=== PATIENT | female | born 1940 | race Caucasian/White ===

== ENCOUNTER 2018-05-18 17:32 | Emergency (ER) | payer MEDICARE, SELFPAY ==
[2018-05-18 17:34] VITALS: BP 192/85; PULSE 88; RESP 18; TEMP 36.4; O2SAT 98; BMI 24.5
[2018-05-18 18:17] LABS: Bacteria 0 SEEN /hpf (None Seen); Mucous, Urine 0 SEEN /hpf (<or=2+); Red Blood Cells-Urine 0 SEEN /hpf (0-5); Squamous Epithelial Cells - UA 0 SEEN /hpf (5-10); White Blood Cells 0 SEEN /hpf (0-5)
[2018-05-18 18:20] LABS: Color, Urine Yellow (Yellow); Glucose, Dipstick Normal (Normal); Ketone-Dipstick Negative (Negative); Leukocyte Esterase-Dipstick Negative /ul (Negative); Nitrite-Dipstick Negative (Negative); Occult Blood-Urine 25 /ul (Negative); Protein-Dipstick Negative (Negative); Urine Bilirubin Dipstick Negative (Negative); Urine Clarity Clear (Clear); Urine Urobilinogen Normal (Normal)
--- NOTE | 2018-05-18 19:03 | ED.VISSUMM ---
- ER Visit Summary Date of Service: 05/18/18 Chief Complaint: Prolapsed bladder, frequency History of Present Illness: The patient is a 78 F who states she has had problems with urinary retention for the past several months. She states if she waits it out she usually be able to go and empty her bladder, but today she has not been able to do so. She is having increasing lower abdominal pain. Patient states she does not see a urologist. Physical Examination: Blood pressure on arrival is 192/85, other vitals normal. Head neck examination unremarkable. Heart is regular rate and rhythm. Lung sounds are clear. Abdomen is soft with suprapubic tenderness and a palpable distended bladder. Test Results: Urinalysis is unremarkable. Emergency Department Course and Treatment: I assisted with reduction of the mild bladder prolapse. Berger catheter was then able to be placed by nursing staff without difficulty. 800 cc of light yellow urine is immediately returned. Test results are discussed with patient and family. Berger catheter will be left in place with a leg bag. She is referred to Dr. Steel for follow-up. Blood pressure at discharge is 153/63. Treatment Plan: [] Disposition: Discharge Impression: Urinary retention secondary to bladder prolapse This note was generated with [employer] dictation software. It may contain incorrect words, spelling, and punctuation that were not noted in review of the chart prior to signing ED Disposition - Plan for ED Patient: Disposition: Home or Assisted Living Chief Complaint: Complaint Instructions: Cystocele (Prolapsed Bladder), ED Retention Urinary Female Referrals: Maddison Steel MD [STAFF PHYSICIAN] - As soon as possible Ronald Leach MD [Primary Care Provider] -
--- NOTE | 2018-05-18 19:04 | ED.DEP ---
ED Disposition - Plan for ED Patient: Disposition: Home or Assisted Living Chief Complaint: Complaint Instructions: ED Retention Urinary Female, Cystocele (Prolapsed Bladder) Referrals: Ronald Leach MD [Primary Care Provider] - Maddison Steel MD [STAFF PHYSICIAN] - As soon as possible
[2018-05-18 19:42] VITALS: BP 153/63; PULSE 60; RESP 18; O2SAT 96
--- NOTE | 2018-05-18 19:43 | ED.RN ---
PT AND PT FAMILY GIVEN WRITTEN AND VERBAL INSTRUCTIONS REGUARDING HOME CARE OF CHEEMA AND USE OF LEG BAG. PT AND FAMILY VERBALIZE UNDERSTANDING AND DENY ANY FURTHER QUESTIONS. PT DRESSES SELF AND AMBULATES OUT OF DEPT WITH FAMILY.
== END 2018-05-18 19:45 | disposition home or self-care (01) ==
LOC: ED 19:17
PROVIDERS: Emergency Provider Emergency Medicine; Family Provider Family Medicine; PCP Family Medicine
DX: N81.10 Cystocele, unspecified (principal); R33.9 Retention of urine, unspecified; I10 Essential (primary) hypertension; Z79.82 Long term (current) use of aspirin; Z79.899 Other long term (current) drug therapy
CPT/HCPCS: 51702; 81001; 99283

== ENCOUNTER 2018-05-26 10:16 | Emergency (ER) | payer MEDICARE, SELFPAY ==
[2018-05-26 10:17] VITALS: BP 144/67; PULSE 76; RESP 17; TEMP 36.9; O2SAT 98; BMI 23.3
--- NOTE | 2018-05-26 11:15 | ED.VISSUMM ---
- ER Visit Summary Date of Service: 05/26/18 Chief Complaint: Bloody urine History of Present Illness: 78-year-old female history of hypertension and prolapsed bladder. Presented to the ER within the last week for urinary retention secondary to prolapsed bladder. Berger catheter placed. At that time workup was negative. Now she is having some blood from her urine. Denies fever or other complaints. Physical Examination: Well-appearing older female. No acute distress. Vital signs are stable afebrile. H EENT exam unremarkable. Neck nontender. Lungs clear to auscultation bilaterally. Heart regular rate and rhythm no murmur. Abdomen is soft and nontender. Normal bowel sounds. Nondistended. No peritoneal signs. She is moving all 4 extremities. Calves nontender without edema or cords. Neurologically awake and alert with no focal motor deficits. Patient does have a Berger catheter in. In the leg bag there is some blood. No clots. Test Results: Urinalysis shows urinary tract infection with 50-100 cells, 25-50 red cells and 2+ bacteria and nitrates. A urine culture was sent. Emergency Department Course and Treatment: I went over the test results with the patient and her friend. She will be started on Keflex in the emergency department. A urine culture will be sent. On repeat exam she was doing well at 1225 and will be discharged. Treatment Plan: Keflex 1 pill 4 times a day for 10 days. Urine culture sent and will return in 2 days. Disposition: Discharge Impression: Acute gross hematuria secondary to Berger catheter and acute UTI This note was generated with [employer] dictation software. It may contain incorrect words, spelling, and punctuation that were not noted in review of the chart prior to signing ED Disposition - Plan for ED Patient: Chief Complaint: Complaint Referrals: Ronald Leach MD [Primary Care Provider] -
[2018-05-26 11:47] LABS: Color, Urine Yellow (Yellow); Glucose, Dipstick Normal (Normal); Ketone-Dipstick Negative (Negative); Leukocyte Esterase-Dipstick 500 /ul (Negative); Nitrite-Dipstick Positive (Negative); Occult Blood-Urine 250 /ul (Negative); Protein-Dipstick 100 mg/dl (Negative); Urine Bilirubin Dipstick Negative (Negative); Urine Clarity Cloudy (Clear); Urine Urobilinogen Normal (Normal)
[2018-05-26 12:06] LABS: Bacteria 2+ /hpf (None Seen); Red Blood Cells-Urine 25-50 SEEN /hpf (0-5); Squamous Epithelial Cells - UA 0-5 SEEN /hpf (5-10); White Blood Cells 50-100 SEEN /hpf (0-5)
[2018-05-26 12:07] LABS: Mucous, Urine 2+ /hpf (<or=2+)
[2018-05-26 12:16] VITALS: BP 125/60; PULSE 66; RESP 14; O2SAT 98
--- NOTE | 2018-05-26 12:29 | ED.DEP ---
ED Disposition - Plan for ED Patient: Disposition: Home or Assisted Living Chief Complaint: Complaint Instructions: ED UTI Cystitis Female Prescriptions: Cephalexin [Keflex] 500 mg PO Q6 #40 cap Referrals: Ronald Leach MD [Primary Care Provider] - 3-5 Days if not improving Additional Instructions: Plenty of fluids and rest. Keflex 1 pill 4 times a day for 10 days should take care of any urinary tract infection. A urine culture was sent and we will match up what the infection is with the antibiotic that we started you on.
[2018-05-26 12:35] VITALS: BP 131/58; PULSE 65; RESP 14; O2SAT 99
[2018-05-26] MEDS: Cephalexin 250 MG Capsule 500 MG PO (12:35)
== END 2018-05-26 12:38 | disposition home or self-care (01) ==
PROVIDERS: Emergency Provider Emergency Medicine; Family Provider Family Medicine; PCP Family Medicine
DX: N39.0 Urinary tract infection, site not specified (principal); R31.0 Gross hematuria; Z96.0 Presence of urogenital implants; I10 Essential (primary) hypertension; N81.10 Cystocele, unspecified; Z79.82 Long term (current) use of aspirin; Z79.899 Other long term (current) drug therapy
CPT/HCPCS: 81001; 87086; 87088; 99284

== ENCOUNTER → 2018-06-14 07:32 | Outpatient (CLI) | payer MEDICARE, SELFPAY ==
[2018-06-14 10:31] LABS: Absolute Lymphocyte Count 1.86 X10^3/ul (0.83-4.51); Absolute Neutrophil Count 5.1 X10^3/uL (2.0-7.7); Basophil# 0.05 X10^3/uL; Basophil% 0.6 % (0-1); Eosinophil# 0.31 X10^3/uL; Eosinophils% 3.7 % (0-5); Hematocrit 35.9 % (37-47); Hemoglobin 11.8 g/dl (12.0-15.0); Lymphocyte # 1.86 X10^3/ul (4.0); Lymphocyte % 22.5 % (19-41); Mean Corp Hgb Conc 32.9 g/gl (32-36); Mean Corpuscular Hgb 29.7 pg (27.0-32.0); Mean Corpuscular Volume 90.4 fL (81-99); Mean Platelet Vol. 10.4 fl (6.2-12.0); Monocyte# 0.98 X10^3/uL; Monocyte% 11.9 % (0-10); Neutrophil # 5.06 X10^3/uL (2.7-7.7); Neutrophil % 61.2 % (47-70); Platelet Count 445 K/mm3 (150-450); RBC Distribution Width CV 14.9 % (11.6-14.6); RBC Distribution Width SD 48.7 fl (35.1-43.9); Red Blood Count 3.97 M/mm3 (4.2-5.4); White Blood Count 8.3 K/mm3 (4.4-11.0)
[2018-06-14 10:35] LABS: POSITIVE COUNT NO; POSITIVE DIFFERENTIAL NO; POSITIVE MORPHOLOGY NO
[2018-06-14 10:40] LABS: Anion Gap 7 (5-15); BUN 11 mg/dL (7-18); BUN/Creat Ratio 12.8 RATIO (10-20); Chloride 107 mmol/L (98-107); Creatinine, Serum 0.86 mg/dL (0.55-1.02); EST Glomerular Filtration Rate 68 mL/min (>60); Est Glom Filt Rate - Afr Amer 82 mL/min (>60); Glucose 94 mg/dL (74-106); Potassium 3.8 mmol/L (3.5-5.1); Sodium Level 142 mmol/L (136-145)
== END ==
PROVIDERS: Family Provider Family Medicine; PCP Family Medicine; Referring Provider Family Medicine; Visit Provider Family Medicine
DX: I10 Essential (primary) hypertension (principal)
CPT/HCPCS: 36415; 80048; 85025

== ENCOUNTER → 2019-01-15 | Outpatient (CLI) | payer MEDICARE, SELFPAY ==
[2019-01-15 10:14] LABS: Absolute Lymphocyte Count 1.61 X10^3/ul (0.83-4.51); Absolute Neutrophil Count 4.7 X10^3/uL (2.0-7.7); Basophil# 0.04 X10^3/uL; Basophil% 0.5 % (0-1); Eosinophil# 0.13 X10^3/uL; Eosinophils% 1.8 % (0-5); Hematocrit 37.3 % (37-47); Hemoglobin 12.4 g/dl (12.0-15.0); Lymphocyte # 1.61 X10^3/ul (4.0); Lymphocyte % 21.8 % (19-41); Mean Corp Hgb Conc 33.2 g/gl (32-36); Mean Corpuscular Volume 87.4 fL (81-99); Mean Platelet Vol. 10.1 fl (6.2-12.0); Monocyte# 0.92 X10^3/uL; Monocyte% 12.4 % (0-10); Neutrophil # 4.68 X10^3/uL (2.7-7.7); Neutrophil % 63.2 % (47-70); Platelet Count 422 K/mm3 (150-450); RBC Distribution Width SD 47.7 fl (35.1-43.9); Red Blood Count 4.27 M/mm3 (4.2-5.4); White Blood Count 7.4 K/mm3 (4.4-11.0)
[2019-01-15 10:15] LABS: POSITIVE COUNT NO; POSITIVE DIFFERENTIAL NO; POSITIVE MORPHOLOGY NO
[2019-01-15 10:23] LABS: Anion Gap 5 (5-15); BUN 14 mg/dL (7-18); BUN/Creat Ratio 16.6 RATIO (10-20); Calcium,Total 8.8 mg/dL (8.5-10.1); Chloride 108 mmol/L (98-107); Creatinine, Serum 0.84 mg/dL (0.55-1.02); EST Glomerular Filtration Rate 69 mL/min (>60); Est Glom Filt Rate - Afr Amer 83 mL/min (>60); Glucose 97 mg/dL (74-106); Potassium 3.9 mmol/L (3.5-5.1); Sodium Level 140 mmol/L (136-145)
== END | disposition home or self-care (01) ==
PROVIDERS: Family Provider Family Medicine; PCP Family Medicine; Referring Provider Family Medicine; Visit Provider Family Medicine
DX: I10 Essential (primary) hypertension (principal)
CPT/HCPCS: 36415; 80048; 85025

== ENCOUNTER → 2020-01-14 08:16 | Outpatient (CLI) | payer MEDICARE, SELFPAY ==
[2020-01-14 10:20] LABS: Anion Gap 5 (5-15); BUN 19 mg/dL (7-18); BUN/Creat Ratio 20.6 RATIO (10-20); Calcium,Total 9.4 mg/dL (8.5-10.1); Chloride 111 mmol/L (98-107); Cholesterol 183 mg/dL (200); Creatinine, Serum 0.92 mg/dL (0.55-1.02); EST Glomerular Filtration Rate 62 mL/min (>60); Est Glom Filt Rate - Afr Amer 75 mL/min (>60); Glucose 101 mg/dL (74-106); High Density Lipoprotein 78 mg/dL; Potassium 3.8 mmol/L (3.5-5.1); Sodium Level 142 mmol/L (136-145); Triglycerides 100 mg/dL; Very Low Density Lipoprotein 20 mg/dL (5-40)
== END ==
PROVIDERS: PCP Family Medicine; Referring Provider Family Medicine; Visit Provider Family Medicine
DX: I10 Essential (primary) hypertension (principal)
CPT/HCPCS: 36415; 80048; 80061

== ENCOUNTER → 2020-11-01 08:11 | Outpatient (CLI) | payer MEDICARE, SELFPAY ==
[2020-11-01 10:21] LABS: AST(SGOT) 21 U/L (15-37); Alanine Aminotransfer ALT/SGPT 18 U/L (13-56); Albumin, Serum 3.8 g/dL (3.2-5.0); Alkaline Phosphatase 76 U/L (45-117); Anion Gap 6 (5-15); BUN 19 mg/dL (7-18); BUN/Creat Ratio 19.5 RATIO (10-20); Calcium,Total 9.1 mg/dL (8.5-10.1); Chloride 107 mmol/L (98-107); Cholesterol 204 mg/dL (200); Creatinine, Serum 0.97 mg/dL (0.55-1.02); EST Glomerular Filtration Rate 58 mL/min (>60); Est Glom Filt Rate - Afr Amer 71 mL/min (>60); Globulin 3.7 g/dL (2.2-4.2); Glucose 102 mg/dL (74-106); High Density Lipoprotein 78 mg/dL; Potassium 3.8 mmol/L (3.5-5.1); Protein, Total 7.5 g/dL (6.4-8.2); Sodium Level 140 mmol/L (136-145); Triglycerides 73 mg/dL; Very Low Density Lipoprotein 15 mg/dL (5-40)
== END ==
PROVIDERS: PCP Family Medicine; Referring Provider Family Medicine; Visit Provider Family Medicine
DX: I10 Essential (primary) hypertension (principal)
CPT/HCPCS: 36415; 80053; 80061

== ENCOUNTER → 2021-06-21 09:55 | Outpatient (CLI) | payer MEDICARE, SELFPAY ==
[2021-06-21 12:45] LABS: ALB/GLOB Ratio 0.9 RATIO (0.9-2.4); AST(SGOT) 20 U/L (15-37); Alanine Aminotransfer ALT/SGPT 17 U/L (13-56); Albumin, Serum 3.5 g/dL (3.2-5.0); Alkaline Phosphatase 68 U/L (45-117); BUN 20 mg/dL (7-18); BUN/Creat Ratio 20.9 RATIO (10-20); Calcium,Total 9.4 mg/dL (8.5-10.1); Creatinine, Serum 0.96 mg/dL (0.55-1.02); EST Glomerular Filtration Rate 59 mL/min (>60); Est Glom Filt Rate - Afr Amer 72 mL/min (>60); Glucose 92 mg/dL (74-106); Protein, Total 7.5 g/dL (6.4-8.2); Sodium Level 139 mmol/L (136-145)
[2021-06-21 12:46] LABS: Anion Gap 6 (5-15); Chloride 105 mmol/L (98-107); Potassium 3.8 mmol/L (3.5-5.1)
== END ==
PROVIDERS: PCP Family Medicine; Referring Provider Registered Nurse; Visit Provider Registered Nurse
DX: Z00.00 Encounter for general adult medical examination without abnormal findings (principal)
CPT/HCPCS: 36415; 80053

== ENCOUNTER → 2022-06-07 | Outpatient (CLI) | payer MEDICARE, SELFPAY ==
[2022-06-07 15:04] LABS: Mucous, Urine 0 SEEN /hpf (<or=2+)
[2022-06-07 17:34] LABS: Color, Urine Straw (Yellow); Glucose, Dipstick Normal (Normal); Ketone-Dipstick Negative (Negative); Leukocyte Esterase-Dipstick 25 /ul (Negative); Nitrite-Dipstick Negative (Negative); Occult Blood-Urine 10 /ul (Negative); Protein-Dipstick Negative (Negative); Urine Bilirubin Dipstick Negative (Negative); Urine Clarity Clear (Clear); Urine Urobilinogen Normal (Normal); Urine pH 6.5 (5.0 - 8.0)
[2022-06-07 17:44] LABS: Absolute Lymphocyte Count 1.52 X10^3/uL (0.83-4.51); Absolute Neutrophil Count 5.9 X10^3/uL (2.0-7.7); Basophil# 0.08 X10^3/uL; Basophil% 0.9 % (0-1); Eosinophil# 0.14 X10^3/uL; Eosinophils% 1.6 % (0-5); Hematocrit 34.9 % (37-47); Hemoglobin 11.1 g/dL (12.0-15.0); Lymphocyte # 1.52 X10^3/ul (0.83-4.51); Lymphocyte % 17.6 % (19-41); Mean Corp Hgb Conc 31.8 g/dL (32-36); Mean Corpuscular Hgb 29.1 pg (27.0-32.0); Mean Corpuscular Volume 91.6 fL (81-99); Mean Platelet Vol. 9.9 fl (6.2-12.0); Monocyte# 1.02 X10^3/uL; Monocyte% 11.8 % (0-10); NRBC Flagged by Analyzer 0 % (0-5); Neutrophil # 5.87 X10^3/uL (2.7-7.7); Neutrophil % 67.8 % (47-70); Platelet Count 429 K/mm3 (150-450); RBC Distribution Width CV 14.7 % (11.6-14.6); RBC Distribution Width SD 49.6 fl (35.1-43.9); Red Blood Count 3.81 M/mm3 (4.2-5.4); White Blood Count 8.7 K/mm3 (4.4-11.0)
[2022-06-07 17:45] LABS: Protein, Urine (Random) < 6.0 mg/dL (<11.9); Protein:Creat Ratio 283 mg/g CRE (0-200)
[2022-06-07 17:46] LABS: Bacteria 2+ /hpf (None Seen); Red Blood Cells-Urine 0-5 SEEN /hpf (0-5); Squamous Epithelial Cells - UA 0-5 SEEN /hpf (5-10); White Blood Cells 0-5 SEEN /hpf (0-5)
[2022-06-07 18:13] LABS: Vitamin D,25 Hydroxy 27.7 ng/mL
[2022-06-07 18:22] LABS: PTHIN 85.8 pg/mL (18.4-80.1)
[2022-06-07 18:39] LABS: AST(SGOT) 22 U/L (15-37); Alanine Aminotransfer ALT/SGPT 22 U/L (13-56); Albumin, Serum 3.9 g/dL (3.2-5.0); Alkaline Phosphatase 74 U/L (45-117); Anion Gap 8 (5-15); BUN 19 mg/dL (7-18); BUN/Creat Ratio 19.3 RATIO (10-20); Calcium,Total 9.6 mg/dL (8.5-10.1); Chloride 107 mmol/L (98-107); Creatinine, Serum 0.99 mg/dL (0.55-1.02); EST Glomerular Filtration Rate 57 mL/min (>60); Est Glom Filt Rate - Afr Amer 69 mL/min (>60); Globulin 3.9 g/dL (2.2-4.2); Glucose 96 mg/dL (74-106); Phosphorus 3.4 mg/dL (2.5-4.9); Potassium 3.7 mmol/L (3.5-5.1); Protein, Total 7.8 g/dL (6.4-8.2); Sodium Level 139 mmol/L (136-145); Thyroid Stim Hormone (TSH) 3.25 uIU/mL (0.358-3.74)
[2022-06-08 14:04] LABS: Vitamin B12 416 pg/mL (211-911)
[2022-06-08 14:11] LABS: Ferritin 188 ng/mL (8-252); Iron 51 ug/dL (50-170); Iron Binding Capacity,Total 245 ug/dL (250-450); PERCENT IRON SATURATION 20.8 % (15.0-55.0)
== END | disposition home or self-care (01) ==
LOC: MFPLAB 15:02
PROVIDERS: PCP Family Medicine; Referring Provider Family Medicine; Visit Provider Family Medicine
DX: I12.9 Hypertensive chronic kidney disease with stage 1 through stage 4 chronic kidney disease, or unspecified chronic kidney disease (principal); N18.30 Chronic kidney disease, stage 3 unspecified; D64.9 Anemia, unspecified
CPT/HCPCS: 36415; 80053; 81001; 82306; 82570; 82607; 82728; 83540; 83550; 83970; 84100; 84156; 84443; 85025

== ENCOUNTER → 2023-05-28 | Outpatient (CLI) | payer MEDICARE, SELFPAY ==
[2023-05-28 10:14] LABS: Absolute Neutrophil Count 5.4 X10^3/uL (2.0-7.7); Basophil# 0.09 X10^3/uL; Basophil% 1.1 % (0-1); Eosinophil# 0.23 X10^3/uL; Eosinophils% 2.8 % (0-5); Hematocrit 34.1 % (37-47); Hemoglobin 10.9 g/dL (12.0-15.0); Lymphocyte % 19.3 % (19-41); Mean Corpuscular Hgb 29.1 pg (27.0-32.0); Mean Corpuscular Volume 90.9 fL (81-99); Mean Platelet Vol. 9.8 fl (6.2-12.0); Monocyte# 0.98 X10^3/uL; Monocyte% 11.8 % (0-10); NRBC Flagged by Analyzer 0 % (0-5); Neutrophil # 5.35 X10^3/uL (2.7-7.7); Neutrophil % 64.6 % (47-70); Platelet Count 428 K/mm3 (150-450); RBC Distribution Width CV 14.9 % (11.6-14.6); RBC Distribution Width SD 49.7 fl (35.1-43.9); Red Blood Count 3.75 M/mm3 (4.2-5.4); White Blood Count 8.3 K/mm3 (4.4-11.0)
[2023-05-28 11:25] LABS: AST(SGOT) 23 U/L (15-37); Alanine Aminotransfer ALT/SGPT 18 U/L (13-56); Albumin, Serum 3.9 g/dL (3.2-5.0); Alkaline Phosphatase 73 U/L (45-117); Anion Gap 8 (5-15); BUN 21 mg/dL (7-18); BUN/Creat Ratio 17.5 RATIO (10-20); Calcium,Total 9.6 mg/dL (8.5-10.1); Chloride 106 mmol/L (98-107); EST Glomerular Filtration Rate 46 mL/min (>60); Est Glom Filt Rate - Afr Amer 55 mL/min (>60); Globulin 3.8 g/dL (2.2-4.2); Glucose 97 mg/dL (74-106); Phosphorus 3.3 mg/dL (2.5-4.9); Potassium 3.7 mmol/L (3.5-5.1); Protein, Total 7.7 g/dL (6.4-8.2); Sodium Level 139 mmol/L (136-145)
[2023-05-28 12:02] LABS: Color, Urine Yellow (Yellow); Glucose, Dipstick Normal (Normal); Ketone-Dipstick Negative (Negative); Leukocyte Esterase-Dipstick 500 /ul (Negative); Nitrite-Dipstick Negative (Negative); Occult Blood-Urine 25 /ul (Negative); Protein-Dipstick Negative (Negative); Specific Gravity, Urine 1.015 (1.002-1.030); Urine Bilirubin Dipstick Negative (Negative); Urine Clarity Sl. Cloudy (Clear); Urine Urobilinogen Normal (Normal)
[2023-05-28 12:33] LABS: Protein, Urine (Random) 17.1 mg/dL (<11.9); Protein:Creat Ratio 166 mg/g CRE (0-200)
[2023-05-28 12:39] LABS: Red Blood Cells-Urine 0-5 SEEN /hpf (0-5); Squamous Epithelial Cells - UA 0-5 SEEN /hpf (5-10); White Blood Cells 25-50 SEEN /hpf (0-5)
[2023-05-28 12:40] LABS: Bacteria 1+ /hpf (None Seen)
== END | disposition home or self-care (01) ==
PROVIDERS: PCP Family Medicine; Referring Provider Family Medicine; Visit Provider Family Medicine
DX: R82.81 Pyuria (principal)
CPT/HCPCS: 36415; 80053; 81001; 82570; 83970; 84100; 84156; 85025

== ENCOUNTER → 2023-05-30 | Outpatient (CLI) | payer MEDICARE, SELFPAY | END | disposition home or self-care (01) | PROVIDERS: PCP Family Medicine; Referring Provider Family Medicine; Visit Provider Family Medicine | DX: R82.81 Pyuria (principal) | CPT/HCPCS: 87086; 87088 ==

== ENCOUNTER → 2023-11-12 | Outpatient (CLI) | payer MEDICARE, SELFPAY ==
[2023-11-12 09:24] LABS: Bacteria 0 SEEN /hpf (None Seen); Mucous, Urine 0 SEEN /hpf (<or=2+); Red Blood Cells-Urine 0 SEEN /hpf (0-5)
[2023-11-12 10:38] LABS: Absolute Lymphocyte Count 1.11 X10^3/uL (0.83-4.51); Absolute Neutrophil Count 7.9 X10^3/uL (2.0-7.7); Basophil# 0.12 X10^3/uL; Basophil% 1.2 % (0-1); Eosinophil# 0.22 X10^3/uL; Eosinophils% 2.1 % (0-5); Hemoglobin 10.8 g/dL (12.0-15.0); Lymphocyte # 1.11 X10^3/ul (0.83-4.51); Lymphocyte % 10.7 % (19-41); Mean Corp Hgb Conc 31.8 g/dL (32-36); Mean Corpuscular Hgb 28.6 pg (27.0-32.0); Mean Corpuscular Volume 90.2 fL (81-99); Mean Platelet Vol. 9.8 fl (6.2-12.0); Monocyte% 9.6 % (0-10); NRBC Flagged by Analyzer 0 % (0-5); Neutrophil # 7.89 X10^3/uL (2.7-7.7); Platelet Count 434 K/mm3 (150-450); RBC Distribution Width CV 14.8 % (11.6-14.6); RBC Distribution Width SD 48.9 fl (35.1-43.9); Red Blood Count 3.77 M/mm3 (4.2-5.4); White Blood Count 10.4 K/mm3 (4.4-11.0)
[2023-11-12 10:39] LABS: Color, Urine Yellow (Yellow); Glucose, Dipstick Normal (Normal); Ketone-Dipstick 5 mg/dl (Negative); Leukocyte Esterase-Dipstick 500 /ul (Negative); Nitrite-Dipstick Negative (Negative); Occult Blood-Urine 25 /ul (Negative); Protein-Dipstick 30 mg/dl (Negative); Urine Bilirubin Dipstick Negative (Negative); Urine Clarity Clear (Clear); Urine Urobilinogen Normal (Normal)
[2023-11-12 10:54] LABS: Squamous Epithelial Cells - UA 0-5 SEEN /hpf (5-10); White Blood Cells 5-10 SEEN /hpf (0-5)
[2023-11-12 11:10] LABS: Vitamin B12 560 pg/mL (211-911)
[2023-11-12 11:55] LABS: ALB/GLOB Ratio 1.1 RATIO (0.9-2.4); AST(SGOT) 24 U/L (15-37); Alanine Aminotransfer ALT/SGPT 16 U/L (13-56); Albumin, Serum 3.8 g/dL (3.2-5.0); Alkaline Phosphatase 65 U/L (45-117); Anion Gap 5 (5-15); BUN 24 mg/dL (7-18); Calcium,Total 9.4 mg/dL (8.5-10.1); Chloride 110 mmol/L (98-107); Creatinine, Serum 1.41 mg/dL (0.55-1.02); EST Glomerular Filtration Rate 38 mL/min (>60); Est Glom Filt Rate - Afr Amer 46 mL/min (>60); Ferritin 194 ng/mL (8-252); Globulin 3.6 g/dL (2.2-4.2); Glucose 98 mg/dL (74-106); Iron 75 ug/dL (50-170); Iron Binding Capacity,Total 237 ug/dL (250-450); Protein, Total 7.4 g/dL (6.4-8.2); Sodium Level 140 mmol/L (136-145)
== END | disposition home or self-care (01) ==
PROVIDERS: PCP Family Medicine; Referring Provider Family Medicine; Visit Provider Family Medicine
DX: N18.30 Chronic kidney disease, stage 3 unspecified (principal); D64.9 Anemia, unspecified
CPT/HCPCS: 36415; 80053; 81001; 82607; 82728; 82746; 83540; 83550; 85025

== ENCOUNTER → 2024-04-25 | Outpatient (CLI) | payer MEDICARE, SELFPAY ==
[2024-04-25 12:29] LABS: Mucous, Urine 0 SEEN /hpf (<or=2+)
[2024-04-25 15:19] LABS: Absolute Neutrophil Count 7.8 X10^3/uL (2.0-7.7); Basophil% 0.9 % (0-1); Eosinophil# 0.44 X10^3/uL; Hematocrit 31.2 % (37-47); Hemoglobin 9.7 g/dL (12.0-15.0); Lymphocyte % 13.7 % (19-41); Mean Corp Hgb Conc 31.1 g/dL (32-36); Mean Corpuscular Hgb 28.4 pg (27.0-32.0); Mean Corpuscular Volume 91.2 fL (81-99); Mean Platelet Vol. 10.4 fl (6.2-12.0); Monocyte# 1.05 X10^3/uL; Monocyte% 9.6 % (0-10); NRBC Flagged by Analyzer 0 % (0-5); Neutrophil # 7.84 X10^3/uL (2.7-7.7); Neutrophil % 71.4 % (47-70); Platelet Count 470 K/mm3 (150-450); RBC Distribution Width SD 49.7 fl (35.1-43.9); Red Blood Count 3.42 M/mm3 (4.2-5.4)
[2024-04-25 15:28] LABS: Color, Urine Yellow (Yellow); Glucose, Dipstick Normal (Normal); Ketone-Dipstick Negative (Negative); Leukocyte Esterase-Dipstick 100 /ul (Negative); Nitrite-Dipstick Negative (Negative); Occult Blood-Urine 10 /ul (Negative); Protein-Dipstick 15 mg/dl (Negative); Specific Gravity, Urine 1.015 (1.002-1.030); Urine Bilirubin Dipstick Negative (Negative); Urine Clarity Clear (Clear); Urine Urobilinogen Normal (Normal); Urine pH 6.5 (5.0 - 8.0)
[2024-04-25 15:37] LABS: Bacteria 1+ /hpf (None Seen); Red Blood Cells-Urine 0-5 SEEN /hpf (0-5); Squamous Epithelial Cells - UA 0-5 SEEN /hpf (5-10); White Blood Cells 0-5 SEEN /hpf (0-5)
[2024-04-25 15:55] LABS: Protein:Creat Ratio 289 mg/g CRE (0-200)
[2024-04-25 16:04] LABS: Vitamin D,25 Hydroxy 29.5 ng/mL
[2024-04-25 16:05] LABS: PTHIN 91.4 pg/mL (18.4-80.1)
[2024-04-25 16:48] LABS: ALB/GLOB Ratio 0.8 RATIO (0.9-2.4); AST(SGOT) 22 U/L (15-37); Alanine Aminotransfer ALT/SGPT 18 U/L (13-56); Albumin, Serum 3.6 g/dL (3.2-5.0); Alkaline Phosphatase 76 U/L (45-117); Anion Gap 8 (5-15); BUN 25 mg/dL (7-18); BUN/Creat Ratio 20.5 RATIO (10-20); Calcium,Total 9.9 mg/dL (8.5-10.1); Chloride 107 mmol/L (98-107); Cholesterol 166 mg/dL (200); Creatinine, Serum 1.22 mg/dL (0.55-1.02); EST Glomerular Filtration Rate 45 mL/min (>60); Est Glom Filt Rate - Afr Amer 54 mL/min (>60); Ferritin 157 ng/mL (8-252); Globulin 4.7 g/dL (2.2-4.2); Glucose 104 mg/dL (74-106); High Density Lipoprotein 81 mg/dL; Iron 55 ug/dL (50-170); Iron Binding Capacity,Total 229 ug/dL (250-450); Magnesium 2.1 mg/dL (1.6-2.6); Potassium 3.9 mmol/L (3.5-5.1); Protein, Total 8.3 g/dL (6.4-8.2); Sodium Level 139 mmol/L (136-145); Triglycerides 77 mg/dL; Very Low Density Lipoprotein 15 mg/dL (5-40)
== END | disposition home or self-care (01) ==
LOC: MFPLAB 12:25
PROVIDERS: PCP Family Medicine; Visit Provider Family Medicine
DX: D64.9 Anemia, unspecified (principal); N18.30 Chronic kidney disease, stage 3 unspecified; I12.9 Hypertensive chronic kidney disease with stage 1 through stage 4 chronic kidney disease, or unspecified chronic kidney disease
CPT/HCPCS: 36415; 80053; 80061; 81001; 82306; 82570; 82728; 83540; 83550; 83735; 83970; 84156; 84443; 85025

== ENCOUNTER → 2024-12-09 | Outpatient (CLI) | payer MEDICARE, SELFPAY ==
[2024-12-09 15:57] LABS: Absolute Lymphocyte Count 0.97 X10^3/uL (0.83-4.51); Absolute Neutrophil Count 5.5 X10^3/uL (2.0-7.7); Basophil# 0.09 X10^3/uL; Basophil% 1.2 % (0-1); Eosinophil# 0.12 X10^3/uL; Eosinophils% 1.6 % (0-5); Hematocrit 31.9 % (37-47); Hemoglobin 10.3 g/dL (12.0-15.0); Lymphocyte # 0.97 X10^3/ul (0.83-4.51); Mean Corp Hgb Conc 32.3 g/dL (32-36); Mean Corpuscular Hgb 28.9 pg (27.0-32.0); Mean Corpuscular Volume 89.4 fL (81-99); Mean Platelet Vol. 10.2 fl (6.2-12.0); Monocyte% 10.7 % (0-10); NRBC Flagged by Analyzer 0 % (0-5); Neutrophil # 5.49 X10^3/uL (2.7-7.7); Neutrophil % 73.2 % (47-70); Platelet Count 442 K/mm3 (150-450); RBC Distribution Width CV 15.4 % (11.6-14.6); RBC Distribution Width SD 50.5 fl (35.1-43.9); Red Blood Count 3.57 M/mm3 (4.2-5.4); White Blood Count 7.5 K/mm3 (4.4-11.0)
[2024-12-09 16:34] LABS: PTHIN 76 pg/mL (11-61)
[2024-12-09 16:52] LABS: ALB/GLOB Ratio 1.2 RATIO (0.9-2.4); AST(SGOT) 25 U/L (<=31); Alanine Aminotransfer ALT/SGPT 12 U/L (<=34); Albumin, Serum 4.3 g/dL (3.4-4.8); Alkaline Phosphatase 76 U/L (35-104); Anion Gap 13 (5-15); BUN 26 mg/dL (4-19); BUN/Creat Ratio 20.8 RATIO (10-20); Carbon Dioxide 22.3 mmol/L (21.0-32.0); Chloride 102 mmol/L (98-108); Creatinine, Serum 1.27 mg/dL (0.70-1.20); EST Glomerular Filtration Rate 41 (>60); Globulin 3.6 g/dL (2.2-4.2); Glucose 105 mg/dL (70-99); Phosphorus 3.4 mg/dL (2.7-4.5); Potassium 3.9 mmol/L (3.3-5.1); Protein, Total 7.9 g/dL (5.9-8.4); Sodium Level 137 mmol/L (133-145); Total Bilirubin 0.36 mg/dL (0.00-1.30); Vitamin D,25 Hydroxy 23.6 ng/mL (30-100)
[2024-12-11 12:06] LABS: Ferritin 278 ng/mL (22-378); Iron 72 ug/dL (50-170); Iron Binding Capacity,Unsat 161 ug/dL (228-428); Vitamin B12 608 pg/mL (180-914)
[2024-12-11 13:05] LABS: Iron Binding Capacity,Total 233 ug/dL (250-450); PERCENT IRON SATURATION 30.9 % (13-59)
== END | disposition home or self-care (01) ==
LOC: MFPLAB 11:38
PROVIDERS: PCP Family Medicine; Referring Provider Family Medicine; Visit Provider Family Medicine
DX: D64.9 Anemia, unspecified (principal); N18.30 Chronic kidney disease, stage 3 unspecified
CPT/HCPCS: 36415; 80053; 81001; 82043; 82306; 82570; 82607; 82728; 83540; 83550; 83970; 84100; 85025

== ENCOUNTER → 2024-12-22 | Outpatient (CLI) | payer MEDICARE, SELFPAY ==
[2024-12-22 09:20] LABS: Bacteria 0 SEEN /hpf (None Seen); Mucous, Urine 0 SEEN /hpf (<or=2+); Red Blood Cells-Urine 0 SEEN /hpf (0-5)
[2024-12-22 10:33] LABS: Color, Urine Yellow (Yellow); Glucose, Dipstick Normal (Normal); Ketone-Dipstick Negative (Negative); Leukocyte Esterase-Dipstick 500 /ul (Negative); Nitrite-Dipstick Negative (Negative); Occult Blood-Urine 10 /ul (Negative); Protein-Dipstick 15 mg/dl (Negative); Specific Gravity, Urine 1.015 (1.002-1.030); Urine Bilirubin Dipstick Negative (Negative); Urine Clarity Clear (Clear); Urine Urobilinogen Normal (Normal)
[2024-12-22 11:15] LABS: Anion Gap 12 (5-15); BUN 36 mg/dL (4-19); BUN/Creat Ratio 22.8 RATIO (10-20); Calcium,Total 9.7 mg/dL (7.6-11.0); Chloride 102 mmol/L (98-108); Creatinine, Serum 1.59 mg/dL (0.70-1.20); EST Glomerular Filtration Rate 32 (>60); Glucose 114 mg/dL (70-99); Sodium Level 136 mmol/L (133-145)
[2024-12-22 11:33] LABS: White Blood Cells 5-10 SEEN /hpf (0-5)
[2024-12-22 11:35] LABS: Squamous Epithelial Cells - UA 0-5 SEEN /hpf (5-10)
[2024-12-22 11:58] LABS: Protein, Urine (Random) 12.5 mg/dL (0.0-12.0); Protein:Creat Ratio 160 mg/g CRE (0-200)
== END | disposition home or self-care (01) ==
LOC: MFPLAB 09:13
PROVIDERS: PCP Family Medicine; Referring Provider Family Medicine; Visit Provider Family Medicine
DX: N18.30 Chronic kidney disease, stage 3 unspecified (principal)
CPT/HCPCS: 36415; 80048; 81001; 82570; 84156

== ENCOUNTER → 2024-12-23 | Outpatient (CLI) | payer MEDICARE, SELFPAY | END | disposition home or self-care (01) | LOC: LABSPEC 14:05 | PROVIDERS: PCP Family Medicine; Referring Provider Family Medicine; Visit Provider Family Medicine | DX: R82.81 Pyuria (principal) | CPT/HCPCS: 87086; 87088 ==

== ENCOUNTER 2025-04-15 14:30 | Outpatient (RCR) | payer MEDICARE, SELFPAY ==
[2025-04-08 14:16] VITALS: BP 99/58; PULSE 70; RESP 18; TEMP 36.4
--- NOTE | 2025-04-09 08:33 | WC ---
PHOTO-RIGHT LATERAL 04/08/25
--- NOTE | 2025-04-09 08:36 | WC ---
PHOTO-RIGHT MED 04/08/25
--- NOTE | 2025-04-09 08:38 | WC ---
PHOTO-LEFT MED CLUSTER 04/08/25
--- NOTE | 2025-04-09 08:38 | WC ---
PHOTO-L 04/08/25
--- NOTE | 2025-04-09 10:01 | PCM.WC.HP ---
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 Progress of Wound: Patient is a 85-year-old female presenting to the wound care center today for evaluation of full-thickness wounds to the bilateral lower extremity secondary to fleabites. Patient unfortunately had a cat with multiple fleas and dealt with an infestation in her house that has ultimately been treated. Since then the patient has had multiple excoriations as well as full-thickness wounds with eschar to the bilateral lower extremity. Treatment has been with topical triple ointment antibiotic that has been provided by her daughter. Patient was referred to the wound care center for expert evaluation with podiatry from her primary doctor. Overall the patient states things have gotten a little worse and she notices more swelling to the bilateral extremity with pain with long periods of standing. She denies trauma. Denies constitutional symptoms. No other pedal complaints at this time. [facility] Home Medications Medication Instructions Recorded Last Taken Type lisinopril 10 10 - 12.5 mg PO DAILY 03/19/15 Unknown History mg-hydrochlorothiazide 12.5 mg tablet multivitamin with folic acid 400 1 tab PO DAILY 03/19/15 Unknown History mcg tablet (Thera) aspirin 81 mg tablet,delayed 81 mg PO DAILY@0800 05/24/15 05/23/15 08:00 History release cephalexin 500 mg capsule 500 mg PO Q6 #40 caps 05/26/18 Unknown Rx doxycycline hyclate 100 mg tablet 100 mg PO BID 04/08/25 Unknown History furosemide 40 mg tablet 40 mg PO 04/08/25 Unknown History Allergy/AdvReac Type Severity Reaction Status Date / Time No Known Allergies Allergy Verified 05/26/18 10:17 Social History Smoking Status: Never smoker Vital Signs Vital Signs Vital Signs: 04/08/25 14:16 Temperature 97.6 F L Temperature Source Temporal Pulse Rate 70 Respiratory Rate 18 Blood Pressure 99/58 L Blood Pressure Mean 71 Blood Pressure Source Monitor Physical Exam Narrative Vascular: DP and PT pulses palpable. CFT brisk. No erythema or proximal streaking. Skin temperature is warm to warm with no focal increase. Nonpitting edema appreciated to bilateral lower extremity. Neurologic: Light touch and epicritic sensations intact. Protective sensation intact to 10/10 sites with 5.07 Maynard-Gigi monofilament. Dermatologic: Full-thickness wound to the right second digit measuring 1.5 x 1.0 x 0.1 cm. Wound base is granular with no sign of infection. Full-thickness wound to the right leg measuring 9.6 x 5.9 x 0.1 cm. Wound base is fibrogranular in nature with eschar island. Full-thickness wound appreciated to the left leg measuring 7.5 x 10.0 x 0.2 cm. Wound base is fibrogranular nature with island eschar. Multiple excoriations appreciated to bilateral lower extremity. Stable cannot rule out infection at this time. Excisional debridement down to and including subcutaneous tissue to the right lower extremity full-thickness wound with a number 5 mm dermal curette and without incident. Predebridement measurement with eschar. Postdebridement measurement is 9.6 x 5.9 x 0.1 cm. Excisional debridement down to including subcutaneous tissue of the left lower extremity full-thickness wound with a number 5 mm dermal curette done without incident. Predebridement measurement was eschar. Postdebridement measurement is 7.5 x 10.0 x 0.2 cm. Excisional debridement down to including subcutaneous tissue of the right second digit full-thickness wound done with a 5 mm dermal curette without incident. Predebridement measurement was sanguinous crust. Postdebridement measurement is 1.5 x 1.0 x 0.1 cm. Musculoskeletal: Mild palpatory tenderness appreciated the bilateral lower extremity. No pain with calf compression bilateral. Debridement Note Debridement Note Debridement Free Text: Excisional debridement down to and including subcutaneous tissue to the right lower extremity full-thickness wound with a number 5 mm dermal curette and without incident. Predebridement measurement with eschar. Postdebridement measurement is 9.6 x 5.9 x 0.1 cm. Excisional debridement down to including subcutaneous tissue of the left lower extremity full-thickness wound with a number 5 mm dermal curette done without incident. Predebridement measurement was eschar. Postdebridement measurement is 7.5 x 10.0 x 0.2 cm. Excisional debridement down to including subcutaneous tissue of the right second digit full-thickness wound done with a 5 mm dermal curette without incident. Predebridement measurement was sanguinous crust. Postdebridement measurement is 1.5 x 1.0 x 0.1 cm. Post-Debridement Measurements and Additional Note: Post-Debridement Measurements/Treatment - Nurse 1 - General Ulcer Assessment Start: 04/08/25 14:12 Freq: Status: Active Protocol: MADYSON Activity Type Activity Date Activity User E-sign Co-sign Detail Recorded Client Recorded Date Recorded By Document 04/08/25 14:16 DL [id number] 04/08/25 14:44 DL 04/08/25 14:16 - Today's Visit Information Type of service Initial Visit Arrival Mode Ambulatory, Walker Transfer Assistance Manual Transfer Assist (Other) x1 Patient Identification Verified (Name & Yes ) Patient Requires Transmission-Based No Precautions Vital Signs Temperature (97.8 F-99.1 F) 97.6 F L Temperature Source Temporal Pulse Rate (60-100) 70 Pulse Location Monitor Respiratory Rate (12-18) 18 Respiratory rate source Observation Blood Pressure (90/60-120/80) 99/58 L Blood Pressure Mean 71 Source Monitor Pain Scale: 0-10 Numeric Is Patient Pain Free? Yes Lower Extremity Assessment/ Foot Assessment/ Toe Nail Assessment Left -Posterior Tibial Palpable Yes -Posterior Tibial Doppler Monophasic -Dorsalis Pedis Palpable Yes -Dorsalis Pedis Doppler Monophasic -Extremity Color Hemosiderin -Hair Growth on Legs No -Hair Growth on Toes No -Temperature of Extremity Warm -Capillary Refill Greater than 3 Seconds -Dependent Rubor No -Blanched when Elevated No -Lipodermatosclerosis No -Other Deformity No -Prior Foot Ulcer No -Charcot Joint No -Prior Amputation No -Thick Yes -Discolored Yes -Deformed Yes -Improper Length & Hygeine Yes Right -Posterior Tibial Palpable Yes -Posterior Tibial Doppler Monophasic -Dorsalis Pedis Palpable Yes -Dorsalis Pedis Doppler Monophasic -Extremity Color Hemosiderin -Hair Growth on Legs No -Hair Growth on Toes No -Temperature of Extremity Warm -Capillary Refill Greater than 3 Seconds -Dependent Rubor No -Blanched when Elevated No -Lipodermatosclerosis No -Other Deformity No -Prior Foot Ulcer No -Charcot Joint No -Prior Amputation No -Thick Yes -Discolored Yes -Deformed Yes -Improper Length & Hygeine Yes Neuropathy Assessment Feet - Top Side and Bottom <Entered> (a) Communication Assessment Preferred language [place] Able to Read Yes Able to Write Yes Communication Tools None Right Hearing Abillity Normal Left Hearing Abillity Normal Visual Assistive Devices Glasses Teaching Assessment Preferences Verbal,Written Barriers to Learning None Readiness To Learn Fair Willingness to Engage in Self Management Med Activies Readiness to Engage in Self Management Med Activities Anxiety Level Calm Cooperation Cooperative Perception Coherent Interest in Health Problem Asks Questions Education Importance Acknowledges Need Does Patient Smoke tobacco or other No substances Smoking Status Never smoker Is Patient Diabetic No Functional Assessment Recent Decline in Ability to Perform Denies Any Declines Teaching: Wound Center *Welcome to the Wound Center -Person Taught Patient,Family (a) 1 - + WC - Nurse 1 - General Ulcer Measurement Start: 04/08/25 14:12 Freq: Status: Active Protocol: Activity Type Activity Date Activity User E-sign Co-sign Detail Recorded Client Recorded Date Recorded By Document 04/08/25 14:16 DL [id number] 04/08/25 14:44 DL 04/08/25 14:16 Wound Center Nurse 1 #4 L Lat -Current Size (cm) - Length 1.3 -Current Size (cm) - Width 1.3 -Current Size (cm) - Depth 0.1 -Total Square Cm 1.69 -Photo Taken Yes -Exudate Amt Medium -Exudate Type Serosanguineous -Wound Margin Distinct, Outline Attached -Granulation Amt None Present (0 %) -Necrosis Amt Large (67-100%) -Necrotic Tissue Type Eschar -Structure Exposed N/A -Texture (Regina-wound Skin Appearance) Localized Edema ,Scarring -Moisture (Regina-wound Skin Appearance) No Abnormality -Color (Regina-wound Skin Appearance) Hemosiderin Staining -Temperature (Regina-wound Skin No Abnormality Appearance) (Pt Warm) -Tenderness on Palpation (Regina-wound No Skin Appearance) -Ulcer Cleansing Soap and Water -Foul Odor after Cleansing No -Anesthetic Used 4% Lidocaine Solution #1 R Lat -Current Size (cm) - Length 2.7 -Current Size (cm) - Width 1.6 -Current Size (cm) - Depth 0.1 -Total Square Cm 4.32 -Photo Taken Yes -Exudate Amt Medium -Exudate Type Serosanguineous -Wound Margin Distinct, Outline Attached -Granulation Amt None Present (0 %) -Necrosis Amt Large (67-100%) -Necrotic Tissue Type Eschar -Structure Exposed N/A -Texture (Regina-wound Skin Appearance) Localized Edema ,Scarring -Moisture (Regina-wound Skin Appearance) Weeping -Color (Regina-wound Skin Appearance) Erythema, Hemosiderin Staining -Temperature (Regina-wound Skin No Abnormality Appearance) (Pt Warm) -Ulcer Cleansing Soap and Water -Foul Odor after Cleansing No -Anesthetic Used 4% Lidocaine Solution #3 L. Med cluster -Current Size (cm) - Length 5.8 -Current Size (cm) - Width 11.7 -Current Size (cm) - Depth 0.1 -Total Square Cm 67.86 -Photo Taken Yes -Exudate Amt Medium -Exudate Type Serosanguineous -Wound Margin Distinct, Outline Attached -Granulation Amt None Present (0 %) -Necrosis Amt Large (67-100%) -Necrotic Tissue Type Eschar -Structure Exposed N/A -Texture (Regina-wound Skin Appearance) Localized Edema ,Scarring -Moisture (Regina-wound Skin Appearance) No Abnormality -Color (Regina-wound Skin Appearance) Hemosiderin Staining -Temperature (Regina-wound Skin No Abnormality Appearance) (Pt Warm) -Ulcer Cleansing Soap and Water -Foul Odor after Cleansing No -Anesthetic Used 4% Lidocaine Solution #2 R Med Cluster -Current Size (cm) - Length 9.8 -Current Size (cm) - Width 2.7 -Current Size (cm) - Depth 0.1 -Total Square Cm 26.46 -Photo Taken Yes -Exudate Amt Medium -Exudate Type Serosanguineous -Wound Margin Distinct, Outline Attached -Granulation Amt None Present (0 %) -Necrosis Amt Large (67-100%) -Necrotic Tissue Type Eschar -Structure Exposed N/A -Texture (Regina-wound Skin Appearance) Localized Edema ,Scarring -Moisture (Regina-wound Skin Appearance) Weeping -Color (Regina-wound Skin Appearance) Hemosiderin Staining -Temperature (Regina-wound Skin No Abnormality Appearance) (Pt Warm) -Tenderness on Palpation (Regina-wound No Skin Appearance) -Ulcer Cleansing Soap and Water -Foul Odor after Cleansing No -Anesthetic Used 4% Lidocaine Solution Right Calf (cm) 34.5 Right Ankle (cm) 26.4 Left Calf (cm) 36.5 Left Ankle (cm) 25.6 WC - Nurse 2 - General Ulcer CM Notes Start: 04/08/25 14:12 Freq: Status: Active Protocol: Activity Type Activity Date Activity User E-sign Co-sign Detail Recorded Client Recorded Date Recorded By Document 04/08/25 15:13 DS [id number] 04/08/25 15:16 DS 04/08/25 15:13 Wound Center Nurse 2 #3 L. Med cluster -Time 15:14 -Correct Patient Yes -Correct Side, Site, Position Yes -Correct Procedure Yes -Procedure Performed Yes -Type of Procedure Debridement -Clinical Debridement Subcutaneous -Tissue Removed Subcutaneous -Post Debridement (cm) - Length 7.5 -Post Debridement (cm) - Width 10.0 -Post Debridement (cm) - Depth 0.2 -Total Square (Post) (cm) 75.00 -Area of Debridement (cm) - Length 7.5 -Area of Debridement (cm) - Width 10.0 -Total Square (Area) (cm) 75.00 -Tunneling No -Undermining/Tunneling No -Circular Undermining No -Wound/Ulcer Outcome Not Healed -Ulcer Cleansing Rinsed/ Irrigated with Saline -Foul Odor after Cleansing No -Bioengineered Tissue No -Bleeding Controlled with Pressure -Treatment Response Procedure Tolerated Well -Debridement - Subq, 1st 20sq cm No #2 R Med Cluster -Time 15:13 -Correct Patient Yes -Correct Side, Site, Position Yes -Correct Procedure Yes -Procedure Performed Yes -Type of Procedure Debridement -Clinical Debridement Subcutaneous -Tissue Removed Subcutaneous -Post Debridement (cm) - Length 9.6 -Post Debridement (cm) - Width 5.9 -Post Debridement (cm) - Depth 0.1 -Total Square (Post) (cm) 56.64 -Area of Debridement (cm) - Length 9.6 -Area of Debridement (cm) - Width 5.9 -Total Square (Area) (cm) 56.64 -Tunneling No -Undermining/Tunneling No -Circular Undermining No -Wound/Ulcer Outcome Not Healed -Ulcer Cleansing Rinsed/ Irrigated with Saline -Foul Odor after Cleansing No -Bioengineered Tissue No -Bleeding Controlled with Pressure -Treatment Response Procedure Tolerated Well -Debridement - Subq, 1st 20sq cm Yes -Debridement, SubQ, ea addt'l 20sq cm 6 or part thereof Pain Scale: 0-10 Numeric Is Patient Pain Free? Yes - Nurse 3 - General Ulcer D/C NN Start: 04/08/25 14:12 Freq: Status: Active Protocol: Activity Type Activity Date Activity User E-sign Co-sign Detail Recorded Client Recorded Date Recorded By Document 04/08/25 15:44 DL [id number] 04/08/25 15:45 DL 04/08/25 15:44 Wound Care Center Nurse 3 #3 L. Med cluster -Ulcer Cleansing Soap and Water -Foul Odor after Cleansing No -Other Dressing betadine gauze -Primary Dressing Covered/Secured with Dry Gauze & Roll Gauze, Secured with Tape #2 R Med Cluster -Ulcer Cleansing Soap and Water -Foul Odor after Cleansing No -Other Dressing Betadine gauze -Primary Dressing Covered/Secured with Dry Gauze & Roll Gauze Treatment Response Procedure Tolerated Well Pain Scale: 0-10 Numeric Is Patient Pain Free? Yes WC - Visit Discharge Discharge Condition Stable Ambulatory Status Ambulatory, Walker Transportation Private Auto Assessment/Plan Assessment/Plan (1) Non-pressure chronic ulcer of other part of right lower leg with fat layer exposed: CODE(S): L97.812 - Non-pressure chronic ulcer of other part of right lower leg with fat layer exposed PLAN: Patient was examined and evaluated. All findings were discussed with the patient. All questions were answered to the patient's satisfaction. Excisional debridement down to and including subcutaneous tissue to the right lower extremity full-thickness wound with a number 5 mm dermal curette and without incident. Predebridement measurement with eschar. Postdebridement measurement is 9.6 x 5.9 x 0.1 cm. Excisional debridement down to including subcutaneous tissue of the left lower extremity full-thickness wound with a number 5 mm dermal curette done without incident. Predebridement measurement was eschar. Postdebridement measurement is 7.5 x 10.0 x 0.2 cm. Excisional debridement down to including subcutaneous tissue of the right second digit full-thickness wound done with a 5 mm dermal curette without incident. Predebridement measurement was sanguinous crust. Postdebridement measurement is 1.5 x 1.0 x 0.1 cm. Culture was taken from the bilateral leg wounds. No antibiotics were prescribed at this time. The bilateral extremities were cleaned and patted dry. Betadine soaked gauze was applied to all wounds covered with dry sterile dressing and single-layer Tubigrip. Order will be given for the patient to get peripheral vascular studies so we can aggressively compress the patient when satisfactory results return. If there unsatisfactory results to patient we sent for vascular for evaluation. Patient will follow-up with Dr. 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
--- NOTE | 2025-04-13 09:27 | ART_ITS ---
Reason For Study Reason For Study: LE Wounds Procedure A bilateral lower extremity continuous wave Doppler with analog waveform analysis,segmental pressures,and ankle brachial indexes without exercise. Left Segmental Pressures Left brachial= 162mmHg. Left posterior tibial artery = 160mmHg. Left dorsalis pedis artery = 127mmHg. Left digit = 82 mmHg. The left posterior tibial artery waveforms are biphasic. The left dorsalis pedis waveforms are biphasic. Right Segmental Pressures Right brachial= 155mmHg. Right posterior tibial artery = 178mmHg. Right dorsalis pedis artery = 175mmHg. Right digit = 138 mmHg. The right posterior tibial artery waveforms are biphasic. The right dorsalis pedis waveforms are biphasic. Indices The right ankle brachial index by the posterior tibial artery is 1.10. The right ankle brachial index by the dorsalis pedis is 1.08. The right digital-brachial index is 0.85. The left ankle brachial index by the posterior tibial artery is 0.99. The left ankle brachial index by the dorsalis pedis is 0.78. The left digital-brachial index is 0.51. VL/Lower Ext Art Exam w/o Exercis Interpretation Summary Biphasic Doppler waveforms are noted at ankle level bilaterally. Pulse-volume r ecordings appear satisfactory at all levels bilaterally. Resting ankle-brachial indices are normal bilaterally. The right digital-brachial index is normal. The left digital-brachial index is mildly diminished. Arterial flow appears normal in the right lower extremity, and at ankle level o n the left. There is evidence of mild arterial occlusive disease at digital level on the left. Ordering Physician: Timothy De Souza Referring Physician: Ronald Montgomery Performed By: Donnie Gandhi RVT
--- NOTE | 2025-04-13 09:27 | VDLE_ITS ---
Reason For Study Reason For Study: BLE Wounds RIGHT LEFT CFV is compressible, spontaneous, phasic, competent CFV is compressible, spontaneous, phasic, competent, and demonstrates normal augmentation. and demonstrates normal augmentation. FV is compressible, spontaneous, phasic, competent FV is compressible, spontaneous, phasic, competent and demonstrates normal augmentation. and demonstrates normal augmentation. POP V is compressible, spontaneous, phasic, competent POP V is compressible, spontaneous, phasic, competent and demonstrates normal augmentation. and demonstrates normal augmentation. T/P Trunk is compressible. T/P Trunk is compressible. PTV is compressible. PTV is compressible. RT PerV is compressible. LT PerV is compressible. SFJ is competent and measures 0.58 cm. SFJ is competent and measures 0.64 cm. GSV proximal thigh measures 0.36 x 0.40 cm. GSV proximal thigh measures 0.51 x 0.43 cm. GSV at knee measures 0.41 x 0.44 cm. GSV INCOMPETENT throughout for greater than 0.5 GSV above knee is competent. seconds. GSV below knee is INCOMPETENT for greater than 0.5 SSV at junction is INCOMPETENT for greater than 0.5 seconds. seconds and measures 0.42 cm. SSV at junction is competent and measures 0.41 cm. Unable to visualize mid calf veins due to bandages SSV mid calf is competent and measures 0.23 x 0.24 and open wound. cm. Procedure This is a venous duplex using B-mode, color flow and spectral Doppler. Exam performed in department. The exam was diagnostic. Limited views were obtained. Patient was scanned in reverse Trendelenburg position during reflux assessment. VL/Venous Duplex US - Jonny Extrem Interpretation Summary Deep veins of the lower extremities are bilaterally patent and compressible seg mentally. There is no evidence of deep vein thrombosis on either side. Valvular competence appears intact within the p roximal deep venous systems bilaterally. The great saphenous veins appear bilaterally patent and compressible segmentall y. Sapheno-femoral junctions are bilaterally competent . The right great saphenous vein appears competent above the knee. The right great saphenous vein appears incompetent below the knee. The left great saphenous vein appears segme ntally incompetent. The right small saphenous vein is patent and competent. The left small saphenous vein is patent and incompetent. Deep veins in the left mid-calf were not visualized due to the presence of a wound and bandages. Ordering Physician: Timothy De Souza Referring Physician: Ronald Montgomery Performed By: Donnie Gandhi RVT
[2025-04-15 14:43] VITALS: BP 157/75; PULSE 72; RESP 16; TEMP 36
--- NOTE | 2025-04-15 15:46 | PN.PCM_ITS ---
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 Progress of Wound: Improved bilateral leg swelling and eschars. Subjective Subjective Patient is a 85-year-old female presenting to clinic today follow-up evaluation of bilateral leg swelling and multiple eschars to the bilateral lower extremity. Patient has been doing dressing changes as discussed during our last visit. She is taking antibiotics as prescribed. She admits great improvement with swelling and pain as well as the wounds to the bilateral legs. She is grateful for her care. She denies trauma. Denies constitutional symptoms. No other pedal complaints at this time. Objective Data Objective Data Vital Signs: Vital Signs Temp Pulse Resp BP O2 Del Method 96.8 F L 72 16 157/75 H Room Air 04/15/25 14:43 04/15/25 14:43 04/15/25 14:43 04/15/25 14:43 04/15/25 14:43 Oxygen Delivery Method Room Air Lab / Micro Data Micro: Microbiology 04/08/25 15:07 Wound - Leg, Left Gram Stain - Final 04/08/25 15:07 Wound - Leg, Left Wound Culture - Final Morganella morganii sp morgani Acinetobacter baumannii Staphylococcus aureus Streptococcus viridans group 04/08/25 15:07 Wound - Leg, Left Anaerobic Culture - Preliminary Bacteroides sp Gram negative eloina Physical Exam Narrative Vascular: DP and PT pulses palpable. CFT brisk. No erythema or proximal streaking. Skin temperature is warm to warm with no focal increase. Nonpitting edema appreciated to bilateral lower extremity, improving. Neurologic: Light touch and epicritic sensations intact. Protective sensation intact to 10/10 sites with 5.07 [place] monofilament. Dermatologic: Full-thickness wound to right medial leg in clusters measuring 6.3 x 4.5 x 0.1 cm. Stable eschar appreciated. Full-thickness wound to the right lateral ankle measuring 0.4 x 0.6 x 0.1 cm. Wound base is granular. Left lower extremity medial cluster full-thickness wounds measuring 5.3 x 9.5 x 0.1 cm. Stable eschar appreciated. Left lateral leg full-thickness ulceration measuring 1.8 x 1.8 x 0.1 cm. Wound base is fibrogranular. Left ankle full-thickness wound measuring 1.0 x 3.3 x 0.1 cm. Excisional debridement down to and including subcutaneous tissue of the right lateral ankle full-thickness wound done with a number 5 mm dermal curette without incident. Predebridement measurement was 0.3 x 0.5 x 0.1 cm. Postdebridement measurement is 0.4 x 0.6 x 0.1 cm. Excision debridement down to and including subcutaneous tissue of the left lateral leg full-thickness wound with a number 5 mm dermal curette down without incident. Predebridement measurement was 1.5 x 1.5 x 0.1 cm. Postdebridement measurement is 1.8 x 1.8 x 0.1 cm. Excisional debridement down to including subcutaneous tissue with a number 5 mm dermal curette at the left ankle full-thickness wound done without incident. Predebridement measurement was 0.8 x 3.0 x 0.1 cm. Postdebridement measurement is 1.0 x 3.3 x 0.1 cm. Musculoskeletal: Mild palpatory tenderness appreciated the bilateral lower extremity. No pain with calf compression bilateral. Debridement Note Debridement Note Debridement Free Text: Excisional debridement down to and including subcutaneous tissue of the right lateral ankle full-thickness wound done with a number 5 mm dermal curette without incident. Predebridement measurement was 0.3 x 0.5 x 0.1 cm. Postdebridement measurement is 0.4 x 0.6 x 0.1 cm. Excision debridement down to and including subcutaneous tissue of the left lateral leg full-thickness wound with a number 5 mm dermal curette down without incident. Predebridement measurement was 1.5 x 1.5 x 0.1 cm. Postdebridement measurement is 1.8 x 1.8 x 0.1 cm. Excisional debridement down to including subcutaneous tissue with a number 5 mm dermal curette at the left ankle full-thickness wound done without incident. Predebridement measurement was 0.8 x 3.0 x 0.1 cm. Postdebridement measurement is 1.0 x 3.3 x 0.1 cm. Post-Debridement Measurements and Additional Note: Post-Debridement Measurements/Treatment WC - Nurse 1 - General Ulcer Assessment Start: 04/08/25 14:12 Freq: Status: Active Protocol: [email or web address].LOWEXT Activity Type Activity Date Activity User E-sign Co-sign Detail Recorded Client Recorded Date Recorded By Document 04/08/25 14:16 DL [id number] 04/08/25 14:44 DL Document 04/15/25 14:43 [id number] 04/15/25 15:03 04/08/25 04/15/25 14:16 14:43 WC - Today's Visit Information Type of service Initial Visit Follow-up Visit (Physician/[employer]ADER ) Arrival Mode Ambulatory, Ambulatory, Walker Walker Transfer Assistance Manual Transfer Assist (Other) x1 Patient Identification Verified (Name & Yes Yes ) Patient Requires Transmission-Based No No Precautions Vital Signs Temperature (97.8 F-99.1 F) 97.6 F L 96.8 F L Temperature Source Temporal Temporal Pulse Rate (60-100) 70 72 Pulse Location Monitor Monitor Respiratory Rate (12-18) 18 16 Respiratory rate source Observation Observation Oxygen Delivery Method Room Air Blood Pressure (90/60-120/80) 99/58 L 157/75 H Blood Pressure Mean (mm Hg) 71 102 Source Monitor Monitor Position Sitting Blood Pressure Location Right Arm History Since Last Visit- (Skip if this is Patient's initial visit) Have you changed medications since your No last visit? Any new allergies or adverse reactions No Had a fall/change in ADL's that may No increase risk of falls Signs or symptoms of abuse and/or No neglect since last visit Have you been in the hospital since your No last visit? Has dressing in place as prescribed Yes Has compression in place as prescribed Yes Has offloadiing in place as prescribed N/A Experienced any changes in pain level or No management Left Footwear Regular Shoe Right Footwear Regular Shoe Pain Scale: 0-10 Numeric Is Patient Pain Free? Yes Yes Lower Extremity Assessment/ Foot Assessment/ Toe Nail Assessment Left -Posterior Tibial Palpable Yes -Posterior Tibial Doppler Monophasic -Dorsalis Pedis Palpable Yes -Dorsalis Pedis Doppler Monophasic -Extremity Color Hemosiderin -Hair Growth on Legs No -Hair Growth on Toes No -Temperature of Extremity Warm -Capillary Refill Greater than 3 Seconds -Dependent Rubor No -Blanched when Elevated No -Lipodermatosclerosis No -Other Deformity No -Prior Foot Ulcer No -Charcot Joint No -Prior Amputation No -Thick Yes -Discolored Yes -Deformed Yes -Improper Length & Hygeine Yes Right -Posterior Tibial Palpable Yes -Posterior Tibial Doppler Monophasic -Dorsalis Pedis Palpable Yes -Dorsalis Pedis Doppler Monophasic -Extremity Color Hemosiderin -Hair Growth on Legs No -Hair Growth on Toes No -Temperature of Extremity Warm -Capillary Refill Greater than 3 Seconds -Dependent Rubor No -Blanched when Elevated No -Lipodermatosclerosis No -Other Deformity No -Prior Foot Ulcer No -Charcot Joint No -Prior Amputation No -Thick Yes -Discolored Yes -Deformed Yes -Improper Length & Hygeine Yes Neuropathy Assessment Feet - Top Side and Bottom <Entered> (a) Communication Assessment Preferred language Tongan Able to Read Yes Able to Write Yes Communication Tools None Right Hearing Abillity Normal Left Hearing Abillity Normal Visual Assistive Devices Glasses Teaching Assessment Preferences Verbal,Written Barriers to Learning None Readiness To Learn Fair Willingness to Engage in Self Management Med Activies Readiness to Engage in Self Management Med Activities Anxiety Level Calm Cooperation Cooperative Perception Coherent Interest in Health Problem Asks Questions Education Importance Acknowledges Need Does Patient Smoke tobacco or other No substances Smoking Status Never smoker Is Patient Diabetic No Functional Assessment Recent Decline in Ability to Perform Denies Any Declines Teaching: Wound Center *Welcome to the Wound Center -Person Taught Patient,Family (a) 1 - + WC - Nurse 1 - General Ulcer Measurement Start: 04/08/25 14:12 Freq: Status: Active Protocol: Activity Type Activity Date Activity User E-sign Co-sign Detail Recorded Client Recorded Date Recorded By Document 04/08/25 14:16 DL [id number] 04/08/25 14:44 DL Document 04/15/25 14:43 [id number] 04/15/25 15:03 04/08/25 04/15/25 14:16 14:43 Wound Center Nurse 1 #4 L Lat -Current Size (cm) - Length 1.3 -Current Size (cm) - Width 1.3 -Current Size (cm) - Depth 0.1 -Total Square Cm 1.69 -Photo Taken Yes -Exudate Amt Medium -Exudate Type Serosanguineous -Wound Margin Distinct, Outline Attached -Granulation Amt None Present (0 %) -Necrosis Amt Large (67-100%) -Necrotic Tissue Type Eschar -Structure Exposed N/A -Texture (Regina-wound Skin Appearance) Localized Edema ,Scarring -Moisture (Regina-wound Skin Appearance) No Abnormality -Color (Regina-wound Skin Appearance) Hemosiderin Staining -Temperature (Regina-wound Skin No Abnormality Appearance) (Pt Warm) -Tenderness on Palpation (Regina-wound No Skin Appearance) -Ulcer Cleansing Soap and Water -Foul Odor after Cleansing No -Anesthetic Used 4% Lidocaine Solution #1 R Lat -Current Size (cm) - Length 2.7 -Current Size (cm) - Width 1.6 -Current Size (cm) - Depth 0.1 -Total Square Cm 4.32 -Photo Taken Yes -Exudate Amt Medium -Exudate Type Serosanguineous -Wound Margin Distinct, Outline Attached -Granulation Amt None Present (0 %) -Necrosis Amt Large (67-100%) -Necrotic Tissue Type Eschar -Structure Exposed N/A -Texture (Regina-wound Skin Appearance) Localized Edema ,Scarring -Moisture (Regina-wound Skin Appearance) Weeping -Color (Regina-wound Skin Appearance) Erythema, Hemosiderin Staining -Temperature (Regina-wound Skin No Abnormality Appearance) (Pt Warm) -Ulcer Cleansing Soap and Water -Foul Odor after Cleansing No -Anesthetic Used 4% Lidocaine Solution #3 L. Med cluster -Current Size (cm) - Length 5.8 0.1 -Current Size (cm) - Width 11.7 0.1 -Current Size (cm) - Depth 0.1 0.1 -Total Square Cm 67.86 0.01 -Photo Taken Yes No -Epithelialization None Present -Tunneling No -Undermining/Tunneling No -Circular Undermining No -Exudate Amt Medium Large -Exudate Type Serosanguineous Yellow/Green -Wound Margin Distinct, Distinct, Outline Outline Attached Attached -Granulation Amt None Present (0 None Present (0 %) %) -Necrosis Amt Large (67-100%) Large (67-100%) -Necrotic Tissue Type Eschar Eschar -Structure Exposed N/A -Texture (Regina-wound Skin Appearance) Localized Edema Assessed ,Scarring -Moisture (Regina-wound Skin Appearance) No Abnormality Assessed -Color (Regina-wound Skin Appearance) Hemosiderin Assessed Staining -Temperature (Regina-wound Skin No Abnormality No Abnormality Appearance) (Pt Warm) (Pt Warm) -Tenderness on Palpation (Regina-wound No Skin Appearance) -Ulcer Cleansing Soap and Water -Foul Odor after Cleansing No -Anesthetic Used 4% Lidocaine 4% Lidocaine Solution Solution #2 R Med Cluster -Current Size (cm) - Length 9.8 0.1 -Current Size (cm) - Width 2.7 0.1 -Current Size (cm) - Depth 0.1 0.1 -Total Square Cm 26.46 0.01 -Photo Taken Yes No -Epithelialization None Present -Tunneling No -Undermining/Tunneling No -Circular Undermining No -Change in Wound Grade/Stage No -Exudate Amt Medium Large -Exudate Type Serosanguineous Yellow/Green -Wound Margin Distinct, Distinct, Outline Outline Attached Attached -Granulation Amt None Present (0 %) -Slough/Fibrin Yes -Necrosis Amt Large (67-100%) Large (67-100%) -Necrotic Tissue Type Eschar Eschar -Structure Exposed N/A -Texture (Regina-wound Skin Appearance) Localized Edema Assessed ,Scarring -Moisture (Regina-wound Skin Appearance) Weeping No Abnormality -Color (Regina-wound Skin Appearance) Hemosiderin Assessed Staining -Temperature (Regina-wound Skin No Abnormality No Abnormality Appearance) (Pt Warm) (Pt Warm) -Tenderness on Palpation (Regina-wound No No Skin Appearance) -Ulcer Cleansing Soap and Water Soap and Water -Foul Odor after Cleansing No No -Anesthetic Used 4% Lidocaine 4% Lidocaine Solution Solution Right Calf (cm) 34.5 Right Ankle (cm) 26.4 Left Calf (cm) 36.5 Left Ankle (cm) 25.6 WC - Nurse 2 - General Ulcer CM Notes Start: 04/08/25 14:12 Freq: Status: Active Protocol: Activity Type Activity Date Activity User E-sign Co-sign Detail Recorded Client Recorded Date Recorded By Document 04/08/25 15:13 DS [id number] 04/08/25 15:16 DS Document 04/15/25 15:13 JF [id number] 04/15/25 15:24 JF 04/08/25 04/15/25 15:13 15:13 Wound Center Nurse 2 5-RIGHT ANKLE LATERAL LEG -Time 15:22 -Correct Patient Yes -Correct Side, Site, Position Yes -Correct Procedure Yes -Procedure Performed Yes -Type of Procedure Debridement -Clinical Debridement Subcutaneous -Tissue Removed Subcutaneous -Post Debridement (cm) - Length 0.4 -Post Debridement (cm) - Width 0.6 -Post Debridement (cm) - Depth 0.1 -Total Square (Post) (cm) 0.24 -Area of Debridement (cm) - Length 0.4 -Area of Debridement (cm) - Width 0.6 -Total Square (Area) (cm) 0.24 -Circular Undermining No -Wound/Ulcer Outcome Not Healed -Ulcer Cleansing Rinsed/ Irrigated with Saline -Foul Odor after Cleansing No -Bioengineered Tissue No -Bleeding Controlled with Pressure -Treatment Response Procedure Tolerated Well -Offloading No -Debridement - Subq, 1st 20sq cm Yes -Debridement, SubQ, ea addt'l 20sq cm 4 or part thereof 4-LEFT ANKLE -Time 15:22 -Correct Patient Yes -Correct Side, Site, Position Yes -Correct Procedure Yes -Procedure Performed Yes -Type of Procedure Debridement -Clinical Debridement Subcutaneous -Tissue Removed Subcutaneous -Post Debridement (cm) - Length 1.0 -Post Debridement (cm) - Width 3.3 -Post Debridement (cm) - Depth 0.1 -Total Square (Post) (cm) 3.30 -Area of Debridement (cm) - Length 1.0 -Area of Debridement (cm) - Width 3.3 -Total Square (Area) (cm) 3.30 -Tunneling No -Undermining/Tunneling No -Circular Undermining No -Wound/Ulcer Outcome Not Healed -Ulcer Cleansing Rinsed/ Irrigated with Saline -Foul Odor after Cleansing No -Bioengineered Tissue No -Bleeding Controlled with Pressure -Treatment Response Procedure Tolerated Well -Offloading No -Debridement - Subq, 1st 20sq cm No 3-LEFT LATERAL LEG -Time 15:21 -Correct Patient Yes -Correct Side, Site, Position Yes -Correct Procedure Yes -Procedure Performed Yes -Type of Procedure Debridement -Clinical Debridement Subcutaneous -Tissue Removed Subcutaneous -Post Debridement (cm) - Length 1.8 -Post Debridement (cm) - Width 1.8 -Post Debridement (cm) - Depth 0.1 -Total Square (Post) (cm) 3.24 -Area of Debridement (cm) - Length 1.8 -Area of Debridement (cm) - Width 1.8 -Total Square (Area) (cm) 3.24 -Tunneling No -Undermining/Tunneling No -Circular Undermining No -Wound/Ulcer Outcome Not Healed -Ulcer Cleansing Rinsed/ Irrigated with Saline -Foul Odor after Cleansing No -Bioengineered Tissue No -Bleeding Controlled with Pressure -Treatment Response Procedure Tolerated Well -Offloading No -Debridement - Subq, 1st 20sq cm No #3 L. Med cluster -Time 15:14 15:19 -Correct Patient Yes Yes -Correct Side, Site, Position Yes Yes -Correct Procedure Yes Yes -Procedure Performed Yes Yes -Type of Procedure Debridement Debridement -Clinical Debridement Subcutaneous Subcutaneous -Tissue Removed Subcutaneous Subcutaneous -Post Debridement (cm) - Length 7.5 5.3 -Post Debridement (cm) - Width 10.0 9.5 -Post Debridement (cm) - Depth 0.2 0.1 -Total Square (Post) (cm) 75.00 50.35 -Area of Debridement (cm) - Length 7.5 5.3 -Area of Debridement (cm) - Width 10.0 9.5 -Total Square (Area) (cm) 75.00 50.35 -Tunneling No No -Undermining/Tunneling No No -Circular Undermining No No -Wound/Ulcer Outcome Not Healed Not Healed -Ulcer Cleansing Rinsed/ Rinsed/ Irrigated with Irrigated with Saline Saline -Foul Odor after Cleansing No No -Bioengineered Tissue No No -Bleeding Controlled with Pressure Pressure -Treatment Response Procedure Procedure Tolerated Well Tolerated Well -Offloading No -Debridement - Subq, 1st 20sq cm No No #2 R Med Cluster -Time 15:13 15:20 -Correct Patient Yes Yes -Correct Side, Site, Position Yes Yes -Correct Procedure Yes Yes -Procedure Performed Yes Yes -Type of Procedure Debridement Debridement -Clinical Debridement Subcutaneous Subcutaneous -Tissue Removed Subcutaneous Subcutaneous -Post Debridement (cm) - Length 9.6 6.3 -Post Debridement (cm) - Width 5.9 4.5 -Post Debridement (cm) - Depth 0.1 0.1 -Total Square (Post) (cm) 56.64 28.35 -Area of Debridement (cm) - Length 9.6 6.3 -Area of Debridement (cm) - Width 5.9 4.5 -Total Square (Area) (cm) 56.64 28.35 -Tunneling No No -Undermining/Tunneling No No -Circular Undermining No No -Wound/Ulcer Outcome Not Healed Not Healed -Ulcer Cleansing Rinsed/ Rinsed/ Irrigated with Irrigated with Saline Saline -Foul Odor after Cleansing No No -Bioengineered Tissue No No -Bleeding Controlled with Pressure Pressure -Treatment Response Procedure Procedure Tolerated Well Tolerated Well -Offloading No -Debridement - Subq, 1st 20sq cm Yes No -Debridement, SubQ, ea addt'l 20sq cm 6 or part thereof Pain Scale: 0-10 Numeric Is Patient Pain Free? Yes Yes WC - Nurse 3 - General Ulcer D/C NN Start: 04/08/25 14:12 Freq: Status: Active Protocol: Activity Type Activity Date Activity User E-sign Co-sign Detail Recorded Client Recorded Date Recorded By Document 04/08/25 15:44 DL [id number] 04/08/25 15:45 DL Document 04/15/25 15:33 BM [id number] 04/15/25 15:35 BMF 04/08/25 04/15/25 15:44 15:33 Wound Care Center Nurse 3 5-RIGHT ANKLE LATERAL LEG -Ulcer Cleansing Rinsed/ Irrigated with Saline -Foul Odor after Cleansing No -Other Dressing BETADINE SOAKED GAUZE -Primary Dressing Covered/Secured with Dry Gauze & Roll Gauze -Other Covering DRSG PER GM RN 4-LEFT ANKLE -Ulcer Cleansing Rinsed/ Irrigated with Saline -Foul Odor after Cleansing No -Other Dressing BETADINE SOAKED GAUZE -Primary Dressing Covered/Secured with Dry Gauze & Roll Gauze, Secured with Tape 3-LEFT LATERAL LEG -Ulcer Cleansing Rinsed/ Irrigated with Saline -Foul Odor after Cleansing No -Other Dressing BETADINE SOAKED GAUZE -Primary Dressing Covered/Secured with Dry Gauze & Roll Gauze, Secured with Tape -Other Covering DRSGS PER GM RN #3 L. Med cluster -Ulcer Cleansing Soap and Water Rinsed/ Irrigated with Saline -Foul Odor after Cleansing No No -Other Dressing betadine gauze BETADINE SOAKED GAUZE; DRSGS PER GM RN -Primary Dressing Covered/Secured with Dry Gauze & Dry Gauze & Roll Gauze, Roll Gauze, Secured with Secured with Tape Tape #2 R Med Cluster -Ulcer Cleansing Soap and Water Rinsed/ Irrigated with Saline -Foul Odor after Cleansing No No -Other Dressing Betadine gauze BETADINE SOAKED GAUZE; DRSGS PER GM RN -Primary Dressing Covered/Secured with Dry Gauze & Dry Gauze & Roll Gauze Roll Gauze, Secured with Tape BLE -Tubular Bandage Single Layer -Size of Tubigrip Used Size E -Size E ($) 2 -Other APPLIED PER GM RN Treatment Response Procedure Procedure Tolerated Well Tolerated Well Pain Scale: 0-10 Numeric Is Patient Pain Free? Yes Yes WC - Visit Discharge Discharge Condition Stable Stable Ambulatory Status Ambulatory, Ambulatory, Walker Walker Transportation Private Auto Private Auto Accompanied by DAUGHTER Assessment/Plan Assessment/Plan (1) Non-pressure chronic ulcer of other part of right lower leg with fat layer exposed: CODE(S): L97.812 - Non-pressure chronic ulcer of other part of right lower leg with fat layer exposed PLAN: Patient was examined and evaluated. All findings were discussed with the patient. All questions were answered to the patient's satisfaction. Excisional debridement down to and including subcutaneous tissue of the right lateral ankle full-thickness wound done with a number 5 mm dermal curette without incident. Predebridement measurement was 0.3 x 0.5 x 0.1 cm. Postdebridement measurement is 0.4 x 0.6 x 0.1 cm. Excision debridement down to and including subcutaneous tissue of the left lateral leg full-thickness wound with a number 5 mm dermal curette down without incident. Predebridement measurement was 1.5 x 1.5 x 0.1 cm. Postdebridement measurement is 1.8 x 1.8 x 0.1 cm. Excisional debridement down to including subcutaneous tissue with a number 5 mm dermal curette at the left ankle full-thickness wound done without incident. Predebridement measurement was 0.8 x 3.0 x 0.1 cm. Postdebridement measurement is 1.0 x 3.3 x 0.1 cm. Review of the patient's microbiology culture sensitivities show polymicrobial growth. Will add on levofloxacin 500 mg daily for the next 2 weeks. The full-thickness wounds and eschars were dressed with Betadine soaked gauze dry sterile dressing and compression wrap to the bilateral lower extremity. Will move forward with authorization Jae through the patient's insurance to be applied nickel thick with moist gauze dry sterile dressing compression wraps to all full-thickness wounds and eschars. Once we have a nice stable base we will move forward with a skin graft substitute. Patient will follow-up with Dr. 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
== END 2025-04-19 23:59 | disposition home or self-care (01) ==
LOC: WC 14:30
PROVIDERS: PCP Family Medicine; Referring Provider Podiatrist Foot & Ankle Surgery; Visit Provider Podiatrist Foot & Ankle Surgery
DX: L97.812 Non-pressure chronic ulcer of other part of right lower leg with fat layer exposed (principal); L97.828 Non-pressure chronic ulcer of other part of left lower leg with other specified severity; M79.89 Other specified soft tissue disorders; M79.604 Pain in right leg; M79.605 Pain in left leg; I73.9 Peripheral vascular disease, unspecified; S80.861D Insect bite (nonvenomous), right lower leg, subsequent encounter; S80.862D Insect bite (nonvenomous), left lower leg, subsequent encounter; W57.XXXD Bitten or stung by nonvenomous insect and other nonvenomous arthropods, subsequent encounter; Z79.2 Long term (current) use of antibiotics; Z79.82 Long term (current) use of aspirin; Z79.899 Other long term (current) drug therapy
CPT/HCPCS: 11042; 11045; 87070; 87075; 87077; 87186; 87205; 93923; 93970; 99213; G0463

== ENCOUNTER 2025-05-09 07:44 | Emergency (ER) | payer MEDICARE, SELFPAY ==
[2025-05-09 07:45] VITALS: BP 145/65; PULSE 85; RESP 14; TEMP 36.8; O2SAT 100
--- NOTE | 2025-05-09 07:57 | CT_ITS ---
PROCEDURE: BRAIN/HEAD WITHOUT CONTRAST 05/09/2025 REASON FOR EXAM: TRAUMA TECHNIQUE: Procedure Code: CTBR Modality: CT Procedure: BRAIN/HEAD WITHOUT CONTRAST Coronal and Sagittal reconstruction series were provided. One or more dose reduction techniques were used (e.g., Automated exposure control, adjustment of the mA and/or kV according to patient size, use of iterative reconstruction technique. RADIATION DOSE SUMMARY: CTDlvol: 44.99 mGy DLP: 745.49 mGycm COMPARISON: None. FINDINGS: BRAIN: No acute intraparenchymal hemorrhage. No mass lesion. No CT evidence for acute territorial infarct. No midline shift or extra-axial collection. Diffuse cerebral volume loss. Patchy periventricular white matter low attenuation, likely microvascular ischemic changes. Physiologic basal ganglia calcifications. VENTRICLES: No hydrocephalus. ORBITS: The orbits are unremarkable. SINUSES AND MASTOIDS: The paranasal sinuses and mastoid air cells are clear. SOFT TISSUES: Mild swelling of the left frontal scalp with soft tissue air. No radiodense foreign body. BONES: The calvarium is intact. No acute osseous abnormality seen. OTHER: Carotid siphon calcification bilaterally. Soft tissue density within the left external auditory canal, likely cerumen. CT/Brain/Head without Contrast IMPRESSION: 1. No acute intracranial abnormality. 2. Left frontal scalp swelling with soft tissue air. Reading Location: [id number]
--- NOTE | 2025-05-09 07:58 | EX.ED.GENINJ ---
HPI History of Present Illness Chief Complaint: Head Injury Narrative Narrative: 85-year-old female past medical history of lymphedema and chronic leg wounds presents with injury to her head that she sustained this morning approximately 2 hours ago. She states that she did not sleep well last night and was at the kitchen table having her morning cup of coffee. She dozed off, and started falling forward. She hit the left side of her scalp on the table. She denies any neck pain or headache but sustained a laceration to her scalp. Her family states that they are unsure of her last Tdap immunization. She denies other injuries, but family was concerned about the laceration on her scalp. While she does not take blood thinners, she does state she takes a daily aspirin/baby aspirin. PFSH PFS Home Medications ?Medication ?Instructions ?Recorded ?Last Taken ?Type lisinopril 10 10 - 12.5 mg PO DAILY 03/19/15 Unknown History mg-hydrochlorothiazide 12.5 mg tablet multivitamin with folic acid 400 1 tab PO DAILY 03/19/15 Unknown History mcg tablet (Thera) aspirin 81 mg tablet,delayed 81 mg PO DAILY@0800 05/24/15 05/23/15 08:00 History release cephalexin 500 mg capsule 500 mg PO Q6 #40 caps 05/26/18 Unknown Rx doxycycline hyclate 100 mg tablet 100 mg PO BID 04/08/25 Unknown History furosemide 40 mg tablet 40 mg PO 04/08/25 Unknown History levofloxacin 500 mg tablet 500 mg PO DAILY 2 weeks #14 tabs 04/15/25 Unknown Rx Allergy/AdvReac Type Severity Reaction Status Date / Time No Known Allergies Allergy Verified 05/26/18 10:17 Social History Smoking Status: Never smoker ROS ROS ED ROS Narrative Review of systems positive for laceration to left parietal scalp. No neck pain. No subsequent loss of consciousness. No nausea or vomiting. Unsure of last tetanus immunization according to family. EXAM Physical Exam Narrative Exam Narrative: GCS 15. ABCs intact. HEENT examination shows a 2 cm scalp laceration on the left parietal area without active bleeding. No apparent galeal involvement. PERRL EOMI. Cardiovascular semination regular rate and rhythm. Lungs clear to auscultation bilaterally. Abdomen soft nontender without guarding or rebound. Awake, alert, oriented, at baseline. Moves all extremities although needs help and transferring from wheelchair to cot. Const Vital Signs: 05/09/25 07:45 05/09/25 08:28 Temperature 98.2 F 97.4 F L Temperature Source Oral Pulse Rate 85 80 Respiratory Rate 14 16 Blood Pressure 145/65 H 139/65 H Blood Pressure Mean 91 89 Pulse Ox 100 97 Oxygen Delivery Method Room Air MDM MDM MDM Narrative Medical decision making narrative: Differential diagnosis includes but not limited to scalp laceration with contusion and closed head injury versus intracranial hemorrhage versus skull fracture. I have lower suspicion for intracranial hemorrhage based on her neurological examination. Her Tdap immunization was updated. Her wound was cleansed. CT of the brain will be obtained to help rule out hemorrhage and skull fracture. I reviewed the radiology report of the CT of the brain and there is no evidence of an acute skull fracture or intracranial hemorrhage. There is left-sided soft tissue swelling with a small amount of air secondary to her scalp laceration. Procedure note: Wound was cleansed. Lidocaine 1% was used as a local anesthetic approximately 6 mL. On inspection of the wound there is no apparent galeal involvement. Additional Shur-Clens and saline was used for cleansing. 3 surgical lindsay used for skin edge approximation. Patient tolerated procedure well. At this point in time, I feel the patient can be discharged to follow-up with her primary care provider for staple removal in 7 to 10 days. Return instructions to the emergency department were reviewed. Cajo-wel-kxoghds analgesics as needed. Disposition is discharged home in stable condition. History & Record Review Discussion w/independent historian: Patient and Family Radiography Diagnostic Testing: Clinical Impression(s) from Imaging Studies Brain CT 05/09/25 07:57 IMPRESSION: 1. No acute intracranial abnormality. 2. Left frontal scalp swelling with soft tissue air. Reading Location: [id number] Discharge Plan Triage Chief Complaint: Head Injury ED Provider: Shorty Wilkinson Dx/Rx/DC Orders Clinical Impression: Scalp laceration, Need for Tdap vaccination, Closed head injury Instructions: ED Head Injury (Adult), ED Laceration Scalp Stitches or [place] Prescriptions: No Action lisinopril-hydrochlorothiazide 1 EACH tablet 10 - 12.5 mg PO DAILY Patient Comments: multivitamin with folic acid [Thera] 1 TABLET tablet 1 tab PO DAILY aspirin 81 MG tablet 81 mg PO DAILY@0800 cephalexin 500 MG capsule 500 mg PO Q6 Qty: 40 0RF furosemide 40 mg tablet 40 mg PO doxycycline hyclate 100 mg tablet 100 mg PO BID levofloxacin 500 mg tablet 500 mg PO DAILY 14 Days Qty: 14 0RF Primary Care Provider: Ronald Montgomery Referrals: Ronald Montgomery MD [Primary Care Provider, Family Practice] - 10 Day for suture removal Activity Restrictions/Additional Instructions: Follow-up with your primary care provider for staple removal in 7 to 10 days. Return to the emergency department with fever, increased redness or drainage of pus from the wound, new or worsening symptoms. Print Language: Kyrgyz Disposition Disposition: Home, Self Care
[2025-05-09 08:16] VITALS: BMI 25.1
[2025-05-09] MEDS: Lidocaine 1% (20 ml mdv) 20 ML Vial INFILT (08:16)
[2025-05-09 08:28] VITALS: BP 139/65; PULSE 80; RESP 16; TEMP 36.3; O2SAT 97
--- OUTSIDE RECORDS SUMMARY | 2025-05-09 08:33 | XMS RPT_ITS | CCD ---
Author Organization [facility]iniSyoh Care Team Providers Care Dermatology Sales Representative Name Role Phone Valentina VALDERRAMA, Dr. Ronald Walsh Primary Care Provider Valentina VALDERRAMA, Dr. Ronald Walsh Attending Provider [phone] Valentina VALDERRAMA, Dr. Ronald Walsh Referring Provider [phone] Valentina VALDERRAMA, Dr. Ronald Walsh Primary Care Provider Valentina VALDERRAMA, Dr. Ronald Walsh Attending Provider Valentina VALDERRAMA, Dr. Ronald Walsh Referring Provider Damián VALDERRAMA, Dr. Washburn Attending Provider [phone] Ap DPM, Dr. Aguirre Attending Provider Ap DPM, Dr. Aguirre Referring Provider Ronald Montgomery Referring Unavailable Ronald Montgomery Primary Care Unavailable Ronald Montgomery Attending Unavailable Ronald Montgomery Primary Care Unavailable Timothy De Souza Attending Unavailable Timothy De Souza Referring Unavailable Ronald Montgomery Primary Care Unavailable Timothy De Souza Attending Unavailable Timothy De Souza Referring Unavailable Ronald Montgomery Referring Unavailable Ronald Montgomery Primary Care Unavailable Ronald Montgomery Attending Unavailable Ronald Montgomery Attending Unavailable Ronald Montgomery Referring Unavailable Ronald Montgomery Primary Care Unavailable Medications Current Medications Medication Drug Class(es) Dates Sig (Normalized) Sig (Original) aspirin 81 mg delayed release oral tablet (14 sources) Platelet Aggregation Inhibitor, Nonsteroidal Anti-inflammatory Drug Start: 05-24-2015 take 1 tablet by mouth once daily Aspirin 81 MG tablet Active 81 mg PO DAILY@0800 May 24, 2015 12:00am Start: 03-19-2015 End: 04-01-2015 take 1 tablet by mouth once daily Aspirin 81 MG Tab.Chew Discontinued 81 mg PO DAILY@0800 March 19, 2015 12:00am April 01, 2015 10:08am cephalexin 500 mg oral capsule (7 sources) Cephalosporin Antibacterial Start: 05-26-2018 take 1 capsule by mouth every six hours Cephalexin 500 MG capsule Active 500 mg PO EVERY 6 HOURS 40 0 May 26, 2018 12:00am doxycycline hyclate 100 mg oral tablet (1 source) Tetracycline-class Drug Start: 04-08-2025 take 1 tablet by mouth twice daily Doxycycline Hyclate 100 mg tablet Active 100 mg PO TWICE A DAY April 08, 2025 12:00am furosemide 40 mg oral tablet (1 source) Loop Diuretic Start: 04-08-2025 Furosemide 40 mg tablet Active 40 mg PO April 08, 2025 12:00am hydroCHLOROthiazide 12.5 mg / lisinopril 10 mg oral tablet (7 sources) Thiazide Diuretic, Angiotensin Converting Enzyme Inhibitor Start: 03-19-2015 take 10-12.5 mg by mouth once daily Lisinopril-Meridian chlorothiazide 1 EACH tablet Active 10 - 12.5 mg PO DAILY March 19, 2015 12:00am Start: 03-19-2015 take 10-12.5 mg by mouth once daily Lisinopril-Hydrochlorothiazide Active 10 - 12.5 MG PO DAILY March 19, 2015 12:00am levoFLOXacin 500 mg oral tablet (1 source) Quinolone Antimicrobial Start: 04-15-2025 take 1 tablet by mouth once daily Levofloxacin 500 mg tablet Active 500 mg PO DAILY 14 14 0 April 15, 2025 12:00am Multivitamin With Folic Acid (Thera) 1 TABLET tablet (7 sources) Start: 03-19-2015 take 1 tablet by mouth once daily Multivitamin With Folic Acid (Thera) 1 TABLET tablet Active 1 {tbl} PO DAILY March 19, 2015 12:00am Start: 03-19-2015 take 1 tablet by garcía th once daily Multivitamin With Folic Acid (Thera) 1 TABLET tablet Active 1 TABLET PO DAILY March 19, 2015 12:00am Completed/Discontinued Medications Medication Drug Class(es) Dates Sig (Normalized) Sig (Original) acetaminophen 325 mg / oxyCODONE hydrochloride 5 mg oral tablet (7 sources) Opioid Agonist Start: 05-24-2015 End: 04-08-2025 Oxycodone-Acetamino phen 1 TABLET tablet Discontinued 1 - 2 {tbl} PO EVERY 6 HOURS NEEDED as needed for Pain May 24, 2015 12:00am April 08, 2025 2:48pm Start: 05-24-2015 take 1 tablet by garcía th every six hours as needed Oxycodone-Acetaminophen Active 1 - 2 TABLET PO EVERY 6 HOURS NEEDED May 24, 2015 12:00am gabapentin 300 mg oral capsule (7 sources) Anti-epileptic Agent Start: 05-24-2015 End: 04-08-2025 take 1 capsule by mouth at bedtime Gabapentin 300 MG capsule Discontinued 300 mg PO AT BEDTIME May 24, 2015 12:00am April 08, 2025 2:48pm Problems Active Problems Problem Classification Problem Date Documented Da te Episodic/Chronic Chronic kidney disease (1 source) Chronic kidney disease; Translations: [Chronic kidney disease, stage 3 unspecified] Onset: 12-25-2024 Chronic ulcer of skin (13 sources) Non-pressure chronic ulcer of other part of left lower leg with fat layer exposed; Translations: [Non-pressure chronic ulcer of other part of left lower leg with fat layer exposed] Onset: 04-20-2025 04-09-2025 Chronic Other circulatory disease (2 sources) Peripheral vascular disease; Translations: [Other specified peripheral vascular diseases] 04-09-2025 Chronic Other circulatory disease (2 sources) Other specified peripheral vascular diseases; Translations: [Other specified peripheral vascular diseases] Onset: 04-20-2025 Chronic Peripheral and visceral atherosclerosis (2 sources) Peripheral vascular disease, unspecified; Translations: [Peripheral vascular disease, unspecified] Onset: 04-20-2025 Chronic Unclassified (1 source) Pyuria; Translations: [Pyuria] Onset: 03-03-2025 Past or Other Problems Problem Classification Problem Date Documented Da te Episodic/Chronic Deficiency and other anemia (1 source) Anemia, unspecified; Translations: [Anemia, unspecified] Onset: 12-15-2024 Episodic Results Test Name Value Interpretation Reference Range Facility Arterial study reportOrdered By: Vinicio Stewart on 04-15-2025 Noninvasive arteriosclerosis study report [facility] [address] [place], [place] [address] [address] Lower Ext Art Exam w/o Exercis 04/13/25 0951 MR#: [id number] Acct: [id number] Name: MONET MARIE Rep #:[id number] : 1940 85 From: Vinicio Stewart MD Attending Dr: Dr. Timothy De Souza DPM Status: REG RCR Ordering Dr: Timothy De Souza DPM Date: 04/13/25 Location: Sex: F C Admitted: Reason For Study Reason For Study: LE Wounds Procedure A bilateral lower extremity continuous wave Doppler with analog waveform analysis,segmental pressures,and ankle brachial indexes without exercise. Left Segmental Pressures Left brachial= 162mmHg. Left posterior tibial artery = 160mmHg. Left dorsalis pedis artery = 127mmHg. Left digit = 82 mmHg. The left posterior tibial artery waveforms are biphasic. The left dorsalispedis waveforms are biphasic. Right Segmental Pressures Right brachial= 155mmHg. Right posterior tibial artery = 178mmHg. Right dorsalispedis artery = 175mmHg. Right digit = 138 mmHg. The right posterior tibial artery waveforms are biphasic. The right dorsalis pedis waveforms are biphasic. Indices The right ankle brachial index by the posterior tibial artery is 1.10. The rightankle brachial index by the dorsalis pedis is 1.08. The right digital-brachial index is 0.85. The left ankle brachialindex by the posterior tibial artery is 0.99. The left ankle brachial index by the dorsalis pedis is 0.78. The left digital-brachial index is 0.51. VL/Lower Ext Art Exam w/o Exercis Interpretation Summary Biphasic Doppler waveforms are noted at ankle level bilaterally. Pulse-volume recordings appear satisfactory at all levels bilaterally. Resting ankle-brachial indices are normal bilaterally. The right digital-brachial index is normal. The left digital-brachial index is mildly diminished. Arterial flow appears normal in the right lower extremity, and at ankle level onthe left. There is evidence of mild arterial occlusive disease at digital level on the left. __ Ordering Physician: Timothy De Souza Referring Physician: Ronald Montgomery Performed By: Donnie Gandhi RVT 04/15/252229 Date _ Vinicio Stewart MD CC: DPM Dr. Timothy De Souza; Dr. Ronald Montgomery MD ~ Date Dictated: 04/13/25950 Date Transcribed: 04/15/252229 Construction Project Coordinator: Signed [facility] Other Culture, Anaerobic Any Sour candace 04-15-2025 CUAN left le Bacteria Spec Anaerobe Cult #1 Studies Have Confirmed That B. Fragilis Group are Routinely Susceptible to: Metronidazole, Piperacillin/Tazoba ctam, Amoxicillin/Clavula gabi acid, and Ertapenem. They are showing an increased RESISTANCE to Penicillin, Clindamycin and Moxifloxacin. Bacteria Spec Anaerobe Cult #2 Studies Have Confirmed That B. Fragilis Group are Routinely Susceptible to: Metronidazole, Piperacillin/Tazoba ctam, Amoxicillin/Clavula gabi acid, and Ertapenem. They are showing an increased RESISTANCE to Penicillin, Clindamycin and Moxifloxacin. Bacteroides species Beta Lactamase-Reportabl e Positive Bacteroides caccae Beta Lactamase-Reportabl e Positive * This is an amended result. * A prior result that was reported as final has been changed. 04/16/25 08 by JUAN Previously reported as: FINAL Normal [facility] Comment on above: Performed By: #### M 100.4001, M100.2000, M100.3000 ####[facility] [id number] [place], [address] Venous duplex ultrasound rep ortOrdered By: Vinicio Stewart on 04-15-2025 US Vein [facility] [address] [place] [address] Venous Duplex US - Jonny Extrem 04/13/25 0958 MR#: [id number] Acct: [id number] Name: MONET MARIE Rep #:[id number] : 1940 85 From: Vinicio Stewart MD Attending Dr: Dr. Timothy De Souza, DPM Status: REG RCR Ordering Dr: Timothy De Souza DPM Date: 04/13/25 Location: WC Sex: F C Admitted: Reason For Study Reason For Study: BLE Wounds RIGHT LEFT CFV is compressible, spontaneous, phasic, competent CFV is compressible, spontaneous, phasic, competent, and demonstrates normal augmentation. and demonstrates normal augmentation. FV is compressible, spontaneous, phasic, competent FV is compressible, spontaneous, phasic, competent and demonstrates normal augmentation. and demonstrates normal augmentation. POP V is compressible, spontaneous, phasic, competent POP V is compressible, spontaneous, phasic, competent and demonstrates normal augmentation. and demonstrates normal augmentation. T/P Trunk is compressible. T/P Trunk is compressible. PTV is compressible. PTV is compressible. RT PerV is compressible. LT PerV is compressible. SFJ is competent and measures 0.58 cm. SFJ is competent and measures 0.64 cm. GSV proximal thigh measures 0.36 x 0.40 cm. GSV proximal thigh measures 0.51 x 0.43 cm. GSV at knee measures 0.41 x 0.44 cm. GSV INCOMPETENT throughout for greater than 0.5 GSV above knee is competent. seconds. GSV below knee is INCOMPETENT for greater than 0.5 SSV at junction is INCOMPETENT for greater than 0.5 seconds. seconds and measures 0.42 cm. SSV at junction is competent and measures 0.41 cm. Unable to visualize mid calf veins due to bandages SSV mid calf is competent and measures 0.23 x 0.24 and open wound. cm. Procedure This is a venous duplex using B-mode, color flow and spectral Doppler. Exam performed in department. The exam was diagnostic. Limited views were obtained. Patient was scanned in reverse Trendelenburg position during reflux assessment. VL/Venous Duplex US - Jonny Extrem Interpretation Summary Deep veins of the lower extremities are bilaterally patent and compressible segmentally. There is no evidence of deep vein thrombosis on either side. Valvular competence appears intact within the proximal deep venous systems bilaterally. The great saphenous veins appear bilaterally patent and compressible segmentally. Sapheno-femoral junctions are bilaterally competent . The right great saphenous vein appears competent above the knee. The right great saphenous vein appears incompetent below the knee. The left great saphenous vein appears segmentally incompetent. The right small saphenous vein is patent and competent. The left small saphenous vein is patent and incompetent. Deep veins in the left mid-calf were not visualized due to the presence of a wound and bandages. __ Ordering Physician: Timothy De Souza Referring Physician: Ronald Montgomery Performed By: Donnie Gandhi RVT 04/15/252237 Date _ Vinicio Stewart MD CC: DPM Dr. Timothy De Souza; Dr. Ronald Montgomery MD ~ Date Dictated: 04/13/25957 Date Transcribed: 04/15/252237 Construction Project Coordinator: Signed [facility] Other Wound Cultureon 04-15-2025 WC left le Wound Culture Wound Culture Wound Culture Morganella morganii sp morgani Amount Growth 3+ Acinetobacter baumannii Acinetobacter baumannii SAUR Amount Growth 2+ Staphylococcus aureus Amount Growth Growth Morganella morganii sp morgani: REACTION Streptococcus viridans group Ampicillin+Sulbac Islt QI 16 Ciprofloxacin Islt QI <=0.06 S Gentamicin Islt QI <=1 levoFLOXacin Islt QI <=0.12 S Meropenem Islt QI 0.5 S Pip+Tazo Islt QI <=4 S TMP SMX Islt QI <=20 S Acinetobacter baumannii: REACTION Ampicillin+Sulbac Islt QI <=2 S levoFLOXacin Islt QI <=0.12 S Meropenem Islt QI <=0.25 S Pip+Tazo Islt QI <=4 TMP SMX Islt QI <=20 S Staphylococcus aureus: REACTION cefOXitin Susc Islt NEG Doxycycline Islt QI <=0.5 S Clindamycin Islt QI 0.25 S Clindamycin.induced Susc Islt Erythromycin Islt QI <=0.25 S Gentamicin Islt QI <=0.5 S Linezolid Islt QI 2 S Moxifloxacin Islt QI <=0.25 S Oxacillin Susc Islt 0.5 S Tetracycline Islt QI <=1 S TMP SMX Islt QI <=10 S Vancomycin Islt QI 1 S Streptococcus viridans group: REACTION Ampicillin Islt QI <=0.25 S Penicillin G Islt QI <=0.06 S Cefotaxime Islt QI 0.25 S cefTRIAXone Islt QI <=0.12 Erythromycin Islt QI <=0.12 S Linezolid Islt QI <=2 S Vancomycin Islt QI 0.25 S Normal [facility] Comment on above: Performed By: #### M 100.4001, M100.2000, M100.3000 ####[facility] [address] [facility] [place], [address] Lower Ext Art Exam w/o Exerc mynor 04-13-2025 Lower Ext Art Exam w/o Exercis [facility] [address] [facility] [address] [facility] [address] [place] [address] Lower Ext Art Exam w/o Exercis 04/13/25 0951 MR#: [id number] Acct: [id number] Name: MONET MARIE Rep #: [id number] : 1940 85 From: Vinicio Stewart MD Attending Dr: Dr. Timothy De Souza DPM Status: RE G RCR Ordering Dr: Timothy De Souza DPM Date: 04/13/25 Location: WC Sex: F C Admitted: Reason For Study Reason For Study: LE Wounds Procedure A bilateral lower extremity continuous wave Doppler with analog waveform analysis,segmental pressures,and ankle brachial indexes without exercise. Left Segmental Pressures Left brachial= 162mmHg. Left posterior tibial artery = 160mmHg. Left dorsalis pedis artery = 127mmHg. Left digit = 82 mmHg. The left posterior tibial artery waveforms are biphasic. The left dorsalis pedis waveforms are biphasic. Right Segmental Pressures Right brachial= 155mmHg. Right posterior tibial artery = 178mmHg. Right dorsalis pedis artery = 175mmHg. Right digit = 138 mmHg. The right posterior tibial artery waveforms are biphasic. The right dorsalis pedis waveforms are biphasic. Indices The right ankle brachial index by the posterior tibial artery is 1.10. The right ankle brachial index by the dorsalis pedis is 1.08. The right digital-brachial index is 0.85. The left ankle brachial index by the posterior tibial artery is 0.99. The left ankle brachial index by the dorsalis pedis is 0.78. The left digital-brachial index is 0.51. VL/Lower Ext Art Exam w/o Exercis Interpretation Summary Biphasic Doppler waveforms are noted at ankle level bilaterally. Pulse-volume recordings appear satisfactory at all levels bilaterally. Resting ankle-brachial indices are normal bilaterally. The right digital- brachial index is normal. The left digital-brachial index is mildly diminished. Arterial flow appears normal in the right lower extremity, and at ankle level on the left. There is evidence of mild arterial occlusive disease at digital level on the left. __ Ordering Physician: Timothy De Souza Referring Physician: Ronald Montgomery Performed By: Donnie Gandhi, TIMAT 04/15/25 423 Date Vinicio Stewart MD CC: DPM Dr. Timothy De Souza; Dr. Ronadl Montgomery MD Date Dictated: 04/13/25950 Date Transcribed: 04/15/252229 Construction Project Coordinator: Signed Normal [facility] Venous Duplex US - Jonny Extre [facility] 04-13-2025 Venous Duplex US - Jonny Extrem [facility] [address] [place] [address] Venous Duplex US - Jonny Extrem 04/13/2558 MR#: [id number] Acct: [id number] Name: MONET MARIE Rep #: [id number] : 1940 85 From: Vinicio Stewart MD Attending Dr: Dr. Timothy De Souza, DPM Status: RE G RCR Ordering Dr: Timothy De Souza DPM Date: 04/13/25 Location: Sex: F C Admitted: Reason For Study Reason For Study: BLE Wounds RIGHT LEFT CFV is compressible, spontaneous, phasic, competent CFV is compressible, spontaneous, phasic, competent, and demonstrates normal augmentation. and demonstrates normal augmentation. FV is compressible, spontaneous, phasic, competent FV is compressible, spontaneous, phasic, competent and demonstrates normal augmentation. and demonstrates normal augmentation. POP V is compressible, spontaneous, phasic, competent POP V is compressible, spontaneous, phasic, competent and demonstrates normal augmentation. and demonstrates normal augmentation. T/P Trunk is compressible. T/P Trunk is compressible. PTV is compressible. PTV is compressible. RT PerV is compressible. LT PerV is compressible. SFJ is competent and measures 0.58 cm. SFJ is competent and measures 0.64 cm. GSV proximal thigh measures 0.36 x 0.40 cm. GSV proximal thigh measures 0.51 x 0.43 cm. GSV at knee measures 0.41 x 0.44 cm. GSV INCOMPETENT throughout for greater than 0.5 GSV above knee is competent. seconds. GSV below knee is INCOMPETENT for greater than 0.5 SSV at junction is INCOMPETENT for greater than 0.5 seconds. seconds and measures 0.42 cm. SSV at junction is competent and measures 0.41 cm. Unable to visualize mid calf veins due to bandages SSV mid calf is competent and measures 0.23 x 0.24 and open wound. cm. Procedure This is a venous duplex using B-mode, color flow and spectral Doppler. Exam performed in department. The exam was diagnostic. Limited views were obtained. Patient was scanned in reverse Trendelenburg position during reflux assessment. VL/Venous Duplex US - Jonny Extrem Interpretation Summary Deep veins of the lower extremities are bilaterally patent and compressible segmentally. There is no evidence of deep vein thrombosis on either side. Valvular competence appears intact within the proximal deep venous systems bilaterally. The great saphenous veins appear bilaterally patent and compressible segmentally. Sapheno-femoral junctions are bilaterally competent . The right great saphenous vein appears competent above the knee. The right great saphenous vein appears incompetent below the knee. The left great saphenous vein appears segmentally incompetent. The right small saphenous vein is patent and competent. The left small saphenous vein is patent and incompetent. Deep veins in the left mid-calf were not visualized due to the presence of a wound and bandages. __ Ordering Physician: Timothy De Souza Referring Physician: Ronald Montgomery Performed By: Donnie Gandhi, Verena 04/15/252237 Date Vinicio Stewart MD CC: DPM Dr. Timothy De Souza; Dr. Ronald Montgomery MD Date Dictated: 04/13/25957 Date Transcribed: 04/15/252237 Construction Project Coordinator: Signed Normal [facility] Gram Stainon 04-09-2025 GS left le Gram Stain 4+ Gram negative rods 1+ Gram positive cocci No Epithelial cells Normal [facility] Comment on above: Performed By: #### M 100.4001, M100.2000, M100.3000 ####[facility] [address] [place], [address] Wound Ctr History AND Physic nick 04-09-2025 Wound Ctr History & Physical [facility] [address] [place] [address] H P Exam - Wound Care 04/09/25 1001 MR#: [id number] Acct: [id number] Name: MONET MARIE Rep #: [id number] : 1940 85 From: Timothy De Souza DPM PCP: Dr. 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 Progress of Wound: Patient is a 85-year-old female presenting to the wound care center today for evaluation of full- thickness wounds to the bilateral lower extremity secondary to fleabites. Patient unfortunately had a cat with multiple fleas and dealt with an infestation in her house that has ultimately been treated. Since then the patient has had multiple excoriations as well as full-thickness wounds with eschar to the bilateral lower extremity. Treatment has been with topical triple ointment antibiotic that has been provided by her daughter. Patient was referred to the wound care center for expert evaluation with podiatry from her primary doctor. Overall the patient states things have gotten a little worse and she notices more swelling to the bilateral extremity with pain with long periods of standing. She denies trauma. Denies constitutional symptoms. No other pedal complaints at this time. PFSH Home Medications ???Medication ???Instructions ???Recorded ???Last Taken ???Type lisinopril 10 10 - 12.5 mg PO DAILY 03/19/15 Unk nown History mg-hydrochlorothiaz helena 12.5 mg tablet multivitamin with folic acid 400 1 tab PO DAILY 03/19/15 Unknown Hi story mcg tablet (Thera) aspirin 81 mg tablet,delayed 81 mg PO DAILY@0800 05/24/1505/23 08:00 History release cephalexin 500 mg capsule 500 mg PO Q6 #40 caps 05/26/18 Unk nown Rx doxycycline hyclate 100 mg tablet 100 mg PO BID 04/08/25 Unknown Hi story furosemide 40 mg tablet 40 mg PO 04/08/25 Unknown History Allergy/AdvReac Type Severity Reaction Status Date / Time No Known Allergies Allergy Verified 05/26/18 10:17 Social History Smoking Status: Never smoker Vital Signs Vital Signs Vital Signs: 04/08/25 14:16 Temperature 97.6 F L Temperature Source Temporal Pulse Rate 70 Respiratory Rate 18 Blood Pressure 99/58 L Blood Pressure Mean 71 Blood Pressure Source Monitor Physical Exam Narrative Vascular: DP and PT pulses palpable. CFT brisk. No erythema or proximal streaking. Skin temperature is warm to warm with no focal increase. Nonpitting edema appreciated to bilateral lower extremity. Neurologic: Light touch and epicritic sensations intact. Protective sensation intact to 10/10 sites with 5.07 Guy-Gigi monofilament. Dermatologic: Full-thickness wound to the right second digit measuring 1.5 x 1.0 x 0.1 cm. Wound base is granular with no sign of infection. Full-thickness wound to the right leg measuring 9.6 x 5.9 x 0.1 cm. Wound base is fibrogranular in nature with eschar island. Full-thickness wound appreciated to the left leg measuring 7.5 x 10.0 x 0.2 cm. Wound base is fibrogranular nature with island eschar. Multiple excoriations appreciated to bilateral lower extremity. Stable cannot rule out infection at this time. Excisional debridement down to and including subcutaneous tissue to the right lower extremity full- thickness wound with a number 5 mm dermal curette and without incident. Predebridement measurement with eschar. Postdebridement measurement is 9.6 x 5.9 x 0.1 cm. Excisional debridement down to including subcutaneous tissue of the left lower extremity full- thickness wound with a number 5 mm dermal curette done without incident. Predebridement measurement was eschar. Postdebridement measurement is 7.5 x 10.0 x 0.2 cm. Excisional debridement down to including subcutaneous tissue of the right second digit full- thickness wound done with a 5 mm dermal curette without incident. Predebridement measurement was sanguinous crust. Postdebridement measurement is 1.5 x 1.0 x 0.1 cm. Musculoskeletal: Mild palpatory tenderness appreciated the bilateral lower extremity. No pain with calf compression bilateral. Debridement Note Debridement Note Debridement Free Text: Excisional debridement down to and including subcutaneous tissue to the right lower extremity full-thickness wound with a number 5 mm dermal curette and without incident. Predebridement measurement with eschar. Postdebridement measurement is 9.6 x 5.9 x 0.1 cm. Excisional debridement down to including subcutaneous tissue of the left lower extremity full- thickness wound with a number 5 mm dermal curette done without inciden (more content not included)... Normal [facility] Anaerobic cultureOrdered By: Timothy De Souza on 04-08-2025 Bacteria identified Anaer cx Nom (Unsp spec) Bacteroides sp Abnormal [facility] Bacteria identified Anaer cx Nom (Unsp spec) Bacteroides caccae Abnormal [facility] Gram stainOrdered By: Gerri De Souza on 04-08-2025 Microscopic observation Gram stain Nom (Unsp spec) [facility] Routine wound cultureOrdered By: Timothy De Souza on 04-08-2025 Microbial culture, routine Morganella morganii sp morgani Abnormal [facility] Microbial culture, routine Streptococcus viridans group Abnormal [facility] Urine Cultureon 12-25-2024 URC Order Date: 12/23/24 Order Info: 630-4 - CUUR #2 Penicillin is the drug of choice for Beta Streptococcal infections. For Penicillin allergic patients, Erythromycin may be used. Mixed Gram Pos Gram Neg Org [place] Count 11,000-25,000 Streptococcus group F Streptococcus group F Normal [facility] Comment on above: Performed By: #### M 100.2190 ####[facility] [address] [place], [address] Urine cultureOrdered By: Zane Montgomery on 12-23-2024 Bacteria identified Cx Nom (U) Mixed Gram Pos & Gram Neg Org Abnormal [facility] Bacteria identified Cx Nom (U) Streptococcus group F Abnormal [facility] Anion gap in Serum or Plasma Ordered By: Ronald Montgomery on 12-22-2024 Anion gap [Moles/Vol] 12 mmol/L 5-15 [place] BUN/creatinine ratioOrdered By: Ronald Montgomery on 12-22-2024 Urea nitrogen/Creatinine [Mass ratio] 22.8 mg/mg High - [facility] Basic Metabolic Profile (BMP )on 12-22-2024 BUN/CRE 22.8 RATIO High - [facility] Comment on above: Performed By: #### L 400.0001, L501.0900, L500.2500 #### [facility] [address] [place], [address] Calcium [Mass/Vol] 9.7 mg/dL Normal 7.6-11.0 [facility] Comment on above: Performed By: #### L 400.0001, L501.0900, L500.2500 #### [facility] [address] [place], [address] Chloride [Moles/Vol] 102 mmol/L Normal 98-108 [facility] Comment on above: Performed By: #### L 400.0001, L501.0900, L500.2500 #### [facility] [address] [place], [address] CO2 [Moles/Vol] 22.0 mmol/L Normal 21.0-32.0 [facility] Comment on above: Performed By: #### L 400.0001, L501.0900, L500.2500 #### [facility] [address] [place], [address] Creatinine [Mass/Vol] 1.59 mg/dL High 0.70-1.20 [place] Comment on above: Performed By: #### L 400.0001, L501.0900, L500.2500 #### [facility] [address] [place], [address] GAP 12 Normal 5-15 [facility] Comment on above: Performed By: #### L 400.0001, L501.0900, L500.2500 #### [facility] [address] [place], [address] GFR/1.73 sq M.predicted among non-blacks MDRD (S/P/Bld) [Vol rate/Area] 32 mL/min/{1.73_m2} Low >60 [facility] Comment on above: Result Comment: mL/m in/1.73m2 CKD-EPI Creatinine Equation (2020) Performed By: #### L 400.0001, L501.0900, L500.2500 #### [facility] [address] [place], [address] Glucose [Mass/Vol] 114 mg/dL High 70-99 [facility] Comment on above: Performed By: #### L 400.0001, L501.0900, L500.2500 #### [facility] [address] [place], [address] Potassium [Moles/Vol] 4.0 mmol/L Normal 3.3-5.1 [place] Comment on above: Performed By: #### L 400.0001, L501.0900, L500.2500 #### [facility] [address] [place], [address] Sodium [Moles/Vol] 136 mmol/L Normal 133-145 [facility] Comment on above: Performed By: #### L 400.0001, L501.0900, L500.2500 #### [facility] [address] [place], [address] Urea nitrogen [Mass/Vol] 36 mg/dL High 4-19 [facility] Comment on above: Performed By: #### L 400.0001, L501.0900, L500.2500 #### [facility] [address] [place], [address] Bilirubin Test strip Ql (U)O rdered By: Ronald Montgomery on 12-22-2024 Bilirubin Ql (U) Negative Negative [facility] Carbon dioxide, total [Moles /volume] in Central venous bloodOrdered By: Ronald Montgomery on 12-22-2024 CO2 [Moles/Vol] 22.0 mmol/L 21.0-32.0 [facility] Chloride assayOrdered By: Madeline Montgomery on 12-22-2024 Chloride [Moles/Vol] 102 mmol/L 98-108 [facility] Glomerular filtration rate ( GFR) estimation/1.73 sq m using serum, plasma, or whole bOrdered By: Ronald Montgomery on 12-22-2024 GFR/1.73 sq M.predicted among non-blacks MDRD (S/P/Bld) [Vol rate/Area] 32 mL/min/{1.73_m2} Low >60 [facility] Comment on above: mL/min/1.73m2 CKD-EP I Creatinine Equation (2020) Ketones Test strip Ql (U)Ord ered By: Ronald Montgomery on 12-22-2024 Ketones Ql (U) Negative Negative [facility] Microscopic analysis of urin e for red blood cells (RBC)Ordered By: Ronald Montgomery on 12-22-2024 Microscopic analysis of urine for red blood cells (RBC) 0 SEEN /hpf 0-5 [facility] Mucus LM Ql (Urine sed)Order ed By: Ronald Montgomery on 12-22-2024 Mucus Ql (Urine sed) 0 SEEN /hpf [place] Nitrite Test strip Ql (U)Ord ered By: Ronald Montgomery on 12-22-2024 Nitrite Ql (U) Negative Negative [facility] Potassium measurement (mass/ volume)Ordered By: Ronald Montgomery on 12-22-2024 Potassium (Unsp spec) [Mass/Vol] 4.0 mmol/L 3.3-5.1 [facility] Protein Test strip Ql (U)Ord ered By: Ronald Montgomery on 12-22-2024 Protein Ql (U) 15 mg/dl High Negative [facility] Protein+Creatinine Ratio,Uri neon 12-22-2024 PROT:CRE RATIO 160 mg/g CRE Normal 0-200 [facility] Comment on above: Performed By: #### L 400.0001, L501.0900, L500.2500 #### [facility] [place], [address] Protein (U) [Mass/Vol] 12.5 mg/dL High 0.0-12.0 [facility] Comment on above: Performed By: #### L 400.0001, L501.0900, L500.2500 #### [facility] [address] [place], [address] UR CREAT 78.30 mg/dL Normal 28.00-217.00 [facility] Comment on above: Performed By: #### L 400.0001, L501.0900, L500.2500 #### [facility] [address], [address] Random urine creatinine henry urement (mass/volume)Ordered By: Ronald Montgomery on 12-22-2024 Creatinine Unsp time (U) [Mass/Vol] 78.30 mg/dL 28.00-217.00 [facility] Serum creatinine measurement (mass/volume)Ordered By: Ronald Montgomery on 12-22-2024 Creatinine [Mass/Vol] 1.59 mg/dL High 0.70-1.20 [place] Serum glucose measurement (m ass/volume)Ordered By: Ronald Montgomery on 12-22-2024 Glucose [Mass/Vol] 114 mg/dL High 70-99 [facility] Serum or plasma calcium henry urement (mass/volume)Ordered By: Ronald Montgomery on 12-22-2024 Calcium [Mass/Vol] 9.7 mg/dL 7.6-11.0 [facility] Serum or plasma urea nitroge n measurement (mass/volume)Ordered By: Ronald Montgomery on 12-22-2024 Urea nitrogen [Mass/Vol] 36 mg/dL High 4-19 [facility] Sodium levelOrdered By: Ronald Montgomery on 12-22-2024 Sodium [Moles/Vol] 136 mmol/L 133-145 [facility] Squamous epithelial cells de tection in urine sediment by light microscopyOrdered By: Ronald Montgomery on 12-22-2024 Epithelial cells.squamous LM Ql (Urine sed) 0-5 SEEN /hpf 5-10 [facility] Urinalysis, Completeon 12-22 EPI,SQUAMOUS 0-5 SEEN Normal 5-10 [facility] Comment on above: Order Comment: CLEAN CATCH Performed By: #### L 400.0001, L501.0900, L500.2500 #### [facility] [address] [place], [address] WBC 5-10 SEEN Normal 0-5 [facility] Comment on above: Order Comment: CLEAN CATCH Performed By: #### L 400.0001, L501.0900, L500.2500 #### [facility] [address] [place], [address] BACTERIA 0 SEEN Normal None Seen [facility] Comment on above: Order Comment: CLEAN CATCH Performed By: #### L 400.0001, L501.0900, L500.2500 #### [facility] [address] [place], [address] Mucus Ql (Urine sed) [address] [facility] Comment on above: Order Comment: CLEAN CATCH Performed By: #### L 400.0001, L501.0900, L500.2500 #### [facility] [address] [place], [address] RBC 0 SEEN Normal 0-5 [facility] Comment on above: Order Comment: CLEAN CATCH Performed By: #### L 400.0001, L501.0900, L500.2500 #### [facility] [address] [place], [address] Urine clarityOrdered By: Zane Montgomery on 12-22-2024 Clarity (U) Clear Clear [facility] Urine color determinationOrd ered By: Ronald Montgomery on 12-22-2024 Color (U) Yellow Yellow [facility] Urine glucose detectionOrder ed By: Ronald Montgomery on 12-22-2024 Glucose Ql (U) Normal mg/dl Normal [facility] Urine leukocyte esterase det ection by dipstickOrdered By: Ronald Montgomery on 12-22-2024 Leukocyte esterase Test strip Ql (U) 500 /ul High Negative [facility] Urine pHOrdered By: Ronald martinez on 12-22-2024 pH (U) 6.0 [pH] 5.0 - 8.0 [facility] Urine protein measurement (m ass/volume)Ordered By: Ronald Montgomery on 12-22-2024 Protein (U) [Mass/Vol] 12.5 mg/dL High 0.0-12.0 [facility] Urine protein/creatinine mas s ratioOrdered By: Ronald Montgomery on 12-22-2024 Protein/Creatinine (U) [Mass ratio] 160 mg/g CRE 0-200 [facility] Urine sediment bacteria coun t by microscopy (number/high power field)Ordered By: Ronald Montgomery on 12-22-2024 Bacteria LM.HPF (Urine sed) [#/Area] 0 /[HPF] None Seen [facility] Urine specific gravity measu rementOrdered By: Ronald Montgomery on 12-22-2024 Specific gravity (U) [Rel density] 1.015 1.002-1.030 [facility] Urine urobilinogen measureme ntOrdered By: Ronald Montgomery on 12-22-2024 Urobilinogen Ql (U) Normal mg/dl Normal [place] White blood cell countOrdere d By: Ronald Montgomery on 12-22-2024 White blood cell count 5-10 SEEN /hpf 0-5 [facility] Ferritinon 12-11-2024 Ferritin [Mass/Vol] 278 ng/mL Normal 22-378 [facility] Comment on above: Order Comment: DANNY Walsh ADD B12 ALLI IBC TO BLOOD DRAWN 12/09/24 AUBREEOrder Date: 12/09/24Order Info: [id number] - CMPOrder Info: [id number] - PHOS Performed By: #### L 503.6550, L503.0106, L502.0250, L506.1001, L503.6030, L400.0001 ####[facility] [address] [place], [address] Iron+Iron Binding Capacityon 12-11-2024 TIBC 233 ug/dL Low 250-450 [facility] Comment on above: Order Comment: DANNY Walsh ADD B12 ALLI IBC TO BLOOD DRAWN 12/09/24 PERDR.SCHINNEROrder Date: 12/09/24Order Info: [id number] - CMPOrder Info: [id number] - PHOS Performed By: #### L 503.6550, L503.0106, L502.0250, L506.1001, L503.6030, L400.0001 ####[facility] [address] [place], [place], [address] Vitamin B12on 12-11-2024 Cobalamin (Vitamin B12) [Mass/Vol] 608 pg/mL Normal 180-914 [facility] Comment on above: Order Comment: SUMANKODY Walsh ADD B12 ALLI IBC TO BLOOD DRAWN 12/09/24 PERDR.[facility] HEALTHINNEROrder Date: 12/09/24Order Info: [id number] - CMPOrder Info: [id number] - PHOS Performed By: #### L 503.6550, L503.0106, L502.0250, L506.1001, L503.6030, L400.0001 ####[facility] [address] [place], [place], [id number] Absolute lymphocyte countOrd ered By: Ronald Montgomery on 12-09-2024 Lymphocytes Auto (Unsp spec) [#/Vol] 0.97 10*3/uL 0.83-4.51 [facility] Absolute neutrophil countOrd ered By: Ronald Montgomery on 12-09-2024 Neutrophils (Bld) [#/Vol] 5.5 10*3/uL 2.0-7.7 [facility] Anion gap in Serum or Plasma Ordered By: Ronald Montgomery on 12-09-2024 Anion gap [Moles/Vol] 13 mmol/L 5-15 [place] Automated lymphocyte count a s percentage of total leukocytesOrdered By: Ronald Montgomery on 12-09-2024 Lymphocytes/100 WBC Auto (Unsp spec) 13.0 % Low 19-41 [facility] BUN/creatinine ratioOrdered By: Ronald Montgomery on 12-09-2024 Urea nitrogen/Creatinine [Mass ratio] 20.8 mg/mg High 10-20 [facility] Basophil percentageOrdered B y: Ronald Montgomery on 12-09-2024 Basophils/100 WBC (Bld) 1.2 % High 0-1 [facility] Bilirubin, totalOrdered By: Ronald Montgomery on 12-09-2024 Bilirubin [Mass/Vol] 0.36 mg/dL 0.00-1.30 [facility] CBC W/Diff, Automatedon 11-19 Absolute Lymph 0.97 X10 3/uL Normal 0.83-4.51 [facility] Comment on above: Order Comment: Order Date: 12/09/24 Order Info: [id number] - CBCD Performed By: #### L 501.2300, L500.4050, L100.0100 #### [facility] [address] [place], [address] Absolute Neut 5.5 X10 3/uL Normal 2.0-7.7 [facility] Comment on above: Order Comment: Order Date: 12/09/24 Order Info: [id number] - CBCD Performed By: #### L 501.2300, L500.4050, L100.0100 #### [facility] [address] [place], [address] Basophils/100 WBC (Bld) 1.2 % High 0-1 [facility] Comment on above: Order Comment: Order Date: 12/09/24 Order Info: [id number] - CBCD Performed By: #### L 501.2300, L500.4050, L100.0100 #### [facility] [address] [place], [address] Eosinophils/100 WBC (Bld) 1.6 % Normal 0-5 [facility] Comment on above: Order Comment: Order Date: 12/09/24 Order Info: 0184-1 - CBCD Performed By: #### L 501.2300, L500.4050, L100.0100 #### [facility] [address] [place], [address] Erythrocyte distribution width (RBC) [Ratio] 15.4 % High 11.6-14.6 [facility] Comment on above: Order Comment: Order Date: 12/09/24 Order Info: 0184-1 - CBCD Performed By: #### L 501.2300, L500.4050, L100.0100 #### [facility] [address] [place], [address] Hematocrit (Bld) [Volume fraction] 31.9 % Low 37-47 [facility] Comment on above: Order Comment: Order Date: 12/09/24 Order Info: 0184-1 - CBCD Performed By: #### L 501.2300, L500.4050, L100.0100 #### [facility] [address] [place], [address] Hemoglobin (Bld) [Mass/Vol] 10.3 g/dL Low 12.0-15.0 [facility] Comment on above: Order Comment: Order Date: 12/09/24 Order Info: 0184-1 - CBCD Performed By: #### L 501.2300, L500.4050, L100.0100 #### [facility] [address] [place], [address] IG% 0.300 Normal 0.0-0.9 [facility] Comment on above: Order Comment: Order Date: 12/09/24 Order Info: [id number] - CBCD Result Comment: IG% - Immature Granulocytes (promyelocytes, myelocytes and metamyelocytes) > 1% indicates that a LEFT SHIFT is Present. Performed By: #### L 501.2300, L500.4050, L100.0100 #### [facility] [address] [place], [address] Lymphocytes/100 WBC (Bld) 13.0 % Low 19-41 [facility] Comment on above: Order Comment: Order Date: 12/09/24 Order Info: 0184-1 - CBCD Performed By: #### L 501.2300, L500.4050, L100.0100 #### [facility] [address] [place], [address] MCH (RBC) [Entitic mass] 28.9 pg Normal 27.0-32.0 [facility] Comment on above: Order Comment: Order Date: 12/09/24 Order Info: 0184-1 - CBCD Performed By: #### L 501.2300, L500.4050, L100.0100 #### [facility] [address] [place], [address] MCHC (RBC) [Mass/Vol] 32.3 g/dL Normal 32-36 [place] Comment on above: Order Comment: Order Date: 12/09/24 Order Info: 0184-1 - CBCD Performed By: #### L 501.2300, L500.4050, L100.0100 #### [facility] [address] [place], [address] MCV (RBC) [Entitic vol] 89.4 fL Normal 81-99 [facility] Comment on above: Order Comment: Order Date: 12/09/24 Order Info: 0184-1 - CBCD Performed By: #### L 501.2300, L500.4050, L100.0100 #### [facility] [address] [place], [address] Monocytes/100 WBC (Bld) 10.7 % High 0-10 [facility] Comment on above: Order Comment: Order Date: 12/09/24 Order Info: 0184-1 - CBCD Performed By: #### L 501.2300, L500.4050, L100.0100 #### [facility] [address] [place], [address] Neutrophils/100 WBC (Bld) 73.2 % High 47-70 [facility] Comment on above: Order Comment: Order Date: 12/09/24 Order Info: 0184-1 - CBCD Performed By: #### L 501.2300, L500.4050, L100.0100 #### [facility] [address] [place], [address] Nucleated RBC (Bld) [#/Vol] 0 10*3/uL Normal 0-5 [facility] Comment on above: Order Comment: Order Date: 12/09/24 Order Info: 0184-1 - CBCD Performed By: #### L 501.2300, L500.4050, L100.0100 #### [facility] [address] [place], [address] Platelet mean volume (Bld) [Entitic vol] 10.2 fL Normal 6.2-12.0 [facility] Comment on above: Order Comment: Order Date: 12/09/24 Order Info: 0184-1 - CBCD Performed By: #### L 501.2300, L500.4050, L100.0100 #### [facility] [address] [place], [address] Platelets (Bld) [#/Vol] 442 10*3/uL Normal 150-450 [facility] Comment on above: Order Comment: Order Date: 12/09/24 Order Info: 0184-1 - CBCD Performed By: #### L 501.2300, L500.4050, L100.0100 #### [facility] [address] [place], [address] RBC (Bld) [#/Vol] 3.57 10*6/uL Low 4.2-5.4 [facility] Comment on above: Order Comment: Order Date: 12/09/24 Order Info: 0184-1 - CBCD Performed By: #### L 501.2300, L500.4050, L100.0100 #### [facility] [address] [place], [address] RDW SD 50.5 fl High 35.1-43.9 [facility] Comment on above: Order Comment: Order Date: 12/09/24 Order Info: 0184-1 - CBCD Performed By: #### L 501.2300, L500.4050, L100.0100 #### [facility] [address] [place], [address] WBC (Bld) [#/Vol] 7.5 10*3/uL Normal 4.4-11.0 [facility] Comment on above: Order Comment: Order Date: 12/09/24 Order Info: 0184-1 - CBCD Performed By: #### L 501.2300, L500.4050, L100.0100 #### [facility] [address] [place], [address] Carbon dioxide, total [Moles /volume] in Central venous bloodOrdered By: Ronald Montgomery on 12-09-2024 CO2 [Moles/Vol] 22.3 mmol/L 21.0-32.0 [facility] Chloride assayOrdered By: Madeline Montgomery on 12-09-2024 Chloride [Moles/Vol] 102 mmol/L 98-108 [facility] Comprehensive Metabolic Prof ilon 12-09-2024 Albumin [Mass/Vol] 4.3 g/dL Normal 3.4-4.8 [facility] Comment on above: Order Comment: Order Date: 12/09/24 Order Info: [id number] - CMP Order Info: [id number] - PHOS Performed By: #### L 501.2300, L500.4050, L100.0100 #### [facility] [address] [place], [address] Albumin/Globulin [Mass ratio] 1.2 {ratio} Normal 0.9-2.4 [facility] Comment on above: Order Comment: Order Date: 12/09/24 Order Info: [id number] - CMP Order Info: [id number] - PHOS Performed By: #### L 501.2300, L500.4050, L100.0100 #### [facility] [address] [place], [address] ALK PHOS 76 U/L Normal 35-104 [facility] Comment on above: Order Comment: Order Date: 12/09/24 Order Info: [id number] - CMP Order Info: [id number] - PHOS Performed By: #### L 501.2300, L500.4050, L100.0100 #### [facility] [address] [place], [address] ALT [Catalytic activity/Vol] 12 U/L Normal <=34 [facility] Comment on above: Order Comment: Order Date: 12/09/24 Order Info: [id number] - CMP Order Info: [id number] - PHOS Performed By: #### L 501.2300, L500.4050, L100.0100 #### [facility] [address] [place], [address] AST [Catalytic activity/Vol] 25 U/L Normal <=31 [facility] Comment on above: Order Comment: Order Date: 12/09/24 Order Info: [id number] - CMP Order Info: [id number] - PHOS Performed By: #### L 501.2300, L500.4050, L100.0100 #### [facility] [address] [place], [address] Bilirubin [Mass/Vol] 0.36 mg/dL Normal 0.00-1.30 [facility] Comment on above: Order Comment: Order Date: 12/09/24 Order Info: [id number] - CMP Order Info: [id number] - PHOS Performed By: #### L 501.2300, L500.4050, L100.0100 #### [facility] [address] [place], [address] BUN/CRE 20.8 RATIO High 10-20 [facility] Comment on above: Order Comment: Order Date: 12/09/24 Order Info: [id number] - CMP Order Info: [id number] - PHOS Performed By: #### L 501.2300, L500.4050, L100.0100 #### [facility] [address] [place], [address] Calcium [Mass/Vol] 10.0 mg/dL Normal 7.6-11.0 [facility] Comment on above: Order Comment: Order Date: 12/09/24 Order Info: [id number] - CMP Order Info: [id number] - PHOS Performed By: #### L 501.2300, L500.4050, L100.0100 #### [facility] [facility] [address] [place], [address] Chloride [Moles/Vol] 102 mmol/L Normal 98-108 [facility] Comment on above: Order Comment: Order Date: 12/09/24 Order Info: [id number] - CMP Order Info: [id number] - PHOS Performed By: #### L 501.2300, L500.4050, L100.0100 #### [facility] [address] [place], [address] CO2 [Moles/Vol] 22.3 mmol/L Normal 21.0-32.0 [facility] Comment on above: Order Comment: Order Date: 12/09/24 Order Info: [id number] - CMP Order Info: [id number] - PHOS Performed By: #### L 501.2300, L500.4050, L100.0100 #### [facility] [address] [place], [address] Creatinine [Mass/Vol] 1.27 mg/dL High 0.70-1.20 [place] Comment on above: Order Comment: Order Date: 12/09/24 Order Info: [id number] - CMP Order Info: [id number] - PHOS Performed By: #### L 501.2300, L500.4050, L100.0100 #### [facility] [address] [place], [address] GAP 13 Normal 5-15 [facility] Comment on above: Order Comment: Order Date: 12/09/24 Order Info: [id number] - CMP Order Info: [id number] - PHOS Performed By: #### L 501.2300, L500.4050, L100.0100 #### [facility] [address] [place], [address] GFR/1.73 sq M.predicted among non-blacks MDRD (S/P/Bld) [Vol rate/Area] 41 mL/min/{1.73_m2} Low >60 [facility] Comment on above: Order Comment: Order Date: 12/09/24 Order Info: [id number] - CMP Order Info: [id number]- - PHOS Result Comment: mL/m in/1.73m2 CKD-EPI Creatinine Equation (2020) Performed By: #### L 501.2300, L500.4050, L100.0100 #### [facility] [address] [place], [address] Globulin (S) [Mass/Vol] 3.6 g/dL Normal 2.2-4.2 [facility] Comment on above: Order Comment: Order Date: 12/09/24 Order Info: [id number] - CMP Order Info: 277- - PHOS Performed By: #### L 501.2300, L500.4050, L100.0100 #### [facility] [address] [place], [address] Glucose [Mass/Vol] 105 mg/dL High 70-99 [facility] Comment on above: Order Comment: Order Date: 12/09/24 Order Info: [id number] - CMP Order Info: [id number] - PHOS Performed By: #### L 501.2300, L500.4050, L100.0100 #### [facility] [address] [place], [address] Potassium [Moles/Vol] 3.9 mmol/L Normal 3.3-5.1 [place] Comment on above: Order Comment: Order Date: 12/09/24 Order Info: [id number] - CMP Order Info: [id number] - PHOS Performed By: #### L 501.2300, L500.4050, L100.0100 #### [facility] [address] [place], [address] Sodium [Moles/Vol] 137 mmol/L Normal 133-145 [facility] Comment on above: Order Comment: Order Date: 12/09/24 Order Info: [id number] - CMP Order Info: 277- - PHOS Performed By: #### L 501.2300, L500.4050, L100.0100 #### [facility] [address] [place], [address] T PROT 7.9 g/dL Normal 5.9-8.4 [facility] Comment on above: Order Comment: Order Date: 12/09/24 Order Info: [id number] - CMP Order Info: 277- - PHOS Performed By: #### L 501.2300, L500.4050, L100.0100 #### [facility] [address] [place], [address] Urea nitrogen [Mass/Vol] 26 mg/dL High 4-19 [facility] Comment on above: Order Comment: Order Date: 12/09/24 Order Info: [id number] - CMP Order Info: [id number] - PHOS Performed By: #### L 501.2300, L500.4050, L100.0100 #### [facility] [address] [place], [address] Eosinophil percentageOrdered By: Ronald Montgomery on 12-09-2024 Eosinophils/100 WBC (Bld) 1.6 % 0-5 [facility] Erythrocyte distribution wid th ratioOrdered By: Ronald Montgomery on 12-09-2024 Erythrocyte distribution width (RBC) [Ratio] 15.4 % High 11.6-14.6 [facility] Erythrocyte distribution wid th standard deviationOrdered By: Ronald Montgomery on 12-09-2024 Erythrocyte distribution width (RBC) [Ratio] 50.5 fl High 35.1-43.9 [facility] Glomerular filtration rate ( GFR) estimation/1.73 sq m using serum, plasma, or whole bOrdered By: Ronald Montgomery on 12-09-2024 GFR/1.73 sq M.predicted among non-blacks MDRD (S/P/Bld) [Vol rate/Area] 41 mL/min/{1.73_m2} Low >60 [facility] Comment on above: mL/min/1.73m2 CKD-EP I Creatinine Equation (2020) Hematocrit Auto (Bld) [Volum e fraction]Ordered By: Ronald Montgomery on 12-09-2024 Hematocrit (Bld) [Volume fraction] 31.9 % Low 37-47 [facility] Hemoglobin measurementOrdere d By: Ronald Montgomery on 12-09-2024 Hemoglobin (Bld) [Mass/Vol] 10.3 g/dL Low 12.0-15.0 [facility] Immature granulocytes/100 WB C Auto (Bld)Ordered By: Ronald Montgomery on 12-09-2024 Immature granulocytes/100 WBC (Bld) 0.300 % 0.0-0.9 [facility] Comment on above: IG% - Immature Granu locytes (promyelocytes, myelocytes and metamyelocytes) > 1% indicates that a LEFT SHIFT is Present. Iron measurement (mass/mass) Ordered By: Ronald Montgomery on 12-09-2024 Iron (Unsp spec) [Mass/Mass] 72 ug/dL 50-170 [facility] - Chemistry and C hemistry - challengeOrdered By: Ronald Montgomery on 12-09-2024 AST [Catalytic activity/Vol] 25 U/L <32 [facility] MCV (mean corpuscular volume ) determinationOrdered By: Ronald Montgomery on 12-09-2024 MCV (RBC) [Entitic vol] 89.4 fL 81-99 [facility] Mean corpuscular hemoglobin (MCH) determinationOrdered By: Ronald Montgomery on 12-09-2024 MCH (RBC) [Entitic mass] 28.9 pg 27.0-32.0 [facility] Mean corpuscular hemoglobin concentration (MCHC) determinationOrdered By: Ronald Montgomery on 12-09-2024 MCHC (RBC) [Mass/Vol] 32.3 g/dL 32-36 [place] Mean platelet volume determi nationOrdered By: Ronald Montgomery on 12-09-2024 Platelet mean volume (Bld) [Entitic vol] 10.2 fL 6.2-12.0 [facility] Microalb:Creat Ratio,Random URon 12-09-2024 MALB:CREAT Normal [facility] Comment on above: Result Comment: JAMISON ENT UTO Performed By: #### L 503.6550, L503.0106, L502.0250, L506.1001, L503.6030, L400.0001 ####[facility] [address] [place], [address] MICROALBUMIN,UR Normal NO RANGE EST. [facility] Comment on above: Result Comment: JAMISON ENT UTO Performed By: #### L 503.6550, L503.0106, L502.0250, L506.1001, L503.6030, L400.0001 ####[facility] [address] [place], [address] UR CREAT Normal 28.00-217.00 [facility] Comment on above: Result Comment: JAMISON ENT UTO Performed By: #### L 503.6550, L503.0106, L502.0250, L506.1001, L503.6030, L400.0001 ####[facility] [address] [place], [address] Monocyte percentageOrdered B y: Ronald Montgomery on 12-09-2024 Monocytes/100 WBC (Bld) 10.7 % High 0-10 [facility] Neutrophil percentageOrdered By: Ronald Montgomery on 12-09-2024 Neutrophils/100 WBC (Bld) 73.2 % High 47-70 [facility] No Panel InformationOrdered By: Ronald Montgomery on 12-09-2024 Unsaturated Iron Binding Capacity 161 ug/dL Low 228-428 [facility] Nucleated red blood cell per centageOrdered By: Ronald Montgomery on 12-09-2024 Nucleated RBC/100 WBC (Bld) [Ratio] 0 % 0-5 [facility] Phosphoruson 12-09-2024 Phosphate [Mass/Vol] 3.4 mg/dL Normal 2.7-4.5 [facility] Comment on above: Order Comment: Order Date: 12/09/24 Order Info: [id number] - CMP Order Info: [id number] - PHOS Performed By: #### L 501.2300, L500.4050, L100.0100 #### [facility] [place], [address] Platelet countOrdered By: Madeline Montgomery on 12-09-2024 Platelets (Bld) [#/Vol] 442 10*3/uL 150-450 [facility] Potassium measurement (mass/ volume)Ordered By: Ronald Montgomery on 12-09-2024 Potassium (Unsp spec) [Mass/Vol] 3.9 mmol/L 3.3-5.1 [facility] RBC Auto (Bld) [#/Vol]Ordere d By: Ronald Montgomery on 12-09-2024 RBC (Bld) [#/Vol] 3.57 10*6/uL Low 4.2-5.4 [facility] Serum creatinine measurement (mass/volume)Ordered By: Ronald Montgomery on 12-09-2024 Creatinine [Mass/Vol] 1.27 mg/dL High 0.70-1.20 [place] Serum globulin measurementOr dered By: Ronald Montgomery on 12-09-2024 Globulin (S) [Mass/Vol] 3.6 g/dL 2.2-4.2 [facility] Serum glucose measurement (m ass/volume)Ordered By: Ronald Montgomery on 12-09-2024 Glucose [Mass/Vol] 105 mg/dL High 70-99 [facility] Serum or plasma alanine krause otransferase (ALT) measurementOrdered By: Ronald Montgomery on 12-09-2024 ALT [Catalytic activity/Vol] 12 U/L <35 [facility] Serum or plasma albumin henry urement (mass/volume)Ordered By: Ronald Montgomery on 12-09-2024 Albumin [Mass/Vol] 4.3 g/dL 3.4-4.8 [facility] Serum or plasma albumin/glob ulin mass ratioOrdered By: Ronald Montgomery on 12-09-2024 Albumin/Globulin [Mass ratio] 1.2 {ratio} 0.9-2.4 [facility] Serum or plasma alkaline rambo sphatase measurementOrdered By: Ronald Montgomery on 12-09-2024 ALP [Catalytic activity/Vol] 76 U/L 35-104 [facility] Serum or plasma calcium henry urement (mass/volume)Ordered By: Ronald Motngomery on 12-09-2024 Calcium [Mass/Vol] 10.0 mg/dL 7.6-11.0 [facility] Serum or plasma ferritin sheree surement (mass/volume)Ordered By: Ronald Montgomery on 12-09-2024 Ferritin [Mass/Vol] 278 ng/mL 22-378 [facility] Serum or plasma iron saturat ion measurement (mass fraction)Ordered By: Ronald Montgomery on 12-09-2024 Iron saturation [Mass fraction] 30.9 % 13-59 [facility] Comment on above: Previous reported re sult: 31.0 %Edited by: ZULEMA on 12/11/24:1305 AMENDED REPORT 12/11/24 1305 IRON SATURATION previously reported as: 31.0 % Serum or plasma urea nitroge n measurement (mass/volume)Ordered By: Ronald Montgomery on 12-09-2024 Urea nitrogen [Mass/Vol] 26 mg/dL High 4-19 [facility] Sodium levelOrdered By: Ronald Montgomery on 12-09-2024 Sodium [Moles/Vol] 137 mmol/L 133-145 [facility] Total proteinOrdered By: Zane Montgomery on 12-09-2024 Protein [Mass/Vol] 7.9 g/dL 5.9-8.4 [facility] Urinalysis, Completeon 12-09 BACTERIA 0 SEEN Normal None Seen [facility] Comment on above: Order Comment: Urine , Random Result Comment: JAMISON ENT UTO Performed By: #### L 503.6550, L503.0106, L502.0250, L506.1001, L503.6030, L400.0001 ####[facility] [address] [place], [address] EPI,SQUAMOUS 0 SEEN Normal 5-10 [facility] Comment on above: Order Comment: Urine , Random Result Comment: JAIMSON ENT UTO Performed By: #### L 503.6550, L503.0106, L502.0250, L506.1001, L503.6030, L400.0001 ####[facility] [address] [place], [address] Mucus Ql (Urine sed) [address] [facility] Comment on above: Order Comment: Urine , Random Result Comment: JAMISON ENT UTO Performed By: #### L 503.6550, L503.0106, L502.0250, L506.1001, L503.6030, L400.0001 ####[facility] [address] [place], [address] RBC 0 SEEN Normal 0-5 [facility] Comment on above: Order Comment: Urine , Random Result Comment: JAMISON ENT UTO Performed By: #### L 503.6550, L503.0106, L502.0250, L506.1001, L503.6030, L400.0001 ####[facility] [address] [place], [address] WBC 0 SEEN Normal 0-5 [facility] Comment on above: Order Comment: Urine , Random Result Comment: JAMISON ENT UTO Performed By: #### L 503.6550, L503.0106, L502.0250, L506.1001, L503.6030, L400.0001 ####[facility] [address] [place], [address] BILIRUBIN URINE Normal Negative [facility] Comment on above: Order Comment: Urine , Random Result Comment: JAMISON ENT UTO Performed By: #### L 503.6550, L503.0106, L502.0250, L506.1001, L503.6030, L400.0001 ####[facility] [address] [place], [address] Clarity (U) Normal Clear [facility] Comment on above: Order Comment: Urine , Random Result Comment: JAMISON ENT UTO Performed By: #### L 503.6550, L503.0106, L502.0250, L506.1001, L503.6030, L400.0001 ####[facility] [address] [place], [address] Color (U) Normal Yellow [facility] Comment on above: Order Comment: Urine , Random Result Comment: JAMISON ENT UTO Performed By: #### L 503.6550, L503.0106, L502.0250, L506.1001, L503.6030, L400.0001 ####[facility] [address] [place], [address] GLUCOSE, UR Normal Normal [facility] Comment on above: Order Comment: Urine , Random Result Comment: JAMISON ENT UTO Performed By: #### L 503.6550, L503.0106, L502.0250, L506.1001, L503.6030, L400.0001 ####[facility] [address] [place], [address] KETONE UR Normal Negative [facility] Comment on above: Order Comment: Urine , Random Result Comment: JAMISON ENT UTO Performed By: #### L 503.6550, L503.0106, L502.0250, L506.1001, L503.6030, L400.0001 ####[facility] [address] [place], [address] LEUK ESTERASE Normal Negative [facility] Comment on above: Order Comment: Urine , Random Result Comment: JAMISON ENT UTO Performed By: #### L 503.6550, L503.0106, L502.0250, L506.1001, L503.6030, L400.0001 ####[facility] [address] [place], [address] Nitrite Ql (U) Normal Negative [facility] Comment on above: Order Comment: Urine , Random Result Comment: JAMISON ENT UTO Performed By: #### L 503.6550, L503.0106, L502.0250, L506.1001, L503.6030, L400.0001 ####[facility] [address] [place], [address] OCCULT BLOOD-UR Normal Negative [facility] Comment on above: Order Comment: Urine , Random Result Comment: JAMISON ENT UTO Performed By: #### L 503.6550, L503.0106, L502.0250, L506.1001, L503.6030, L400.0001 ####[facility] [address] [place], [address] pH UR Normal 5.0 - 8.0 [facility] Comment on above: Order Comment: Urine , Random Result Comment: JAMISON ENT UTO Performed By: #### L 503.6550, L503.0106, L502.0250, L506.1001, L503.6030, L400.0001 ####[facility] [address] [place], [address] PROT DIPSTX Normal Negative [facility] Comment on above: Order Comment: Urine , Random Result Comment: JAMISON ENT UTO Performed By: #### L 503.6550, L503.0106, L502.0250, L506.1001, L503.6030, L400.0001 ####[facility] [address] [place], [address] SP.GR. DIPSTX Normal 1.002-1.030 [facility] Comment on above: Order Comment: Urine , Random Result Comment: JAMISON ENT UTO Performed By: #### L 503.6550, L503.0106, L502.0250, L506.1001, L503.6030, L400.0001 ####[facility] [address] [place], [address] UR Preservative Normal [facility] Comment on above: Order Comment: Urine , Random Result Comment: JAMISON ENT UTO Performed By: #### L 503.6550, L503.0106, L502.0250, L506.1001, L503.6030, L400.0001 ####[facility] [address] [place], [address] UROBILI Normal Normal [facility] Comment on above: Order Comment: Urine , Random Result Comment: JAMISON ENT UTO Performed By: #### L 503.6550, L503.0106, L502.0250, L506.1001, L503.6030, L400.0001 ####[facility] [address] [place], [address] Vitamin B12 ser/plasOrdered By: Ronald Montgomery on 12-09-2024 Cobalamin (Vitamin B12) [Mass/Vol] 608 pg/mL 180-914 [facility] Vitamin D,25 Hydroxyon 12-09 Vitamin D 25-OH 23.6 ng/mL Low 30-100 [facility] Comment on above: Order Comment: Order Date: 12/09/24 Order Info: [id number] - CMP Order Info: [id number] - PHOS Result Comment: Seema min D Status Deficiency: <20 ng/mL (50nmol/L) Insufficiency: 20-30 ng/mL (50-75 nmol/L) Sufficiency: 30-100 ng/mL (75-250 nmol/L) Toxicity: >100 ng/mL (>250 nmol/L) Performed By: #### L 503.6550, L503.0106, L502.0250, L506.1001, L503.6030, L400.0001 #### [facility] [address] [place], [address] White blood cell (WBC) count Ordered By: Ronald Montgomery on 12-09-2024 WBC (Bld) [#/Vol] 7.5 10*3/uL 4.4-11.0 [facility] Absolute lymphocyte countOrd ered By: Ronald Montgomery on 11-12-2023 Lymphocytes Auto (Unsp spec) [#/Vol] 1.11 10*3/uL 0.83-4.51 [facility] Automated lymphocyte count a s percentage of total leukocytesOrdered By: Ronald Montgomery on 11-12-2023 Lymphocytes/100 WBC Auto (Unsp spec) 10.7 % 19-41 [facility] Basophil percentageOrdered B y: Ronald Montgomery on 11-12-2023 Basophil percentage 5-10 SEEN /hpf 0-5 [facility] Basophils/100 WBC (Bld) 1.2 % 0-1 [facility] Bilirubin [Mass/Vol] 0.50 mg/dL 0.20-1.00 [facility] Comment on above: For patients on eltr ombopag therapy, use of Dimension Grady TBIL is not recommended. Chloride [Moles/Vol] 110 mmol/L 98-107 [facility] Eosinophils/100 WBC (Bld) 2.1 % 0-5 [facility] Glucose [Mass/Vol] 98 mg/dL 74-106 [facility] Hemoglobin (Bld) [Mass/Vol] 10.8 g/dL 12.0-15.0 [facility] Monocytes/100 WBC (Bld) 9.6 % 0-10 [facility] Neutrophils (Bld) [#/Vol] 7.9 10*3/uL 2.0-7.7 [facility] Neutrophils/100 WBC (Bld) 76.0 % 47-70 [facility] Potassium [Moles/Vol] 4.0 mmol/L 3.5-5.1 [place] Protein [Mass/Vol] 7.4 g/dL 6.4-8.2 [facility] Sodium [Moles/Vol] 140 mmol/L 136-145 [facility] WBC (Bld) [#/Vol] 10.4 10*3/uL 4.4-11.0 [facility] Bilirubin Test strip Ql (U)O rdered By: Ronald Montgomery on 11-12-2023 Bilirubin Ql (U) Negative Negative [facility] Determination of erythrocyte mean corpuscular volume (MCV)Ordered By: Ronald Montgomery on 11-12-2023 MCV (RBC) [Entitic vol] 90.2 fL 81-99 [facility] Erythrocyte distribution wid th ratioOrdered By: Ronald Montgomery on 11-12-2023 Erythrocyte distribution width (RBC) [Ratio] 14.8 % 11.6-14.6 [facility] Erythrocyte distribution wid th standard deviationOrdered By: Ronald Montgomery on 11-12-2023 Erythrocyte distribution width (RBC) [Entitic vol] 48.9 fL 35.1-43.9 [facility] Hematocrit Auto (Bld) [Volum e fraction]Ordered By: Ronald Montgomery on 11-12-2023 Hematocrit (Bld) [Volume fraction] 34.0 % 37-47 [facility] Immature granulocytes/100 WB C Auto (Bld)Ordered By: Ronald Montgomery on 11-12-2023 Immature granulocytes/100 WBC (Bld) 0.400 % 0.0-0.9 [facility] Comment on above: IG% - Immature Granu locytes (promyelocytes, myelocytes and metamyelocytes) > 1% indicates that a LEFT SHIFT is Present. Iron measurement (mass/mass) Ordered By: Ronald Montgomery on 11-12-2023 Iron (Unsp spec) [Mass/Mass] 75 ug/dL 50-170 [facility] Ketones Test strip Ql (U)Ord ered By: Ronald Montgomery on 11-12-2023 Ketones Ql (U) 5 mg/dl Negative [facility] - Chemistry and C hemistry - challengeOrdered By: Ronald Montgomery on 11-12-2023 Albumin/Globulin [Mass ratio] 1.1 {ratio} 0.9-2.4 [facility] ALP [Catalytic activity/Vol] 65 U/L 45-117 [facility] ALT [Catalytic activity/Vol] 16 U/L 13-56 [facility] CO2 [Moles/Vol] 25.0 mmol/L 21.0-32.0 [facility] Cobalamin (Vitamin B12) [Mass/Vol] 560 pg/mL 211-911 [facility] Ferritin [Mass/Vol] 194 ng/mL 8-252 [facility] Globulin (S) [Mass/Vol] 3.6 g/dL 2.2-4.2 [facility] Urea nitrogen/Creatinine [Mass ratio] 17.0 mg/mg 10-20 [facility] - Hematology and Cell countsOrdered By: Ronald Montgomery on 11-12-2023 MCH (RBC) [Entitic mass] 28.6 pg 27.0-32.0 [facility] MCHC (RBC) [Mass/Vol] 31.8 g/dL 32-36 [place] Nucleated RBC/100 WBC (Bld) [Ratio] 0 % 0-5 [facility] Platelet mean volume (Bld) [Entitic vol] 9.8 fL 6.2-12.0 [facility] Platelets (Bld) [#/Vol] 434 10*3/uL 150-450 [facility] Mucus LM Ql (Urine sed)Order ed By: Ronald Montgomery on 11-12-2023 Mucus Ql (Urine sed) 0 SEEN /hpf [place] Nitrite Test strip Ql (U)Ord ered By: Ronald Montgomery on 11-12-2023 Nitrite Ql (U) Negative Negative [facility] No Panel InformationOrdered By: Ronald Montgomery on 11-12-2023 Estimated GFR (MDRD) Amer 46 mL/min >60 [facility] Comment on above: GFR Calc Estimated GFR (MDRD) Non-Af Amer 38 mL/min >60 [facility] Comment on above: Non- GFR Calc Folate 34.40 ng/mL 3.1-55.4 [facility] Total Iron Binding Capacity 237 ug/dL 250-450 [facility] Urine RBC 0 SEEN /hpf 0-5 [facility] Protein Test strip Ql (U)Ord ered By: Ronald Montgomery on 11-12-2023 Protein Ql (U) 30 mg/dl Negative [facility] RBC Auto (Bld) [#/Vol]Ordere d By: Ronald Montgomery on 11-12-2023 RBC (Bld) [#/Vol] 3.77 10*6/uL 4.2-5.4 [facility] Serum or plasma calcium henry urement (mass/volume)Ordered By: Ronald Montgomery on 11-12-2023 Calcium [Mass/Vol] 9.4 mg/dL 8.5-10.1 [facility] Serum or plasma creatinine m easurement (mass/volume)Ordered By: Ronald Montgomery on 11-12-2023 Creatinine [Mass/Vol] 1.41 mg/dL 0.55-1.02 [place] Comment on above: The validity of the calculated GFR & GFRAA in patients over 70 years has not been determined. Clinical correlation is essential. Serum or plasma urea nitroge n measurement (mass/volume)Ordered By: Ronald Montgomery on 11-12-2023 Urea nitrogen [Mass/Vol] 24 mg/dL 7-18 [facility] Squamous epithelial cells de tection in urine sediment by light microscopyOrdered By: Ronald Montgomery on 11-12-2023 Epithelial cells.squamous LM Ql (Urine sed) 0-5 SEEN /hpf 5-10 [facility] Thin prep Papanicolaou smear with manual screeningOrdered By: Ronald Montgomery on 11-12-2023 Thin prep Papanicolaou smear with manual screening 3.8 g/dL 3.2-5.0 [facility] Thin prep Papanicolaou smear with manual screening 24 U/L 15-37 [facility] Thin prep Papanicolaou smear with manual screening 5 5-15 [facility] Urine blood detectionOrdered By: Ronald Montgomery on 11-12-2023 RBC Ql (U) 25 /ul Negative [facility] Urine clarityOrdered By: Zane Montgomery on 11-12-2023 Clarity (U) Clear Clear [facility] Urine color determinationOrd ered By: Ronald Montgomery on 11-12-2023 Color (U) Yellow Yellow [facility] Urine glucose detectionOrder ed By: Ronald Montgomery on 11-12-2023 Glucose Ql (U) Normal mg/dl Normal [facility] Urine leukocyte esterase det ection by dipstickOrdered By: Ronald Montgomery on 11-12-2023 Leukocyte esterase Test strip Ql (U) 500 /ul Negative [facility] Urine pHOrdered By: Ronald martinez on 11-12-2023 pH (U) 6.0 [pH] 5.0 - 8.0 [facility] Urine sediment bacteria coun t by microscopy (number/high power field)Ordered By: Ronald Montgomery on 11-12-2023 Bacteria LM.HPF (Urine sed) [#/Area] 0 /[HPF] None Seen [facility] Urine specific gravity measu rementOrdered By: Ronald Montgomery on 11-12-2023 Specific gravity (U) [Rel density] 1.020 1.002-1.030 [facility] Urine urobilinogen measureme ntOrdered By: Ronald Montgomery on 11-12-2023 Urobilinogen Ql (U) Normal mg/dl Normal [place] Culture, urineOrdered By: Madeline Montgomery on 05-30-2023 Bacteria identified Cx Nom (U) Positive [facility] Absolute lymphocyte countOrd ered By: Ronald Montgomery on 05-28-2023 Lymphocytes Auto (Unsp spec) [#/Vol] 1.60 10*3/uL 0.83-4.51 [facility] Basophil percentageOrdered B y: Ronald Montgomery on 05-28-2023 Basophil percentage 25-50 SEEN /hpf 0-5 [facility] Basophil percentage 3.3 mg/dL 2.5-4.9 [facility] Basophils/100 WBC (Bld) 1.1 % 0-1 [facility] Bilirubin [Mass/Vol] 0.60 mg/dL 0.20-1.00 [facility] Comment on above: For patients on eltr ombopag therapy, use of Dimension Grady TBIL is not recommended. Chloride [Moles/Vol] 106 mmol/L 98-107 [facility] Eosinophils/100 WBC (Bld) 2.8 % 0-5 [facility] Glucose [Mass/Vol] 97 mg/dL 74-106 [facility] Neutrophils (Bld) [#/Vol] 5.4 10*3/uL 2.0-7.7 [facility] Neutrophils/100 WBC (Bld) 64.6 % 47-70 [facility] Potassium [Moles/Vol] 3.7 mmol/L 3.5-5.1 [place] Protein [Mass/Vol] 7.7 g/dL 6.4-8.2 [facility] Sodium [Moles/Vol] 139 mmol/L 136-145 [facility] WBC (Bld) [#/Vol] 8.3 10*3/uL 4.4-11.0 [facility] Bilirubin Test strip Ql (U)O rdered By: Ronald Montgomery on 05-28-2023 Bilirubin Ql (U) Negative Negative [facility] Blood erythrocytes count (nu mber/volume)Ordered By: Ronald Montgomery on 05-28-2023 RBC (Bld) [#/Vol] 3.75 10*6/uL 4.2-5.4 [facility] Blood hemoglobin measurement (mass/volume)Ordered By: Ronald Montgomery on 05-28-2023 Hemoglobin (Bld) [Mass/Vol] 10.9 g/dL 12.0-15.0 [facility] Blood lymphocytes/100 leukoc ytesOrdered By: Ronald Montgomery on 05-28-2023 Lymphocytes/100 WBC (Bld) 19.3 % 19-41 [facility] Blood monocytes/100 leukocyt esOrdered By: Ronald Montgomery on 05-28-2023 Monocytes/100 WBC (Bld) 11.8 % 0-10 [facility] Blood platelet mean volumeOr dered By: Ronald Montgomery on 05-28-2023 Platelet mean volume (Bld) [Entitic vol] 9.8 fL 6.2-12.0 [facility] Determination of erythrocyte mean corpuscular volume (MCV)Ordered By: Ronald Montgomery on 05-28-2023 MCV (RBC) [Entitic vol] 90.9 fL 81-99 [facility] Hematocrit Auto (Bld) [Volum e fraction]Ordered By: Ronald Montgomery on 05-28-2023 Hematocrit (Bld) [Volume fraction] 34.1 % 37-47 [facility] Ketones Test strip Ql (U)Ord ered By: Ronald Montgomery on 05-28-2023 Ketones Ql (U) Negative Negative [facility] Laboratory - Chemistry and C hemistry - challengeOrdered By: Ronald Montgomery on 05-28-2023 ALP [Catalytic activity/Vol] 73 U/L 45-117 [facility] ALT [Catalytic activity/Vol] 18 U/L 13-56 [facility] CO2 [Moles/Vol] 25.0 mmol/L 21.0-32.0 [facility] Globulin (S) [Mass/Vol] 3.8 g/dL 2.2-4.2 [facility] Urea nitrogen/Creatinine [Mass ratio] 17.5 mg/mg 10-20 [facility] Laboratory - Hematology and Cell countsOrdered By: Ronald Montgomery on 05-28-2023 Erythrocyte distribution width (RBC) [Entitic vol] 49.7 fL 35.1-43.9 [facility] Erythrocyte distribution width (RBC) [Ratio] 14.9 % 11.6-14.6 [facility] Immature granulocytes/100 WBC (Bld) 0.400 % 0.0-0.9 [facility] Comment on above: IG% - Immature Granu locytes (promyelocytes, myelocytes and metamyelocytes) > 1% indicates that a LEFT SHIFT is Present. MCH (RBC) [Entitic mass] 29.1 pg 27.0-32.0 [facility] Nucleated RBC/100 WBC (Bld) [Ratio] 0 % 0-5 [facility] MCHC Auto (RBC) [Mass/Vol]Or dered By: Ronald Montgomery on 05-28-2023 MCHC (RBC) [Mass/Vol] 32.0 g/dL 32-36 [place] Mucus LM Ql (Urine sed)Order ed By: Ronald Montgomery on 05-28-2023 Mucus Ql (Urine sed) Not Reportable [facility] Nitrite Test strip Ql (U)Ord ered By: Ronald Montgomery on 05-28-2023 Nitrite Ql (U) Negative Negative [facility] No Panel InformationOrdered By: Ronald Montgomery on 05-28-2023 Estimated GFR (MDRD) Amer 55 mL/min >60 [facility] Comment on above: GFR Calc Estimated GFR (MDRD) Non-Af Amer 46 mL/min >60 [facility] Comment on above: Non- GFR Calc Parathyroid Hormone (Intact) 76.0 pg/mL 18.4-80.1 [facility] Platelets bldOrdered By: Zane Montgomery on 05-28-2023 Platelets (Bld) [#/Vol] 428 10*3/uL 150-450 [facility] Protein Test strip Ql (U)Ord ered By: Ronald Montgomery on 05-28-2023 Protein Ql (U) Negative Negative [facility] Serum or plasma albumin henry urement (mass/volume)Ordered By: Ronald Montgomery on 05-28-2023 Albumin [Mass/Vol] 3.9 g/dL 3.2-5.0 [facility] Serum or plasma albumin/glob ulin mass ratioOrdered By: Ronald Montgomery on 05-28-2023 Albumin/Globulin [Mass ratio] 1.0 {ratio} 0.9-2.4 [facility] Serum or plasma calcium henry urement (mass/volume)Ordered By: Ronald Montgomery on 05-28-2023 Calcium [Mass/Vol] 9.6 mg/dL 8.5-10.1 [facility] Serum or plasma creatinine m easurement (mass/volume)Ordered By: Ronald Montgomery on 05-28-2023 Creatinine [Mass/Vol] 1.20 mg/dL 0.55-1.02 [place] Comment on above: The validity of the calculated GFR & GFRAA in patients over 70 years has not been determined. Clinical correlation is essential. Serum or plasma urea nitroge n measurement (mass/volume)Ordered By: Ronald Montgomery on 05-28-2023 Urea nitrogen [Mass/Vol] 21 mg/dL 7-18 [facility] Squamous epithelial cells de tection in urine sediment by light microscopyOrdered By: Ronald Montgomery on 05-28-2023 Epithelial cells.squamous LM Ql (Urine sed) 0-5 SEEN /hpf 5-10 [facility] Thin prep Papanicolaou smear with manual screeningOrdered By: Ronald Montgomery on 05-28-2023 Thin prep Papanicolaou smear with manual screening 23 U/L 15-37 [facility] Thin prep Papanicolaou smear with manual screening 8 5-15 [facility] Urine blood detectionOrdered By: Ronald Montgomery on 05-28-2023 RBC Ql (U) 25 /ul Negative [facility] RBC Ql (U) 0-5 SEEN /hpf 0-5 [facility] Urine clarityOrdered By: Zane Montgomery on 05-28-2023 Clarity (U) Sl. Cloudy Clear [facility] Urine color determinationOrd ered By: Ronald Montgomery on 05-28-2023 Color (U) Yellow Yellow [facility] Urine creatinine measurement (mass/volume)Ordered By: Ronald Montgomery on 05-28-2023 Creatinine (U) [Mass/Vol] 103.00 mg/dL NO RANGE EST. [facility] Urine glucose detectionOrder ed By: Ronald Montgomery on 05-28-2023 Glucose Ql (U) Normal mg/dl Normal [facility] Urine leukocyte esterase det ection by dipstickOrdered By: Ronald Montgomery on 05-28-2023 Leukocyte esterase Test strip Ql (U) 500 /ul Negative [facility] Urine pHOrdered By: Ronald martinez on 05-28-2023 pH (U) 6.0 [pH] 5.0 - 8.0 [facility] Urine protein measurement (m ass/volume)Ordered By: Ronald Montgomery on 05-28-2023 Protein (U) [Mass/Vol] 17.1 mg/dL 0.0-11.8 [facility] Urine protein/creatinine mas s ratioOrdered By: Ronald Montgomery on 05-28-2023 Protein/Creatinine (U) [Mass ratio] 166 mg/g CRE 0-200 [facility] Urine sediment bacteria coun t by microscopy (number/high power field)Ordered By: Ronald Montgomery on 05-28-2023 Bacteria LM.HPF (Urine sed) [#/Area] 1 /[HPF] None Seen [facility] Urine specific gravity measu rementOrdered By: Ronald Montgomery on 05-28-2023 Specific gravity (U) [Rel density] 1.015 1.002-1.030 [facility] Urobilinogen Auto test strip Ql (U)Ordered By: Ronald Montgomery on 05-28-2023 Urobilinogen Ql (U) Normal mg/dl Normal [place] Absolute lymphocyte counton 06-07-2022 Lymphocytes Auto (Unsp spec) [#/Vol] 1.52 10*3/uL 0.83-4.51 [facility] Work Phone: Basophil percentageon 2021 Basophil percentage 0-5 SEEN /hpf 0-5 [facility] Work Phone: Basophil percentage 3.4 mg/dL 2.5-4.9 [facility]: Basophils/100 WBC (Bld) 0.9 % 0-1 [facility] Work Phone: Bilirubin [Mass/Vol] 0.40 mg/dL 0.20-1.00 [facility] Work Phone: Comment on above: For patients on eltr ombopag therapy, use of Dimension Grady TBIL is not recommended. Chloride [Moles/Vol] 107 mmol/L 98-107 [facility] Work Phone: Eosinophils/100 WBC (Bld) 1.6 % 0-5 [facility] Work Phone: Glucose [Mass/Vol] 96 mg/dL 74-106 [facility] Work Phone: Neutrophils (Bld) [#/Vol] 5.9 10*3/uL 2.0-7.7 [facility] Work Phone: Neutrophils/100 WBC (Bld) 67.8 % 47-70 [facility] Work Phone: Potassium [Moles/Vol] 3.7 mmol/L 3.5-5.1 [place] Work Phone: Protein [Mass/Vol] 7.8 g/dL 6.4-8.2 [facility] Work Phone: Sodium [Moles/Vol] 139 mmol/L 136-145 [facility] Work Phone: WBC (Bld) [#/Vol] 8.7 10*3/uL 4.4-11.0 [facility] Work Phone: Bilirubin Test strip Ql (U)o n 06-07-2022 Bilirubin Ql (U) Negative Negative [facility] Work Phone: Blood erythrocytes count (nu mber/volume)on 06-07-2022 RBC (Bld) [#/Vol] 3.81 10*6/uL 4.2-5.4 [facility] Work Phone: Blood hemoglobin measurement (mass/volume)on 06-07-2022 Hemoglobin (Bld) [Mass/Vol] 11.1 g/dL 12.0-15.0 [facility] Work Phone: Blood lymphocytes/100 leukoc yteson 06-07-2022 Lymphocytes/100 WBC (Bld) 17.6 % 19-41 [facility] Work Phone: Blood monocytes/100 leukocyt eson 06-07-2022 Monocytes/100 WBC (Bld) 11.8 % 0-10 [facility] Work Phone: Blood platelet mean volumeon 06-07-2022 Platelet mean volume (Bld) [Entitic vol] 9.9 fL 6.2-12.0 [facility] Work Phone: Determination of erythrocyte mean corpuscular volume (MCV)on 06-07-2022 MCV (RBC) [Entitic vol] 91.6 fL 81-99 [facility] Work Phone: Hematocrit Auto (Bld) [Volum e fraction]on 06-07-2022 Hematocrit (Bld) [Volume fraction] 34.9 % 37-47 [facility] Work Phone: Iron measurement (mass/mass) on 06-07-2022 Iron (Unsp spec) [Mass/Mass] 51 ug/dL 50-170 [facility] Work Phone: Ketones Test strip Ql (U)on 10-19-2022 Ketones Ql (U) Negative Negative [facility] Work Phone: Laboratory - Chemistry and C hemistry - challengeon 06-07-2022 ALP [Catalytic activity/Vol] 74 U/L 45-117 [facility] Work Phone: ALT [Catalytic activity/Vol] 22 U/L 13-56 [facility] Work Phone: [phone] CO2 [Moles/Vol] 24.0 mmol/L 21.0-32.0 [facility] Work Phone: [phone] Cobalamin (Vitamin B12) [Mass/Vol] 416 pg/mL 211-911 [facility] Work Phone: Globulin (S) [Mass/Vol] 3.9 g/dL 2.2-4.2 [facility] Work Phone: [phone] Urea nitrogen/Creatinine [Mass ratio] 19.3 mg/mg 10-20 [facility] Work Phone: [phone] Laboratory - Hematology and Cell countson 06-07-2022 Erythrocyte distribution width (RBC) [Entitic vol] 49.6 fL 35.1-43.9 [facility] Work Phone: [phone] Erythrocyte distribution width (RBC) [Ratio] 14.7 % 11.6-14.6 [facility] Work Phone: [phone] Immature granulocytes/100 WBC (Bld) 0.300 % 0.0-0.9 [facility] Work Phone: [phone] Comment on above: IG% - Immature Granu locytes (promyelocytes, myelocytes and metamyelocytes) > 1% indicates that a LEFT SHIFT is Present. MCH (RBC) [Entitic mass] 29.1 pg 27.0-32.0 [facility] Work Phone: [phone] Nucleated RBC/100 WBC (Bld) [Ratio] 0 % 0-5 [facility] Work Phone: [phone] MCHC Auto (RBC) [Mass/Vol]on 06-07-2022 MCHC (RBC) [Mass/Vol] 31.8 g/dL 32-36 [place] Work Phone: Mucus LM Ql (Urine sed)on Mucus Ql (Urine sed) 0 SEEN /hpf [place] Work Phone: Nitrite Test strip Ql (U)on 06-07-2022 Nitrite Ql (U) Negative Negative [facility] Work Phone: No Panel Informationon 06-07 Estimated GFR (MDRD) Amer 69 mL/min >60 [facility] Work Phone: Comment on above: GFR Calc Estimated GFR (MDRD) Non-Af Amer 57 mL/min >60 [facility] Work Phone: Comment on above: Non- GFR Calc Parathyroid Hormone (Intact) 85.8 pg/mL 18.4-80.1 [facility] Work Phone: Thyroid Stimulating Hormone (TSH) 3.25 uIU/mL 0.358-3.74 [facility] Work Phone: Total Iron Binding Capacity 245 ug/dL 250-450 [facility] Work Phone: Vitamin D 25-Hydroxy 27.7 ng/mL [facility] Work Phone: Comment on above: Vitamin D 25(OH) Sta tus Range Deficiency <20 ng/mL (50nmol/L) Insufficiency 20 - 30 ng/mL (50 - 75 nmol/L) Sufficiency 30 - 100 ng/mL (75 - 250 nmol/L) Toxicity >100 ng/mL (>250 nmol/L) Platelets bldon 06-07-2022 Platelets (Bld) [#/Vol] 429 10*3/uL 150-450 [facility] Work Phone: Protein Test strip Ql (U)on 06-07-2022 Protein Ql (U) Negative Negative [facility] Work Phone: Serum or plasma albumin henry urement (mass/volume)on 06-07-2022 Albumin [Mass/Vol] 3.9 g/dL 3.2-5.0 [facility] Work Phone: Serum or plasma albumin/glob ulin mass ratioon 06-07-2022 Albumin/Globulin [Mass ratio] 1.0 {ratio} 0.9-2.4 [facility] Work Phone: Serum or plasma calcium henry urement (mass/volume)on 06-07-2022 Calcium [Mass/Vol] 9.6 mg/dL 8.5-10.1 [facility] Work Phone: Serum or plasma creatinine m easurement (mass/volume)on 06-07-2022 Creatinine [Mass/Vol] 0.99 mg/dL 0.55-1.02 [place] Work Phone: Comment on above: The validity of the calculated GFR & GFRAA in patients over 70 years has not been determined. Clinical correlation is essential. Serum or plasma ferritin sheree surement (mass/volume)on 06-07-2022 Ferritin [Mass/Vol] 188 ng/mL 8 [facility] Work Phone: Serum or plasma iron saturat ion measurement (mass fraction)on 06-07-2022 Iron saturation [Mass fraction] 20.8 % 15.0-55.0 [facility] Work Phone: Serum or plasma urea nitroge n measurement (mass/volume)on 06-07-2022 Urea nitrogen [Mass/Vol] 19 mg/dL 7-18 [facility] Work Phone: Squamous epithelial cells de tection in urine sediment by light microscopyon 06-07-2022 Epithelial cells.squamous LM Ql (Urine sed) 0-5 SEEN /hpf 5-10 [facility] Work Phone: Thin prep Papanicolaou smear with manual screeningon 06-07-2022 Thin prep Papanicolaou smear with manual screening 22 U/L 15-37 [facility] Work Phone: Thin prep Papanicolaou smear with manual screening 8 5-15 [facility] Work Phone: Urine blood detectionon 05-20 RBC Ql (U) 10 /ul Negative [facility] Work Phone: RBC Ql (U) 0-5 SEEN /hpf 0-5 [facility] Work Phone: Urine clarityon 06-07-2022 Clarity (U) Clear Clear [facility] Work Phone: Urine color determinationon 06-07-2022 Color (U) Straw Yellow [facility] Work Phone: Urine creatinine measurement (mass/volume)on 06-07-2022 Creatinine (U) [Mass/Vol] 18.70 mg/dL NO RANGE EST. [facility] Work Phone: Urine glucose detectionon Glucose Ql (U) Normal mg/dl Normal [facility] Work Phone: Urine leukocyte esterase det ection by dipstickon 06-07-2022 Leukocyte esterase Test strip Ql (U) 25 /ul Negative [facility] Work Phone: Urine pHon 06-07-2022 pH (U) 6.5 [pH] 5.0 - 8.0 [facility] Work Phone: Urine protein measurement (m ass/volume)on 06-07-2022 Protein (U) [Mass/Vol] mg/dL 0.0-11.8 [facility] Work Phone: Urine protein/creatinine mas s ratioon 06-07-2022 Protein/Creatinine (U) [Mass ratio] 283 mg/g CRE 0-200 [facility] Work Phone: Urine sediment bacteria coun t by microscopy (number/high power field)on 06-07-2022 Bacteria LM.HPF (Urine sed) [#/Area] 2 /[HPF] None Seen [facility] Work Phone: Urine specific gravity measu rementon 06-07-2022 Specific gravity (U) [Rel density] 1.010 1.002-1.030 [facility] Work Phone: Urobilinogen Auto test strip Ql (U)on 06-07-2022 Urobilinogen Ql (U) Normal mg/dl Normal [place] Work Phone: Vital Signs Date Time Vital Sign Value Performing Clinician Faci lity 04-15-2025 14:43-0400 Body temperature 96.8 [degF] Dr. Ronald Montgomery MD Work Phone: [facility] 04-15-2025 14:43-0400 Diastolic blood pressure 75 mm[Hg] Dr. Ronald Montgomery MD Work Phone: [facility] 04-15-2025 14:43-0400 Heart rate 72 /min Dr. Ronald Montgomery MD Work Phone: [facility] 04-15-2025 14:43-0400 Respiratory rate 16 /min Dr. Ronald Montgomery MD Work Phone: [facility] 04-15-2025 14:43-0400 Systolic blood pressure 157 mm[Hg] Dr. Ronald Montgomery MD Work Phone: [facility] Encounters Encounter Date Encounter Type Care Provider Facility Start: 05-08-2025 ambulatory Ronald Montgomery Facilit y:[facility] Start: 04-15-2025 End: 04-19-[address] Ronald Montgomery MD [facility] Phone[facility] Start: 04-15-2025 End: 04-19-[address] Timothy De Souza DPM [facility] Work Phone: Start: 02-17-2025 Non-patient / Non-visit Dr. Maddison bowman MD -[facility] Work Phone: Start: 12-23-2024 End: 12-23-[address] Ronald Montgomery MD Work Phone: [facility] Work Phone: Start: 12-23-2024 End: 12-23-[address] Ronald Montgomery MD -Laboratory, Specimen Work Phone: Start: 12-22-2024 End: 12-23-[address] Ronald Montgomery MD Work Phone: [facility] Work Phone: Start: 12-22-2024 End: 12-22-[address] [facility] Start: 12-22-2024 End: 12-22-2024 ambulatory Ronald Montgomery Facility:[facility] Start: 12-09-2024 End: 12-09-[address] [facility] Start: 12-09-2024 End: 12-09-2024 ambulatory Ronald Montgomery Facility:[facility] Start: 11-12-2023 End: 11-12-2023 ambulatory [facility] Work Phone: Start: 11-12-2023 End: 11-12-2023 Patient encounter procedure [facility] Work Phone: Start: 05-30-2023 End: 05-30-2023 ambulatory [facility] Work Phone: Start: 05-30-2023 End: 05-30-2023 [facility] Work [facility] Start: 05-28-2023 End: 05-28-2023 ambulatory [facility] Work Phone: Start: 05-28-2023 End: 05-28-2023 Patient encounter procedure [facility] Work Phone: Start: 06-07-2022 End: 06-07-2022 ambulatory [facility] Work Phone: Start: 06-07-2022 End: 06-07-2022 Patient encounter procedure [facility] Procedures Date Procedure Procedure Detail Performing Clinician Start: 04-08-[address] Ronald Montgomery MD Work Phone: Start: 04-08-2025 Gram stain microscopy Elvis Montgomery MD Work Phone: Start: 04-08-2025 End: 04-08-2025 Microbial culture, routine Dr. Ronald mijares MD Work Phone: Start: 12-23-[address] Ronald Montgomery MD Work Phone: Start: 12-22-2024 Urnls dip stick/tabl et reagent auto microscopy Dr. Ronald Montgomery MD Work Phone: Start: 12-09-[address] Ronald Montgomery MD Work Phone: Start: 12-09-2024 Serum inorganic phos phate measurement Dr. Ronald Montgomery MD Work Phone: Start: 12-09-2024 Total iron binding capacity measurement Dr. Ronald Montgomery MD Work Phone: Start: 12-09-2024 Vitamin D, 25-hydrox y measurement Dr. Ronald Montgomery MD Work Phone: Comment on above: Vitamin D StatusDefi ciency: <20 ng/mL (50nmol/L)Insufficiency: 20-30 ng/mL (50-75 nmol/L)Sufficiency: 30-100 ng/mL (75-250 nmol/L)Toxicity: >100 ng/mL (>250 nmol/L) Start: 05-30-2023 Bacteria identified in Urine by Culture Start: 05-30-2023 Urine culture Start: 05-28-2023 Bacteria identified in Urine by Culture Plan of Treatment Date Care Activity Detail Author Start: 12-23-2024 Bacteria identified in Urine by Culture Urine Culture [facility] Start: 05-30-2023 Urine culture Urine Culture [facility] Urine culture [facility] Payers Date Payer Category Payer Self-pay [id number] 2024 Unknown [id number] Unknown [id number] 2.16.8 [id number] Unknown [id number] 2.16.8 [id number] Unknown [id number] 2.16.8 [id number] Unknown [id number] 2.16.8 [id number] Unknown [id number] 2.16.8 [id number] Social History Date Type Detail Facility Start: 05-26-2018 Tobacco smoking stat us [facility] [[email or web address] Unknown if ever smoked [facility] Start: 1940 Sex Assigned At Female W [facility] Start: 05-26-2018 End: 04-08-2025 Tobacco smoking status NHIS Never smoked tobacco (finding) [facility] Evaluation note 04-15-2025 Note Date & Type Note Facility 04-15-2025 Evaluation note Diagnosis Onset Date Resolution Other specified peripheral vascular diseases acute April 15 2:30pm 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 April 15 2:30pm 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 Progress of Wound: Patient is a 85-year-old female presenting to the wound care center today for evaluation of full-thickness wounds to the bilateral lower extremity secondary to fleabites. Patient unfortunately had a cat with multiple fleas and dealt with an infestation in her house that has ultimately been treated. Since then the patient has had multiple excoriations as well as full-thickness wounds with eschar to the bilateral lower extremity. Treatment has been with topical tripleointment antibiotic that has been provided by her daughter. Patient was referred to the wound care center for expert evaluation with podiatry from her primary doctor. Overall the patient states things have gotten a little worse and she notices more swelling to the bilateral extremity with pain with long periods of standing. She denies trauma. Denies constitutional symptoms. No other pedal complaints at this time. PFSH Home Medications ?Medication ?Instructions ?Recorded ?Last Taken ?Type lisinopril 10 10 - 12.5 mg PO DAILY Unknown History mg-hydrochlorothiazide 12.5 mg tablet multivitamin with folic acid 400 1 tab PO DAILY Unknown History mcg tablet (Thera) aspirin 81 mg tablet,delayed 81 mg PO DAILY@0800 05/2405/23/15 08:00 History release cephalexin 500 mg capsule 500 mg PO Q6 #40 caps Unknown Rx doxycycline hyclate 100 mg tablet 100 mg PO BID Unknown History furosemide 40 mg tablet 40 mg PO 04/08/25 Unknown Hi story Allergy/AdvReac Type Severity Reaction Status Date / Time No Known Allergies Allergy Verified 05/26/18 10:17 Social History Smoking Status: Never smoker Vital Signs Vital Signs Vital Signs: 04/08/25 14:16 Temperature 97.6 F L Temperature Source Temporal Pulse Rate 70 Respiratory Rate 18 Blood Pressure 99/58 L Blood Pressure Mean 71 Blood Pressure Source Monitor Physical Exam Narrative Vascular: DP and PT pulses palpable. CFT brisk. No erythema or proximal streaking. Skin temperature is warm to warm with no focal increase. Nonpitting edema appreciated to bilateral lower extremity. Neurologic: Light touch and epicritic sensations intact. Protective sensation intact to 10/10 sites with 5.07 Guy-Gigi monofilament. Dermatologic: Full-thickness wound to the right second digit measuring 1.5 x 1.0x 0.1 cm. Wound base is granular with no sign of infection. Full-thickness wound to the right leg measuring 9.6 x 5.9 x 0.1 cm. Wound base is fibrogranular innature with eschar island. Full-thickness wound appreciated to the left leg measuring 7.5 x 10.0 x 0.2 cm. Wound base is fibrogranular nature with island eschar. Multiple excoriations appreciated to bilateral lower extremity. Stablecannot rule out infection at this time. Excisional debridement down to and including subcutaneous tissue to the right lower extremity full-thickness wound with a number 5 mm dermal curette and without incident. Predebridement measurement with eschar. Postdebridement measurement is 9.6 x 5.9 x 0.1 cm. Excisional debridement down to including subcutaneous tissue of the left lower extremity full-thickness wound with a number 5 mm dermal curette done without incident. Predebridement measurement was eschar. Postdebridement measurement is 7.5 x 10.0 x 0.2 cm. Excisional debridement down to including subcutaneous tissue of the right seconddigit full-thickness wound done with a 5 mm dermal curette without incident. Predebridement measurement was sanguinous crust. Postdebridement measurement is1.5 x 1.0 x 0.1 cm. Musculoskeletal: Mild palpatory tenderness appreciated the bilateral lower extremity. No pain with calf compression bilateral. Debridement Note Debridement Note Debridement Free Text: Excisional debridement down to and including subcutaneoustissue to the right lower extremity full-thickness wound with a number 5 mm dermal curette and without incident. Predebridement measurement with eschar. Postdebridement measurement is 9.6 x 5.9 x 0.1 cm. Excisional debridement down to including subcutaneous tissue of the left lower extremity full-thickness wound with a number 5 mm dermal curette done without incident. Predebridement measurement was eschar. Postdebridement measurement is 7.5 x 10.0 x 0.2 cm. Excisional debridement down to including subcutaneous tissue of the right seconddigit full-thickness wound done with a 5 mm dermal curette without incident. Predebridement measurement was sanguinous crust. Postdebridement measurement is1.5 x 1.0 x 0.1 cm. Post-Debridement Measurements and Additional Note: Post-Debridement Measurements/Treatment BENI - Nurse 1 - General Ulcer Assessment Start: 04/08/25 14:12 Freq: Status: Active Protocol: MADYSON Activity Type Activity Date Activity User E-sign Co-sign Detail Recorded Client Recorded Date Recorded By Document 04/08/25 14:16 DL [id number] 04/08/25 14:44 DL 04/08/25 14:16 WC - Today's Visit Information Type of service Initial Visit Arrival Mode Ambulatory, Walker Transfer Assistance Manual Transfer Assist (Other) x1 Patient Identification Verified (Name & Yes ) Patient Requires Transmission-Based No Precautions Vital Signs Temperature (97.8 F-99.1 F) 97.6 F L Temperature Source Temporal Pulse Rate (60-100) 70 Pulse Location Monitor Respiratory Rate (12-18) 18 Respiratory rate source Observation Blood Pressure (90/60-120/80) 99/58 L Blood Pressure Mean 71 Source Monitor Pain Scale: 0-10 Numeric Is Patient Pain Free? Yes Lower Extremity Assessment/ Foot Assessment/ Toe Nail Assessment Left -Posterior Tibial Palpable Yes -Posterior Tibial Doppler Monophasic -Dorsalis Pedis Palpable Yes -Dorsalis Pedis Doppler Monophasic -Extremity Color Hemosiderin -Hair Growth on Legs No -Hair Growth on Toes No -Temperature of Extremity Warm -Capillary Refill Greater than 3 Seconds -Dependent Rubor No -Blanched when Elevated No -Lipodermatosclerosis No -Other Deformity No -Prior Foot Ulcer No -Charcot Joint No -Prior Amputation No -Thick Yes -Discolored Yes -Deformed Yes -Improper Length & Hygeine Yes Right -Posterior Tibial Palpable Yes -Posterior Tibial Doppler Monophasic -Dorsalis Pedis Palpable Yes -Dorsalis Pedis Doppler Monophasic -Extremity Color Hemosiderin -Hair Growth on Legs No -Hair Growth on Toes No -Temperature of Extremity Warm -Capillary Refill Greater than 3 Seconds -Dependent Rubor No -Blanched when Elevated No -Lipodermatosclerosis No -Other Deformity No -Prior Foot Ulcer No -Charcot Joint No -Prior Amputation No -Thick Yes -Discolored Yes -Deformed Yes -Improper Length & Hygeine Yes Neuropathy Assessment Feet - Top Side and Bottom <Entered> (a) Communication Assessment Preferred language Burkinan Able to Read Yes Able to Write Yes Communication Tools None Right Hearing Abillity Normal Left Hearing Abillity Normal Visual Assistive Devices Glasses Teaching Assessment Preferences Verbal,Written Barriers to Learning None Readiness To Learn Fair Willingness to Engage in Self Management Med Activies Readiness to Engage in Self Management Med Activities Anxiety Level Calm Cooperation Cooperative Perception Coherent Interest in Health Problem Asks Questions Education Importance Acknowledges Need Does Patient Smoke tobacco or other No substances Smoking Status Never smoker Is Patient Diabetic No Functional Assessment Recent Decline in Ability to Perform Denies Any Declines Teaching: Wound Center *Welcome to the Wound Center -Person Taught Patient,Family (a) 1 - + WC - Nurse 1 - General Ulcer Measurement Start: 04/08/25 14:12 Freq: Status: Active Protocol: Activity Type Activity Date Activity User E-sign Co-sign Detail Recorded Client Recorded Date Recorded By Document 04/08/25 14:16 DL [id number] 04/08/25 14:44 DL 04/08/25 14:16 Wound Center Nurse 1 #4 L Lat -Current Size (cm) - Length 1.3 -Current Size (cm) - Width 1.3 -Current Size (cm) - Depth 0.1 -Total Square Cm 1.69 -Photo Taken Yes -Exudate Amt Medium -Exudate Type Serosanguineous -Wound Margin Distinct, Outline Attached -Granulation Amt None Present (0 %) -Necrosis Amt Large (67-100%) -Necrotic Tissue Type Eschar -Structure Exposed N/A -Texture (Regina-wound Skin Appearance) Localized Edema ,Scarring -Moisture (Regina-wound Skin Appearance) No Abnormality -Color (Regina-wound Skin Appearance) Hemosiderin Staining -Temperature (Regina-wound Skin No Abnormality Appearance) (Pt Warm) -Tenderness on Palpation (Regina-wound No Skin Appearance) -Ulcer Cleansing Soap and Water -Foul Odor after Cleansing No -Anesthetic Used 4% Lidocaine Solution #1 R Lat -Current Size (cm) - Length 2.7 -Current Size (cm) - Width 1.6 -Current Size (cm) - Depth 0.1 -Total Square Cm 4.32 -Photo Taken Yes -Exudate Amt Medium -Exudate Type Serosanguineous -Wound Margin Distinct, Outline Attached -Granulation Amt None Present (0 %) -Necrosis Amt Large (67-100%) -Necrotic Tissue Type Eschar -Structure Exposed N/A -Texture (Regina-wound Skin Appearance) Localized Edema ,Scarring -Moisture (Regina-wound Skin Appearance) Weeping -Color (Regina-wound Skin Appearance) Erythema, Hemosiderin Staining -Temperature (Regina-wound Skin No Abnormality Appearance) (Pt Warm) -Ulcer Cleansing Soap and Water -Foul Odor after Cleansing No -Anesthetic Used 4% Lidocaine Solution #3 L. Med cluster -Current Size (cm) - Length 5.8 -Current Size (cm) - Width 11.7 -Current Size (cm) - Depth 0.1 -Total Square Cm 67.86 -Photo Taken Yes -Exudate Amt Medium -Exudate Type Serosanguineous -Wound Margin Distinct, Outline Attached -Granulation Amt None Present (0 %) -Necrosis Amt Large (67-100%) -Necrotic Tissue Type Eschar -Structure Exposed N/A -Texture (Regina-wound Skin Appearance) Localized Edema ,Scarring -Moisture (Regina-wound Skin Appearance) No Abnormality -Color (Regina-wound Skin Appearance) Hemosiderin Staining -Temperature (Regina-wound Skin No Abnormality Appearance) (Pt Warm) -Ulcer Cleansing Soap and Water -Foul Odor after Cleansing No -Anesthetic Used 4% Lidocaine Solution #2 R Med Cluster -Current Size (cm) - Length 9.8 -Current Size (cm) - Width 2.7 -Current Size (cm) - Depth 0.1 -Total Square Cm 26.46 -Photo Taken Yes -Exudate Amt Medium -Exudate Type Serosanguineous -Wound Margin Distinct, Outline Attached -Granulation Amt None Present (0 %) -Necrosis Amt Large (67-100%) -Necrotic Tissue Type Eschar -Structure Exposed N/A -Texture (Regina-wound Skin Appearance) Localized Edema ,Scarring -Moisture (Regina-wound Skin Appearance) Weeping -Color (Regina-wound Skin Appearance) Hemosiderin Staining -Temperature (Regina-wound Skin No Abnormality Appearance) (Pt Warm) -Tenderness on Palpation (Regina-wound No Skin Appearance) -Ulcer Cleansing Soap and Water -Foul Odor after Cleansing No -Anesthetic Used 4% Lidocaine Solution Right Calf (cm) 34.5 Right Ankle (cm) 26.4 Left Calf (cm) 36.5 Left Ankle (cm) 25.6 WC - Nurse 2 - General Ulcer CM Notes Start: 04/08/25 14:12 Freq: Status: Active Protocol: Activity Type Activity Date Activity User E-sign Co-sign Detail Recorded Client Recorded Date Recorded By Document 04/08/25 15:13 DS [id number] 04/08/25 15:16 DS 04/08/25 15:13 Wound Center Nurse 2 #3 L. Med cluster -Time 15:14 -Correct Patient Yes -Correct Side, Site, Position Yes -Correct Procedure Yes -Procedure Performed Yes -Type of Procedure Debridement -Clinical Debridement Subcutaneous -Tissue Removed Subcutaneous -Post Debridement (cm) - Length 7.5 -Post Debridement (cm) - Width 10.0 -Post Debridement (cm) - Depth 0.2 -Total Square (Post) (cm) 75.00 -Area of Debridement (cm) - Length 7.5 -Area of Debridement (cm) - Width 10.0 -Total Square (Area) (cm) 75.00 -Tunneling No -Undermining/Tunneling No -Circular Undermining No -Wound/Ulcer Outcome Not Healed -Ulcer Cleansing Rinsed/ Irrigated with Saline -Foul Odor after Cleansing No -Bioengineered Tissue No -Bleeding Controlled with Pressure -Treatment Response Procedure Tolerated Well -Debridement - Subq, 1st 20sq cm No #2 R Med Cluster -Time 15:13 -Correct Patient Yes -Correct Side, Site, Position Yes -Correct Procedure Yes -Procedure Performed Yes -Type of Procedure Debridement -Clinical Debridement Subcutaneous -Tissue Removed Subcutaneous -Post Debridement (cm) - Length 9.6 -Post Debridement (cm) - Width 5.9 -Post Debridement (cm) - Depth 0.1 -Total Square (Post) (cm) 56.64 -Area of Debridement (cm) - Length 9.6 -Area of Debridement (cm) - Width 5.9 -Total Square (Area) (cm) 56.64 -Tunneling No -Undermining/Tunneling No -Circular Undermining No -Wound/Ulcer Outcome Not Healed -Ulcer Cleansing Rinsed/ Irrigated with Saline -Foul Odor after Cleansing No -Bioengineered Tissue No -Bleeding Controlled with Pressure -Treatment Response Procedure Tolerated Well -Debridement - Subq, 1st 20sq cm Yes -Debridement, SubQ, ea addt'l 20sq cm 6 or part thereof Pain Scale: 0-10 Numeric Is Patient Pain Free? Yes - Nurse 3 - General Ulcer D/C NN Start: 04/08/25 14:12 Freq: Status: Active Protocol: Activity Type Activity Date Activity User E-sign Co-sign Detail Recorded Client Recorded Date Recorded By Document 04/08/25 15:44 DL [id number] 04/08/25 15:45 DL 04/08/25 15:44 Wound Care Center Nurse 3 #3 L. Med cluster -Ulcer Cleansing Soap and Water -Foul Odor after Cleansing No -Other Dressing betadine gauze -Primary Dressing Covered/Secured with Dry Gauze & Roll Gauze, Secured with Tape #2 R Med Cluster -Ulcer Cleansing Soap and Water -Foul Odor after Cleansing No -Other Dressing Betadine gauze -Primary Dressing Covered/Secured with Dry Gauze & Roll Gauze Treatment Response Procedure Tolerated Well Pain Scale: 0-10 Numeric Is Patient Pain Free? Yes - Visit Discharge Discharge Condition Stable Ambulatory Status Ambulatory, Walker Transportation Private Auto Assessment/Plan Assessment/Plan (1) Non-pressure chronic ulcer of other part of right lower leg with fat layer exposed: CODE(S): L97.812 - Non-pressure chronic ulcer of other part of right lowerleg with fat layer exposed PLAN: Patient was examined and evaluated. All findings were discussed with the patient. All questions were answered to the patient's satisfaction. Excisional debridement down to and including subcutaneous tissue to the right lower extremity full-thickness wound with a number 5 mm dermal curette and without incident. Predebridement measurement with eschar. Postdebridement measurement is 9.6 x 5.9 x 0.1 cm. Excisional debridement down to including subcutaneous tissue of the left lower extremity full-thickness wound with a number 5 mm dermal curette done without incident. Predebridement measurement was eschar. Postdebridement measurement is 7.5 x 10.0 x 0.2 cm. Excisional debridement down to including subcutaneous tissue of the right seconddigit full-thickness wound done with a 5 mm dermal curette without incident. Predebridement measurement was sanguinous crust. Postdebridement measurement is1.5 x 1.0 x 0.1 cm. Culture was taken from the bilateral leg wounds. No antibiotics were prescribedat this time. The bilateral extremities were cleaned and patted dry. Betadine soaked gauze was applied to all wounds covered with dry sterile dressing and single-layer Tubigrip. Order will be given for the patient to get peripheral vascular studies so we canaggressively compress the patient when satisfactory results return. If there unsatisfactory results to patient we sent for vascular for evaluation. Patient will follow-up with Dr. De Souza in 1 week (2) Non-pressure chronic ulcer of other part of left lower leg with fat layer exposed: CODE(S): L97.822 - Non-pressure chronic ulcer of other part of left lower leg with fat layer exposed (3) Non-pressure chronic ulcer of other part of right foot with fat layer exposed: CODE(S): L97.512 - Non-pressure chronic ulcer of other part of right foot with fat layer exposed (4) Other specified peripheral vascular diseases: CODE(S): I73.89 - Other specified peripheral vascular diseases 04/09/25 1008 <Electronically signed by Timothy De Souza DPM> Cosigner Signature (if applicable): CC: ~ Signed [facility] Work Phone: History and physical note 04-09-2025 Note Date & Type Note Facility 04-09-2025 History and physi angel luis note [facility] Evaluation note Note Date & Type Note Facility Evaluation note No assessment information availa ble [facility] Work Phone: Reason for referral (narrative) Note Date & Type Note Facility Reason for referral (narrative) No reason for referral information available [facility] Work Phone: Advance Directives No Advanced Directives Records Found Advance Directive Response Recorded Date/ Time Advance Directives Yes May 24, 2015 1:07pm Living Will Yes May 26, 201 8 10:25am Power of 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 Yes May 26, 018 10:25am Advance Directive Response Recorded Date/ Time Advance Directives Yes May 24, 2015 1:07pm Chief Complaint and Reason for Visit Chief Complaint EORDER EORDER Chief Complaint EORDER Chief Complaint Admit Date wound April 15, 2025 2: 30pm Reason for Visit Admit Date Other specified peripheral vascular dise ases April 15, 2025 2:30pm Non-pressure chronic ulcer o f other part of left lower leg with fat layer April 15, 2025 2:30pm Non-pressure chronic ulcer o f other part of right foot with fat layer exposed April 15, 2025 2:30pm Non-pressure chronic ulcer o f other part of right lower leg with fat layer April 15, 2025 2:30pm Summary Purpose Family History No Family History Records Found Additional Source Comments Goals (unrecognized section and content) Goals may be documented in a n alternate sectionGoals may be documented in an alternate sectionGoals may be documented in an alternate sectionGoals may be documented in an alternate sectionGoals may be documented in an alternate sectionGoals may be documented in an alternate sectionGoals may be documented in an alternate section Care Teams (unrecognized sec tion and content) Team Status: Active Member Role Status Dates Dr. Ronald Leach MD Family Provider Active Dr. Ronald Montgomery MD Primary Care Provider Active Team Status: Inactive Member Role Status Dates Dr. Ronald Montgomery MD Primary Care Pr ovider, Attending Provider, Referring Provider Active Team Status: Active Member Role Status Dates Dr. Ronald Montgomery MD Primary Care Pr ovider, Attending Provider, Referring Provider Active Team Status: Active Member Role Status Dates Dr. Ronald Montgomery MD Primary Care Provider Active Team Status: Inactive Member Role Status Dates Dr. Ronald Montgomery MD Primary Care Provider Active Start: December 09, 2024 End: December 09, 2024 Dr. Ronald Montgomery MD Attending Provider Active Start: December 09, 2024 End: December 09, 2024 Dr. Ronald Montgomery MD Referring Provider Active Start: December 09, 2024 End: December 09, 2024 Team Status: Inactive Member Role Status Dates Dr. Ronald Montgomery MD Primary Care Provider Active Start: December 22, 2024 End: December 22, 2024 Dr. Ronald Montgomery MD Attending Provider Active Start: December 22, 2024 End: December 22, 2024 Dr. Ronald Montgomery MD Referring Provider Active Start: December 22, 2024 End: December 22, 2024 Team Status: Active Member Role Status Dates Dr. Ronald Montgomery MD Primary Care Provider Active Start: December 23, 2024 Dr. Ronald Montgomery MD Attending Provider Active Start: December 23, 2024 Dr. Ronald Montgomery MD Referring Provider Active Start: December 23, 2024 Team Status: Inactive Member Role Status Dates Dr. Ronald Montgomery MD Primary Care Provider Active Start: December 23, 2024 End: December 23, 2024 Dr. Ronald Montgomery MD Attending Provider Active Start: December 23, 2024 End: December 23, 2024 Dr. Ronald Montgomery MD Referring Provider Active Start: December 23, 2024 End: December 23, 2024 Team Status: Active Member Role/Relationship Status Dates Dr. Ronald Montgomery MD Primary Care Provider Active Team Status: Inactive Member Role/Relationship Status Dates Dr. Ronald Montgomery MD Primary Care Provider Active Start: December 22, 2024 End: December 22, 2024 Dr. Ronald Montgomery MD Attending Provider Active Start: December 22, 2024 End: December 22, 2024 Dr. Ronald Montgomery MD Referring Provider Active Start: December 22, 2024 End: December 22, 2024 Team Status: Inactive Member Role/Relationship Status Dates Dr. Ronald Montgomery MD Primary Care Provider Active Start: December 23, 2024 End: December 23, 2024 Dr. Ronald Montgomery MD Attending Provider Active Start: December 23, 2024 End: December 23, 2024 Dr. Ronald Montgomery MD Referring Provider Active Start: December 23, 2024 End: December 23, 2024 Team Status: Inactive Member Role/Relationship Status Dates Dr. Ronald Montgomery MD Primary Care Provider Active Start: February 17, 2025 Dr. Maddison Steel MD Attending Provider Active Start: February 17, 2025 Team Status: Inactive Member Role/Relationship Status Dates Dr. Ronald Montgomery MD Primary Care Provider Active Start: April 15, 2025 End: April 19, 2025 Dr. Timothy De Souza DPM Attending Provider Active Start: April 15, 2025 End: April 19, 2025 Dr. Timothy De Souza DPM Referring Provider Active Start: April 15, 2025 End: April 19, 2025 INFORMATION SOURCE (unrecogn ized section and content) DATE CREATED AUTHOR 05/09/2025 [facility] FOR RECORDS PERTAINING TO PATIENTS WHO ARE OR HAVE BEEN ENROLLED IN A CHEMICAL DEPENDENCY/SUBSTANCEABUSE PROGRAM, SOME INFORMATION MAY BE OMITTED. This clinical summary was aggregated from multiple sources. Caution should be exercised in using it in the provision of clinical care. This summary normalizes information from multiple sources, and as a consequence, information in this document may materially change the coding, format and clinical context of patient data. In addition, data may be omitted in some cases. CLINICAL DECISIONS SHOULD BE BASED ON THE PRIMARY CLINICAL RECORDS. [facility] [employer] [facility] provides no warranty or guarantee of the accuracy or completeness of information in this document.
== END 2025-05-09 09:06 | disposition home or self-care (01) ==
PROVIDERS: Emergency Provider Emergency Medicine; PCP Family Medicine; Visit Provider Emergency Medicine
DX: S01.01XA Laceration without foreign body of scalp, initial encounter (principal); Y93.89 Activity, other specified; Z23 Encounter for immunization; W18.39XA Other fall on same level, initial encounter
CPT/HCPCS: 12001; 70450; 90715; 99282

== ENCOUNTER 2025-05-18 09:00 | Outpatient (RCR) | payer MEDICARE, SELFPAY ==
[2025-04-22 09:44] VITALS: BP 143/58; PULSE 82; RESP 16; TEMP 36.6
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
[2025-04-29 09:33] VITALS: BP 155/78; PULSE 77; RESP 18; TEMP 36.4
--- NOTE | 2025-04-29 10:17 | PN.PCM_ITS ---
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 Progress of Wound: Bilateral leg full-thickness wound stable with no infection. Subjective Subjective Patient is 85-year-old female presented to clinic today for evaluation of bilateral leg full-thickness wound. Patient has been compliant with dressing changes as discussed during her previous visit as well as with compression. She mitts improvement to the wounds. She did unfortunately had a flea on her stocking this time but was removed by nursing staff. She denies any trauma or strikethrough. Denies constitutional symptoms. Pain is minimal. No other pedal complaints at this time. Objective Data Objective Data Vital Signs: Vital Signs Temp Pulse Resp BP O2 Del Method 97.5 F L 77 18 155/78 H Room Air 04/29/25 09:33 04/29/25 09:33 04/29/25 09:33 04/29/25 09:33 04/29/25 09:33 Oxygen Delivery Method Room Air Lab / Micro Data Micro: Microbiology 04/08/25 15:07 Wound - Leg, Left Gram Stain - Final 04/08/25 15:07 Wound - Leg, Left Wound Culture - Final Morganella morganii sp morgani Acinetobacter baumannii Staphylococcus aureus Streptococcus viridans group 04/08/25 15:07 Wound - Leg, Left Anaerobic Culture - Preliminary Bacteroides sp Gram negative eloina Physical Exam Narrative Vascular: DP and PT pulses palpable. CFT brisk. No erythema or proximal streaking. Skin temperature is warm to warm with no focal increase. Nonpitting edema appreciated to bilateral lower extremity, improving. Neurologic: Light touch and epicritic sensations intact. Protective sensation intact to 10/10 sites with 5.07 Liberty-Gigi monofilament. Dermatologic: Right lower extremity medial full-thickness wounds measure 6.3 x 5.0 x 0.2 cm. Wound base is granular nature. No sign of infection. Left lower extremity lateral full-thickness wound measuring 2.7 x 2.3 x 0.1 cm. Wound base is granular with no sign of infection. Left lower extremity medial full-thickness wounds measuring 5.5 x 9.5 x 0.2 cm. Wound base is fibrogranular nature with no sign of infection. Left lower extremity lateral full-thickness wound/eschar measuring 2.0 x 1.8 x 0.2 cm. No sign of infection. Excisional debridement down to including subcutaneous tissue of the right lower extremity medial full-thickness wound done with a number 5 mm dermal curette done without incident. Predebridement was 6.0 x 4.8 x 0.1 cm. Postdebridement measurement is 6.3 x 5.0 x 0.2 cm. Excisional debridement down to and including subcutaneous tissue of the right lateral full-thickness wound done with a number 5 mm dermal curette done without incident. Predebridement measurement was 2.5 x 2.0 x 0.1 cm. Postdebridement measurement is 2.7 x 2.3 x 0.1 cm. Excisional debridement down to and including subcutaneous tissue of the left lower extremity medial full-thickness wound done with a number 5 mm dermal curette done without incident. Predebridement measurement was 5.3 x 9.0 x 0.1 cm. Postdebridement measurement is 5.5 x 9.5 x 0.2 cm. Musculoskeletal: Mild palpatory tenderness appreciated the bilateral lower extremity. No pain with calf compression bilateral. Debridement Note Debridement Note Debridement Free Text: Excisional debridement down to including subcutaneous tissue of the right lower extremity medial full-thickness wound done with a number 5 mm dermal curette done without incident. Predebridement was 6.0 x 4.8 x 0.1 cm. Postdebridement measurement is 6.3 x 5.0 x 0.2 cm. Excisional debridement down to and including subcutaneous tissue of the right lateral full-thickness wound done with a number 5 mm dermal curette done without incident. Predebridement measurement was 2.5 x 2.0 x 0.1 cm. Postdebridement measurement is 2.7 x 2.3 x 0.1 cm. Excisional debridement down to and including subcutaneous tissue of the left lower extremity medial full-thickness wound done with a number 5 mm dermal curette done without incident. Predebridement measurement was 5.3 x 9.0 x 0.1 cm. Postdebridement measurement is 5.5 x 9.5 x 0.2 cm. Post-Debridement Measurements and Additional Note: Post-Debridement Measurements/Treatment BENI - Nurse 1 - General Ulcer Assessment Start: 04/22/25 09:44 Freq: Status: Active Protocol: MADYSON Activity Type Activity Date Activity User E-sign Co-sign Detail Recorded Client Recorded Date Recorded By Document 04/22/25 09:44 CP [id number] 04/22/25 09:58 CP Document 04/29/25 09:33 KW [id number] 04/29/25 09:54 KW 04/22/25 04/29/25 09:44 09:33 - Today's Visit Information Type of service Follow-up Visit Follow-up Visit (Physician/SOFTWARE TECHNICAL LEAD (Physician/SOFTWARE TECHNICAL LEAD ) ) Arrival Mode Ambulatory, Ambulatory, Walker Walker Transfer Assistance None Accompanied by daughter Patient Identification Verified (Name & Yes ) Patient Requires Transmission-Based Yes Precautions Safety Precautions NA Vital Signs Temperature (97.8 F-99.1 F) 98 F 97.5 F L Temperature Source Temporal Temporal Pulse Rate (60-100) 82 77 Pulse Location Monitor Monitor Respiratory Rate (12-18) 16 18 Respiratory rate source Observation Observation Oxygen Delivery Method Room Air Blood Pressure (90/60-120/80) 143/58 H 155/78 H Blood Pressure Mean (mm Hg) 86 103 Source Monitor Monitor Position Sitting Semi-Fowlers Blood Pressure Location Right Arm Left Arm History Since Last Visit- (Skip if this is Patient's initial visit) Have you changed medications since your No No last visit? Any new allergies or adverse reactions No No Had a fall/change in ADL's that may No No increase risk of falls Signs or symptoms of abuse and/or No No neglect since last visit Have you been in the hospital since your No No last visit? Has dressing in place as prescribed Yes Yes Has compression in place as prescribed Yes Yes Has offloadiing in place as prescribed N/A Yes Experienced any changes in pain level or No No management Left Footwear Regular Shoe Regular Shoe Right Footwear Regular Shoe Regular Shoe Pain Scale: 0-10 Numeric Is Patient Pain Free? No Yes - Nurse 1 - General Ulcer Measurement Start: 04/22/25 09:44 Freq: Status: Active Protocol: Activity Type Activity Date Activity User E-sign Co-sign Detail Recorded Client Recorded Date Recorded By Document 04/22/25 09:44 CP [id number] 04/22/25 09:58 CP Document 04/29/25 09:33 KW [id number] 04/29/25 09:54 KW 04/22/25 04/29/25 09:44 09:33 Wound Center Nurse 1 5-RIGHT ANKLE LATERAL LEG -Current Size (cm) - Length 0 -Current Size (cm) - Width 0 -Current Size (cm) - Depth 0 -Total Square Cm 0 -Exudate Amt None Present 4-LEFT ANKLE CIRCUMFERENTIAL -Current Size (cm) - Length 6 -Current Size (cm) - Width 10 -Current Size (cm) - Depth 0.2 -Total Square Cm 60 -Epithelialization None Present -Exudate Amt Small -Exudate Type Serous -Wound Margin Flat & Intact -Granulation Amt None Present (0 %) -Slough/Fibrin Yes -Necrosis Amt Large (67-100%) -Necrotic Tissue Type Adherent Slough -Structure Exposed Fat Layer Exposed -Ulcer Cleansing Soap and Water -Anesthetic Used 5% Lidocaine Gel 6.RIGHT LAT KNEE -Current Size (cm) - Length 3.5 0.1 -Current Size (cm) - Width 2 0.1 -Current Size (cm) - Depth 0.1 0 -Total Square Cm 7.0 0.01 -Date of Last Picture (Recall this 04/29/25 field) -Exudate Amt Medium -Exudate Type Serosanguineous -Wound Margin Distinct, Outline Attached -Granulation Amt Small (1-33%) -Granulation Quality Story -Necrosis Amt Large (67-100%) -Necrotic Tissue Type Eschar -Texture (Regina-wound Skin Appearance) Assessed -Moisture (Regina-wound Skin Appearance) Assessed -Color (Regina-wound Skin Appearance) Assessed -Temperature (Regina-wound Skin No Abnormality Appearance) (Pt Warm) -Tenderness on Palpation (Regina-wound No Skin Appearance) -Ulcer Cleansing Soap and Water -Foul Odor after Cleansing No -Anesthetic Used 4% Lidocaine Solution -Wound Comment(s) not measured in nurse 1 3-LEFT LATERAL LEG -Current Size (cm) - Length 2 0.1 -Current Size (cm) - Width 2 0.1 -Current Size (cm) - Depth 0.3 0 -Total Square Cm 4 0.01 -Date of Last Picture (Recall this 04/29/25 field) -Exudate Amt Small Large -Exudate Type Serous Yellow/Green -Wound Margin Flat & Intact Distinct, Outline Attached -Granulation Amt Small (1-33%) -Granulation Quality Story -Slough/Fibrin Yes -Necrosis Amt Large (67-100%) Large (67-100%) -Necrotic Tissue Type Eschar Adherent Slough -Texture (Regina-wound Skin Appearance) Assessed -Moisture (Regina-wound Skin Appearance) Assessed -Color (Regina-wound Skin Appearance) Assessed -Temperature (Regina-wound Skin No Abnormality Appearance) (Pt Warm) -Tenderness on Palpation (Regina-wound Yes No Skin Appearance) -Ulcer Cleansing Soap and Water Soap and Water -Foul Odor after Cleansing No -Anesthetic Used 5% Lidocaine 4% Lidocaine Gel Solution #2 L. Med cluster -Current Size (cm) - Length 23.5 -Current Size (cm) - Width 10 -Current Size (cm) - Depth 0.3 -Total Square Cm 235.0 -Exudate Amt Large -Exudate Type Yellow/Green -Wound Margin Thickened -Granulation Amt Small (1-33%) -Granulation Quality Story -Slough/Fibrin Yes -Necrosis Amt Large (67-100%) Large (67-100%) -Necrotic Tissue Type Eschar Eschar -Texture (Regina-wound Skin Appearance) Assessed, Localized Edema -Moisture (Regina-wound Skin Appearance) Assessed -Color (Regina-wound Skin Appearance) Assessed, Erythema -Temperature (Regina-wound Skin No Abnormality Appearance) (Pt Warm) -Tenderness on Palpation (Regina-wound No Skin Appearance) -Ulcer Cleansing Not Cleansed -Foul Odor after Cleansing No -Anesthetic Used 4% Lidocaine Solution #1 R Med Cluster -Current Size (cm) - Length 10 -Current Size (cm) - Width 2.7 -Current Size (cm) - Depth 0.2 -Total Square Cm 27.0 -Exudate Amt Large -Exudate Type Serosanguineous -Wound Margin Thickened -Granulation Amt Large (67-100%) -Granulation Quality Story -Slough/Fibrin Yes -Necrosis Amt Large (67-100%) -Necrotic Tissue Type Eschar Adherent Slough -Texture (Regina-wound Skin Appearance) Assessed -Moisture (Regina-wound Skin Appearance) Assessed -Color (Regina-wound Skin Appearance) Assessed -Temperature (Regina-wound Skin No Abnormality No Abnormality Appearance) (Pt Warm) (Pt Warm) -Tenderness on Palpation (Regina-wound Yes No Skin Appearance) -Ulcer Cleansing Soap and Water Soap and Water -Foul Odor after Cleansing No -Anesthetic Used 5% Lidocaine 4% Lidocaine Gel Solution Right Calf (cm) 28.5 Right Ankle (cm) 23.5 Left Calf (cm) 37 Left Ankle (cm) 24.5 WC - Nurse 2 - General Ulcer CM Notes Start: 04/22/25 09:44 Freq: Status: Active Protocol: Activity Type Activity Date Activity User E-sign Co-sign Detail Recorded Client Recorded Date Recorded By Document 04/22/25 10:23 MACHELLE [id number] 04/22/25 10:34 Document 04/29/25 10:05 [id number] 04/29/25 10:12 04/22/25 04/29/25 10:23 10:05 Wound Center Nurse 2 5-RIGHT ANKLE LATERAL LEG -Time 10:24 -Correct Patient Yes -Correct Side, Site, Position No -Correct Procedure No -Procedure Performed No -Post Debridement (cm) - Length 0 -Post Debridement (cm) - Width 0 -Post Debridement (cm) - Depth 0 -Total Square (Post) (cm) 0 -Area of Debridement (cm) - Length 0 -Area of Debridement (cm) - Width 0 -Total Square (Area) (cm) 0 -Tunneling No -Undermining/Tunneling No -Circular Undermining No -Wound/Ulcer Outcome Healed- Epithelialized -Ulcer Cleansing Rinsed/ Irrigated with Saline -Foul Odor after Cleansing No -Bioengineered Tissue No -Bleeding Controlled with Pressure -Treatment Response Procedure Tolerated Well -Offloading No -Debridement - Subq, 1st 20sq cm No 4-LEFT ANKLE CIRCUMFERENTIAL -Time 10:24 -Correct Patient Yes -Correct Side, Site, Position No -Correct Procedure Yes -Procedure Performed No -Post Debridement (cm) - Length 0 -Post Debridement (cm) - Width 0 -Post Debridement (cm) - Depth 0 -Total Square (Post) (cm) 0 -Area of Debridement (cm) - Length 0 -Area of Debridement (cm) - Width 0 -Total Square (Area) (cm) 0 -Tunneling No -Undermining/Tunneling No -Circular Undermining No -Wound/Ulcer Outcome Healed- Epithelialized -Ulcer Cleansing Rinsed/ Irrigated with Saline -Foul Odor after Cleansing No -Bioengineered Tissue No -Bleeding Controlled with Pressure -Treatment Response Procedure Tolerated Well -Offloading No -Debridement - Subq, 1st 20sq cm No 6.RIGHT LAT KNEE -Time 10:23 10:06 -Correct Patient Yes Yes -Correct Side, Site, Position Yes Yes -Correct Procedure Yes Yes -Procedure Performed Yes Yes -Type of Procedure Debridement Debridement -Clinical Debridement Subcutaneous Subcutaneous -Tissue Removed Subcutaneous Subcutaneous -Post Debridement (cm) - Length 3 2.7 -Post Debridement (cm) - Width 2 2.3 -Post Debridement (cm) - Depth 0.1 0.1 -Total Square (Post) (cm) 6 6.21 -Area of Debridement (cm) - Length 3 2.7 -Area of Debridement (cm) - Width 2 2.3 -Total Square (Area) (cm) 6 6.21 -Tunneling No No -Undermining/Tunneling No No -Circular Undermining No No -Wound/Ulcer Outcome Not Healed Not Healed -Ulcer Cleansing Rinsed/ Rinsed/ Irrigated with Irrigated with Saline Saline -Foul Odor after Cleansing No No -Bioengineered Tissue No No -Bleeding Controlled with Pressure Pressure -Treatment Response Procedure Procedure Tolerated Well Tolerated Well -Offloading No No -Debridement - Subq, 20sq cm No No 3-LEFT LATERAL LEG -Time 10:24 10:06 -Correct Patient Yes Yes -Correct Side, Site, Position Yes Yes -Correct Procedure Yes Yes -Procedure Performed Yes Yes -Type of Procedure Debridement Debridement -Clinical Debridement Subcutaneous Subcutaneous -Tissue Removed Subcutaneous Subcutaneous -Post Debridement (cm) - Length 2 2.0 -Post Debridement (cm) - Width 1.7 1.8 -Post Debridement (cm) - Depth 0.1 0.2 -Total Square (Post) (cm) 3.4 3.60 -Area of Debridement (cm) - Length 2 2.0 -Area of Debridement (cm) - Width 1.7 1.8 -Total Square (Area) (cm) 3.4 3.60 -Tunneling No No -Undermining/Tunneling No No -Circular Undermining No No -Wound/Ulcer Outcome Not Healed Not Healed -Ulcer Cleansing Rinsed/ Rinsed/ Irrigated with Irrigated with Saline Saline -Foul Odor after Cleansing No No -Bioengineered Tissue No No -Bleeding Controlled with Pressure Pressure -Treatment Response Procedure Procedure Tolerated Well Tolerated Well -Offloading No No -Debridement - Subq, 20sq cm No No #2 L. Med cluster -Time 10:26 10:07 -Correct Patient Yes Yes -Correct Side, Site, Position Yes Yes -Correct Procedure Yes Yes -Procedure Performed Yes Yes -Type of Procedure Debridement Debridement -Clinical Debridement Muscle / Fascia Subcutaneous -Tissue Removed Muscle Subcutaneous -Post Debridement (cm) - Length 9.5 5.5 -Post Debridement (cm) - Width 8.2 9.5 -Post Debridement (cm) - Depth 0.2 0.2 -Total Square (Post) (cm) 77.90 52.25 -Area of Debridement (cm) - Length 9.5 5.5 -Area of Debridement (cm) - Width 8.2 9.5 -Total Square (Area) (cm) 77.90 52.25 -Tunneling No No -Undermining/Tunneling No No -Circular Undermining No No -Wound/Ulcer Outcome Not Healed Not Healed -Ulcer Cleansing Rinsed/ Rinsed/ Irrigated with Irrigated with Saline Saline -Foul Odor after Cleansing No No -Bioengineered Tissue No No -Bleeding Controlled with Pressure Pressure -Treatment Response Procedure Procedure Tolerated Well Tolerated Well -Offloading No No -Debridement - Subq, 1st 20sq cm No -Debridement - Muscle / Fascia, 1st Yes 20sq cm -Debridement, Muscle/Fascia, ea addt'l 3 20sq cm or part thereof #1 R Med Cluster -Time 10:26 10:08 -Correct Patient Yes Yes -Correct Side, Site, Position Yes Yes -Correct Procedure Yes Yes -Procedure Performed Yes Yes -Type of Procedure Debridement Debridement -Clinical Debridement Subcutaneous Subcutaneous -Tissue Removed Subcutaneous Subcutaneous -Post Debridement (cm) - Length 6.8 6.3 -Post Debridement (cm) - Width 4.7 5.0 -Post Debridement (cm) - Depth 0.1 0.2 -Total Square (Post) (cm) 31.96 31.50 -Area of Debridement (cm) - Length 6.8 6.3 -Area of Debridement (cm) - Width 4.7 5.0 -Total Square (Area) (cm) 31.96 31.50 -Tunneling No No -Undermining/Tunneling No No -Circular Undermining No No -Wound/Ulcer Outcome Not Healed Not Healed -Ulcer Cleansing Rinsed/ Rinsed/ Irrigated with Irrigated with Saline Saline -Foul Odor after Cleansing No No -Bioengineered Tissue No No -Bleeding Controlled with Pressure Pressure -Treatment Response Procedure Procedure Tolerated Well Tolerated Well -Offloading No No -Debridement - Subq, 1st 20sq cm Yes Yes -Debridement, SubQ, ea addt'l 20sq cm 2 4 or part thereof Pain Scale: 0-10 Numeric Is Patient Pain Free? Yes Yes - Nurse 3 - General Ulcer D/C NN Start: 04/22/25 09:44 Freq: Status: Active Protocol: Activity Type Activity Date Activity User E-sign Co-sign Detail Recorded Client Recorded Date Recorded By Document 04/22/25 10:39 [id number] 04/22/25 10:41 04/22/25 10:39 Wound Care Center Nurse 3 6.RIGHT LAT KNEE -Other Dressing BETADINE PAINT -Primary Dressing Covered/Secured with Dry Gauze,Dry Gauze & Roll Gauze,Secured with Tape 3-LEFT LATERAL LEG -Other Dressing BETADINE PAINTED -Primary Dressing Covered/Secured with Dry Gauze,Dry Gauze & Roll Gauze,Secured with Tape #2 L. Med cluster -Other Dressing BETADINE PAINT -Primary Dressing Covered/Secured with Dry Gauze #1 R Med Cluster -Other Dressing BETADINE -Primary Dressing Covered/Secured with Dry Gauze BLE -Tubular Bandage Single Layer -Size of Tubigrip Used Size E -Size E ($) 2 Pain Scale: 0-10 Numeric Is Patient Pain Free? Yes - Visit Discharge Discharge Condition Stable Ambulatory Status Ambulatory, Walker Transportation Private Auto Medication Reconcilliation completed & No provided to patient/care provider Clinical Summary of Care Provided Yes Assessment/Plan Assessment/Plan (1) Non-pressure chronic ulcer of other part of right lower leg with fat layer exposed: CODE(S): L97.812 - Non-pressure chronic ulcer of other part of right lower leg with fat layer exposed PLAN: Patient was examined and evaluated. All findings were discussed with the patient. All questions were answered to the patient's satisfaction. Excisional debridement down to including subcutaneous tissue of the right lower extremity medial full-thickness wound done with a number 5 mm dermal curette done without incident. Predebridement was 6.0 x 4.8 x 0.1 cm. Postdebridement measurement is 6.3 x 5.0 x 0.2 cm. Excisional debridement down to and including subcutaneous tissue of the right lateral full-thickness wound done with a number 5 mm dermal curette done without incident. Predebridement measurement was 2.5 x 2.0 x 0.1 cm. Postdebridement measurement is 2.7 x 2.3 x 0.1 cm. Excisional debridement down to and including subcutaneous tissue of the left lower extremity medial full-thickness wound done with a number 5 mm dermal curette done without incident. Predebridement measurement was 5.3 x 9.0 x 0.1 cm. Postdebridement measurement is 5.5 x 9.5 x 0.2 cm. Bilateral lower extremity were cleaned and patted dry. Dakin moist gauze was applied to all large full-thickness wounds. Betadine paint was applied to all dry eschar and moist soft tissue. Everything was dressed with dry sterile dressing and Tubigrip was done to the bilateral lower extremity. Patient is with daughter will perform daily dressing changes. Patient has finished all her antibiotics. Patient will follow-up with Dr. De Souza in 1 week (2) Non-pressure chronic ulcer of other part of left lower leg with fat layer exposed: CODE(S): L97.822 - Non-pressure chronic ulcer of other part of left lower leg with fat layer exposed (3) Other specified peripheral vascular diseases: CODE(S): I73.89 - Other specified peripheral vascular diseases
[2025-05-06 10:26] VITALS: BP 140/52; PULSE 65; RESP 16; TEMP 36.3
--- NOTE | 2025-05-06 12:48 | PN.PCM_ITS ---
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 Progress of Wound: Bilateral leg full-thickness wound stable with no infection. Subjective Subjective Patient is 85-year-old female presenting to wound care center today follow-up evaluation of multiple full-thickness wounds of bilateral lower extremity. Patient has been doing dressing changes as discussed with help of her daughter. She mitts to some swelling to the bilateral lower extremity. She will be following up with primary regarding the leg swelling as discussed. She admits to no pain to the bilateral lower extremity. Denies trauma. Denies constitutional symptoms. No other pedal complaints at this time. Objective Data Objective Data Vital Signs: Vital Signs Temp Pulse Resp BP O2 Del Method 97.3 F L 65 16 140/52 H Room Air 05/06/25 10:26 05/06/25 10:26 05/06/25 10:26 05/06/25 10:26 05/06/25 10:26 Oxygen Delivery Method Room Air Lab / Micro Data Micro: Microbiology 04/08/25 15:07 Wound - Leg, Left Gram Stain - Final 04/08/25 15:07 Wound - Leg, Left Wound Culture - Final Morganella morganii sp morgani Acinetobacter baumannii Staphylococcus aureus Streptococcus viridans group 04/08/25 15:07 Wound - Leg, Left Anaerobic Culture - Preliminary Bacteroides sp Gram negative eloina Physical Exam Narrative Vascular: DP and PT pulses palpable. CFT brisk. No erythema or proximal streaking. Skin temperature is warm to warm with no focal increase. +2 pitting edema appreciated to bilateral lower extremities. Neurologic: Light touch and epicritic sensations intact. Protective sensation intact to 10/10 sites with 5.07 [place]-Gigi monofilament. Dermatologic: Right lower extremity medial full-thickness wounds measure 6.1 x 5.8 x 0.1 cm. Wound base is fibrogranular nature. No sign of infection. Right lower extremity lateral full-thickness wound measuring 2.9 x 2.5 x 0.1 cm. Wound base is fibrogranular in nature. No sign of infection. Left lower extremity medial full-thickness wounds measuring 5.9 x 9.3 x 0.1 cm. Wound base is fibrogranular nature with no sign of infection. Left lower extremity lateral full-thickness wound/eschar measuring 2.1 x 2.1 x 0.2 cm. Wound base is fibrogranular nature with central eschar. No sign of infection. Excisional debridement down to including subcutaneous tissue of the right lower extremity medial full-thickness wound done with a number 5 mm dermal curette done without incident. Predebridement was 5.9 x 5.6 x 0.1 cm. Postdebridement measurement is 6.1 x 5.8 x 0.1 cm. Excisional debridement down to and including subcutaneous tissue of the right lateral full-thickness wound done with a number 5 mm dermal curette done without incident. Predebridement measurement was 2.7 x 2.4 x 0.1 cm. Postdebridement measurement is 2.9 x 2.5 x 0.1 cm. Excisional debridement down to and including subcutaneous tissue of the left lower extremity medial full-thickness wound done with a number 5 mm dermal curette done without incident. Predebridement measurement was 5.7 x 9.1 x 0.1 cm. Postdebridement measurement is 5.9 x 9.3 x 0.1 cm. Musculoskeletal: Mild palpatory tenderness appreciated the bilateral lower extremity. No pain with calf compression bilateral. Debridement Note Debridement Note Debridement Free Text: Excisional debridement down to including subcutaneous tissue of the right lower extremity medial full-thickness wound done with a number 5 mm dermal curette done without incident. Predebridement was 5.9 x 5.6 x 0.1 cm. Postdebridement measurement is 6.1 x 5.8 x 0.1 cm. Excisional debridement down to and including subcutaneous tissue of the right lateral full-thickness wound done with a number 5 mm dermal curette done without incident. Predebridement measurement was 2.7 x 2.4 x 0.1 cm. Postdebridement measurement is 2.9 x 2.5 x 0.1 cm. Excisional debridement down to and including subcutaneous tissue of the left lower extremity medial full-thickness wound done with a number 5 mm dermal curette done without incident. Predebridement measurement was 5.7 x 9.1 x 0.1 cm. Postdebridement measurement is 5.9 x 9.3 x 0.1 cm. Post-Debridement Measurements and Additional Note: Post-Debridement Measurements/Treatment WC - Nurse 1 - General Ulcer Assessment Start: 04/22/25 09:44 Freq: Status: Active Protocol: [email or web address] Activity Type Activity Date Activity User E-sign Co-sign Detail Recorded Client Recorded Date Recorded By Document 04/22/25 09:44 CP [id number] 04/22/25 09:58 CP Document 04/29/25 09:33 KW [id number] 04/29/25 09:54 KW Document 05/06/25 10:26 DS [id number] 05/06/25 10:50 DS 04/22/25 04/29/25 05/06/25 09:44 09:33 10:26 - Today's Visit Information Type of service Follow-up Visit Follow-up Visit Follow-up Visit (Physician/WET PROCESS HEAD MILLER (Physician/WET PROCESS HEAD MILLER (Physician/WET PROCESS HEAD MILLER ) ) ) Arrival Mode Ambulatory, Ambulatory, Ambulatory, Walker Walker Walker Transfer Assistance None Accompanied by daughter daughter Patient Identification Verified (Name & Yes Yes ) Patient Requires Transmission-Based Yes No Precautions Safety Precautions NA Fall Prevention Vital Signs Temperature (97.8 F-99.1 F) 98 F 97.5 F L 97.3 F L Temperature Source Temporal Temporal Temporal Pulse Rate (60-100) 82 77 65 Pulse Location Monitor Monitor Monitor Respiratory Rate (12-18) 16 18 16 Respiratory rate source Observation Observation Observation Oxygen Delivery Method Room Air Room Air Blood Pressure (90/60-120/80) 143/58 H 155/78 H 140/52 H Blood Pressure Mean (mm Hg) 86 103 81 Source Monitor Monitor Monitor Position Sitting Semi-Fowlers Sitting Blood Pressure Location Right Arm Left Arm Left Arm History Since Last Visit- (Skip if this is Patient's initial visit) Have you changed medications since your No No No last visit? Any new allergies or adverse reactions No No No Had a fall/change in ADL's that may No No No increase risk of falls Signs or symptoms of abuse and/or No No No neglect since last visit Have you been in the hospital since your No No No last visit? Has dressing in place as prescribed Yes Yes Yes Has compression in place as prescribed Yes Yes Yes Has offloadiing in place as prescribed N/A Yes N/A Experienced any changes in pain level or No No No management Left Footwear Regular Shoe Regular Shoe Regular Shoe Right Footwear Regular Shoe Regular Shoe Regular Shoe Pain Scale: 0-10 Numeric Is Patient Pain Free? No Yes Yes WC - Nurse 1 - General Ulcer Measurement Start: 04/22/25 09:44 Freq: Status: Active Protocol: Activity Type Activity Date Activity User E-sign Co-sign Detail Recorded Client Recorded Date Recorded By Document 04/22/25 09:44 CP [id number] 04/22/25 09:58 CP Document 04/29/25 09:33 KW [id number] 04/29/25 09:54 KW Document 05/06/25 10:26 DS [id number] 05/06/25 10:50 DS 04/22/25 04/29/25 05/06/25 09:44 09:33 10:26 Wound Center Nurse 1 5-RIGHT ANKLE LATERAL LEG -Current Size (cm) - Length 0 -Current Size (cm) - Width 0 -Current Size (cm) - Depth 0 -Total Square Cm 0 -Exudate Amt None Present 4-LEFT ANKLE CIRCUMFERENTIAL -Current Size (cm) - Length 6 -Current Size (cm) - Width 10 -Current Size (cm) - Depth 0.2 -Total Square Cm 60 -Epithelialization None Present -Exudate Amt Small -Exudate Type Serous -Wound Margin Flat & Intact -Granulation Amt None Present (0 %) -Slough/Fibrin Yes -Necrosis Amt Large (67-100%) -Necrotic Tissue Type Adherent Slough -Structure Exposed Fat Layer Exposed -Ulcer Cleansing Soap and Water -Anesthetic Used 5% Lidocaine Gel 6.RIGHT LAT KNEE -Current Size (cm) - Length 3.5 0.1 3.3 -Current Size (cm) - Width 2 0.1 2.8 -Current Size (cm) - Depth 0.1 0 0.2 -Total Square Cm 7.0 0.01 9.24 -Date of Last Picture (Recall this 04/29/25 05/06/25 field) -Photo Taken Yes -Tunneling No -Undermining/Tunneling No -Circular Undermining No -Exudate Amt Medium Small -Exudate Type Serosanguineous Serosanguineous -Wound Margin Distinct, Distinct, Outline Outline Attached Attached -Granulation Amt Small (1-33%) Small (1-33%) -Granulation Quality [place] -Necrosis Amt Large (67-100%) Large (67-100%) -Necrotic Tissue Type Eschar Adherent Slough -Texture (Regina-wound Skin Appearance) Assessed Assessed -Moisture (Regina-wound Skin Appearance) Assessed Assessed -Color (Regina-wound Skin Appearance) Assessed Assessed -Temperature (Regina-wound Skin No Abnormality No Abnormality Appearance) (Pt Warm) (Pt Warm) -Tenderness on Palpation (Regina-wound No No Skin Appearance) -Ulcer Cleansing Soap and Water Soap and Water -Foul Odor after Cleansing No No -Anesthetic Used 4% Lidocaine 5% Lidocaine Solution Gel -Wound Comment(s) not measured in nurse 1 3-LEFT LATERAL LEG -Current Size (cm) - Length 2 0.1 2.1 -Current Size (cm) - Width 2 0.1 2.2 -Current Size (cm) - Depth 0.3 0 0.2 -Total Square Cm 4 0.01 4.62 -Date of Last Picture (Recall this 04/29/25 05/06/25 field) -Photo Taken Yes -Tunneling No -Undermining/Tunneling No -Circular Undermining No -Exudate Amt Small Large Small -Exudate Type Serous Yellow/Green Serosanguineous -Wound Margin Flat & Intact Distinct, Distinct, Outline Outline Attached Attached -Granulation Amt Small (1-33%) Small (1-33%) -Granulation Quality [place] [address] -Slough/Fibrin Yes -Necrosis Amt Large (67-100%) Large (67-100%) Large (67-100%) -Necrotic Tissue Type Eschar Adherent Slough Adherent Slough -Texture (Regina-wound Skin Appearance) Assessed Assessed -Moisture (Regina-wound Skin Appearance) Assessed Assessed -Color (Regina-wound Skin Appearance) Assessed Assessed -Temperature (Regina-wound Skin No Abnormality No Abnormality Appearance) (Pt Warm) (Pt Warm) -Tenderness on Palpation (Regina-wound Yes No No Skin Appearance) -Ulcer Cleansing Soap and Water Soap and Water Soap and Water -Foul Odor after Cleansing No No -Anesthetic Used 5% Lidocaine 4% Lidocaine 5% Lidocaine Gel Solution Gel #2 L. Med cluster -Current Size (cm) - Length 23.5 7.0 -Current Size (cm) - Width 10 10.5 -Current Size (cm) - Depth 0.3 0.3 -Total Square Cm 235.0 73.50 -Date of Last Picture (Recall this 05/06/25 field) -Photo Taken Yes -Tunneling No -Undermining/Tunneling No -Circular Undermining No -Exudate Amt Large Small -Exudate Type Yellow/Green Serosanguineous -Wound Margin Thickened Distinct, Outline Attached -Granulation Amt Small (1-33%) Small (1-33%) -Granulation Quality [place] [address] -Slough/Fibrin Yes -Necrosis Amt Large (67-100%) Large (67-100%) Large (67-100%) -Necrotic Tissue Type Eschar Eschar Adherent Slough -Texture (Regina-wound Skin Appearance) Assessed, Assessed Localized Edema -Moisture (Regina-wound Skin Appearance) Assessed Assessed -Color (Regina-wound Skin Appearance) Assessed, Assessed Erythema -Temperature (Regina-wound Skin No Abnormality No Abnormality Appearance) (Pt Warm) (Pt Warm) -Tenderness on Palpation (Regina-wound No No Skin Appearance) -Ulcer Cleansing Not Cleansed Soap and Water -Foul Odor after Cleansing No No -Anesthetic Used 4% Lidocaine 5% Lidocaine Solution Gel #1 R Med Cluster -Current Size (cm) - Length 10 9.5 -Current Size (cm) - Width 2.7 6.0 -Current Size (cm) - Depth 0.2 0.2 -Total Square Cm 27.0 57.00 -Date of Last Picture (Recall this 05/06/25 field) -Photo Taken Yes -Tunneling No -Undermining/Tunneling No -Circular Undermining No -Exudate Amt Large Small -Exudate Type Serosanguineous Serosanguineous -Wound Margin Thickened Distinct, Outline Attached -Granulation Amt Large (67-100%) Small (1-33%) -Granulation Quality [place] [address] -Slough/Fibrin Yes -Necrosis Amt Large (67-100%) Large (67-100%) -Necrotic Tissue Type Eschar Adherent Slough Adherent Slough -Texture (Regina-wound Skin Appearance) Assessed Assessed -Moisture (Regina-wound Skin Appearance) Assessed Assessed -Color (Regina-wound Skin Appearance) Assessed Assessed -Temperature (Regina-wound Skin No Abnormality No Abnormality No Abnormality Appearance) (Pt Warm) (Pt Warm) (Pt Warm) -Tenderness on Palpation (Regina-wound Yes No No Skin Appearance) -Ulcer Cleansing Soap and Water Soap and Water Soap and Water -Foul Odor after Cleansing No No -Anesthetic Used 5% Lidocaine 4% Lidocaine 5% Lidocaine Gel Solution Gel Right Calf (cm) 28.5 35.2 Right Ankle (cm) 23.5 28.0 Left Calf (cm) 37 35.8 Left Ankle (cm) 24.5 27.0 WC - Nurse 2 - General Ulcer CM Notes Start: 04/22/25 09:44 Freq: Status: Active Protocol: Activity Type Activity Date Activity User E-sign Co-sign Detail Recorded Client Recorded Date Recorded By Document 04/22/25 10:23 [id number] 04/22/25 10:34 Document 04/29/25 10:05 [id number] 04/29/25 10:12 Document 05/06/25 11:02 [id number] 05/06/25 11:06 04/22/25 04/29/25 05/06/25 10:23 10:05 11:02 Wound Center Nurse 2 5-RIGHT ANKLE LATERAL LEG -Time 10:24 -Correct Patient Yes -Correct Side, Site, Position No -Correct Procedure No -Procedure Performed No -Post Debridement (cm) - Length 0 -Post Debridement (cm) - Width 0 -Post Debridement (cm) - Depth 0 -Total Square (Post) (cm) 0 -Area of Debridement (cm) - Length 0 -Area of Debridement (cm) - Width 0 -Total Square (Area) (cm) 0 -Tunneling No -Undermining/Tunneling No -Circular Undermining No -Wound/Ulcer Outcome Healed- Epithelialized -Ulcer Cleansing Rinsed/ Irrigated with Saline -Foul Odor after Cleansing No -Bioengineered Tissue No -Bleeding Controlled with Pressure -Treatment Response Procedure Tolerated Well -Offloading No -Debridement - Subq, 1st 20sq cm No 4-LEFT ANKLE CIRCUMFERENTIAL -Time 10:24 -Correct Patient Yes -Correct Side, Site, Position No -Correct Procedure Yes -Procedure Performed No -Post Debridement (cm) - Length 0 -Post Debridement (cm) - Width 0 -Post Debridement (cm) - Depth 0 -Total Square (Post) (cm) 0 -Area of Debridement (cm) - Length 0 -Area of Debridement (cm) - Width 0 -Total Square (Area) (cm) 0 -Tunneling No -Undermining/Tunneling No -Circular Undermining No -Wound/Ulcer Outcome Healed- Epithelialized -Ulcer Cleansing Rinsed/ Irrigated with Saline -Foul Odor after Cleansing No -Bioengineered Tissue No -Bleeding Controlled with Pressure -Treatment Response Procedure Tolerated Well -Offloading No -Debridement - Subq, 1st 20sq cm No 6.RIGHT LAT KNEE -Time 10:23 10:06 11:04 -Correct Patient Yes Yes Yes -Correct Side, Site, Position Yes Yes Yes -Correct Procedure Yes Yes Yes -Procedure Performed Yes Yes Yes -Type of Procedure Debridement Debridement Debridement -Clinical Debridement Subcutaneous Subcutaneous Subcutaneous -Tissue Removed Subcutaneous Subcutaneous Subcutaneous -Post Debridement (cm) - Length 3 2.7 2.9 -Post Debridement (cm) - Width 2 2.3 2.5 -Post Debridement (cm) - Depth 0.1 0.1 0.1 -Total Square (Post) (cm) 6 6.21 7.25 -Area of Debridement (cm) - Length 3 2.7 2.9 -Area of Debridement (cm) - Width 2 2.3 2.5 -Total Square (Area) (cm) 6 6.21 7.25 -Tunneling No No No -Undermining/Tunneling No No No -Circular Undermining No No No -Wound/Ulcer Outcome Not Healed Not Healed Not Healed -Ulcer Cleansing Rinsed/ Rinsed/ Rinsed/ Irrigated with Irrigated with Irrigated with Saline Saline Saline -Foul Odor after Cleansing No No No -Bioengineered Tissue No No No -Bleeding Controlled with Pressure Pressure Pressure -Treatment Response Procedure Procedure Procedure Tolerated Well Tolerated Well Tolerated Well -Offloading No No No -Debridement - Subq, 1st 20sq cm No No No 3-LEFT LATERAL LEG -Time 10:24 10:06 11:03 -Correct Patient Yes Yes Yes -Correct Side, Site, Position Yes Yes Yes -Correct Procedure Yes Yes Yes -Procedure Performed Yes Yes Yes -Type of Procedure Debridement Debridement Debridement -Clinical Debridement Subcutaneous Subcutaneous Subcutaneous -Tissue Removed Subcutaneous Subcutaneous Subcutaneous -Post Debridement (cm) - Length 2 2.0 2.1 -Post Debridement (cm) - Width 1.7 1.8 2.1 -Post Debridement (cm) - Depth 0.1 0.2 0.2 -Total Square (Post) (cm) 3.4 3.60 4.41 -Area of Debridement (cm) - Length 2 2.0 2.1 -Area of Debridement (cm) - Width 1.7 1.8 2.1 -Total Square (Area) (cm) 3.4 3.60 4.41 -Tunneling No No No -Undermining/Tunneling No No No -Circular Undermining No No No -Wound/Ulcer Outcome Not Healed Not Healed Not Healed -Ulcer Cleansing Rinsed/ Rinsed/ Rinsed/ Irrigated with Irrigated with Irrigated with Saline Saline Saline -Foul Odor after Cleansing No No No -Bioengineered Tissue No No No -Bleeding Controlled with Pressure Pressure Pressure -Treatment Response Procedure Procedure Procedure Tolerated Well Tolerated Well Tolerated Well -Offloading No No No -Debridement - Subq, 1st 20sq cm No No No #2 L. Med cluster -Time 10: 10:07 11:03 -Correct Patient Yes Yes Yes -Correct Side, Site, Position Yes Yes Yes -Correct Procedure Yes Yes Yes -Procedure Performed Yes Yes Yes -Type of Procedure Debridement Debridement Debridement -Clinical Debridement Muscle / Fascia Subcutaneous Subcutaneous -Tissue Removed Muscle Subcutaneous Subcutaneous -Post Debridement (cm) - Length 9.5 5.5 5.9 -Post Debridement (cm) - Width 8.2 9.5 9.3 -Post Debridement (cm) - Depth 0.2 0.2 0.1 -Total Square (Post) (cm) 77.90 52.25 54.87 -Area of Debridement (cm) - Length 9.5 5.5 5.9 -Area of Debridement (cm) - Width 8.2 9.5 9.3 -Total Square (Area) (cm) 77.90 52.25 54.87 -Tunneling No No No -Undermining/Tunneling No No No -Circular Undermining No No No -Wound/Ulcer Outcome Not Healed Not Healed Not Healed -Ulcer Cleansing Rinsed/ Rinsed/ Rinsed/ Irrigated with Irrigated with Irrigated with Saline Saline Saline -Foul Odor after Cleansing No No No -Bioengineered Tissue No No No -Bleeding Controlled with Pressure Pressure Pressure -Treatment Response Procedure Procedure Procedure Tolerated Well Tolerated Well Tolerated Well -Offloading No No No -Debridement - Subq, 1st 20sq cm No No -Debridement - Muscle / Fascia, 1st Yes 20sq cm -Debridement, Muscle/Fascia, ea addt'l 3 20sq cm or part thereof #1 R Med Cluster -Time 10: 10:08 11:04 -Correct Patient Yes Yes Yes -Correct Side, Site, Position Yes Yes Yes -Correct Procedure Yes Yes Yes -Procedure Performed Yes Yes Yes -Type of Procedure Debridement Debridement Debridement -Clinical Debridement Subcutaneous Subcutaneous Subcutaneous -Tissue Removed Subcutaneous Subcutaneous Subcutaneous -Post Debridement (cm) - Length 6.8 6.3 6.1 -Post Debridement (cm) - Width 4.7 5.0 5.8 -Post Debridement (cm) - Depth 0.1 0.2 0.1 -Total Square (Post) (cm) 31.96 31.50 35.38 -Area of Debridement (cm) - Length 6.8 6.3 6.1 -Area of Debridement (cm) - Width 4.7 5.0 5.8 -Total Square (Area) (cm) 31.96 31.50 35.38 -Tunneling No No No -Undermining/Tunneling No No No -Circular Undermining No No No -Wound/Ulcer Outcome Not Healed Not Healed Not Healed -Ulcer Cleansing Rinsed/ Rinsed/ Rinsed/ Irrigated with Irrigated with Irrigated with Saline Saline Saline -Foul Odor after Cleansing No No No -Bioengineered Tissue No No No -Bleeding Controlled with Pressure Pressure Pressure -Treatment Response Procedure Procedure Procedure Tolerated Well Tolerated Well Tolerated Well -Offloading No No No -Debridement - Subq, 1st 20sq cm Yes Yes Yes -Debridement, SubQ, ea addt'l 20sq cm 2 4 5 or part thereof Pain Scale: 0-10 Numeric Is Patient Pain Free? Yes Yes Yes - Nurse 3 - General Ulcer D/C NN Start: 04/22/25 09:44 Freq: Status: Active Protocol: Activity Type Activity Date Activity User E-sign Co-sign Detail Recorded Client Recorded Date Recorded By Document 04/22/25 10:39 [id number] 04/22/25 10:41 Document 04/29/25 10:34 [id number] 04/29/25 10:36 Document 05/06/25 11:13 [id number] 05/06/25 11:20 04/22/25 04/29/25 05/06/25 10:39 10:34 11:13 Wound Care Center Nurse 3 6.RIGHT LAT KNEE -Ulcer Cleansing Not Cleansed Rinsed/ Irrigated with Saline -Foul Odor after Cleansing No No -Primary Dressing Applied Hysept Aquacel AG 4x4, Optilok 5x5 1/2 -Other Dressing BETADINE PAINT -Primary Dressing Covered/Secured with Dry Gauze,Dry Dry Gauze,Dry Dry Gauze & Gauze & Roll Gauze & Roll Roll Gauze Gauze,Secured Gauze,Secured with Tape with Tape -Aquacel AG 4x4 1 -Hysept 1 -Optilok 5x5 1/2 1 3-LEFT LATERAL LEG -Ulcer Cleansing Not Cleansed Rinsed/ Irrigated with Saline -Foul Odor after Cleansing No -Negative Pressure Wound Therapy N/A -Primary Dressing Applied Aquacel AG 4x4, Optilok 5x5 1/2 -Other Dressing BETADINE PAINTED -Primary Dressing Covered/Secured with Dry Gauze,Dry Dry Gauze Dry Gauze & Gauze & Roll Roll Gauze Gauze,Secured with Tape -Other Covering betadine -Aquacel AG 4x4 1 -Optilok 5x5 1/2 1 #2 L. Med cluster -Ulcer Cleansing Not Cleansed Rinsed/ Irrigated with Saline -Foul Odor after Cleansing No -Primary Dressing Applied Optilok 6.5x10 -Other Dressing BETADINE PAINT -Primary Dressing Covered/Secured with Dry Gauze Dry Gauze & Dry Gauze & Roll Gauze, Roll Gauze Secured with Tape -Other Covering dakins -Optilok 6.5x10 1 #1 R Med Cluster -Ulcer Cleansing Not Cleansed Rinsed/ Irrigated with Saline -Foul Odor after Cleansing No -Primary Dressing Applied Optilok 6.5x10 -Other Dressing BETADINE -Primary Dressing Covered/Secured with Dry Gauze Dry Gauze Dry Gauze & Roll Gauze -Other Covering dakins -Optilok 6.5x10 1 BLE -Lotion applied to leg before No compression wrap -Multi-Layered Wrap Application Multi-Layer Comp - Bilat ($ ) -Tubular Bandage Single Layer Single Layer -Size of Tubigrip Used Size E Size E -Size E ($) 2 2 -Multi-Layer Compression Bilat (Qty 1 applied) Pain Scale: 0-10 Numeric Is Patient Pain Free? Yes Yes Yes WC - Visit Discharge Discharge Condition Stable Stable Stable Ambulatory Status Ambulatory, Ambulatory, Ambulatory Walker Walker Transportation Private Auto Private Auto Private Auto Medication Reconcilliation completed & No provided to patient/care provider Clinical Summary of Care Provided Yes Yes Assessment/Plan Assessment/Plan (1) Non-pressure chronic ulcer of other part of right lower leg with fat layer exposed: CODE(S): L97.812 - Non-pressure chronic ulcer of other part of right lower leg with fat layer exposed PLAN: Patient was examined and evaluated. All findings were discussed with the patient. All questions were answered to the patient's satisfaction. Excisional debridement down to including subcutaneous tissue of the right lower extremity medial full-thickness wound done with a number 5 mm dermal curette done without incident. Predebridement was 5.9 x 5.6 x 0.1 cm. Postdebridement measurement is 6.1 x 5.8 x 0.1 cm. Excisional debridement down to and including subcutaneous tissue of the right lateral full-thickness wound done with a number 5 mm dermal curette done without incident. Predebridement measurement was 2.7 x 2.4 x 0.1 cm. Postdebridement measurement is 2.9 x 2.5 x 0.1 cm. Excisional debridement down to and including subcutaneous tissue of the left lower extremity medial full-thickness wound done with a number 5 mm dermal curette done without incident. Predebridement measurement was 5.7 x 9.1 x 0.1 cm. Postdebridement measurement is 5.9 x 9.3 x 0.1 cm. The bilateral lower extremities were cleaned and patted dry. Dakin's moist gauze was applied to all full-thickness wounds covered with dry sterile dressing and 3M multilayer compression bandage bilateral. Educated patient follow-up primary regarding a water pill or a blood pressure medication to help reduce her bilateral leg swelling. Will begin authorization through the patient's insurance for left lower extremity medial full-thickness wound for amniotic skin graft substitute applications. ICD-10 code L97.822 Patient will follow-up with Dr. De Souza in 1 week (2) Non-pressure chronic ulcer of other part of left lower leg with fat layer exposed: CODE(S): L97.822 - Non-pressure chronic ulcer of other part of left lower leg with fat layer exposed (3) Other specified peripheral vascular diseases: CODE(S): I73.89 - Other specified peripheral vascular diseases
--- NOTE | 2025-05-07 08:12 | WC ---
PHOTO - RIGHT LAT LEG/KNEE 05/06/25
--- NOTE | 2025-05-07 08:12 | WC ---
PHOTO - RIGHT [facility] 05/06/25
--- NOTE | 2025-05-07 08:13 | WC ---
PHOTO- LEFT [facility] CLUSTER 05/06/25
--- NOTE | 2025-05-07 08:14 | WC ---
PHOTO - LEFT LAT LEG 05/06/25
[2025-05-08 09:00] VITALS: BP 123/64; RESP 18; TEMP 36.6
[2025-05-13 09:22] VITALS: BP 133/54; PULSE 78; RESP 14; TEMP 36.4
--- NOTE | 2025-05-13 11:44 | PN.PCM_ITS ---
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 Progress of Wound: Bilateral leg full-thickness wound stable with no infection. Subjective Subjective Patient is a 85-year-old female presenting to clinic today follow-up evaluation of bilateral full-thickness wounds secondary to fleabites. Patient has left the multilayer compression bandage clean dry and intact. She may scream premature swelling. She has no pain to the by the lower extremity. She denies trauma. Denies constitutional symptoms. No other pedal complaints at this time. Objective Data Objective Data Vital Signs: Vital Signs Temp Pulse Resp BP O2 Del Method 97.6 F L 78 14 133/54 H Room Air 05/13/25 09:22 05/13/25 09:22 05/13/25 09:22 05/13/25 09:22 05/08/25 09:00 Oxygen Delivery Method Room Air Lab / Micro Data Micro: Microbiology 04/08/25 15:07 Wound - Leg, Left Gram Stain - Final 04/08/25 15:07 Wound - Leg, Left Wound Culture - Final Morganella morganii sp morgani Acinetobacter baumannii Staphylococcus aureus Streptococcus viridans group 04/08/25 15:07 Wound - Leg, Left Anaerobic Culture - Preliminary Bacteroides sp Gram negative eloina Physical Exam Narrative Vascular: DP and PT pulses palpable. CFT brisk. No erythema or proximal streaking. Skin temperature is warm to warm with no focal increase. +2 pitting edema appreciated to bilateral lower extremities. Neurologic: Light touch and epicritic sensations intact. Protective sensation intact to 10/10 sites with 5.07 [place] monofilament. Dermatologic: Right lower extremity medial full-thickness wounds measure 5.5 x 4.5 x 0.1 cm. Wound base is fibrogranular nature. No sign of infection. Right lower extremity lateral full-thickness wound measuring 3.5 x 1.8 x 0.1 cm. Wound base is fibrogranular in nature. No sign of infection. Left lower extremity medial full-thickness wounds measuring 8.4 x 8.5 x 0.2 cm. Wound base is fibrogranular nature with no sign of infection. Left lower extremity lateral full-thickness wound/eschar measuring 2.0 x 1.6 x 0.2 cm. Wound base is fibrogranular nature with central eschar. No sign of infection. Excisional debridement down to including subcutaneous tissue of the right lower extremity medial full-thickness wound done with a number 5 mm dermal curette done without incident. Predebridement was 5.3 x 4.2 x 0.1 cm. Postdebridement measurement is 5.5 x 4.5 x 0.1 cm. Excisional debridement down to and including subcutaneous tissue of the right lateral full-thickness wound done with a number 5 mm dermal curette done without incident. Predebridement measurement was 3.3 x 1.7 x 0.1 cm. Postdebridement measurement is 3.5 x 1.8 x 0.1 cm. Excisional debridement down to and including subcutaneous tissue of the left lower extremity medial full-thickness wound done with a number 5 mm dermal curette done without incident. Predebridement measurement was 8.0 x 8.2 x 0.1 cm. Postdebridement measurement is 8.4 x 8.5 x 0.2 cm. Musculoskeletal: Mild palpatory tenderness appreciated the bilateral lower extremity. No pain with calf compression bilateral. Debridement Note Debridement Note Debridement Free Text: Excisional debridement down to including subcutaneous tissue of the right lower extremity medial full-thickness wound done with a number 5 mm dermal curette done without incident. Predebridement was 5.3 x 4.2 x 0.1 cm. Postdebridement measurement is 5.5 x 4.5 x 0.1 cm. Excisional debridement down to and including subcutaneous tissue of the right lateral full-thickness wound done with a number 5 mm dermal curette done without incident. Predebridement measurement was 3.3 x 1.7 x 0.1 cm. Postdebridement measurement is 3.5 x 1.8 x 0.1 cm. Excisional debridement down to and including subcutaneous tissue of the left lower extremity medial full-thickness wound done with a number 5 mm dermal curette done without incident. Predebridement measurement was 8.0 x 8.2 x 0.1 cm. Postdebridement measurement is 8.4 x 8.5 x 0.2 cm. Post-Debridement Measurements and Additional Note: Post-Debridement Measurements/Treatment BENI - Nurse 1 - General Ulcer Assessment Start: 04/22/25 09:44 Freq: Status: Active Protocol: LOWEXT Activity Type Activity Date Activity User E-sign Co-sign Detail Recorded Client Recorded Date Recorded By Document 04/22/25 09:44 CP [id number] 04/22/25 09:58 CP Document 04/29/25 09:33 KW [id number] 04/29/25 09:54 KW Document 05/06/25 10:26 DS [id number] 05/06/25 10:50 DS Document 05/08/25 09:00 DS [id number] 05/08/25 09:02 DS Document 05/13/25 09:22 ML [id number] 05/13/25 09:27 ML 04/22/25 04/29/25 05/06/25 09:44 09:33 10:26 WC - Today's Visit Information Type of service Follow-up Visit Follow-up Visit Follow-up Visit (Physician/THERMOMETER MAKER (Physician/THERMOMETER MAKER (Physician/THERMOMETER MAKER ) ) ) Arrival Mode Ambulatory, Ambulatory, Ambulatory, Walker Walker Walker Transfer Assistance None Accompanied by daughter daughter Patient Identification Verified (Name & Yes Yes ) Patient Requires Transmission-Based Yes No Precautions Safety Precautions NA Fall Prevention Vital Signs Temperature (97.8 F-99.1 F) 98 F 97.5 F L 97.3 F L Temperature Source Temporal Temporal Temporal Pulse Rate (60-100) 82 77 65 Pulse Location Monitor Monitor Monitor Respiratory Rate (12-18) 16 18 16 Respiratory rate source Observation Observation Observation Oxygen Delivery Method Room Air Room Air Blood Pressure (90/60-120/80) 143/58 H 155/78 H 140/52 H Blood Pressure Mean (mm Hg) 86 103 81 Source Monitor Monitor Monitor Position Sitting Semi-Fowlers Sitting Blood Pressure Location Right Arm Left Arm Left Arm History Since Last Visit- (Skip if this is Patient's initial visit) Have you changed medications since your No No No last visit? Any new allergies or adverse reactions No No No Had a fall/change in ADL's that may No No No increase risk of falls Signs or symptoms of abuse and/or No No No neglect since last visit Have you been in the hospital since your No No No last visit? Has dressing in place as prescribed Yes Yes Yes Has compression in place as prescribed Yes Yes Yes Has offloadiing in place as prescribed N/A Yes N/A Experienced any changes in pain level or No No No management Left Footwear Regular Shoe Regular Shoe Regular Shoe Right Footwear Regular Shoe Regular Shoe Regular Shoe Pain Scale: 0-10 Numeric Is Patient Pain Free? No Yes Yes 05/08/25 05/13/25 09:00 09:22 - Today's Visit Information Type of service Nurse-only Follow-up Visit Visit (Physician/THERMOMETER MAKER ) Arrival Mode Ambulatory, Ambulatory, Walker Walker Transfer Assistance None Accompanied by Patient Identification Verified (Name & Yes Yes ) Patient Requires Transmission-Based No Precautions Safety Precautions NA,Fall Prevention Vital Signs Temperature (97.8 F-99.1 F) 97.8 F 97.6 F L Temperature Source Temporal Temporal Pulse Rate (60-100) 78 Pulse Location Monitor Monitor Respiratory Rate (12-18) 18 14 Respiratory rate source Observation Observation Oxygen Delivery Method Room Air Blood Pressure (90/60-120/80) 123/64 H 133/54 H Blood Pressure Mean (mm Hg) 83 80 Source Monitor Monitor Position Semi-Fowlers Sitting Blood Pressure Location Right Arm Left Arm History Since Last Visit- (Skip if this is Patient's initial visit) Have you changed medications since your No last visit? Any new allergies or adverse reactions No Had a fall/change in ADL's that may No increase risk of falls Signs or symptoms of abuse and/or No neglect since last visit Have you been in the hospital since your No last visit? Has dressing in place as prescribed Yes Has compression in place as prescribed Yes Has offloadiing in place as prescribed Yes Experienced any changes in pain level or No management Left Footwear Right Footwear Pain Scale: 0-10 Numeric Is Patient Pain Free? Yes Yes - Nurse 1 - General Ulcer Measurement Start: 04/22/25 09:44 Freq: Status: Active Protocol: Activity Type Activity Date Activity User E-sign Co-sign Detail Recorded Client Recorded Date Recorded By Document 04/22/25 09:44 CP [id number] 04/22/25 09:58 CP Document 04/29/25 09:33 KW [id number] 04/29/25 09:54 KW Document 05/06/25 10:26 DS [id number] 05/06/25 10:50 DS Document 05/13/25 09:22 ML [id number] 05/13/25 09:27 ML 04/22/25 04/29/25 05/06/25 09:44 09:33 10:26 Wound Center Nurse 1 5-RIGHT ANKLE LATERAL LEG -Current Size (cm) - Length 0 -Current Size (cm) - Width 0 -Current Size (cm) - Depth 0 -Total Square Cm 0 -Exudate Amt None Present 4-LEFT ANKLE CIRCUMFERENTIAL -Current Size (cm) - Length 6 -Current Size (cm) - Width 10 -Current Size (cm) - Depth 0.2 -Total Square Cm 60 -Epithelialization None Present -Exudate Amt Small -Exudate Type Serous -Wound Margin Flat & Intact -Granulation Amt None Present (0 %) -Slough/Fibrin Yes -Necrosis Amt Large (67-100%) -Necrotic Tissue Type Adherent Slough -Structure Exposed Fat Layer Exposed -Ulcer Cleansing Soap and Water -Anesthetic Used 5% Lidocaine Gel 6.RIGHT LATeral leg cluster -Current Size (cm) - Length 3.5 0.1 3.3 -Current Size (cm) - Width 2 0.1 2.8 -Current Size (cm) - Depth 0.1 0 0.2 -Total Square Cm 7.0 0.01 9.24 -Date of Last Picture (Recall this 04/29/25 05/06/25 field) -Photo Taken Yes -Tunneling No -Undermining/Tunneling No -Circular Undermining No -Exudate Amt Medium Small -Exudate Type Serosanguineous Serosanguineous -Wound Margin Distinct, Distinct, Outline Outline Attached Attached -Granulation Amt Small (1-33%) Small (1-33%) -Granulation Quality [employer] -Slough/Fibrin -Necrosis Amt Large (67-100%) Large (67-100%) -Necrotic Tissue Type Eschar Adherent Slough -Texture (Regina-wound Skin Appearance) Assessed Assessed -Moisture (Regina-wound Skin Appearance) Assessed Assessed -Color (Regina-wound Skin Appearance) Assessed Assessed -Temperature (Regina-wound Skin No Abnormality No Abnormality Appearance) (Pt Warm) (Pt Warm) -Tenderness on Palpation (Regina-wound No No Skin Appearance) -Ulcer Cleansing Soap and Water Soap and Water -Foul Odor after Cleansing No No -Anesthetic Used 4% Lidocaine 5% Lidocaine Solution Gel -Wound Comment(s) not measured in nurse 1 3-LEFT LATERAL LEG -Current Size (cm) - Length 2 0.1 2.1 -Current Size (cm) - Width 2 0.1 2.2 -Current Size (cm) - Depth 0.3 0 0.2 -Total Square Cm 4 0.01 4.62 -Date of Last Picture (Recall this 04/29/25 05/06/25 field) -Photo Taken Yes -Tunneling No -Undermining/Tunneling No -Circular Undermining No -Exudate Amt Small Large Small -Exudate Type Serous Yellow/Green Serosanguineous -Wound Margin Flat & Intact Distinct, Distinct, Outline Outline Attached Attached -Granulation Amt Small (1-33%) Small (1-33%) -Granulation Quality [employer] -Slough/Fibrin Yes -Necrosis Amt Large (67-100%) Large (67-100%) Large (67-100%) -Necrotic Tissue Type Eschar Adherent Slough Adherent Slough -Texture (Regina-wound Skin Appearance) Assessed Assessed -Moisture (Regina-wound Skin Appearance) Assessed Assessed -Color (Regina-wound Skin Appearance) Assessed Assessed -Temperature (Regina-wound Skin No Abnormality No Abnormality Appearance) (Pt Warm) (Pt Warm) -Tenderness on Palpation (Regina-wound Yes No No Skin Appearance) -Ulcer Cleansing Soap and Water Soap and Water Soap and Water -Foul Odor after Cleansing No No -Anesthetic Used 5% Lidocaine 4% Lidocaine 5% Lidocaine Gel Solution Gel #2 L. Med cluster -Current Size (cm) - Length 23.5 7.0 -Current Size (cm) - Width 10 10.5 -Current Size (cm) - Depth 0.3 0.3 -Total Square Cm 235.0 73.50 -Date of Last Picture (Recall this 05/06/25 field) -Photo Taken Yes -Tunneling No -Undermining/Tunneling No -Circular Undermining No -Exudate Amt Large Small -Exudate Type Yellow/Green Serosanguineous -Wound Margin Thickened Distinct, Outline Attached -Granulation Amt Small (1-33%) Small (1-33%) -Granulation Quality [employer] -Slough/Fibrin Yes -Necrosis Amt Large (67-100%) Large (67-100%) Large (67-100%) -Necrotic Tissue Type Eschar Eschar Adherent Slough -Texture (Regina-wound Skin Appearance) Assessed, Assessed Localized Edema -Moisture (Regina-wound Skin Appearance) Assessed Assessed -Color (Regina-wound Skin Appearance) Assessed, Assessed Erythema -Temperature (Regina-wound Skin No Abnormality No Abnormality Appearance) (Pt Warm) (Pt Warm) -Tenderness on Palpation (Regina-wound No No Skin Appearance) -Ulcer Cleansing Not Cleansed Soap and Water -Foul Odor after Cleansing No No -Anesthetic Used 4% Lidocaine 5% Lidocaine Solution Gel #1 R Med Cluster -Current Size (cm) - Length 10 9.5 -Current Size (cm) - Width 2.7 6.0 -Current Size (cm) - Depth 0.2 0.2 -Total Square Cm 27.0 57.00 -Date of Last Picture (Recall this 05/06/25 field) -Photo Taken Yes -Tunneling No -Undermining/Tunneling No -Circular Undermining No -Exudate Amt Large Small -Exudate Type Serosanguineous Serosanguineous -Wound Margin Thickened Distinct, Outline Attached -Granulation Amt Large (67-100%) Small (1-33%) -Granulation Quality [employer] -Slough/Fibrin Yes -Necrosis Amt Large (67-100%) Large (67-100%) -Necrotic Tissue Type Eschar Adherent Slough Adherent Slough -Texture (Regina-wound Skin Appearance) Assessed Assessed -Moisture (Regina-wound Skin Appearance) Assessed Assessed -Color (Regina-wound Skin Appearance) Assessed Assessed -Temperature (Regina-wound Skin No Abnormality No Abnormality No Abnormality Appearance) (Pt Warm) (Pt Warm) (Pt Warm) -Tenderness on Palpation (Regina-wound Yes No No Skin Appearance) -Ulcer Cleansing Soap and Water Soap and Water Soap and Water -Foul Odor after Cleansing No No -Anesthetic Used 5% Lidocaine 4% Lidocaine 5% Lidocaine Gel Solution Gel Right Calf (cm) 28.5 35.2 Right Ankle (cm) 23.5 28.0 Left Calf (cm) 37 35.8 Left Ankle (cm) 24.5 27.0 05/13/25 09:22 Wound Center Nurse 1 5-RIGHT ANKLE LATERAL LEG -Current Size (cm) - Length -Current Size (cm) - Width -Current Size (cm) - Depth -Total Square Cm -Exudate Amt 4-LEFT ANKLE CIRCUMFERENTIAL -Current Size (cm) - Length -Current Size (cm) - Width -Current Size (cm) - Depth -Total Square Cm -Epithelialization -Exudate Amt -Exudate Type -Wound Margin -Granulation Amt -Slough/Fibrin -Necrosis Amt -Necrotic Tissue Type -Structure Exposed -Ulcer Cleansing -Anesthetic Used 6.RIGHT LATeral leg cluster -Current Size (cm) - Length 3 -Current Size (cm) - Width 2 -Current Size (cm) - Depth 0.1 -Total Square Cm 6 -Date of Last Picture (Recall this field) -Photo Taken -Tunneling -Undermining/Tunneling -Circular Undermining -Exudate Amt Large -Exudate Type Yellow/Green -Wound Margin -Granulation Amt Large (67-100%) -Granulation Quality -Slough/Fibrin Yes -Necrosis Amt Large (67-100%) -Necrotic Tissue Type Adherent Slough -Texture (Regina-wound Skin Appearance) Assessed -Moisture (Regina-wound Skin Appearance) Assessed -Color (Regina-wound Skin Appearance) Assessed -Temperature (Regina-wound Skin No Abnormality Appearance) (Pt Warm) -Tenderness on Palpation (Regina-wound Yes Skin Appearance) -Ulcer Cleansing Soap and Water -Foul Odor after Cleansing No -Anesthetic Used 4% Lidocaine Solution -Wound Comment(s) 3-LEFT LATERAL LEG -Current Size (cm) - Length 2 -Current Size (cm) - Width 2 -Current Size (cm) - Depth 0.1 -Total Square Cm 4 -Date of Last Picture (Recall this field) -Photo Taken -Tunneling -Undermining/Tunneling -Circular Undermining -Exudate Amt Large -Exudate Type Yellow/Green -Wound Margin -Granulation Amt Large (67-100%) -Granulation Quality -Slough/Fibrin Yes -Necrosis Amt Large (67-100%) -Necrotic Tissue Type Adherent Slough -Texture (Regina-wound Skin Appearance) Assessed -Moisture (Regina-wound Skin Appearance) Assessed -Color (Regina-wound Skin Appearance) Assessed -Temperature (Regina-wound Skin No Abnormality Appearance) (Pt Warm) -Tenderness on Palpation (Regina-wound Yes Skin Appearance) -Ulcer Cleansing Soap and Water -Foul Odor after Cleansing No -Anesthetic Used 4% Lidocaine Solution #2 L. Med cluster -Current Size (cm) - Length 6 -Current Size (cm) - Width 5.5 -Current Size (cm) - Depth 0.1 -Total Square Cm 33.0 -Date of Last Picture (Recall this field) -Photo Taken -Tunneling -Undermining/Tunneling -Circular Undermining -Exudate Amt Large -Exudate Type Yellow/Green -Wound Margin -Granulation Amt Large (67-100%) -Granulation Quality -Slough/Fibrin Yes -Necrosis Amt Large (67-100%) -Necrotic Tissue Type Adherent Slough -Texture (Regina-wound Skin Appearance) No Abnormality -Moisture (Regina-wound Skin Appearance) Assessed -Color (Regina-wound Skin Appearance) Assessed -Temperature (Regina-wound Skin No Abnormality Appearance) (Pt Warm) -Tenderness on Palpation (Regina-wound Yes Skin Appearance) -Ulcer Cleansing Soap and Water -Foul Odor after Cleansing No -Anesthetic Used 4% Lidocaine Solution #1 R Med Cluster -Current Size (cm) - Length 4 -Current Size (cm) - Width 3 -Current Size (cm) - Depth 0.1 -Total Square Cm 12 -Date of Last Picture (Recall this field) -Photo Taken -Tunneling -Undermining/Tunneling -Circular Undermining -Exudate Amt Large -Exudate Type Yellow/Green -Wound Margin -Granulation Amt Large (67-100%) -Granulation Quality -Slough/Fibrin Yes -Necrosis Amt Large (67-100%) -Necrotic Tissue Type Adherent Slough -Texture (Regina-wound Skin Appearance) No Abnormality -Moisture (Regina-wound Skin Appearance) Assessed -Color (Regina-wound Skin Appearance) Assessed -Temperature (Regina-wound Skin No Abnormality Appearance) (Pt Warm) -Tenderness on Palpation (Regina-wound Yes Skin Appearance) -Ulcer Cleansing Soap and Water -Foul Odor after Cleansing No -Anesthetic Used 4% Lidocaine Solution Right Calf (cm) 33 Right Ankle (cm) 23 Left Calf (cm) 34 Left Ankle (cm) 24 WC - Nurse 2 - General Ulcer CM Notes Start: 04/22/25 09:44 Freq: Status: Active Protocol: Activity Type Activity Date Activity User E-sign Co-sign Detail Recorded Client Recorded Date Recorded By Document 04/22/25 10:23 MACHELLE [id number] 04/22/25 10:34 MACHELLE Document 04/29/25 10:05 MACHELLE [id number] 04/29/25 10:12 MACHELLE Document 05/06/25 11:02 MACHELLE [id number] 05/06/25 11:06 MACHELLE Document 05/13/25 09:31 [id number] 05/13/25 09:40 04/22/25 04/29/25 05/06/25 10:23 10:05 11:02 Wound Center Nurse 2 5-RIGHT ANKLE LATERAL LEG -Time 10:24 -Correct Patient Yes -Correct Side, Site, Position No -Correct Procedure No -Procedure Performed No -Post Debridement (cm) - Length 0 -Post Debridement (cm) - Width 0 -Post Debridement (cm) - Depth 0 -Total Square (Post) (cm) 0 -Area of Debridement (cm) - Length 0 -Area of Debridement (cm) - Width 0 -Total Square (Area) (cm) 0 -Tunneling No -Undermining/Tunneling No -Circular Undermining No -Wound/Ulcer Outcome Healed- Epithelialized -Ulcer Cleansing Rinsed/ Irrigated with Saline -Foul Odor after Cleansing No -Bioengineered Tissue No -Bleeding Controlled with Pressure -Treatment Response Procedure Tolerated Well -Offloading No -Debridement - Subq, 1st 20sq cm No 4-LEFT ANKLE CIRCUMFERENTIAL -Time 10:24 -Correct Patient Yes -Correct Side, Site, Position No -Correct Procedure Yes -Procedure Performed No -Post Debridement (cm) - Length 0 -Post Debridement (cm) - Width 0 -Post Debridement (cm) - Depth 0 -Total Square (Post) (cm) 0 -Area of Debridement (cm) - Length 0 -Area of Debridement (cm) - Width 0 -Total Square (Area) (cm) 0 -Tunneling No -Undermining/Tunneling No -Circular Undermining No -Wound/Ulcer Outcome Healed- Epithelialized -Ulcer Cleansing Rinsed/ Irrigated with Saline -Foul Odor after Cleansing No -Bioengineered Tissue No -Bleeding Controlled with Pressure -Treatment Response Procedure Tolerated Well -Offloading No -Debridement - Subq, 1st 20sq cm No 6.RIGHT LATeral leg cluster -Time 10:23 10:06 11:04 -Correct Patient Yes Yes Yes -Correct Side, Site, Position Yes Yes Yes -Correct Procedure Yes Yes Yes -Procedure Performed Yes Yes Yes -Type of Procedure Debridement Debridement Debridement -Clinical Debridement Subcutaneous Subcutaneous Subcutaneous -Tissue Removed Subcutaneous Subcutaneous Subcutaneous -Post Debridement (cm) - Length 3 2.7 2.9 -Post Debridement (cm) - Width 2 2.3 2.5 -Post Debridement (cm) - Depth 0.1 0.1 0.1 -Total Square (Post) (cm) 6 6.21 7.25 -Area of Debridement (cm) - Length 3 2.7 2.9 -Area of Debridement (cm) - Width 2 2.3 2.5 -Total Square (Area) (cm) 6 6.21 7.25 -Tunneling No No No -Undermining/Tunneling No No No -Circular Undermining No No No -Wound/Ulcer Outcome Not Healed Not Healed Not Healed -Ulcer Cleansing Rinsed/ Rinsed/ Rinsed/ Irrigated with Irrigated with Irrigated with Saline Saline Saline -Foul Odor after Cleansing No No No -Bioengineered Tissue No No No -Bleeding Controlled with Pressure Pressure Pressure -Treatment Response Procedure Procedure Procedure Tolerated Well Tolerated Well Tolerated Well -Offloading No No No -Debridement - Subq, 1st 20sq cm No No No -Debridement, SubQ, ea addt'l 20sq cm or part thereof 3-LEFT LATERAL LEG -Time 10:24 10:06 11:03 -Correct Patient Yes Yes Yes -Correct Side, Site, Position Yes Yes Yes -Correct Procedure Yes Yes Yes -Procedure Performed Yes Yes Yes -Type of Procedure Debridement Debridement Debridement -Clinical Debridement Subcutaneous Subcutaneous Subcutaneous -Tissue Removed Subcutaneous Subcutaneous Subcutaneous -Post Debridement (cm) - Length 2 2.0 2.1 -Post Debridement (cm) - Width 1.7 1.8 2.1 -Post Debridement (cm) - Depth 0.1 0.2 0.2 -Total Square (Post) (cm) 3.4 3.60 4.41 -Area of Debridement (cm) - Length 2 2.0 2.1 -Area of Debridement (cm) - Width 1.7 1.8 2.1 -Total Square (Area) (cm) 3.4 3.60 4.41 -Tunneling No No No -Undermining/Tunneling No No No -Circular Undermining No No No -Wound/Ulcer Outcome Not Healed Not Healed Not Healed -Ulcer Cleansing Rinsed/ Rinsed/ Rinsed/ Irrigated with Irrigated with Irrigated with Saline Saline Saline -Foul Odor after Cleansing No No No -Bioengineered Tissue No No No -Bleeding Controlled with Pressure Pressure Pressure -Treatment Response Procedure Procedure Procedure Tolerated Well Tolerated Well Tolerated Well -Offloading No No No -Debridement - Subq, 1st 20sq cm No No No #2 L. Med cluster -Time 10: 10:07 11:03 -Correct Patient Yes Yes Yes -Correct Side, Site, Position Yes Yes Yes -Correct Procedure Yes Yes Yes -Procedure Performed Yes Yes Yes -Type of Procedure Debridement Debridement Debridement -Clinical Debridement Muscle / Fascia Subcutaneous Subcutaneous -Tissue Removed Muscle Subcutaneous Subcutaneous -Post Debridement (cm) - Length 9.5 5.5 5.9 -Post Debridement (cm) - Width 8.2 9.5 9.3 -Post Debridement (cm) - Depth 0.2 0.2 0.1 -Total Square (Post) (cm) 77.90 52.25 54.87 -Area of Debridement (cm) - Length 9.5 5.5 5.9 -Area of Debridement (cm) - Width 8.2 9.5 9.3 -Total Square (Area) (cm) 77.90 52.25 54.87 -Tunneling No No No -Undermining/Tunneling No No No -Circular Undermining No No No -Wound/Ulcer Outcome Not Healed Not Healed Not Healed -Ulcer Cleansing Rinsed/ Rinsed/ Rinsed/ Irrigated with Irrigated with Irrigated with Saline Saline Saline -Foul Odor after Cleansing No No No -Bioengineered Tissue No No No -Bleeding Controlled with Pressure Pressure Pressure -Treatment Response Procedure Procedure Procedure Tolerated Well Tolerated Well Tolerated Well -Offloading No No No -Debridement - Subq, 1st 20sq cm No No -Debridement - Muscle / Fascia, 1st Yes 20sq cm -Debridement, Muscle/Fascia, ea addt'l 3 20sq cm or part thereof #1 R Med Cluster -Time 10: 10:08 11:04 -Correct Patient Yes Yes Yes -Correct Side, Site, Position Yes Yes Yes -Correct Procedure Yes Yes Yes -Procedure Performed Yes Yes Yes -Type of Procedure Debridement Debridement Debridement -Clinical Debridement Subcutaneous Subcutaneous Subcutaneous -Tissue Removed Subcutaneous Subcutaneous Subcutaneous -Post Debridement (cm) - Length 6.8 6.3 6.1 -Post Debridement (cm) - Width 4.7 5.0 5.8 -Post Debridement (cm) - Depth 0.1 0.2 0.1 -Total Square (Post) (cm) 31.96 31.50 35.38 -Area of Debridement (cm) - Length 6.8 6.3 6.1 -Area of Debridement (cm) - Width 4.7 5.0 5.8 -Total Square (Area) (cm) 31.96 31.50 35.38 -Tunneling No No No -Undermining/Tunneling No No No -Circular Undermining No No No -Wound/Ulcer Outcome Not Healed Not Healed Not Healed -Ulcer Cleansing Rinsed/ Rinsed/ Rinsed/ Irrigated with Irrigated with Irrigated with Saline Saline Saline -Foul Odor after Cleansing No No No -Bioengineered Tissue No No No -Bleeding Controlled with Pressure Pressure Pressure -Treatment Response Procedure Procedure Procedure Tolerated Well Tolerated Well Tolerated Well -Offloading No No No -Debridement - Subq, 1st 20sq cm Yes Yes Yes -Debridement, SubQ, ea addt'l 20sq cm 2 4 5 or part thereof Pain Scale: 0-10 Numeric Is Patient Pain Free? Yes Yes Yes 05/13/25 09:31 Wound Center Nurse 2 5-RIGHT ANKLE LATERAL LEG -Time -Correct Patient -Correct Side, Site, Position -Correct Procedure -Procedure Performed -Post Debridement (cm) - Length -Post Debridement (cm) - Width -Post Debridement (cm) - Depth -Total Square (Post) (cm) -Area of Debridement (cm) - Length -Area of Debridement (cm) - Width -Total Square (Area) (cm) -Tunneling -Undermining/Tunneling -Circular Undermining -Wound/Ulcer Outcome -Ulcer Cleansing -Foul Odor after Cleansing -Bioengineered Tissue -Bleeding Controlled with -Treatment Response -Offloading -Debridement - Subq, 1st 20sq cm 4-LEFT ANKLE CIRCUMFERENTIAL -Time -Correct Patient -Correct Side, Site, Position -Correct Procedure -Procedure Performed -Post Debridement (cm) - Length -Post Debridement (cm) - Width -Post Debridement (cm) - Depth -Total Square (Post) (cm) -Area of Debridement (cm) - Length -Area of Debridement (cm) - Width -Total Square (Area) (cm) -Tunneling -Undermining/Tunneling -Circular Undermining -Wound/Ulcer Outcome -Ulcer Cleansing -Foul Odor after Cleansing -Bioengineered Tissue -Bleeding Controlled with -Treatment Response -Offloading -Debridement - Subq, 1st 20sq cm 6.RIGHT LATeral leg cluster -Time 09:33 -Correct Patient Yes -Correct Side, Site, Position Yes -Correct Procedure Yes -Procedure Performed Yes -Type of Procedure Debridement -Clinical Debridement Subcutaneous -Tissue Removed Subcutaneous -Post Debridement (cm) - Length 3.5 -Post Debridement (cm) - Width 1.8 -Post Debridement (cm) - Depth 0.1 -Total Square (Post) (cm) 6.30 -Area of Debridement (cm) - Length 3.5 -Area of Debridement (cm) - Width 1.8 -Total Square (Area) (cm) 6.30 -Tunneling No -Undermining/Tunneling No -Circular Undermining No -Wound/Ulcer Outcome Not Healed -Ulcer Cleansing Rinsed/ Irrigated with Saline -Foul Odor after Cleansing No -Bioengineered Tissue No -Bleeding Controlled with Pressure -Treatment Response Procedure Tolerated Well -Offloading No -Debridement - Subq, 1st 20sq cm Yes -Debridement, SubQ, ea addt'l 20sq cm 5 or part thereof 3-LEFT LATERAL LEG -Time 09:37 -Correct Patient Yes -Correct Side, Site, Position Yes -Correct Procedure Yes -Procedure Performed Yes -Type of Procedure Debridement -Clinical Debridement Subcutaneous -Tissue Removed Subcutaneous -Post Debridement (cm) - Length 2.0 -Post Debridement (cm) - Width 1.6 -Post Debridement (cm) - Depth 0.2 -Total Square (Post) (cm) 3.20 -Area of Debridement (cm) - Length 2.0 -Area of Debridement (cm) - Width 1.6 -Total Square (Area) (cm) 3.20 -Tunneling No -Undermining/Tunneling No -Circular Undermining No -Wound/Ulcer Outcome Not Healed -Ulcer Cleansing Rinsed/ Irrigated with Saline -Foul Odor after Cleansing No -Bioengineered Tissue No -Bleeding Controlled with Pressure -Treatment Response Procedure Tolerated Well -Offloading No -Debridement - Subq, 1st 20sq cm No #2 L. Med cluster -Time 09:37 -Correct Patient Yes -Correct Side, Site, Position Yes -Correct Procedure Yes -Procedure Performed Yes -Type of Procedure Debridement -Clinical Debridement Subcutaneous -Tissue Removed Subcutaneous -Post Debridement (cm) - Length 8.4 -Post Debridement (cm) - Width 8.5 -Post Debridement (cm) - Depth 0.2 -Total Square (Post) (cm) 71.40 -Area of Debridement (cm) - Length 8.4 -Area of Debridement (cm) - Width 8.5 -Total Square (Area) (cm) 71.40 -Tunneling No -Undermining/Tunneling No -Circular Undermining No -Wound/Ulcer Outcome Not Healed -Ulcer Cleansing Rinsed/ Irrigated with Saline -Foul Odor after Cleansing No -Bioengineered Tissue No -Bleeding Controlled with Pressure -Treatment Response Procedure Tolerated Well -Offloading No -Debridement - Subq, 1st 20sq cm No -Debridement - Muscle / Fascia, 1st 20sq cm -Debridement, Muscle/Fascia, ea addt'l 20sq cm or part thereof #1 R Med Cluster -Time 09:38 -Correct Patient Yes -Correct Side, Site, Position Yes -Correct Procedure Yes -Procedure Performed Yes -Type of Procedure Debridement -Clinical Debridement Subcutaneous -Tissue Removed Subcutaneous -Post Debridement (cm) - Length 5.5 -Post Debridement (cm) - Width 4.5 -Post Debridement (cm) - Depth 0.1 -Total Square (Post) (cm) 24.75 -Area of Debridement (cm) - Length 5.5 -Area of Debridement (cm) - Width 4.5 -Total Square (Area) (cm) 24.75 -Tunneling No -Undermining/Tunneling No -Circular Undermining No -Wound/Ulcer Outcome Not Healed -Ulcer Cleansing Rinsed/ Irrigated with Saline -Foul Odor after Cleansing No -Bioengineered Tissue No -Bleeding Controlled with Pressure -Treatment Response Procedure Tolerated Well -Offloading No -Debridement - Subq, 1st 20sq cm No -Debridement, SubQ, ea addt'l 20sq cm or part thereof Pain Scale: 0-10 Numeric Is Patient Pain Free? Yes WC - Nurse 3 - General Ulcer D/C NN Start: 04/22/25 09:44 Freq: Status: Active Protocol: Activity Type Activity Date Activity User E-sign Co-sign Detail Recorded Client Recorded Date Recorded By Document 04/22/25 10:39 KW [id number] 04/22/25 10:41 KW Document 04/29/25 10:34 GM [id number] 04/29/25 10:36 GM Document 05/06/25 11:13 KW [id number] 05/06/25 11:20 KW Document 05/08/25 09:02 DS [id number] 05/08/25 09:34 DS Document 05/13/25 09:49 GM [id number] 05/13/25 09:51 04/22/25 04/29/25 05/06/25 10:39 10:34 11:13 Wound Care Center Nurse 3 6.RIGHT LATeral leg cluster -Ulcer Cleansing Not Cleansed Rinsed/ Irrigated with Saline -Foul Odor after Cleansing No No -Primary Dressing Applied Hysept Aquacel AG 4x4, Optilok 5x5 1/2 -Other Dressing BETADINE PAINT -Primary Dressing Covered/Secured with Dry Gauze,Dry Dry Gauze,Dry Dry Gauze & Gauze & Roll Gauze & Roll Roll Gauze Gauze,Secured Gauze,Secured with Tape with Tape -Aquacel AG 4x4 1 -Hysept 1 -Optilok 5x5 1/2 1 -Wound Comment(s) 3-LEFT LATERAL LEG -Ulcer Cleansing Not Cleansed Rinsed/ Irrigated with Saline -Foul Odor after Cleansing No -Negative Pressure Wound Therapy N/A -Primary Dressing Applied Aquacel AG 4x4, Optilok 5x5 1/2 -Other Dressing BETADINE PAINTED -Primary Dressing Covered/Secured with Dry Gauze,Dry Dry Gauze Dry Gauze & Gauze & Roll Roll Gauze Gauze,Secured with Tape -Other Covering betadine -Aquacel AG 4x4 1 -Optilok 5x5 1/2 1 #2 L. Med cluster -Ulcer Cleansing Not Cleansed Rinsed/ Irrigated with Saline -Foul Odor after Cleansing No -Primary Dressing Applied Optilok 6.5x10 -Other Dressing BETADINE PAINT -Primary Dressing Covered/Secured with Dry Gauze Dry Gauze & Dry Gauze & Roll Gauze, Roll Gauze Secured with Tape -Other Covering dakins -Aquacel AG 4x4 -Optilok 6.5x10 1 #1 R Med Cluster -Ulcer Cleansing Not Cleansed Rinsed/ Irrigated with Saline -Foul Odor after Cleansing No -Primary Dressing Applied Optilok 6.5x10 -Other Dressing BETADINE -Primary Dressing Covered/Secured with Dry Gauze Dry Gauze Dry Gauze & Roll Gauze -Other Covering dakins -Aquacel AG 4x4 -Optilok 5x5 1/2 -Optilok 6.5x10 1 -Wound Comment(s) BLE -Lotion applied to leg before No compression wrap -Multi-Layered Wrap Application Multi-Layer Comp - Bilat ($ ) -Tubular Bandage Single Layer Single Layer -Size of Tubigrip Used Size E Size E -Size E ($) 2 2 -Multi-Layer Compression Bilat (Qty 1 applied) Pain Scale: 0-10 Numeric Is Patient Pain Free? Yes Yes Yes WC - Visit Discharge Discharge Condition Stable Stable Stable Ambulatory Status Ambulatory, Ambulatory, Ambulatory Walker Walker Transportation Private Auto Private Auto Private Auto Medication Reconcilliation completed & No provided to patient/care provider Clinical Summary of Care Provided Yes Yes 05/08/25 05/13/25 09:02 09:49 Wound Care Center Nurse 3 6.RIGHT LATeral leg cluster -Ulcer Cleansing Soap and Water Not Cleansed -Foul Odor after Cleansing No -Primary Dressing Applied Aquacel AG 4x4, Aquacel AG 4x4, Optilok 5x5 1/2 Optilok 5x5 1/2 -Other Dressing -Primary Dressing Covered/Secured with -Aquacel AG 4x4 0 1 -Hysept -Optilok 5x5 1/2 1 1 -Wound Comment(s) used pt own dressing 3-LEFT LATERAL LEG -Ulcer Cleansing Soap and Water Not Cleansed -Foul Odor after Cleansing No -Negative Pressure Wound Therapy -Primary Dressing Applied Aquacel AG 4x4 Aquacel AG 4x4, Optilok 5x5 1/2 -Other Dressing -Primary Dressing Covered/Secured with -Other Covering -Aquacel AG 4x4 0 1 -Optilok 5x5 1/2 1 #2 L. Med cluster -Ulcer Cleansing Soap and Water Not Cleansed -Foul Odor after Cleansing No -Primary Dressing Applied Aquacel AG 4x4, Optilok 6.5x10 -Other Dressing other part of aquacel -Primary Dressing Covered/Secured with -Other Covering -Aquacel AG 4x4 1 -Optilok 6.5x10 1 #1 R Med Cluster -Ulcer Cleansing Soap and Water Not Cleansed -Foul Odor after Cleansing No -Primary Dressing Applied Aquacel AG 4x4, Optilok 5x5 1/2 -Other Dressing used other half of aquacel -Primary Dressing Covered/Secured with -Other Covering -Aquacel AG 4x4 0 -Optilok 5x5 1/2 1 -Optilok 6.5x10 -Wound Comment(s) used pt own dressing BLE -Lotion applied to leg before No compression wrap -Multi-Layered Wrap Application Multi-Layer Multi-Layer Comp - Bilat ($ Comp - Bilat ($ ) ) -Tubular Bandage -Size of Tubigrip Used -Size E ($) -Multi-Layer Compression Bilat (Qty 1 1 applied) Pain Scale: 0-10 Numeric Is Patient Pain Free? Yes Yes WC - Visit Discharge Discharge Condition Stable Stable Ambulatory Status Ambulatory, Ambulatory, Walker Walker Transportation Private Auto Private Auto Medication Reconcilliation completed & provided to patient/care provider Clinical Summary of Care Provided Assessment/Plan Assessment/Plan (1) Non-pressure chronic ulcer of other part of right lower leg with fat layer exposed: CODE(S): L97.812 - Non-pressure chronic ulcer of other part of right lower leg with fat layer exposed PLAN: Patient was examined and evaluated. All findings were discussed with the patient. All questions were answered to the patient's satisfaction. Excisional debridement down to including subcutaneous tissue of the right lower extremity medial full-thickness wound done with a number 5 mm dermal curette done without incident. Predebridement was 5.3 x 4.2 x 0.1 cm. Postdebridement measurement is 5.5 x 4.5 x 0.1 cm. Excisional debridement down to and including subcutaneous tissue of the right lateral full-thickness wound done with a number 5 mm dermal curette done without incident. Predebridement measurement was 3.3 x 1.7 x 0.1 cm. Postdebridement measurement is 3.5 x 1.8 x 0.1 cm. Excisional debridement down to and including subcutaneous tissue of the left lower extremity medial full-thickness wound done with a number 5 mm dermal curette done without incident. Predebridement measurement was 8.0 x 8.2 x 0.1 cm. Postdebridement measurement is 8.4 x 8.5 x 0.2 cm. The bilateral lower extremities were cleaned and patted dry. Silver alginate was applied to all full-thickness wounds of bilateral lower extremity and cove red with dry sterile dressing and 3M multilayer compression bandage bilateral. Waiting on authorization through the patient's insurance for left lower extremity medial full-thickness wound for amniotic skin graft substitute applications. ICD-10 code L97.822 Patient will follow-up with Dr. 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
--- NOTE | 2025-05-13 12:27 | PCM.WC.PN ---
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 Progress of Wound: Bilateral leg full-thickness wound stable with no infection. Objective Data Objective Data Vital Signs: Vital Signs Temp Pulse Resp BP O2 Del Method 97.6 F L 78 14 133/54 H Room Air 05/13/25 09:22 05/13/25 09:22 05/13/25 09:22 05/13/25 09:22 05/08/25 09:00 Oxygen Delivery Method Room Air Debridement Note Debridement Note Post-Debridement Measurements and Additional Note: Post-Debridement Measurements/Treatment - Nurse 1 - General Ulcer Assessment Start: 04/22/25 09:44 Freq: Status: Active Protocol: MADYSON Activity Type Activity Date Activity User E-sign Co-sign Detail Recorded Client Recorded Date Recorded By Document 04/22/25 09:44 CP [id number] 04/22/25 09:58 CP Document 04/29/25 09:33 KW [id number] 04/29/25 09:54 KW Document 05/06/25 10:26 DS [id number] 05/06/25 10:50 DS Document 05/08/25 09:00 DS [id number] 05/08/25 09:02 DS Document 05/13/25 09:22 ML [id number] 05/13/25 09:27 ML 04/22/25 04/29/25 05/06/25 09:44 09:33 10:26 - Today's Visit Information Type of service Follow-up Visit Follow-up Visit Follow-up Visit (Physician/LIMEHOUSE WORKER (Physician/LIMEHOUSE WORKER (Physician/LIMEHOUSE WORKER ) ) ) Arrival Mode Ambulatory, Ambulatory, Ambulatory, Walker Walker Walker Transfer Assistance None Accompanied by daughter daughter Patient Identification Verified (Name & Yes Yes ) Patient Requires Transmission-Based Yes No Precautions Safety Precautions NA Fall Prevention Vital Signs Temperature (97.8 F-99.1 F) 98 F 97.5 F L 97.3 F L Temperature Source Temporal Temporal Temporal Pulse Rate (60-100) 82 77 65 Pulse Location Monitor Monitor Monitor Respiratory Rate (12-18) 16 18 16 Respiratory rate source Observation Observation Observation Oxygen Delivery Method Room Air Room Air Blood Pressure (90/60-120/80) 143/58 H 155/78 H 140/52 H Blood Pressure Mean (mm Hg) 86 103 81 Source Monitor Monitor Monitor Position Sitting Semi-Fowlers Sitting Blood Pressure Location Right Arm Left Arm Left Arm History Since Last Visit- (Skip if this is Patient's initial visit) Have you changed medications since your No No No last visit? Any new allergies or adverse reactions No No No Had a fall/change in ADL's that may No No No increase risk of falls Signs or symptoms of abuse and/or No No No neglect since last visit Have you been in the hospital since your No No No last visit? Has dressing in place as prescribed Yes Yes Yes Has compression in place as prescribed Yes Yes Yes Has offloadiing in place as prescribed N/A Yes N/A Experienced any changes in pain level or No No No management Left Footwear Regular Shoe Regular Shoe Regular Shoe Right Footwear Regular Shoe Regular Shoe Regular Shoe Pain Scale: 0-10 Numeric Is Patient Pain Free? No Yes Yes 05/08/25 05/13/25 09:00 09:22 WC - Today's Visit Information Type of service Nurse-only Follow-up Visit Visit (Physician/LIMEHOUSE WORKER ) Arrival Mode Ambulatory, Ambulatory, Walker Walker Transfer Assistance None Accompanied by Patient Identification Verified (Name & Yes Yes ) Patient Requires Transmission-Based No Precautions Safety Precautions NA,Fall Prevention Vital Signs Temperature (97.8 F-99.1 F) 97.8 F 97.6 F L Temperature Source Temporal Temporal Pulse Rate (60-100) 78 Pulse Location Monitor Monitor Respiratory Rate (12-18) 18 14 Respiratory rate source Observation Observation Oxygen Delivery Method Room Air Blood Pressure (90/60-120/80) 123/64 H 133/54 H Blood Pressure Mean (mm Hg) 83 80 Source Monitor Monitor Position Semi-Fowlers Sitting Blood Pressure Location Right Arm Left Arm History Since Last Visit- (Skip if this is Patient's initial visit) Have you changed medications since your No last visit? Any new allergies or adverse reactions No Had a fall/change in ADL's that may No increase risk of falls Signs or symptoms of abuse and/or No neglect since last visit Have you been in the hospital since your No last visit? Has dressing in place as prescribed Yes Has compression in place as prescribed Yes Has offloadiing in place as prescribed Yes Experienced any changes in pain level or No management Left Footwear Right Footwear Pain Scale: 0-10 Numeric Is Patient Pain Free? Yes Yes WC - Nurse 1 - General Ulcer Measurement Start: 04/22/25 09:44 Freq: Status: Active Protocol: Activity Type Activity Date Activity User E-sign Co-sign Detail Recorded Client Recorded Date Recorded By Document 04/22/25 09:44 CP [id number] 04/22/25 09:58 CP Document 04/29/25 09:33 KW [id number] 04/29/25 09:54 KW Document 05/06/25 10:26 DS [id number] 05/06/25 10:50 DS Document 05/13/25 09:22 ML [id number] 05/13/25 09:27 ML 04/22/25 04/29/25 05/06/25 09:44 09:33 10:26 Wound Center Nurse 1 5-RIGHT ANKLE LATERAL LEG -Current Size (cm) - Length 0 -Current Size (cm) - Width 0 -Current Size (cm) - Depth 0 -Total Square Cm 0 -Exudate Amt None Present 4-LEFT ANKLE CIRCUMFERENTIAL -Current Size (cm) - Length 6 -Current Size (cm) - Width 10 -Current Size (cm) - Depth 0.2 -Total Square Cm 60 -Epithelialization None Present -Exudate Amt Small -Exudate Type Serous -Wound Margin Flat & Intact -Granulation Amt None Present (0 %) -Slough/Fibrin Yes -Necrosis Amt Large (67-100%) -Necrotic Tissue Type Adherent Slough -Structure Exposed Fat Layer Exposed -Ulcer Cleansing Soap and Water -Anesthetic Used 5% Lidocaine Gel 6.RIGHT LATeral leg cluster -Current Size (cm) - Length 3.5 0.1 3.3 -Current Size (cm) - Width 2 0.1 2.8 -Current Size (cm) - Depth 0.1 0 0.2 -Total Square Cm 7.0 0.01 9.24 -Date of Last Picture (Recall this 04/29/25 05/06/25 field) -Photo Taken Yes -Tunneling No -Undermining/Tunneling No -Circular Undermining No -Exudate Amt Medium Small -Exudate Type Serosanguineous Serosanguineous -Wound Margin Distinct, Distinct, Outline Outline Attached Attached -Granulation Amt Small (1-33%) Small (1-33%) -Granulation Quality Herscher Herscher -Slough/Fibrin -Necrosis Amt Large (67-100%) Large (67-100%) -Necrotic Tissue Type Eschar Adherent Slough -Texture (Regina-wound Skin Appearance) Assessed Assessed -Moisture (Regina-wound Skin Appearance) Assessed Assessed -Color (Regina-wound Skin Appearance) Assessed Assessed -Temperature (Regina-wound Skin No Abnormality No Abnormality Appearance) (Pt Warm) (Pt Warm) -Tenderness on Palpation (Regina-wound No No Skin Appearance) -Ulcer Cleansing Soap and Water Soap and Water -Foul Odor after Cleansing No No -Anesthetic Used 4% Lidocaine 5% Lidocaine Solution Gel -Wound Comment(s) not measured in nurse 1 3-LEFT LATERAL LEG -Current Size (cm) - Length 2 0.1 2.1 -Current Size (cm) - Width 2 0.1 2.2 -Current Size (cm) - Depth 0.3 0 0.2 -Total Square Cm 4 0.01 4.62 -Date of Last Picture (Recall this 04/29/25 05/06/25 field) -Photo Taken Yes -Tunneling No -Undermining/Tunneling No -Circular Undermining No -Exudate Amt Small Large Small -Exudate Type Serous Yellow/Green Serosanguineous -Wound Margin Flat & Intact Distinct, Distinct, Outline Outline Attached Attached -Granulation Amt Small (1-33%) Small (1-33%) -Granulation Quality Herscher Herscher -Slough/Fibrin Yes -Necrosis Amt Large (67-100%) Large (67-100%) Large (67-100%) -Necrotic Tissue Type Eschar Adherent Slough Adherent Slough -Texture (Regnia-wound Skin Appearance) Assessed Assessed -Moisture (Regina-wound Skin Appearance) Assessed Assessed -Color (Regina-wound Skin Appearance) Assessed Assessed -Temperature (Regina-wound Skin No Abnormality No Abnormality Appearance) (Pt Warm) (Pt Warm) -Tenderness on Palpation (Regina-wound Yes No No Skin Appearance) -Ulcer Cleansing Soap and Water Soap and Water Soap and Water -Foul Odor after Cleansing No No -Anesthetic Used 5% Lidocaine 4% Lidocaine 5% Lidocaine Gel Solution Gel #2 L. Med cluster -Current Size (cm) - Length 23.5 7.0 -Current Size (cm) - Width 10 10.5 -Current Size (cm) - Depth 0.3 0.3 -Total Square Cm 235.0 73.50 -Date of Last Picture (Recall this 05/06/25 field) -Photo Taken Yes -Tunneling No -Undermining/Tunneling No -Circular Undermining No -Exudate Amt Large Small -Exudate Type Yellow/Green Serosanguineous -Wound Margin Thickened Distinct, Outline Attached -Granulation Amt Small (1-33%) Small (1-33%) -Granulation Quality Herscher Herscher -Slough/Fibrin Yes -Necrosis Amt Large (67-100%) Large (67-100%) Large (67-100%) -Necrotic Tissue Type Eschar Eschar Adherent Slough -Texture (Regina-wound Skin Appearance) Assessed, Assessed Localized Edema -Moisture (Regina-wound Skin Appearance) Assessed Assessed -Color (Regina-wound Skin Appearance) Assessed, Assessed Erythema -Temperature (Regina-wound Skin No Abnormality No Abnormality Appearance) (Pt Warm) (Pt Warm) -Tenderness on Palpation (Regina-wound No No Skin Appearance) -Ulcer Cleansing Not Cleansed Soap and Water -Foul Odor after Cleansing No No -Anesthetic Used 4% Lidocaine 5% Lidocaine Solution Gel #1 R Med Cluster -Current Size (cm) - Length 10 9.5 -Current Size (cm) - Width 2.7 6.0 -Current Size (cm) - Depth 0.2 0.2 -Total Square Cm 27.0 57.00 -Date of Last Picture (Recall this 05/06/25 field) -Photo Taken Yes -Tunneling No -Undermining/Tunneling No -Circular Undermining No -Exudate Amt Large Small -Exudate Type Serosanguineous Serosanguineous -Wound Margin Thickened Distinct, Outline Attached -Granulation Amt Large (67-100%) Small (1-33%) -Granulation Quality Herscher Herscher -Slough/Fibrin Yes -Necrosis Amt Large (67-100%) Large (67-100%) -Necrotic Tissue Type Eschar Adherent Slough Adherent Slough -Texture (Regina-wound Skin Appearance) Assessed Assessed -Moisture (Regina-wound Skin Appearance) Assessed Assessed -Color (Regina-wound Skin Appearance) Assessed Assessed -Temperature (Regina-wound Skin No Abnormality No Abnormality No Abnormality Appearance) (Pt Warm) (Pt Warm) (Pt Warm) -Tenderness on Palpation (Regina-wound Yes No No Skin Appearance) -Ulcer Cleansing Soap and Water Soap and Water Soap and Water -Foul Odor after Cleansing No No -Anesthetic Used 5% Lidocaine 4% Lidocaine 5% Lidocaine Gel Solution Gel Right Calf (cm) 28.5 35.2 Right Ankle (cm) 23.5 28.0 Left Calf (cm) 37 35.8 Left Ankle (cm) 24.5 27.0 05/13/25 09:22 Wound Center Nurse 1 5-RIGHT ANKLE LATERAL LEG -Current Size (cm) - Length -Current Size (cm) - Width -Current Size (cm) - Depth -Total Square Cm -Exudate Amt 4-LEFT ANKLE CIRCUMFERENTIAL -Current Size (cm) - Length -Current Size (cm) - Width -Current Size (cm) - Depth -Total Square Cm -Epithelialization -Exudate Amt -Exudate Type -Wound Margin -Granulation Amt -Slough/Fibrin -Necrosis Amt -Necrotic Tissue Type -Structure Exposed -Ulcer Cleansing -Anesthetic Used 6.RIGHT LATeral leg cluster -Current Size (cm) - Length 3 -Current Size (cm) - Width 2 -Current Size (cm) - Depth 0.1 -Total Square Cm 6 -Date of Last Picture (Recall this field) -Photo Taken -Tunneling -Undermining/Tunneling -Circular Undermining -Exudate Amt Large -Exudate Type Yellow/Green -Wound Margin -Granulation Amt Large (67-100%) -Granulation Quality -Slough/Fibrin Yes -Necrosis Amt Large (67-100%) -Necrotic Tissue Type Adherent Slough -Texture (Regina-wound Skin Appearance) Assessed -Moisture (Regina-wound Skin Appearance) Assessed -Color (Regina-wound Skin Appearance) Assessed -Temperature (Regina-wound Skin No Abnormality Appearance) (Pt Warm) -Tenderness on Palpation (Regina-wound Yes Skin Appearance) -Ulcer Cleansing Soap and Water -Foul Odor after Cleansing No -Anesthetic Used 4% Lidocaine Solution -Wound Comment(s) 3-LEFT LATERAL LEG -Current Size (cm) - Length 2 -Current Size (cm) - Width 2 -Current Size (cm) - Depth 0.1 -Total Square Cm 4 -Date of Last Picture (Recall this field) -Photo Taken -Tunneling -Undermining/Tunneling -Circular Undermining -Exudate Amt Large -Exudate Type Yellow/Green -Wound Margin -Granulation Amt Large (67-100%) -Granulation Quality -Slough/Fibrin Yes -Necrosis Amt Large (67-100%) -Necrotic Tissue Type Adherent Slough -Texture (Regina-wound Skin Appearance) Assessed -Moisture (Regina-wound Skin Appearance) Assessed -Color (Regina-wound Skin Appearance) Assessed -Temperature (Regina-wound Skin No Abnormality Appearance) (Pt Warm) -Tenderness on Palpation (Regina-wound Yes Skin Appearance) -Ulcer Cleansing Soap and Water -Foul Odor after Cleansing No -Anesthetic Used 4% Lidocaine Solution #2 L. Med cluster -Current Size (cm) - Length 6 -Current Size (cm) - Width 5.5 -Current Size (cm) - Depth 0.1 -Total Square Cm 33.0 -Date of Last Picture (Recall this field) -Photo Taken -Tunneling -Undermining/Tunneling -Circular Undermining -Exudate Amt Large -Exudate Type Yellow/Green -Wound Margin -Granulation Amt Large (67-100%) -Granulation Quality -Slough/Fibrin Yes -Necrosis Amt Large (67-100%) -Necrotic Tissue Type Adherent Slough -Texture (Regina-wound Skin Appearance) No Abnormality -Moisture (Regina-wound Skin Appearance) Assessed -Color (Regina-wound Skin Appearance) Assessed -Temperature (Regina-wound Skin No Abnormality Appearance) (Pt Warm) -Tenderness on Palpation (Regina-wound Yes Skin Appearance) -Ulcer Cleansing Soap and Water -Foul Odor after Cleansing No -Anesthetic Used 4% Lidocaine Solution #1 R Med Cluster -Current Size (cm) - Length 4 -Current Size (cm) - Width 3 -Current Size (cm) - Depth 0.1 -Total Square Cm 12 -Date of Last Picture (Recall this field) -Photo Taken -Tunneling -Undermining/Tunneling -Circular Undermining -Exudate Amt Large -Exudate Type Yellow/Green -Wound Margin -Granulation Amt Large (67-100%) -Granulation Quality -Slough/Fibrin Yes -Necrosis Amt Large (67-100%) -Necrotic Tissue Type Adherent Slough -Texture (Regina-wound Skin Appearance) No Abnormality -Moisture (Regina-wound Skin Appearance) Assessed -Color (Regina-wound Skin Appearance) Assessed -Temperature (Regina-wound Skin No Abnormality Appearance) (Pt Warm) -Tenderness on Palpation (Regina-wound Yes Skin Appearance) -Ulcer Cleansing Soap and Water -Foul Odor after Cleansing No -Anesthetic Used 4% Lidocaine Solution Right Calf (cm) 33 Right Ankle (cm) 23 Left Calf (cm) 34 Left Ankle (cm) 24 WC - Nurse 2 - General Ulcer CM Notes Start: 04/22/25 09:44 Freq: Status: Active Protocol: Activity Type Activity Date Activity User E-sign Co-sign Detail Recorded Client Recorded Date Recorded By Document 04/22/25 10:23 [id number] 04/22/25 10:34 Document 04/29/25 10:05 [id number] 04/29/25 10:12 Document 05/06/25 11:02 [id number] 05/06/25 11:06 Document 05/13/25 09:31 [id number] 05/13/25 09:40 JF 04/22/25 04/29/25 05/06/25 10:23 10:05 11:02 Wound Center Nurse 2 5-RIGHT ANKLE LATERAL LEG -Time 10:24 -Correct Patient Yes -Correct Side, Site, Position No -Correct Procedure No -Procedure Performed No -Post Debridement (cm) - Length 0 -Post Debridement (cm) - Width 0 -Post Debridement (cm) - Depth 0 -Total Square (Post) (cm) 0 -Area of Debridement (cm) - Length 0 -Area of Debridement (cm) - Width 0 -Total Square (Area) (cm) 0 -Tunneling No -Undermining/Tunneling No -Circular Undermining No -Wound/Ulcer Outcome Healed- Epithelialized -Ulcer Cleansing Rinsed/ Irrigated with Saline -Foul Odor after Cleansing No -Bioengineered Tissue No -Bleeding Controlled with Pressure -Treatment Response Procedure Tolerated Well -Offloading No -Debridement - Subq, 1st 20sq cm No 4-LEFT ANKLE CIRCUMFERENTIAL -Time 10:24 -Correct Patient Yes -Correct Side, Site, Position No -Correct Procedure Yes -Procedure Performed No -Post Debridement (cm) - Length 0 -Post Debridement (cm) - Width 0 -Post Debridement (cm) - Depth 0 -Total Square (Post) (cm) 0 -Area of Debridement (cm) - Length 0 -Area of Debridement (cm) - Width 0 -Total Square (Area) (cm) 0 -Tunneling No -Undermining/Tunneling No -Circular Undermining No -Wound/Ulcer Outcome Healed- Epithelialized -Ulcer Cleansing Rinsed/ Irrigated with Saline -Foul Odor after Cleansing No -Bioengineered Tissue No -Bleeding Controlled with Pressure -Treatment Response Procedure Tolerated Well -Offloading No -Debridement - Subq, 1st 20sq cm No 6.RIGHT LATeral leg cluster -Time 10:23 10:06 11:04 -Correct Patient Yes Yes Yes -Correct Side, Site, Position Yes Yes Yes -Correct Procedure Yes Yes Yes -Procedure Performed Yes Yes Yes -Type of Procedure Debridement Debridement Debridement -Clinical Debridement Subcutaneous Subcutaneous Subcutaneous -Tissue Removed Subcutaneous Subcutaneous Subcutaneous -Post Debridement (cm) - Length 3 2.7 2.9 -Post Debridement (cm) - Width 2 2.3 2.5 -Post Debridement (cm) - Depth 0.1 0.1 0.1 -Total Square (Post) (cm) 6 6.21 7.25 -Area of Debridement (cm) - Length 3 2.7 2.9 -Area of Debridement (cm) - Width 2 2.3 2.5 -Total Square (Area) (cm) 6 6.21 7.25 -Tunneling No No No -Undermining/Tunneling No No No -Circular Undermining No No No -Wound/Ulcer Outcome Not Healed Not Healed Not Healed -Ulcer Cleansing Rinsed/ Rinsed/ Rinsed/ Irrigated with Irrigated with Irrigated with Saline Saline Saline -Foul Odor after Cleansing No No No -Bioengineered Tissue No No No -Bleeding Controlled with Pressure Pressure Pressure -Treatment Response Procedure Procedure Procedure Tolerated Well Tolerated Well Tolerated Well -Offloading No No No -Debridement - Subq, 1st 20sq cm No No No -Debridement, SubQ, ea addt'l 20sq cm or part thereof 3-LEFT LATERAL LEG -Time 10:24 10:06 11:03 -Correct Patient Yes Yes Yes -Correct Side, Site, Position Yes Yes Yes -Correct Procedure Yes Yes Yes -Procedure Performed Yes Yes Yes -Type of Procedure Debridement Debridement Debridement -Clinical Debridement Subcutaneous Subcutaneous Subcutaneous -Tissue Removed Subcutaneous Subcutaneous Subcutaneous -Post Debridement (cm) - Length 2 2.0 2.1 -Post Debridement (cm) - Width 1.7 1.8 2.1 -Post Debridement (cm) - Depth 0.1 0.2 0.2 -Total Square (Post) (cm) 3.4 3.60 4.41 -Area of Debridement (cm) - Length 2 2.0 2.1 -Area of Debridement (cm) - Width 1.7 1.8 2.1 -Total Square (Area) (cm) 3.4 3.60 4.41 -Tunneling No No No -Undermining/Tunneling No No No -Circular Undermining No No No -Wound/Ulcer Outcome Not Healed Not Healed Not Healed -Ulcer Cleansing Rinsed/ Rinsed/ Rinsed/ Irrigated with Irrigated with Irrigated with Saline Saline Saline -Foul Odor after Cleansing No No No -Bioengineered Tissue No No No -Bleeding Controlled with Pressure Pressure Pressure -Treatment Response Procedure Procedure Procedure Tolerated Well Tolerated Well Tolerated Well -Offloading No No No -Debridement - Subq, 1st 20sq cm No No No #2 L. Med cluster -Time 10: 10:07 11:03 -Correct Patient Yes Yes Yes -Correct Side, Site, Position Yes Yes Yes -Correct Procedure Yes Yes Yes -Procedure Performed Yes Yes Yes -Type of Procedure Debridement Debridement Debridement -Clinical Debridement Muscle / Fascia Subcutaneous Subcutaneous -Tissue Removed Muscle Subcutaneous Subcutaneous -Post Debridement (cm) - Length 9.5 5.5 5.9 -Post Debridement (cm) - Width 8.2 9.5 9.3 -Post Debridement (cm) - Depth 0.2 0.2 0.1 -Total Square (Post) (cm) 77.90 52.25 54.87 -Area of Debridement (cm) - Length 9.5 5.5 5.9 -Area of Debridement (cm) - Width 8.2 9.5 9.3 -Total Square (Area) (cm) 77.90 52.25 54.87 -Tunneling No No No -Undermining/Tunneling No No No -Circular Undermining No No No -Wound/Ulcer Outcome Not Healed Not Healed Not Healed -Ulcer Cleansing Rinsed/ Rinsed/ Rinsed/ Irrigated with Irrigated with Irrigated with Saline Saline Saline -Foul Odor after Cleansing No No No -Bioengineered Tissue No No No -Bleeding Controlled with Pressure Pressure Pressure -Treatment Response Procedure Procedure Procedure Tolerated Well Tolerated Well Tolerated Well -Offloading No No No -Debridement - Subq, 1st 20sq cm No No -Debridement - Muscle / Fascia, 1st Yes 20sq cm -Debridement, Muscle/Fascia, ea addt'l 3 20sq cm or part thereof #1 R Med Cluster -Time 10:26 10:08 11:04 -Correct Patient Yes Yes Yes -Correct Side, Site, Position Yes Yes Yes -Correct Procedure Yes Yes Yes -Procedure Performed Yes Yes Yes -Type of Procedure Debridement Debridement Debridement -Clinical Debridement Subcutaneous Subcutaneous Subcutaneous -Tissue Removed Subcutaneous Subcutaneous Subcutaneous -Post Debridement (cm) - Length 6.8 6.3 6.1 -Post Debridement (cm) - Width 4.7 5.0 5.8 -Post Debridement (cm) - Depth 0.1 0.2 0.1 -Total Square (Post) (cm) 31.96 31.50 35.38 -Area of Debridement (cm) - Length 6.8 6.3 6.1 -Area of Debridement (cm) - Width 4.7 5.0 5.8 -Total Square (Area) (cm) 31.96 31.50 35.38 -Tunneling No No No -Undermining/Tunneling No No No -Circular Undermining No No No -Wound/Ulcer Outcome Not Healed Not Healed Not Healed -Ulcer Cleansing Rinsed/ Rinsed/ Rinsed/ Irrigated with Irrigated with Irrigated with Saline Saline Saline -Foul Odor after Cleansing No No No -Bioengineered Tissue No No No -Bleeding Controlled with Pressure Pressure Pressure -Treatment Response Procedure Procedure Procedure Tolerated Well Tolerated Well Tolerated Well -Offloading No No No -Debridement - Subq, 1st 20sq cm Yes Yes Yes -Debridement, SubQ, ea addt'l 20sq cm 2 4 5 or part thereof Pain Scale: 0-10 Numeric Is Patient Pain Free? Yes Yes Yes 05/13/25 09:31 Wound Center Nurse 2 5-RIGHT ANKLE LATERAL LEG -Time -Correct Patient -Correct Side, Site, Position -Correct Procedure -Procedure Performed -Post Debridement (cm) - Length -Post Debridement (cm) - Width -Post Debridement (cm) - Depth -Total Square (Post) (cm) -Area of Debridement (cm) - Length -Area of Debridement (cm) - Width -Total Square (Area) (cm) -Tunneling -Undermining/Tunneling -Circular Undermining -Wound/Ulcer Outcome -Ulcer Cleansing -Foul Odor after Cleansing -Bioengineered Tissue -Bleeding Controlled with -Treatment Response -Offloading -Debridement - Subq, 1st 20sq cm 4-LEFT ANKLE CIRCUMFERENTIAL -Time -Correct Patient -Correct Side, Site, Position -Correct Procedure -Procedure Performed -Post Debridement (cm) - Length -Post Debridement (cm) - Width -Post Debridement (cm) - Depth -Total Square (Post) (cm) -Area of Debridement (cm) - Length -Area of Debridement (cm) - Width -Total Square (Area) (cm) -Tunneling -Undermining/Tunneling -Circular Undermining -Wound/Ulcer Outcome -Ulcer Cleansing -Foul Odor after Cleansing -Bioengineered Tissue -Bleeding Controlled with -Treatment Response -Offloading -Debridement - Subq, 1st 20sq cm 6.RIGHT LATeral leg cluster -Time 09:33 -Correct Patient Yes -Correct Side, Site, Position Yes -Correct Procedure Yes -Procedure Performed Yes -Type of Procedure Debridement -Clinical Debridement Subcutaneous -Tissue Removed Subcutaneous -Post Debridement (cm) - Length 3.5 -Post Debridement (cm) - Width 1.8 -Post Debridement (cm) - Depth 0.1 -Total Square (Post) (cm) 6.30 -Area of Debridement (cm) - Length 3.5 -Area of Debridement (cm) - Width 1.8 -Total Square (Area) (cm) 6.30 -Tunneling No -Undermining/Tunneling No -Circular Undermining No -Wound/Ulcer Outcome Not Healed -Ulcer Cleansing Rinsed/ Irrigated with Saline -Foul Odor after Cleansing No -Bioengineered Tissue No -Bleeding Controlled with Pressure -Treatment Response Procedure Tolerated Well -Offloading No -Debridement - Subq, 1st 20sq cm Yes -Debridement, SubQ, ea addt'l 20sq cm 5 or part thereof 3-LEFT LATERAL LEG -Time 09:37 -Correct Patient Yes -Correct Side, Site, Position Yes -Correct Procedure Yes -Procedure Performed Yes -Type of Procedure Debridement -Clinical Debridement Subcutaneous -Tissue Removed Subcutaneous -Post Debridement (cm) - Length 2.0 -Post Debridement (cm) - Width 1.6 -Post Debridement (cm) - Depth 0.2 -Total Square (Post) (cm) 3.20 -Area of Debridement (cm) - Length 2.0 -Area of Debridement (cm) - Width 1.6 -Total Square (Area) (cm) 3.20 -Tunneling No -Undermining/Tunneling No -Circular Undermining No -Wound/Ulcer Outcome Not Healed -Ulcer Cleansing Rinsed/ Irrigated with Saline -Foul Odor after Cleansing No -Bioengineered Tissue No -Bleeding Controlled with Pressure -Treatment Response Procedure Tolerated Well -Offloading No -Debridement - Subq, 1st 20sq cm No #2 L. Med cluster -Time 09:37 -Correct Patient Yes -Correct Side, Site, Position Yes -Correct Procedure Yes -Procedure Performed Yes -Type of Procedure Debridement -Clinical Debridement Subcutaneous -Tissue Removed Subcutaneous -Post Debridement (cm) - Length 8.4 -Post Debridement (cm) - Width 8.5 -Post Debridement (cm) - Depth 0.2 -Total Square (Post) (cm) 71.40 -Area of Debridement (cm) - Length 8.4 -Area of Debridement (cm) - Width 8.5 -Total Square (Area) (cm) 71.40 -Tunneling No -Undermining/Tunneling No -Circular Undermining No -Wound/Ulcer Outcome Not Healed -Ulcer Cleansing Rinsed/ Irrigated with Saline -Foul Odor after Cleansing No -Bioengineered Tissue No -Bleeding Controlled with Pressure -Treatment Response Procedure Tolerated Well -Offloading No -Debridement - Subq, 1st 20sq cm No -Debridement - Muscle / Fascia, 1st 20sq cm -Debridement, Muscle/Fascia, ea addt'l 20sq cm or part thereof #1 R Med Cluster -Time 09:38 -Correct Patient Yes -Correct Side, Site, Position Yes -Correct Procedure Yes -Procedure Performed Yes -Type of Procedure Debridement -Clinical Debridement Subcutaneous -Tissue Removed Subcutaneous -Post Debridement (cm) - Length 5.5 -Post Debridement (cm) - Width 4.5 -Post Debridement (cm) - Depth 0.1 -Total Square (Post) (cm) 24.75 -Area of Debridement (cm) - Length 5.5 -Area of Debridement (cm) - Width 4.5 -Total Square (Area) (cm) 24.75 -Tunneling No -Undermining/Tunneling No -Circular Undermining No -Wound/Ulcer Outcome Not Healed -Ulcer Cleansing Rinsed/ Irrigated with Saline -Foul Odor after Cleansing No -Bioengineered Tissue No -Bleeding Controlled with Pressure -Treatment Response Procedure Tolerated Well -Offloading No -Debridement - Subq, 1st 20sq cm No -Debridement, SubQ, ea addt'l 20sq cm or part thereof Pain Scale: 0-10 Numeric Is Patient Pain Free? Yes WC - Nurse 3 - General Ulcer D/C NN Start: 04/22/25 09:44 Freq: Status: Active Protocol: Activity Type Activity Date Activity User E-sign Co-sign Detail Recorded Client Recorded Date Recorded By Document 04/22/25 10:39 KW [id number] 04/22/25 10:41 KW Document 04/29/25 10:34 GM [id number] 04/29/25 10:36 GM Document 05/06/25 11:13 KW [id number] 05/06/25 11:20 KW Document 05/08/25 09:02 DS [id number] 05/08/25 09:34 DS Document 05/13/25 09:49 GM [id number] 05/13/25 09:51 GM 04/22/25 04/29/25 05/06/25 10:39 10:34 11:13 Wound Care Center Nurse 3 6.RIGHT LATeral leg cluster -Ulcer Cleansing Not Cleansed Rinsed/ Irrigated with Saline -Foul Odor after Cleansing No No -Primary Dressing Applied Hysept Aquacel AG 4x4, Optilok 5x5 1/2 -Other Dressing BETADINE PAINT -Primary Dressing Covered/Secured with Dry Gauze,Dry Dry Gauze,Dry Dry Gauze & Gauze & Roll Gauze & Roll Roll Gauze Gauze,Secured Gauze,Secured with Tape with Tape -Aquacel AG 4x4 1 -Hysept 1 -Optilok 5x5 1/2 1 -Wound Comment(s) 3-LEFT LATERAL LEG -Ulcer Cleansing Not Cleansed Rinsed/ Irrigated with Saline -Foul Odor after Cleansing No -Negative Pressure Wound Therapy N/A -Primary Dressing Applied Aquacel AG 4x4, Optilok 5x5 1/2 -Other Dressing BETADINE PAINTED -Primary Dressing Covered/Secured with Dry Gauze,Dry Dry Gauze Dry Gauze & Gauze & Roll Roll Gauze Gauze,Secured with Tape -Other Covering betadine -Aquacel AG 4x4 1 -Optilok 5x5 1/2 1 #2 L. Med cluster -Ulcer Cleansing Not Cleansed Rinsed/ Irrigated with Saline -Foul Odor after Cleansing No -Primary Dressing Applied Optilok 6.5x10 -Other Dressing BETADINE PAINT -Primary Dressing Covered/Secured with Dry Gauze Dry Gauze & Dry Gauze & Roll Gauze, Roll Gauze Secured with Tape -Other Covering dakins -Aquacel AG 4x4 -Optilok 6.5x10 1 #1 R Med Cluster -Ulcer Cleansing Not Cleansed Rinsed/ Irrigated with Saline -Foul Odor after Cleansing No -Primary Dressing Applied Optilok 6.5x10 -Other Dressing BETADINE -Primary Dressing Covered/Secured with Dry Gauze Dry Gauze Dry Gauze & Roll Gauze -Other Covering dakins -Aquacel AG 4x4 -Optilok 5x5 1/2 -Optilok 6.5x10 1 -Wound Comment(s) BLE -Lotion applied to leg before No compression wrap -Multi-Layered Wrap Application Multi-Layer Comp - Bilat ($ ) -Tubular Bandage Single Layer Single Layer -Size of Tubigrip Used Size E Size E -Size E ($) 2 2 -Multi-Layer Compression Bilat (Qty 1 applied) Pain Scale: 0-10 Numeric Is Patient Pain Free? Yes Yes Yes WC - Visit Discharge Discharge Condition Stable Stable Stable Ambulatory Status Ambulatory, Ambulatory, Ambulatory Walker Walker Transportation Private Auto Private Auto Private Auto Medication Reconcilliation completed & No provided to patient/care provider Clinical Summary of Care Provided Yes Yes 05/08/25 05/13/25 09:02 09:49 Wound Care Center Nurse 3 6.RIGHT LATeral leg cluster -Ulcer Cleansing Soap and Water Not Cleansed -Foul Odor after Cleansing No -Primary Dressing Applied Aquacel AG 4x4, Aquacel AG 4x4, Optilok 5x5 1/2 Optilok 5x5 1/2 -Other Dressing -Primary Dressing Covered/Secured with -Aquacel AG 4x4 0 1 -Hysept -Optilok 5x5 1/2 1 1 -Wound Comment(s) used pt own dressing 3-LEFT LATERAL LEG -Ulcer Cleansing Soap and Water Not Cleansed -Foul Odor after Cleansing No -Negative Pressure Wound Therapy -Primary Dressing Applied Aquacel AG 4x4 Aquacel AG 4x4, Optilok 5x5 1/2 -Other Dressing -Primary Dressing Covered/Secured with -Other Covering -Aquacel AG 4x4 0 1 -Optilok 5x5 1/2 1 #2 L. Med cluster -Ulcer Cleansing Soap and Water Not Cleansed -Foul Odor after Cleansing No -Primary Dressing Applied Aquacel AG 4x4, Optilok 6.5x10 -Other Dressing other part of aquacel -Primary Dressing Covered/Secured with -Other Covering -Aquacel AG 4x4 1 -Optilok 6.5x10 1 #1 R Med Cluster -Ulcer Cleansing Soap and Water Not Cleansed -Foul Odor after Cleansing No -Primary Dressing Applied Aquacel AG 4x4, Optilok 5x5 1/2 -Other Dressing used other half of aquacel -Primary Dressing Covered/Secured with -Other Covering -Aquacel AG 4x4 0 -Optilok 5x5 1/2 1 -Optilok 6.5x10 -Wound Comment(s) used pt own dressing BLE -Lotion applied to leg before No compression wrap -Multi-Layered Wrap Application Multi-Layer Multi-Layer Comp - Bilat ($ Comp - Bilat ($ ) ) -Tubular Bandage -Size of Tubigrip Used -Size E ($) -Multi-Layer Compression Bilat (Qty 1 1 applied) Pain Scale: 0-10 Numeric Is Patient Pain Free? Yes Yes WC - Visit Discharge Discharge Condition Stable Stable Ambulatory Status Ambulatory, Ambulatory, Walker Walker Transportation Private Auto Private Auto Medication Reconcilliation completed & provided to patient/care provider Clinical Summary of Care Provided
--- NOTE | 2025-05-14 14:50 | WC ---
PHOTO-RIGHT MED 05/12/25
--- NOTE | 2025-05-14 14:55 | WC ---
PHOTO-RIGHT LATERAL LEG 05/12/25
--- NOTE | 2025-05-14 15:01 | WC ---
PHOTO-LLE 05/12/25
--- NOTE | 2025-05-14 15:03 | WC ---
PHOTO-RLE 05/13/25
[2025-05-18 09:10] VITALS: BP 108/77; PULSE 111; RESP 18; TEMP 36.6
== END 2025-05-19 23:59 | disposition home or self-care (01) ==
LOC: WC 09:00
PROVIDERS: PCP Family Medicine; Referring Provider Podiatrist Foot & Ankle Surgery; Visit Provider Podiatrist Foot & Ankle Surgery
DX: I87.312 Chronic venous hypertension (idiopathic) with ulcer of left lower extremity (principal); L97.822 Non-pressure chronic ulcer of other part of left lower leg with fat layer exposed; L97.812 Non-pressure chronic ulcer of other part of right lower leg with fat layer exposed; S80.861D Insect bite (nonvenomous), right lower leg, subsequent encounter; S80.862D Insect bite (nonvenomous), left lower leg, subsequent encounter; W57.XXXD Bitten or stung by nonvenomous insect and other nonvenomous arthropods, subsequent encounter; R60.0 Localized edema
CPT/HCPCS: 11042; 11043; 11045; 11046; 29581

== ENCOUNTER 2025-06-17 09:45 | Outpatient (RCR) | payer MEDICARE, SELFPAY ==
[2025-05-20 09:12] VITALS: BP 124/59; PULSE 70; RESP 15; TEMP 36.3
--- NOTE | 2025-05-20 12:53 | PCM.WC.PN ---
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 Progress of Wound: Bilateral full-thickness wounds stable with no sign of infection and improving Subjective Subjective Patient is a 5-year-old female presenting to wound care center today follow-up evaluation of full-thickness wounds of bilateral lower extremity. Patient has left the multilayer compression bandages clean dry and intact. She admits to no pain to the bilateral lower extremity. She is been very grateful for her care and has noticed great improvement since presenting to the wound care center for treatment. She has been approved for amnion skin graft substitute to the left proximal medial left leg ulceration. She denies any new onset of trauma. Denies constitutional symptoms. Other pedal complaints at this time. Objective Data Objective Data Vital Signs: Vital Signs Temp Pulse Resp BP 97.4 F L 70 15 124/59 H 05/20/25 09:12 05/20/25 09:12 05/20/25 09:12 05/20/25 09:12 Lab / Micro Data Micro: Microbiology 04/08/25 15:07 Wound - Leg, Left Gram Stain - Final 04/08/25 15:07 Wound - Leg, Left Wound Culture - Final Morganella morganii sp morgani Acinetobacter baumannii Staphylococcus aureus Streptococcus viridans group 04/08/25 15:07 Wound - Leg, Left Anaerobic Culture - Preliminary Bacteroides sp Gram negative eloina Physical Exam Narrative Vascular: DP and PT pulses palpable. CFT brisk. No erythema or proximal streaking. Skin temperature is warm to warm with no focal increase. Nonpitting edema appreciated bilateral lower extremity. Neurologic: Light touch is intact. Patient does respond to painful stimuli. Dermatologic: Right lower extremity medial full-thickness wounds measure 5.5 x 4.5 x 0.1 cm. Wound base is fibrogranular nature. No sign of infection. Right lower extremity lateral full-thickness wound measuring 3.5 x 1.8 x 0.1 cm. Wound base is fibrogranular in nature. No sign of infection. Left lower extremity medial full-thickness wounds measuring 8.4 x 8.5 x 0.2 cm. Wound base is granular nature with no sign of infection. Left lower extremity lateral full-thickness wound/eschar measuring 2.0 x 1.6 x 0.2 cm. Wound base is fibrogranular nature with central eschar. No sign of infection. Excisional debridement down to including subcutaneous tissue of the right lower extremity medial full-thickness wound done with a number 5 mm dermal curette done without incident. Predebridement was 5.4 x 4.3 x 0.1 cm. Postdebridement measurement is 5.5 x 4.5 x 0.1 cm. Excisional debridement down to and including subcutaneous tissue of the right lateral full-thickness wound done with a number 5 mm dermal curette done without incident. Predebridement measurement was 3.4 x 1.6 x 0.1 cm. Postdebridement measurement is 3.5 x 1.8 x 0.1 cm. Excisional debridement down to and including subcutaneous tissue fascia and muscle of the left lower extremity lateral full-thickness wound done with a number 5 mm dermal curette done without incident. Predebridement measurement was sanguinous crust. Postdebridement measurement is 2.0 x 1.6 x 0.2 cm. Excisional debridement down to and including subcutaneous tissue of the left lower extremity medial full-thickness wound done with a number 5 mm dermal curette done without incident. Predebridement measurement was 8.2 x 8.0 x 0.1 cm. Postdebridement measurement is 8.4 x 8.5 x 0.2 cm. EpiFix 4.0 x 4.5 cm mesh was applied to the left medial full-thickness ulceration with 100% use. First application. The graft site was free and clear of any infection. The wound/skin graft substitute was dressed with nonadherent bandage secured in place with Steri-Strips followed by bolster dressing as well as a multilayer compression bandages to the bilateral lower extremity. Musculoskeletal: Mild palpatory tenderness appreciated the bilateral lower extremity. No pain with calf compression bilateral. Debridement Note Debridement Note Debridement Free Text: Excisional debridement down to including subcutaneous tissue of the right lower extremity medial full-thickness wound done with a number 5 mm dermal curette done without incident. Predebridement was 5.4 x 4.3 x 0.1 cm. Postdebridement measurement is 5.5 x 4.5 x 0.1 cm. Excisional debridement down to and including subcutaneous tissue of the right lateral full-thickness wound done with a number 5 mm dermal curette done without incident. Predebridement measurement was 3.4 x 1.6 x 0.1 cm. Postdebridement measurement is 3.5 x 1.8 x 0.1 cm. Excisional debridement down to and including subcutaneous tissue fascia and muscle of the left lower extremity lateral full-thickness wound done with a number 5 mm dermal curette done without incident. Predebridement measurement was sanguinous crust. Postdebridement measurement is 2.0 x 1.6 x 0.2 cm. Excisional debridement down to and including subcutaneous tissue of the left lower extremity medial full-thickness wound done with a number 5 mm dermal curette done without incident. Predebridement measurement was 8.2 x 8.0 x 0.1 cm. Postdebridement measurement is 8.4 x 8.5 x 0.2 cm. EpiFix 4.0 x 4.5 cm mesh was applied to the left medial full-thickness ulceration with 100% use. First application. The graft site was free and clear of any infection. The wound/skin graft substitute was dressed with nonadherent bandage secured in place with Steri-Strips followed by bolster dressing as well as a multilayer compression bandages to the bilateral lower extremity. Post-Debridement Measurements and Additional Note: Post-Debridement Measurements/Treatment - Nurse 1 - General Ulcer Assessment Start: 05/20/25 09:12 Freq: Status: Active Protocol: WC.LOWEXT Activity Type Activity Date Activity User E-sign Co-sign Detail Recorded Client Recorded Date Recorded By Document 05/20/25 09:12 ML [id number] 05/20/25 09:29 ML 05/20/25 09:12 - Today's Visit Information Type of service Follow-up Visit (Physician/PHOTOGRAPHIC HAND DEVELOPER ) Arrival Mode Ambulatory, Walker Transfer Assistance None Patient Identification Verified (Name & Yes ) Patient Requires Transmission-Based No Precautions Vital Signs Temperature (97.8 F-99.1 F) 97.4 F L Temperature Source Temporal Pulse Rate (60-100) 70 Pulse Location Monitor Respiratory Rate (12-18) 15 Respiratory rate source Observation Blood Pressure (90/60-120/80) 124/59 H Blood Pressure Mean (mm Hg) 80 Source Monitor Position Sitting Blood Pressure Location Right Arm History Since Last Visit- (Skip if this is Patient's initial visit) Have you changed medications since your No last visit? Any new allergies or adverse reactions No Had a fall/change in ADL's that may No increase risk of falls Signs or symptoms of abuse and/or No neglect since last visit Have you been in the hospital since your No last visit? Has dressing in place as prescribed Yes Has compression in place as prescribed Yes Has offloadiing in place as prescribed Yes Experienced any changes in pain level or No management Pain Scale: 0-10 Numeric Is Patient Pain Free? Yes WC - Nurse 1 - General Ulcer Measurement Start: 05/20/25 09:12 Freq: Status: Active Protocol: Activity Type Activity Date Activity User E-sign Co-sign Detail Recorded Client Recorded Date Recorded By Document 05/20/25 09:12 ML [id number] 05/20/25 09:29 ML 05/20/25 09:12 Wound Center Nurse 1 6.RIGHT LATeral leg cluster -Current Size (cm) - Length 3 -Current Size (cm) - Width 3 -Current Size (cm) - Depth 0.3 -Total Square Cm 9 -Exudate Amt Medium -Exudate Type Yellow/Green -Wound Margin Distinct, Outline Attached -Granulation Amt Medium (34-66%) -Slough/Fibrin Yes -Necrosis Amt Large (67-100%) -Texture (Regina-wound Skin Appearance) Assessed -Moisture (Regina-wound Skin Appearance) Assessed -Color (Regina-wound Skin Appearance) Assessed -Temperature (Regina-wound Skin No Abnormality Appearance) (Pt Warm) -Tenderness on Palpation (Regina-wound Yes Skin Appearance) -Ulcer Cleansing Soap and Water -Foul Odor after Cleansing No -Anesthetic Used 4% Lidocaine Solution 3-LEFT LATERAL LEG -Current Size (cm) - Length 9 -Current Size (cm) - Width 6 -Current Size (cm) - Depth 0.3 -Total Square Cm 54 -Exudate Amt Large -Exudate Type Yellow/Green -Slough/Fibrin Yes -Necrosis Amt Large (67-100%) -Texture (Regina-wound Skin Appearance) Assessed -Moisture (Regina-wound Skin Appearance) Assessed -Color (Regina-wound Skin Appearance) Assessed,Not Assessed -Tenderness on Palpation (Regina-wound Yes Skin Appearance) -Ulcer Cleansing Soap and Water -Foul Odor after Cleansing No -Anesthetic Used 4% Lidocaine Solution #2 L. Med cluster -Current Size (cm) - Length 3 -Current Size (cm) - Width 3 -Current Size (cm) - Depth 0.2 -Total Square Cm 9 -Exudate Amt Large -Exudate Type Yellow/Green -Slough/Fibrin Yes -Necrosis Amt Large (67-100%) -Necrotic Tissue Type Adherent Slough -Texture (Regina-wound Skin Appearance) Assessed -Moisture (Regina-wound Skin Appearance) Assessed -Color (Regina-wound Skin Appearance) Assessed -Tenderness on Palpation (Regina-wound Yes Skin Appearance) -Ulcer Cleansing Soap and Water -Foul Odor after Cleansing No -Anesthetic Used 4% Lidocaine Solution #1 R Med Cluster -Current Size (cm) - Length 2 -Current Size (cm) - Width 1.5 -Current Size (cm) - Depth 0.2 -Total Square Cm 3.0 -Exudate Amt Large -Exudate Type Yellow/Green -Granulation Amt Large (67-100%) -Slough/Fibrin Yes -Necrosis Amt Medium (34-66%) -Necrotic Tissue Type Adherent Slough -Texture (Regina-wound Skin Appearance) Assessed -Moisture (Regina-wound Skin Appearance) Assessed -Color (Regina-wound Skin Appearance) Assessed -Temperature (Regina-wound Skin No Abnormality Appearance) (Pt Warm) -Tenderness on Palpation (Regnia-wound Yes Skin Appearance) -Ulcer Cleansing Soap and Water -Foul Odor after Cleansing No -Anesthetic Used 4% Lidocaine Solution WC - Nurse 2 - General Ulcer CM Notes Start: 05/20/25 09:12 Freq: Status: Active Protocol: Activity Type Activity Date Activity User E-sign Co-sign Detail Recorded Client Recorded Date Recorded By Document 05/20/25 09:48 MACHELLE [id number] 05/20/25 09:59 MACHELLE 05/20/25 09:48 Wound Center Nurse 2 6.RIGHT LATeral leg cluster -Time 09:48 -Correct Patient Yes -Correct Side, Site, Position Yes -Correct Procedure Yes -Procedure Performed Yes -Type of Procedure Debridement -Clinical Debridement Subcutaneous -Tissue Removed Subcutaneous -Post Debridement (cm) - Length 3.2 -Post Debridement (cm) - Width 1.0 -Post Debridement (cm) - Depth 0.1 -Total Square (Post) (cm) 3.20 -Area of Debridement (cm) - Length 3.2 -Area of Debridement (cm) - Width 1.0 -Total Square (Area) (cm) 3.20 -Tunneling No -Undermining/Tunneling No -Circular Undermining No -Wound/Ulcer Outcome Not Healed -Ulcer Cleansing Rinsed/ Irrigated with Saline -Foul Odor after Cleansing No -Bioengineered Tissue No -Bleeding Controlled with Pressure -Treatment Response Procedure Tolerated Well -Offloading No -Debridement - Subq, 1st 20sq cm No 3-LEFT LATERAL LEG -Time 09:50 -Correct Patient Yes -Correct Side, Site, Position Yes -Correct Procedure Yes -Procedure Performed Yes -Type of Procedure Debridement -Clinical Debridement Subcutaneous -Tissue Removed Subcutaneous -Post Debridement (cm) - Length 2.0 -Post Debridement (cm) - Width 1.4 -Post Debridement (cm) - Depth 0.5 -Total Square (Post) (cm) 2.80 -Area of Debridement (cm) - Length 2.0 -Area of Debridement (cm) - Width 1.4 -Total Square (Area) (cm) 2.80 -Tunneling No -Undermining/Tunneling No -Circular Undermining No -Wound/Ulcer Outcome Not Healed -Ulcer Cleansing Rinsed/ Irrigated with Saline -Foul Odor after Cleansing No -Bioengineered Tissue No -Bleeding Controlled with Pressure -Treatment Response Procedure Tolerated Well -Offloading No -Debridement - Subq, 1st 20sq cm No #2 L. Med cluster -Time 09:50 -Correct Patient Yes -Correct Side, Site, Position Yes -Correct Procedure Yes -Procedure Performed Yes -Type of Procedure Debridement -Clinical Debridement Subcutaneous -Tissue Removed Subcutaneous -Post Debridement (cm) - Length 10 -Post Debridement (cm) - Width 8 -Post Debridement (cm) - Depth 0.2 -Total Square (Post) (cm) 80 -Area of Debridement (cm) - Length 10 -Area of Debridement (cm) - Width 8 -Total Square (Area) (cm) 80 -Tunneling No -Undermining/Tunneling No -Circular Undermining No -Wound/Ulcer Outcome Not Healed -Ulcer Cleansing Rinsed/ Irrigated with Saline -Foul Odor after Cleansing No -Bioengineered Tissue Yes -Type of Bioengineered Tissue Epifix Mesh -Expiration Date 11/18/29 -Product Lot Number [id number] -Percent Used 100 -Lot number of Saline Used [id number] -Bleeding Controlled with Pressure -Treatment Response Procedure Tolerated Well -Offloading No -Debridement - Subq, 1st 20sq cm No -Apply Skin Sub - 1st 25 sq cm - Legs 1 -Apply Skin Sub - each addt'l 25 sq cm 3 - Legs -Epifix Mesh Application 1-4 (per sq 11 cm) #1 R Med Cluster -Time 09:57 -Correct Patient Yes -Correct Side, Site, Position Yes -Correct Procedure Yes -Procedure Performed Yes -Type of Procedure Debridement -Tissue Removed Epidermis, Subcutaneous -Post Debridement (cm) - Length 4.4 -Post Debridement (cm) - Width 3.2 -Post Debridement (cm) - Depth 0.1 -Total Square (Post) (cm) 14.08 -Area of Debridement (cm) - Length 4.4 -Area of Debridement (cm) - Width 3.2 -Total Square (Area) (cm) 14.08 -Tunneling No -Undermining/Tunneling No -Circular Undermining No -Wound/Ulcer Outcome Not Healed -Ulcer Cleansing Rinsed/ Irrigated with Saline -Foul Odor after Cleansing No -Bioengineered Tissue No -Bleeding Controlled with Pressure -Treatment Response Procedure Tolerated Well -Offloading No -Debridement - Subq, 1st 20sq cm Yes Pain Scale: 0-10 Numeric Is Patient Pain Free? Yes - Nurse 3 - General Ulcer D/C NN Start: 05/20/25 09:12 Freq: Status: Active Protocol: Activity Type Activity Date Activity User E-sign Co-sign Detail Recorded Client Recorded Date Recorded By Document 05/20/25 10:12 CT [id number] 05/20/25 10:15 CT 05/20/25 10:12 Wound Care Center Nurse 3 6.RIGHT LATeral leg cluster -Optilok 5x5 1/2 1 -Wound Comment(s) pt brought own Gatekeeper System BLE -Multi-Layered Wrap Application Multi-Layer Comp - Right ($ ) -Multi-Layer Compression Right (Qty 1 applied) Pain Scale: 0-10 Numeric Is Patient Pain Free? Yes Assessment/Plan Assessment/Plan (1) Non-pressure chronic ulcer of other part of left lower leg with fat layer exposed: CODE(S): L97.822 - Non-pressure chronic ulcer of other part of left lower leg with fat layer exposed PLAN: Patient was examined and evaluated. All findings were discussed with the patient. All questions were answered to the patient's satisfaction. Excisional debridement down to including subcutaneous tissue of the right lower extremity medial full-thickness wound done with a number 5 mm dermal curette done without incident. Predebridement was 5.4 x 4.3 x 0.1 cm. Postdebridement measurement is 5.5 x 4.5 x 0.1 cm. Excisional debridement down to and including subcutaneous tissue of the right lateral full-thickness wound done with a number 5 mm dermal curette done without incident. Predebridement measurement was 3.4 x 1.6 x 0.1 cm. Postdebridement measurement is 3.5 x 1.8 x 0.1 cm. Excisional debridement down to and including subcutaneous tissue fascia and muscle of the left lower extremity lateral full-thickness wound done with a number 5 mm dermal curette done without incident. Predebridement measurement was sanguinous crust. Postdebridement measurement is 2.0 x 1.6 x 0.2 cm. Excisional debridement down to and including subcutaneous tissue of the left lower extremity medial full-thickness wound done with a number 5 mm dermal curette done without incident. Predebridement measurement was 8.2 x 8.0 x 0.1 cm. Postdebridement measurement is 8.4 x 8.5 x 0.2 cm. The bilateral lower extremities were cleaned and patted dry. Silver alginate was applied to right medial and lateral and left lateral full-thickness wounds of bilateral lower extremity and EpiFix 4.0 x 4.5 cm mesh was applied to the left medial full-thickness ulceration with 100% use. First application. The graft site was free and clear of any infection. The wound/skin graft substitute was dressed with nonadherent bandage secured in place with Steri-Strips followed by bolster dressing as well as a multilayer compression bandages to the bilateral lower extremity. Patient will follow-up with Dr. 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
--- NOTE | 2025-05-21 09:25 | WC ---
PHOTO-L LEG CLUSTER 05/20/25
--- NOTE | 2025-05-21 09:29 | WC ---
PHOTO-RIGHT LEG CLUSTER 05/20/25
--- NOTE | 2025-05-27 12:37 | PN.PCM_ITS ---
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 Progress of Wound: Bilateral full-thickness wounds stable with no sign of infection and improving Subjective Subjective Patient is 85-year-old female presenting to clinic today for follow-up evaluation of multiple full-thickness wounds to the bilateral lower extremity. Patient has left the dressing clean dry and intact with application of amniotic skin graft substitute to the left medial full-thickness wound. She does admit to some drainage but has left the dressing intact. She denies trauma. Denies constitutional symptoms. Other pedal complaints at this time. Objective Data Objective Data Vital Signs: Vital Signs Temp Pulse Resp BP 97.4 F L 70 15 124/59 H 05/20/25 09:12 05/20/25 09:12 05/20/25 09:12 05/20/25 09:12 Lab / Micro Data Micro: Microbiology 04/08/25 15:07 Wound - Leg, Left Gram Stain - Final 04/08/25 15:07 Wound - Leg, Left Wound Culture - Final Morganella morganii sp morgani Acinetobacter baumannii Staphylococcus aureus Streptococcus viridans group 04/08/25 15:07 Wound - Leg, Left Anaerobic Culture - Preliminary Bacteroides sp Gram negative eloina Physical Exam Narrative Vascular: DP and PT pulses palpable. CFT brisk. No erythema or proximal streaking. Skin temperature is warm to warm with no focal increase. Nonpitting edema appreciated bilateral lower extremity. Neurologic: Light touch is intact. Patient does respond to painful stimuli. Dermatologic: Right lower extremity medial full-thickness wounds measure 3.4 x 2.8 x 0.3 cm. Wound base is fibrogranular nature. No sign of infection. Right lower extremity lateral full-thickness wound measuring 2.0 x 0.8 x 0.1 cm. Wound base is fibrogranular in nature. No sign of infection. Left lower extremity medial full-thickness wounds measuring 10.0 x 8.5 x 0.4 cm. Wound base is granular nature with no sign of infection. Left lower extremity lateral full-thickness wound/eschar measuring 2.3 x 1.5 x 0.5 cm. Wound base is fibrogranular nature. No sign of infection. Excisional debridement down to including subcutaneous tissue of the right lower extremity medial full-thickness wound done with a number 5 mm dermal curette done without incident. Predebridement was 3.2 x 2.6 x 0.2 cm. Postdebridement measurement is 3.4 x 2.8 x 0.3 cm. Excisional debridement down to and including subcutaneous tissue of the right lateral full-thickness wound done with a number 5 mm dermal curette done without incident. Predebridement measurement was 1.9 x 0.5 x 0.1 cm. Postdebridement measurement is 2.0 x 0.8 x 0.1 cm. Excisional debridement down to and including subcutaneous tissue fascia and muscle of the left lower extremity lateral full-thickness wound done with a number 5 mm dermal curette done without incident. Predebridement measurement was sanguinous 2.0 x 1.3 x 0.2 cm. Postdebridement measurement is 2.3 x 1.5 x 0.5 cm. Excisional debridement down to and including subcutaneous tissue of the left lower extremity medial full-thickness wound done with a number 5 mm dermal curette done without incident. Predebridement measurement was 9.5 x 8.3 x 0.2 cm. Postdebridement measurement is 10.0 x 8.5 x 0.4 cm. EpiFix 4.0 x 4.5 cm mesh was applied to the left medial full-thickness ulceration with 100% use. Second application. The graft site was free and clear of any infection. The wound/skin graft substitute was dressed with nonadherent bandage secured in place with Steri-Strips followed by bolster dressing as well as a multilayer compression bandages to the bilateral lower extremity. Musculoskeletal: Mild palpatory tenderness appreciated the bilateral lower extremity. No pain with calf compression bilateral. Debridement Note Debridement Note Debridement Free Text: Excisional debridement down to including subcutaneous tissue of the right lower extremity medial full-thickness wound done with a number 5 mm dermal curette done without incident. Predebridement was 3.2 x 2.6 x 0.2 cm. Postdebridement measurement is 3.4 x 2.8 x 0.3 cm. Excisional debridement down to and including subcutaneous tissue of the right lateral full-thickness wound done with a number 5 mm dermal curette done without incident. Predebridement measurement was 1.9 x 0.5 x 0.1 cm. Postdebridement measurement is 2.0 x 0.8 x 0.1 cm. Excisional debridement down to and including subcutaneous tissue fascia and muscle of the left lower extremity lateral full-thickness wound done with a number 5 mm dermal curette done without incident. Predebridement measurement was sanguinous 2.0 x 1.3 x 0.2 cm. Postdebridement measurement is 2.3 x 1.5 x 0.5 cm. Excisional debridement down to and including subcutaneous tissue of the left lower extremity medial full-thickness wound done with a number 5 mm dermal curette done without incident. Predebridement measurement was 9.5 x 8.3 x 0.2 cm. Postdebridement measurement is 10.0 x 8.5 x 0.4 cm. EpiFix 4.0 x 4.5 cm mesh was applied to the left medial full-thickness ulceration with 100% use. Second application. The graft site was free and clear of any infection. The wound/skin graft substitute was dressed with nonadherent bandage secured in place with Steri-Strips followed by bolster dressing as well as a multilayer compression bandages to the bilateral lower extremity. Post-Debridement Measurements and Additional Note: Post-Debridement Measurements/Treatment - Nurse 1 - General Ulcer Assessment Start: 05/20/25 09:12 Freq: Status: Active Protocol: WC.POLI Activity Type Activity Date Activity User E-sign Co-sign Detail Recorded Client Recorded Date Recorded By Document 05/20/25 09:12 ML [id number] 05/20/25 09:29 ML Document 05/27/25 09:36 VA [id number] 05/27/25 09:54 VA 05/20/25 05/27/25 09:12 09:36 - Today's Visit Information Type of service Follow-up Visit Follow-up Visit (Physician/CLERK OF WORKS (Physician/CLERK OF WORKS ) ) Arrival Mode Ambulatory, Ambulatory Walker Transfer Assistance None Patient Identification Verified (Name & Yes ) Patient Requires Transmission-Based No Precautions Vital Signs Temperature (97.8 F-99.1 F) 97.4 F L Temperature Source Temporal Pulse Rate (60-100) 70 Pulse Location Monitor Respiratory Rate (12-18) 15 Respiratory rate source Observation Blood Pressure (90/60-120/80) 124/59 H Blood Pressure Mean (mm Hg) 80 Source Monitor Position Sitting Blood Pressure Location Right Arm History Since Last Visit- (Skip if this is Patient's initial visit) Have you changed medications since your No last visit? Any new allergies or adverse reactions No Had a fall/change in ADL's that may No increase risk of falls Signs or symptoms of abuse and/or No neglect since last visit Have you been in the hospital since your No last visit? Has dressing in place as prescribed Yes Has compression in place as prescribed Yes Has offloadiing in place as prescribed Yes Experienced any changes in pain level or No management Pain Scale: 0-10 Numeric Is Patient Pain Free? Yes Yes WC - Nurse 1 - General Ulcer Measurement Start: 05/20/25 09:12 Freq: Status: Active Protocol: Activity Type Activity Date Activity User E-sign Co-sign Detail Recorded Client Recorded Date Recorded By Document 05/20/25 09:12 ML [id number] 05/20/25 09:29 ML Document 05/27/25 09:36 MT [id number] 05/27/25 09:54 MT 05/20/25 05/27/25 09:12 09:36 Wound Center Nurse 1 6.RIGHT LATeral leg cluster -Current Size (cm) - Length 3 0.1 -Current Size (cm) - Width 3 0.1 -Current Size (cm) - Depth 0.3 0.1 -Total Square Cm 9 0.01 -Photo Taken No -Tunneling No -Undermining/Tunneling No -Circular Undermining No -Exudate Amt Medium None Present -Exudate Type Yellow/Green -Wound Margin Distinct, Outline Attached -Granulation Amt Medium (34-66%) -Slough/Fibrin Yes -Necrosis Amt Large (67-100%) -Texture (Regina-wound Skin Appearance) Assessed Assessed -Moisture (Regina-wound Skin Appearance) Assessed Assessed -Color (Regina-wound Skin Appearance) Assessed Assessed -Temperature (Regina-wound Skin No Abnormality No Abnormality Appearance) (Pt Warm) (Pt Warm) -Tenderness on Palpation (Regina-wound Yes No Skin Appearance) -Ulcer Cleansing Soap and Water Rinsed/ Irrigated with Saline -Foul Odor after Cleansing No No -Anesthetic Used 4% Lidocaine Solution -Wound Comment(s) scabbed over 3-LEFT LATERAL LEG -Current Size (cm) - Length 9 2.4 -Current Size (cm) - Width 6 1.5 -Current Size (cm) - Depth 0.3 0.2 -Total Square Cm 54 3.60 -Photo Taken No -Epithelialization None Present -Tunneling No -Undermining/Tunneling No -Circular Undermining No -Exudate Amt Large Medium -Exudate Type Yellow/Green Yellow/Green -Wound Margin Distinct, Outline Attached -Granulation Amt None Present (0 %) -Slough/Fibrin Yes No -Necrosis Amt Large (67-100%) Large (67-100%) -Necrotic Tissue Type Adherent Slough -Texture (Regina-wound Skin Appearance) Assessed -Moisture (Regina-wound Skin Appearance) Assessed Assessed -Color (Regina-wound Skin Appearance) Assessed,Not Assessed Assessed -Temperature (Regina-wound Skin No Abnormality Appearance) (Pt Warm) -Tenderness on Palpation (Regina-wound Yes No Skin Appearance) -Ulcer Cleansing Soap and Water Rinsed/ Irrigated with Saline -Foul Odor after Cleansing No No -Anesthetic Used 4% Lidocaine 5% Lidocaine Solution Gel #2 L. Med cluster -Current Size (cm) - Length 3 15 -Current Size (cm) - Width 3 8.5 -Current Size (cm) - Depth 0.2 0.1 -Total Square Cm 9 127.5 -Photo Taken No -Epithelialization None Present -Tunneling No -Undermining/Tunneling No -Circular Undermining No -Exudate Amt Large Large -Exudate Type Yellow/Green Yellow/Green -Wound Margin Distinct, Outline Attached -Granulation Amt None Present (0 %) -Slough/Fibrin Yes -Necrosis Amt Large (67-100%) Large (67-100%) -Necrotic Tissue Type Adherent Slough Adherent Slough -Texture (Regina-wound Skin Appearance) Assessed Assessed -Moisture (Regina-wound Skin Appearance) Assessed Assessed -Color (Regina-wound Skin Appearance) Assessed Assessed -Temperature (Regina-wound Skin No Abnormality Appearance) (Pt Warm) -Tenderness on Palpation (Regina-wound Yes Skin Appearance) -Ulcer Cleansing Soap and Water Rinsed/ Irrigated with Saline -Foul Odor after Cleansing No No -Anesthetic Used 4% Lidocaine 5% Lidocaine Solution Gel #1 R Med Cluster -Current Size (cm) - Length 2 3.0 -Current Size (cm) - Width 1.5 2.5 -Current Size (cm) - Depth 0.2 0.1 -Total Square Cm 3.0 7.50 -Photo Taken No -Epithelialization None Present -Tunneling No -Undermining/Tunneling No -Circular Undermining No -Exudate Amt Large -Exudate Type Yellow/Green -Wound Margin Distinct, Outline Attached -Granulation Amt Large (67-100%) Medium (34-66%) -Granulation Quality [place] -Slough/Fibrin Yes Yes -Necrosis Amt Medium (34-66%) Medium (34-66%) -Necrotic Tissue Type Adherent Slough Adherent Slough -Texture (Regina-wound Skin Appearance) Assessed Assessed -Moisture (Regina-wound Skin Appearance) Assessed Assessed -Color (Regina-wound Skin Appearance) Assessed Assessed -Temperature (Regina-wound Skin No Abnormality No Abnormality Appearance) (Pt Warm) (Pt Warm) -Tenderness on Palpation (Regina-wound Yes No Skin Appearance) -Ulcer Cleansing Soap and Water Rinsed/ Irrigated with Saline -Foul Odor after Cleansing No No -Anesthetic Used 4% Lidocaine 5% Lidocaine Solution Gel WC - Nurse 2 - General Ulcer CM Notes Start: 05/20/25 09:12 Freq: Status: Active Protocol: Activity Type Activity Date Activity User E-sign Co-sign Detail Recorded Client Recorded Date Recorded By Document 05/20/25 09:48 [id number] 05/20/25 09:59 Edit Result 05/20/25 09:48 JF (1) [id number] 05/27/25 11:34 JF Document 05/27/25 10:09 [id number] 05/27/25 10:17 (1) 3-LEFT LATERAL LEG - Clinical Debridement Subcutaneous => Muscle / Fascia - Tissue Removed Subcutaneous => Muscle - Debridement - Muscle / Fascia, 1st => Yes 20sq cm #1 R Med Cluster - Clinical Debridement => Subcutaneous - Tissue Removed Epidermis, => Subcutaneous Subcutaneous => 05/20/25 05/27/25 09:48 10:09 Wound Center Nurse 2 6.RIGHT LATeral leg cluster -Time 09:48 10:09 -Correct Patient Yes Yes -Correct Side, Site, Position Yes Yes -Correct Procedure Yes Yes -Procedure Performed Yes Yes -Type of Procedure Debridement Debridement -Clinical Debridement Subcutaneous Subcutaneous -Tissue Removed Subcutaneous Subcutaneous -Post Debridement (cm) - Length 3.2 2.0 -Post Debridement (cm) - Width 1.0 0.8 -Post Debridement (cm) - Depth 0.1 0.1 -Total Square (Post) (cm) 3.20 1.60 -Area of Debridement (cm) - Length 3.2 2.0 -Area of Debridement (cm) - Width 1.0 0.8 -Total Square (Area) (cm) 3.20 1.60 -Tunneling No No -Undermining/Tunneling No No -Circular Undermining No No -Wound/Ulcer Outcome Not Healed Not Healed -Ulcer Cleansing Rinsed/ Rinsed/ Irrigated with Irrigated with Saline Saline -Foul Odor after Cleansing No No -Bioengineered Tissue No No -Bleeding Controlled with Pressure Pressure -Treatment Response Procedure Procedure Tolerated Well Tolerated Well -Offloading No No -Debridement - Subq, 1st 20sq cm No No 3-LEFT LATERAL LEG -Time 09:50 10:10 -Correct Patient Yes Yes -Correct Side, Site, Position Yes Yes -Correct Procedure Yes Yes -Procedure Performed Yes Yes -Type of Procedure Debridement Debridement -Clinical Debridement Muscle / Fascia Muscle / Fascia -Tissue Removed Muscle Muscle -Post Debridement (cm) - Length 2.0 2.3 -Post Debridement (cm) - Width 1.4 1.5 -Post Debridement (cm) - Depth 0.5 0.5 -Total Square (Post) (cm) 2.80 3.45 -Area of Debridement (cm) - Length 2.0 2.3 -Area of Debridement (cm) - Width 1.4 1.5 -Total Square (Area) (cm) 2.80 3.45 -Tunneling No No -Undermining/Tunneling No No -Circular Undermining No No -Wound/Ulcer Outcome Not Healed Not Healed -Ulcer Cleansing Rinsed/ Rinsed/ Irrigated with Irrigated with Saline Saline -Foul Odor after Cleansing No No -Bioengineered Tissue No No -Bleeding Controlled with Pressure Pressure -Treatment Response Procedure Procedure Tolerated Well Tolerated Well -Offloading No No -Debridement - Subq, 1st 20sq cm No -Debridement - Muscle / Fascia, 1st Yes Yes 20sq cm #2 L. Med cluster -Time 09:50 10:10 -Correct Patient Yes Yes -Correct Side, Site, Position Yes Yes -Correct Procedure Yes Yes -Procedure Performed Yes Yes -Type of Procedure Debridement Debridement -Clinical Debridement Subcutaneous Subcutaneous -Tissue Removed Subcutaneous Subcutaneous -Post Debridement (cm) - Length 10 10.0 -Post Debridement (cm) - Width 8 8.5 -Post Debridement (cm) - Depth 0.2 0.4 -Total Square (Post) (cm) 80 85.00 -Area of Debridement (cm) - Length 10 10.0 -Area of Debridement (cm) - Width 8 8.5 -Total Square (Area) (cm) 80 85.00 -Tunneling No No -Undermining/Tunneling No No -Circular Undermining No No -Wound/Ulcer Outcome Not Healed Not Healed -Ulcer Cleansing Rinsed/ Rinsed/ Irrigated with Irrigated with Saline Saline -Foul Odor after Cleansing No No -Bioengineered Tissue Yes Yes -Type of Bioengineered Tissue Epifix Mesh Epifix Mesh -Expiration Date 11/18/29 -Product Lot Number [id number] -Percent Used 100 -Lot number of Saline Used [id number] -Bleeding Controlled with Pressure Pressure -Treatment Response Procedure Procedure Tolerated Well Tolerated Well -Offloading No No -Debridement - Subq, 1st 20sq cm No No -Apply Skin Sub - 1st 25 sq cm - Legs 1 1 -Apply Skin Sub - each addt'l 25 sq cm 3 3 - Legs -Epifix Mesh Application 1-4 (per sq 11 11 cm) #1 R Med Cluster -Time 09:57 10:11 -Correct Patient Yes Yes -Correct Side, Site, Position Yes Yes -Correct Procedure Yes Yes -Procedure Performed Yes Yes -Type of Procedure Debridement Debridement -Clinical Debridement Subcutaneous Subcutaneous -Tissue Removed Subcutaneous Subcutaneous -Post Debridement (cm) - Length 4.4 3.4 -Post Debridement (cm) - Width 3.2 2.8 -Post Debridement (cm) - Depth 0.1 0.3 -Total Square (Post) (cm) 14.08 9.52 -Area of Debridement (cm) - Length 4.4 3.4 -Area of Debridement (cm) - Width 3.2 2.8 -Total Square (Area) (cm) 14.08 9.52 -Tunneling No No -Undermining/Tunneling No No -Circular Undermining No No -Wound/Ulcer Outcome Not Healed Not Healed -Ulcer Cleansing Rinsed/ Rinsed/ Irrigated with Irrigated with Saline Saline -Foul Odor after Cleansing No No -Bioengineered Tissue No No -Bleeding Controlled with Pressure Pressure -Treatment Response Procedure Procedure Tolerated Well Tolerated Well -Offloading No No -Debridement - Subq, 1st 20sq cm Yes Yes Pain Scale: 0-10 Numeric Is Patient Pain Free? Yes Yes - Nurse 3 - General Ulcer D/C NN Start: 05/20/25 09:12 Freq: Status: Active Protocol: Activity Type Activity Date Activity User E-sign Co-sign Detail Recorded Client Recorded Date Recorded By Document 05/20/25 10:12 MT [id number] 05/20/25 10:15 MT Document 05/27/25 10:42 GM [id number] 05/27/25 10:45 05/20/25 05/27/25 10:12 10:42 Wound Care Center Nurse 3 6.RIGHT LATeral leg cluster -Foul Odor after Cleansing No -Primary Dressing Applied Optilok 5x5 1/2 ,Silvercel -Primary Dressing Covered/Secured with Dry Gauze & Roll Gauze, Secured with Tape -Optilok 5x5 1/2 1 1 -Silvercel 1 -Wound Comment(s) pt brought own Aquacel AG 3-LEFT LATERAL LEG -Ulcer Cleansing Not Cleansed -Foul Odor after Cleansing No -Primary Dressing Applied Optilok 5x5 1/2 -Primary Dressing Covered/Secured with Dry Gauze & Roll Gauze, Secured with Tape -Optilok 5x5 1/2 1 #2 L. Med cluster -Ulcer Cleansing Not Cleansed -Foul Odor after Cleansing No -Primary Dressing Applied Optilok 6.5x10 -Optilok 6.5x10 1 #1 R Med Cluster -Ulcer Cleansing Not Cleansed -Foul Odor after Cleansing No -Primary Dressing Applied Optilok 5x5 1/2 -Optilok 5x5 1/2 1 BLE -Multi-Layered Wrap Application Multi-Layer Multi-Layer Comp - Right ($ Comp - Bilat ($ ) ) -Multi-Layer Compression Right (Qty 1 applied) -Multi-Layer Compression Bilat (Qty 1 applied) Pain Scale: 0-10 Numeric Is Patient Pain Free? Yes Yes - Visit Discharge Discharge Condition Stable Ambulatory Status Ambulatory, Walker Assessment/Plan Assessment/Plan (1) Non-pressure chronic ulcer of other part of left lower leg with fat layer exposed: CODE(S): L97.822 - Non-pressure chronic ulcer of other part of left lower leg with fat layer exposed PLAN: Patient was examined and evaluated. All findings were discussed with the patient. All questions were answered to the patient's satisfaction. Excisional debridement down to including subcutaneous tissue of the right lower extremity medial full-thickness wound done with a number 5 mm dermal curette done without incident. Predebridement was 3.2 x 2.6 x 0.2 cm. Postdebridement measurement is 3.4 x 2.8 x 0.3 cm. Excisional debridement down to and including subcutaneous tissue of the right lateral full-thickness wound done with a number 5 mm dermal curette done without incident. Predebridement measurement was 1.9 x 0.5 x 0.1 cm. Postdebridement measurement is 2.0 x 0.8 x 0.1 cm. Excisional debridement down to and including subcutaneous tissue fascia and muscle of the left lower extremity lateral full-thickness wound done with a number 5 mm dermal curette done without incident. Predebridement measurement was sanguinous 2.0 x 1.3 x 0.2 cm. Postdebridement measurement is 2.3 x 1.5 x 0.5 cm. Excisional debridement down to and including subcutaneous tissue of the left lower extremity medial full-thickness wound done with a number 5 mm dermal curette done without incident. Predebridement measurement was 9.5 x 8.3 x 0.2 cm. Postdebridement measurement is 10.0 x 8.5 x 0.4 cm. EpiFix 4.0 x 4.5 cm mesh was applied to the left medial full-thickness ulceration with 100% use. Second application. The graft site was free and clear of any infection. The wound/skin graft substitute was dressed with nonadherent bandage secured in place with Steri-Strips followed by bolster dressing as well as a multilayer compression bandages to the bilateral lower extremity. Patient will leave the dressing clean dry and intact and follow-up with nursing visit Sunday versus Sunday. Patient will follow-up with Dr. 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
[2025-05-29 13:35] VITALS: BP 142/62; PULSE 68; RESP 14; TEMP 36.1
[2025-06-03 10:03] VITALS: BP 135/70; PULSE 66; RESP 16; TEMP 36.6
--- NOTE | 2025-06-03 11:08 | PCM.WC.PN ---
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 Progress of Wound: Bilateral full-thickness wounds stable with no sign of infection and improving Subjective Subjective Patient is a 85-year-old female presenting to clinic today follow-up evaluation of bilateral full-thickness wounds with amnion skin graft substitute to the left medial full-thickness wound with 3M multilayer compression bandages to the bilateral extremity. She has left the bandages clean dry and intact. Her pain and swelling has greatly improved. She is very grateful for her care. Denies trauma. Denies constitutional symptoms. No other pedal complaints at this time. Objective Data Objective Data Vital Signs: Vital Signs Temp Pulse Resp BP O2 Del Method 97.9 F 66 16 135/70 H Room Air 06/03/25 10:03 06/03/25 10:03 06/03/25 10:03 06/03/25 10:03 06/03/25 10:03 Oxygen Delivery Method Room Air Lab / Micro Data Micro: Microbiology 04/08/25 15:07 Wound - Leg, Left Gram Stain - Final 04/08/25 15:07 Wound - Leg, Left Wound Culture - Final Morganella morganii sp morgani Acinetobacter baumannii Staphylococcus aureus Streptococcus viridans group 04/08/25 15:07 Wound - Leg, Left Anaerobic Culture - Preliminary Bacteroides sp Gram negative eloina Physical Exam Narrative Vascular: DP and PT pulses palpable. CFT brisk. No erythema or proximal streaking. Skin temperature is warm to warm with no focal increase. Nonpitting edema appreciated bilateral lower extremity. Neurologic: Light touch is intact. Patient does respond to painful stimuli. Dermatologic: Right lower extremity medial full-thickness wounds measure 2.5 x 2.5 x 0.2 cm wound base is fibrogranular nature. No sign of infection. Right lower extremity lateral full-thickness wound measuring 1.9 x 0.8 x 0.1 cm. Wound base is fibrogranular in nature. No sign of infection. Left lower extremity medial full-thickness wounds measuring 9.8 x 9.0 x 0.2 cm. Wound base is granular nature with no sign of infection. Left lower extremity lateral full-thickness wound/eschar measuring 2.0 x 1.2 x 0.4 cm. Wound base is fibrogranular nature. No sign of infection. Excisional debridement down to including subcutaneous tissue of the right lower extremity medial full-thickness wound done with a number 5 mm dermal curette done without incident. Predebridement was 2.3 x 2.3 x 0.1 cm. Postdebridement measurement is 2.5 x 2.5 x 0.2 cm. Excisional debridement down to and including subcutaneous tissue of the right lateral full-thickness wound done with a number 5 mm dermal curette done without incident. Predebridement measurement was 1.7 x 0.5 x 0.1 cm. Postdebridement measurement is 1.9 x 0.8 x 0.1 cm. Excisional debridement down to and including subcutaneous tissue fascia and muscle of the left lower extremity lateral full-thickness wound done with a number 5 mm dermal curette done without incident. Predebridement measurement was sanguinous 1.6 x 1.0 x 0.2 cm. Postdebridement measurement is 2.0 x 1.2 x 0.4 cm. Excisional debridement down to and including subcutaneous tissue of the left lower extremity medial full-thickness wound done with a number 5 mm dermal curette done without incident. Predebridement measurement was 9.6 x 8.8 x 0.1 cm. Postdebridement measurement is 9.8 x 9.0 x 0.2 cm. EpiFix 4.0 x 4.5 cm mesh was applied to the left medial full-thickness ulceration with 100% use. Third application. The graft site was free and clear of any infection. The wound/skin graft substitute was dressed with nonadherent bandage secured in place with Steri-Strips followed by bolster dressing as well as a multilayer compression bandages to the bilateral lower extremity. Musculoskeletal: Mild palpatory tenderness appreciated the bilateral lower extremity. No pain with calf compression bilateral. Debridement Note Debridement Note Debridement Free Text: Excisional debridement down to including subcutaneous tissue of the right lower extremity medial full-thickness wound done with a number 5 mm dermal curette done without incident. Predebridement was 2.3 x 2.3 x 0.1 cm. Postdebridement measurement is 2.5 x 2.5 x 0.2 cm. Excisional debridement down to and including subcutaneous tissue of the right lateral full-thickness wound done with a number 5 mm dermal curette done without incident. Predebridement measurement was 1.7 x 0.5 x 0.1 cm. Postdebridement measurement is 1.9 x 0.8 x 0.1 cm. Excisional debridement down to and including subcutaneous tissue fascia and muscle of the left lower extremity lateral full-thickness wound done with a number 5 mm dermal curette done without incident. Predebridement measurement was sanguinous 1.6 x 1.0 x 0.2 cm. Postdebridement measurement is 2.0 x 1.2 x 0.4 cm. Excisional debridement down to and including subcutaneous tissue of the left lower extremity medial full-thickness wound done with a number 5 mm dermal curette done without incident. Predebridement measurement was 9.6 x 8.8 x 0.1 cm. Postdebridement measurement is 9.8 x 9.0 x 0.2 cm. EpiFix 4.0 x 4.5 cm mesh was applied to the left medial full-thickness ulceration with 100% use. Third application. The graft site was free and clear of any infection. The wound/skin graft substitute was dressed with nonadherent bandage secured in place with Steri-Strips followed by bolster dressing as well as a multilayer compression bandages to the bilateral lower extremity. Post-Debridement Measurements and Additional Note: Post-Debridement Measurements/Treatment - Nurse 1 - General Ulcer Assessment Start: 05/20/25 09:12 Freq: Status: Active Protocol: WC.[email or web address] Activity Type Activity Date Activity User E-sign Co-sign Detail Recorded Client Recorded Date Recorded By Document 05/20/25 09:12 ML [id number] 05/20/25 09:29 ML Document 05/27/25 09:36 WV [id number] 05/27/25 09:54 MT Document 05/29/25 13:35 ML [id number] 05/29/25 13:37 ML Document 06/03/25 10:03 [id number] 06/03/25 10:06 05/20/25 05/27/25 05/29/25 09:12 09:36 13:35 - Today's Visit Information Type of service Follow-up Visit Follow-up Visit Nurse-only (Physician/BLOW OFF WORKER (Physician/BLOW OFF WORKER Visit ) ) Arrival Mode Ambulatory, Ambulatory Ambulatory Walker Transfer Assistance None None Patient Identification Verified (Name & Yes Yes ) Patient Requires Transmission-Based No No Precautions Vital Signs Temperature (97.8 F-99.1 F) 97.4 F L 97.0 F L Temperature Source Temporal Temporal Pulse Rate (60-100) 70 68 Pulse Location Monitor Monitor Respiratory Rate (12-18) 15 14 Respiratory rate source Observation Observation Oxygen Delivery Method Blood Pressure (90/60-120/80) 124/59 H 142/62 H Blood Pressure Mean (mm Hg) 80 88 Source Monitor Monitor Position Sitting Sitting Blood Pressure Location Right Arm Right Arm History Since Last Visit- (Skip if this is Patient's initial visit) Have you changed medications since your No last visit? Any new allergies or adverse reactions No Had a fall/change in ADL's that may No increase risk of falls Signs or symptoms of abuse and/or No neglect since last visit Have you been in the hospital since your No last visit? Has dressing in place as prescribed Yes Has compression in place as prescribed Yes Has offloadiing in place as prescribed Yes Experienced any changes in pain level or No management Pain Scale: 0-10 Numeric Is Patient Pain Free? Yes Yes Yes 06/03/25 10:03 WC - Today's Visit Information Type of service Follow-up Visit (Physician/BLOW OFF WORKER ) Arrival Mode Ambulatory, Walker Transfer Assistance Patient Identification Verified (Name & Yes ) Patient Requires Transmission-Based Precautions Vital Signs Temperature (97.8 F-99.1 F) 97.9 F Temperature Source Temporal Pulse Rate (60-100) 66 Pulse Location Monitor Respiratory Rate (12-18) 16 Respiratory rate source Observation Oxygen Delivery Method Room Air Blood Pressure (90/60-120/80) 135/70 H Blood Pressure Mean (mm Hg) 91 Source Monitor Position Sitting Blood Pressure Location Right Arm History Since Last Visit- (Skip if this is Patient's initial visit) Have you changed medications since your No last visit? Any new allergies or adverse reactions No Had a fall/change in ADL's that may No increase risk of falls Signs or symptoms of abuse and/or No neglect since last visit Have you been in the hospital since your No last visit? Has dressing in place as prescribed Yes Has compression in place as prescribed Yes Has offloadiing in place as prescribed N/A Experienced any changes in pain level or No management Pain Scale: 0-10 Numeric Is Patient Pain Free? Yes - Nurse 1 - General Ulcer Measurement Start: 05/20/25 09:12 Freq: Status: Active Protocol: Activity Type Activity Date Activity User E-sign Co-sign Detail Recorded Client Recorded Date Recorded By Document 05/20/25 09:12 ML [id number] 05/20/25 09:29 ML Document 05/27/25 09:36 MT [id number] 05/27/25 09:54 MT Document 06/03/25 10:03 GM [id number] 06/03/25 10:06 GM 05/20/25 05/27/25 06/03/25 09:12 09:36 10:03 Wound Center Nurse 1 6.RIGHT LATeral leg cluster -Current Size (cm) - Length 3 0.1 0.1 -Current Size (cm) - Width 3 0.1 0.1 -Current Size (cm) - Depth 0.3 0.1 0.1 -Total Square Cm 9 0.01 0.01 -Photo Taken No No -Epithelialization Small 1-33% -Tunneling No No -Undermining/Tunneling No No -Circular Undermining No No -Exudate Amt Medium None Present Medium -Exudate Type Yellow/Green Yellow/Green -Wound Margin Distinct, Distinct, Outline Outline Attached Attached -Granulation Amt Medium (34-66%) Medium (34-66%) -Granulation Quality Olmito And Olmito -Slough/Fibrin Yes Yes -Necrosis Amt Large (67-100%) Small (1-33%) -Necrotic Tissue Type Adherent Slough -Texture (Regina-wound Skin Appearance) Assessed Assessed Assessed -Moisture (Regina-wound Skin Appearance) Assessed Assessed Assessed -Color (Regina-wound Skin Appearance) Assessed Assessed Assessed -Temperature (Regina-wound Skin No Abnormality No Abnormality No Abnormality Appearance) (Pt Warm) (Pt Warm) (Pt Warm) -Tenderness on Palpation (Regina-wound Yes No Yes Skin Appearance) -Ulcer Cleansing Soap and Water Rinsed/ Soap and Water Irrigated with Saline -Foul Odor after Cleansing No No No -Anesthetic Used 4% Lidocaine 5% Lidocaine Solution Gel -Wound Comment(s) scabbed over 3-LEFT LATERAL LEG -Current Size (cm) - Length 9 2.4 0.1 -Current Size (cm) - Width 6 1.5 0.1 -Current Size (cm) - Depth 0.3 0.2 0.1 -Total Square Cm 54 3.60 0.01 -Photo Taken No No -Epithelialization None Present Small 1-33% -Tunneling No No -Undermining/Tunneling No No -Circular Undermining No No -Exudate Amt Large Medium Medium -Exudate Type Yellow/Green Yellow/Green Yellow/Green -Wound Margin Distinct, Distinct, Outline Outline Attached Attached -Granulation Amt None Present (0 Small (1-33%) %) -Granulation Quality Olmito And Olmito -Slough/Fibrin Yes No Yes -Necrosis Amt Large (67-100%) Large (67-100%) Small (1-33%) -Necrotic Tissue Type Adherent Slough Adherent Slough -Texture (Regina-wound Skin Appearance) Assessed Assessed -Moisture (Regina-wound Skin Appearance) Assessed Assessed Assessed -Color (Regina-wound Skin Appearance) Assessed,Not Assessed Assessed Assessed -Temperature (Regina-wound Skin No Abnormality No Abnormality Appearance) (Pt Warm) (Pt Warm) -Tenderness on Palpation (Regina-wound Yes No Yes Skin Appearance) -Ulcer Cleansing Soap and Water Rinsed/ Soap and Water Irrigated with Saline -Foul Odor after Cleansing No No No -Anesthetic Used 4% Lidocaine 5% Lidocaine 5% Lidocaine Solution Gel Gel #2 L. Med cluster -Current Size (cm) - Length 3 15 0.1 -Current Size (cm) - Width 3 8.5 0.1 -Current Size (cm) - Depth 0.2 0.1 0.1 -Total Square Cm 9 127.5 0.01 -Photo Taken No No -Epithelialization None Present Small 1-33% -Tunneling No No -Undermining/Tunneling No No -Circular Undermining No No -Exudate Amt Large Large Medium -Exudate Type Yellow/Green Yellow/Green Yellow/Green -Wound Margin Distinct, Distinct, Outline Outline Attached Attached -Granulation Amt None Present (0 Medium (34-66%) %) -Granulation Quality Olmito And Olmito -Slough/Fibrin Yes Yes -Necrosis Amt Large (67-100%) Large (67-100%) Medium (34-66%) -Necrotic Tissue Type Adherent Slough Adherent Slough Adherent Slough -Texture (Regina-wound Skin Appearance) Assessed Assessed Assessed -Moisture (Regina-wound Skin Appearance) Assessed Assessed Assessed -Color (Regina-wound Skin Appearance) Assessed Assessed Assessed -Temperature (Regina-wound Skin No Abnormality No Abnormality Appearance) (Pt Warm) (Pt Warm) -Tenderness on Palpation (Regina-wound Yes No Skin Appearance) -Ulcer Cleansing Soap and Water Rinsed/ Soap and Water Irrigated with Saline -Foul Odor after Cleansing No No No -Anesthetic Used 4% Lidocaine 5% Lidocaine 5% Lidocaine Solution Gel Gel #1 R Med Cluster -Current Size (cm) - Length 2 3.0 0.1 -Current Size (cm) - Width 1.5 2.5 0.1 -Current Size (cm) - Depth 0.2 0.1 0.1 -Total Square Cm 3.0 7.50 0.01 -Photo Taken No No -Epithelialization None Present Small 1-33% -Tunneling No No -Undermining/Tunneling No No -Circular Undermining No No -Exudate Amt Large Small -Exudate Type Yellow/Green Yellow/Green -Wound Margin Distinct, Distinct, Outline Outline Attached Attached -Granulation Amt Large (67-100%) Medium (34-66%) Medium (34-66%) -Granulation Quality Olmito And Olmito Olmito And Olmito -Slough/Fibrin Yes Yes Yes -Necrosis Amt Medium (34-66%) Medium (34-66%) Small (1-33%) -Necrotic Tissue Type Adherent Slough Adherent Slough Adherent Slough -Texture (Regina-wound Skin Appearance) Assessed Assessed Assessed -Moisture (Regina-wound Skin Appearance) Assessed Assessed Assessed -Color (Regina-wound Skin Appearance) Assessed Assessed Assessed -Temperature (Regina-wound Skin No Abnormality No Abnormality No Abnormality Appearance) (Pt Warm) (Pt Warm) (Pt Warm) -Tenderness on Palpation (Regina-wound Yes No Yes Skin Appearance) -Ulcer Cleansing Soap and Water Rinsed/ Soap and Water Irrigated with Saline -Foul Odor after Cleansing No No -Anesthetic Used 4% Lidocaine 5% Lidocaine 5% Lidocaine Solution Gel Gel WC - Nurse 2 - General Ulcer CM Notes Start: 05/20/25 09:12 Freq: Status: Active Protocol: Activity Type Activity Date Activity User E-sign Co-sign Detail Recorded Client Recorded Date Recorded By Document 05/20/25 09:48 MACHELLE [id number] 05/20/25 09:59 JF Edit Result 05/20/25 09:48 MACHELLE (1) [id number] 05/27/25 11:34 JF Document 05/27/25 10:09 JF [id number] 05/27/25 10:17 JF Document 06/03/25 10:17 [id number] 06/03/25 10:27 JF (1) 3-LEFT LATERAL LEG - Clinical Debridement Subcutaneous => Muscle / Fascia - Tissue Removed Subcutaneous => Muscle - Debridement - Muscle / Fascia, 1st => Yes 20sq cm #1 R Med Cluster - Clinical Debridement => Subcutaneous - Tissue Removed Epidermis, => Subcutaneous Subcutaneous => 05/20/25 05/27/25 06/03/25 09:48 10:09 10:17 Wound Center Nurse 2 6.RIGHT LATeral leg cluster -Time 09:48 10:09 10:17 -Correct Patient Yes Yes Yes -Correct Side, Site, Position Yes Yes Yes -Correct Procedure Yes Yes Yes -Procedure Performed Yes Yes Yes -Type of Procedure Debridement Debridement Debridement -Clinical Debridement Subcutaneous Subcutaneous Subcutaneous -Tissue Removed Subcutaneous Subcutaneous Subcutaneous -Post Debridement (cm) - Length 3.2 2.0 1.9 -Post Debridement (cm) - Width 1.0 0.8 0.8 -Post Debridement (cm) - Depth 0.1 0.1 0.1 -Total Square (Post) (cm) 3.20 1.60 1.52 -Area of Debridement (cm) - Length 3.2 2.0 1.9 -Area of Debridement (cm) - Width 1.0 0.8 0.8 -Total Square (Area) (cm) 3.20 1.60 1.52 -Tunneling No No No -Undermining/Tunneling No No No -Circular Undermining No No No -Wound/Ulcer Outcome Not Healed Not Healed Not Healed -Ulcer Cleansing Rinsed/ Rinsed/ Rinsed/ Irrigated with Irrigated with Irrigated with Saline Saline Saline -Foul Odor after Cleansing No No No -Bioengineered Tissue No No No -Bleeding Controlled with Pressure Pressure Pressure -Treatment Response Procedure Procedure Procedure Tolerated Well Tolerated Well Tolerated Well -Offloading No No No -Debridement - Subq, 1st 20sq cm No No No 3-LEFT LATERAL LEG -Time 09:50 10:10 10:17 -Correct Patient Yes Yes Yes -Correct Side, Site, Position Yes Yes Yes -Correct Procedure Yes Yes Yes -Procedure Performed Yes Yes Yes -Type of Procedure Debridement Debridement Debridement -Clinical Debridement Muscle / Fascia Muscle / Fascia Muscle / Fascia -Tissue Removed Muscle Muscle Muscle -Post Debridement (cm) - Length 2.0 2.3 2.0 -Post Debridement (cm) - Width 1.4 1.5 1.2 -Post Debridement (cm) - Depth 0.5 0.5 0.4 -Total Square (Post) (cm) 2.80 3.45 2.40 -Area of Debridement (cm) - Length 2.0 2.3 2.0 -Area of Debridement (cm) - Width 1.4 1.5 1.2 -Total Square (Area) (cm) 2.80 3.45 2.40 -Tunneling No No No -Undermining/Tunneling No No No -Circular Undermining No No No -Wound/Ulcer Outcome Not Healed Not Healed Not Healed -Ulcer Cleansing Rinsed/ Rinsed/ Rinsed/ Irrigated with Irrigated with Irrigated with Saline Saline Saline -Foul Odor after Cleansing No No No -Bioengineered Tissue No No No -Bleeding Controlled with Pressure Pressure Pressure -Treatment Response Procedure Procedure Procedure Tolerated Well Tolerated Well Tolerated Well -Offloading No No No -Debridement - Subq, 1st 20sq cm No -Debridement - Muscle / Fascia, 1st Yes Yes Yes 20sq cm #2 L. Med cluster -Time 09:50 10:10 10:19 -Correct Patient Yes Yes Yes -Correct Side, Site, Position Yes Yes Yes -Correct Procedure Yes Yes Yes -Procedure Performed Yes Yes Yes -Type of Procedure Debridement Debridement Debridement -Clinical Debridement Subcutaneous Subcutaneous Subcutaneous -Tissue Removed Subcutaneous Subcutaneous Subcutaneous -Post Debridement (cm) - Length 10 10.0 9.8 -Post Debridement (cm) - Width 8 8.5 9.0 -Post Debridement (cm) - Depth 0.2 0.4 0.2 -Total Square (Post) (cm) 80 85.00 88.20 -Area of Debridement (cm) - Length 10 10.0 9.8 -Area of Debridement (cm) - Width 8 8.5 9.0 -Total Square (Area) (cm) 80 85.00 88.20 -Tunneling No No No -Undermining/Tunneling No No No -Circular Undermining No No No -Wound/Ulcer Outcome Not Healed Not Healed Not Healed -Ulcer Cleansing Rinsed/ Rinsed/ Rinsed/ Irrigated with Irrigated with Irrigated with Saline Saline Saline -Foul Odor after Cleansing No No No -Bioengineered Tissue Yes Yes Yes -Type of Bioengineered Tissue Epifix Mesh Epifix Mesh Epifix Mesh -Expiration Date 11/18/29 11/18/29 -Product Lot Number [id number] -Percent Used 100 100 -Lot number of Saline Used [id number] -Bleeding Controlled with Pressure Pressure Pressure -Treatment Response Procedure Procedure Procedure Tolerated Well Tolerated Well Tolerated Well -Offloading No No No -Debridement - Subq, 1st 20sq cm No No No -Apply Skin Sub - 1st 25 sq cm - Legs 1 1 1 -Apply Skin Sub - each addt'l 25 sq cm 3 3 3 - Legs -Epifix Mesh Application 1-4 (per sq 11 11 11 cm) #1 R Med Cluster -Time 09:57 10:11 10:26 -Correct Patient Yes Yes Yes -Correct Side, Site, Position Yes Yes Yes -Correct Procedure Yes Yes Yes -Procedure Performed Yes Yes Yes -Type of Procedure Debridement Debridement Debridement -Clinical Debridement Subcutaneous Subcutaneous Subcutaneous -Tissue Removed Subcutaneous Subcutaneous Subcutaneous -Post Debridement (cm) - Length 4.4 3.4 2.5 -Post Debridement (cm) - Width 3.2 2.8 2.4 -Post Debridement (cm) - Depth 0.1 0.3 0.2 -Total Square (Post) (cm) 14.08 9.52 6.00 -Area of Debridement (cm) - Length 4.4 3.4 2.5 -Area of Debridement (cm) - Width 3.2 2.8 2.4 -Total Square (Area) (cm) 14.08 9.52 6.00 -Tunneling No No No -Undermining/Tunneling No No No -Circular Undermining No No No -Wound/Ulcer Outcome Not Healed Not Healed Not Healed -Ulcer Cleansing Rinsed/ Rinsed/ Rinsed/ Irrigated with Irrigated with Irrigated with Saline Saline Saline -Foul Odor after Cleansing No No No -Bioengineered Tissue No No No -Bleeding Controlled with Pressure Pressure Pressure -Treatment Response Procedure Procedure Procedure Tolerated Well Tolerated Well Tolerated Well -Offloading No No No -Debridement - Subq, 1st 20sq cm Yes Yes Yes Pain Scale: 0-10 Numeric Is Patient Pain Free? Yes Yes Yes WC - Nurse 3 - General Ulcer D/C NN Start: 05/20/25 09:12 Freq: Status: Active Protocol: Activity Type Activity Date Activity User E-sign Co-sign Detail Recorded Client Recorded Date Recorded By Document 05/20/25 10:12 MT [id number] 05/20/25 10:15 MT Document 05/27/25 10:42 GM [id number] 05/27/25 10:45 GM Document 05/29/25 13:35 ML [id number] 05/29/25 13:37 ML Document 06/03/25 10:50 GM [id number] 06/03/25 10:52 GM 05/20/25 05/27/25 05/29/25 10:12 10:42 13:35 Wound Care Center Nurse 3 6.RIGHT LATeral leg cluster -Ulcer Cleansing -Foul Odor after Cleansing No -Primary Dressing Applied Optilok 5x5 1/2 ,Silvercel -Primary Dressing Covered/Secured with Dry Gauze & Roll Gauze, Secured with Tape -Optilok 5x5 1/2 1 1 -Silvercel 1 -Wound Comment(s) pt brought own Aquacel AG 3-LEFT LATERAL LEG -Ulcer Cleansing Not Cleansed -Foul Odor after Cleansing No -Negative Pressure Wound Therapy -Primary Dressing Applied Optilok 5x5 1/2 -Other Dressing -Primary Dressing Covered/Secured with Dry Gauze & Roll Gauze, Secured with Tape -Optilok 5x5 1/2 1 #2 L. Med cluster -Ulcer Cleansing Not Cleansed -Foul Odor after Cleansing No -Primary Dressing Applied Optilok 6.5x10 -Other Dressing -Optilok 5x5 1/2 -Optilok 6.5x10 1 #1 R Med Cluster -Ulcer Cleansing Not Cleansed -Foul Odor after Cleansing No -Primary Dressing Applied Optilok 5x5 1/2 -Other Dressing -Optilok 5x5 1/2 1 BLE -Multi-Layered Wrap Application Multi-Layer Multi-Layer Multi-Layer Comp - Right ($ Comp - Bilat ($ Comp - Bilat ($ ) ) ) -Multi-Layer Compression Right (Qty 1 applied) -Multi-Layer Compression Bilat (Qty 1 1 applied) Pain Scale: 0-10 Numeric Is Patient Pain Free? Yes Yes Yes WC - Visit Discharge Discharge Condition Stable Ambulatory Status Ambulatory, Walker Transportation 06/03/25 10:50 Wound Care Center Nurse 3 6.RIGHT LATeral leg cluster -Ulcer Cleansing Not Cleansed -Foul Odor after Cleansing No -Primary Dressing Applied Optilok 5x5 1/2 ,Silvercel -Primary Dressing Covered/Secured with Dry Gauze & Roll Gauze, Secured with Tape -Optilok 5x5 1/2 1 -Silvercel 1 -Wound Comment(s) 3-LEFT LATERAL LEG -Ulcer Cleansing Not Cleansed -Foul Odor after Cleansing No -Negative Pressure Wound Therapy N/A -Primary Dressing Applied -Other Dressing silvercel and abd pad -Primary Dressing Covered/Secured with Dry Gauze & Roll Gauze, Secured with Tape -Optilok 5x5 1/2 #2 L. Med cluster -Ulcer Cleansing Not Cleansed -Foul Odor after Cleansing No -Primary Dressing Applied Optilok 5x5 1/2 -Other Dressing silvercel -Optilok 5x5 1/2 1 -Optilok 6.5x10 #1 R Med Cluster -Ulcer Cleansing Not Cleansed -Foul Odor after Cleansing No -Primary Dressing Applied Optilok 5x5 1/2 -Other Dressing silvercel -Optilok 5x5 1/2 1 BLE -Multi-Layered Wrap Application Multi-Layer Comp - Bilat ($ ) -Multi-Layer Compression Right (Qty applied) -Multi-Layer Compression Bilat (Qty 1 applied) Pain Scale: 0-10 Numeric Is Patient Pain Free? Yes WC - Visit Discharge Discharge Condition Stable Ambulatory Status Cane Transportation Private Auto Assessment/Plan Assessment/Plan (1) Non-pressure chronic ulcer of other part of left lower leg with fat layer exposed: CODE(S): L97.822 - Non-pressure chronic ulcer of other part of left lower leg with fat layer exposed PLAN: Patient was examined and evaluated. All findings were discussed with the patient. All questions were answered to the patient's satisfaction. Excisional debridement down to including subcutaneous tissue of the right lower extremity medial full-thickness wound done with a number 5 mm dermal curette done without incident. Predebridement was 2.3 x 2.3 x 0.1 cm. Postdebridement measurement is 2.5 x 2.5 x 0.2 cm. Excisional debridement down to and including subcutaneous tissue of the right lateral full-thickness wound done with a number 5 mm dermal curette done without incident. Predebridement measurement was 1.7 x 0.5 x 0.1 cm. Postdebridement measurement is 1.9 x 0.8 x 0.1 cm. Excisional debridement down to and including subcutaneous tissue fascia and muscle of the left lower extremity lateral full-thickness wound done with a number 5 mm dermal curette done without incident. Predebridement measurement was sanguinous 1.6 x 1.0 x 0.2 cm. Postdebridement measurement is 2.0 x 1.2 x 0.4 cm. Excisional debridement down to and including subcutaneous tissue of the left lower extremity medial full-thickness wound done with a number 5 mm dermal curette done without incident. Predebridement measurement was 9.6 x 8.8 x 0.1 cm. Postdebridement measurement is 9.8 x 9.0 x 0.2 cm. EpiFix 4.0 x 4.5 cm mesh was applied to the left medial full-thickness ulceration with 100% use. Third application. The graft site was free and clear of any infection. The wound/skin graft substitute was dressed with nonadherent bandage secured in place with Steri-Strips followed by bolster dressing as well as a multilayer compression bandages to the bilateral lower extremity. Patient will leave the dressing clean dry and intact and follow-up with nursing visit Sunday versus Sunday. Patient will follow-up with Dr. 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
[2025-06-08 10:13] VITALS: BP 135/63; PULSE 78; RESP 16; TEMP 36.5
[2025-06-10 09:45] VITALS: BP 151/72; PULSE 78; TEMP 36.6
--- NOTE | 2025-06-12 09:55 | WC ---
PHOTO-LEFT [facility] 06/10/25
--- NOTE | 2025-06-12 09:56 | WC ---
PHOTO-RIGHT [facility] 06/10/25
--- NOTE | 2025-06-13 17:23 | PN.PCM_ITS ---
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 Progress of Wound: Bilateral full-thickness wounds stable with no sign of infection and improving Subjective Subjective Patient is a 85-year-old female present to clinic today follow-up evaluation of bilateral full-thickness wounds. Patient has been compliant to left amniotic graft substitute clean dry and intact to left lower extremity. She has been changing the other wounds with silver alginate dry sterile dressing and compression wrap. She mitts to improvement to the wounds. Denies any new onset of trauma. Denies constitutional symptoms. No other pedal complaints at this time. Objective Data Objective Data Vital Signs: Vital Signs Temp Pulse Resp BP O2 Del Method 98 F 78 16 151/72 H Room Air 06/10/25 09:45 06/10/25 09:45 06/08/25 10:13 06/10/25 09:45 06/10/25 09:45 Oxygen Delivery Method Room Air Lab / Micro Data Micro: Microbiology 04/08/25 15:07 Wound - Leg, Left Gram Stain - Final 04/08/25 15:07 Wound - Leg, Left Wound Culture - Final Morganella morganii sp morgani Acinetobacter baumannii Staphylococcus aureus Streptococcus viridans group 04/08/25 15:07 Wound - Leg, Left Anaerobic Culture - Preliminary Bacteroides sp Gram negative eloina Physical Exam Narrative Vascular: DP and PT pulses palpable. CFT brisk. No erythema or proximal streaking. Skin temperature is warm to warm with no focal increase. Nonpitting edema appreciated bilateral lower extremity. Neurologic: Light touch is intact. Patient does respond to painful stimuli. Dermatologic: Right lower extremity medial full-thickness wounds measure 3.0 x 2.4 x 0.2 cm. Wound base is fibrogranular nature. No sign of infection. Right lower extremity lateral full-thickness wound measuring 1 0.9 x 0.8 x 0.1 cm.. Wound base is fibrogranular in nature. No sign of infection. Left lower extremity medial full-thickness wounds measuring 8.8 x 7.2 x 0.2 cm. Wound base is granular nature with no sign of infection. Left lower extremity lateral full-thickness wound/eschar measuring 1.7 x 0.8 x 0.3 cm.. Wound base is fibrogranular nature. No sign of infection. Excisional debridement down to including subcutaneous tissue of the right lower extremity medial full-thickness wound done with a number 5 mm dermal curette done without incident. Predebridement was 2.8 x 2.2 x 0.1 cm. Postdebridement measurement is 3.0 x 2.4 x 0.2 cm. Excisional debridement down to and including subcutaneous tissue of the right lateral full-thickness wound done with a number 5 mm dermal curette done without incident. Predebridement measurement was 0.7 x 0.5 x 0.1 cm. Postdebridement measurement is 0.9 x 0.8 x 0.1 cm. Excisional debridement down to and including subcutaneous tissue of the left lower extremity lateral full-thickness wound done with a number 5 mm dermal curette done without incident. Predebridement measurement was sanguinous 1.5 x 0.5 x 0.2 cm. Postdebridement measurement is 1.7 x 0.8 x 0.3 cm. Excisional debridement down to and including subcutaneous tissue of the left lower extremity medial full-thickness wound done with a number 5 mm dermal curette done without incident. Predebridement measurement was 8.5 x 7.0 x 0.1 cm. Postdebridement measurement is 8.8 x 7.2 x 0.2 cm. EpiFix 4.0 x 4.5 cm mesh was applied to the left medial full-thickness ulceration with 100% use. Fourth application. The graft site was free and clear of any infection. The wound/skin graft substitute was dressed with nonadherent bandage secured in place with Steri-Strips followed by bolster dressing as well as a multilayer compression bandages to the bilateral lower extremity. Musculoskeletal: Mild palpatory tenderness appreciated the bilateral lower extremity. No pain with calf compression bilateral. Debridement Note Debridement Note Debridement Free Text: Excisional debridement down to including subcutaneous tissue of the right lower extremity medial full-thickness wound done with a number 5 mm dermal curette done without incident. Predebridement was 2.8 x 2.2 x 0.1 cm. Postdebridement measurement is 3.0 x 2.4 x 0.2 cm. Excisional debridement down to and including subcutaneous tissue of the right lateral full-thickness wound done with a number 5 mm dermal curette done without incident. Predebridement measurement was 0.7 x 0.5 x 0.1 cm. Postdebridement measurement is 0.9 x 0.8 x 0.1 cm. Excisional debridement down to and including subcutaneous tissue of the left lower extremity lateral full-thickness wound done with a number 5 mm dermal curette done without incident. Predebridement measurement was sanguinous 1.5 x 0.5 x 0.2 cm. Postdebridement measurement is 1.7 x 0.8 x 0.3 cm. Excisional debridement down to and including subcutaneous tissue of the left lower extremity medial full-thickness wound done with a number 5 mm dermal curette done without incident. Predebridement measurement was 8.5 x 7.0 x 0.1 cm. Postdebridement measurement is 8.8 x 7.2 x 0.2 cm. EpiFix 4.0 x 4.5 cm mesh was applied to the left medial full-thickness ulceration with 100% use. Fourth application. The graft site was free and clear of any infection. The wound/skin graft substitute was dressed with nonadherent bandage secured in place with Steri-Strips followed by bolster dressing as well as a multilayer compression bandages to the bilateral lower extremity. Post-Debridement Measurements and Additional Note: Post-Debridement Measurements/Treatment - Nurse 1 - General Ulcer Assessment Start: 05/20/25 09:12 Freq: Status: Active Protocol: .LOWEXVerena Activity Type Activity Date Activity User E-sign Co-sign Detail Recorded Client Recorded Date Recorded By Document 05/20/25 09:12 ML [id number] 05/20/25 09:29 ML Document 05/27/25 09:36 MT [id number] 05/27/25 09:54 MT Document 05/29/25 13:35 ML [id number] 05/29/25 13:37 ML Document 06/03/25 10:03 GM [id number] 06/03/25 10:06 GM Document 06/08/25 10:13 TS [id number] 06/08/25 10:21 TS Document 06/10/25 09:45 MT [id number] 06/10/25 09:57 MT 05/20/25 05/27/25 05/29/25 09:12 09:36 13:35 - Today's Visit Information Type of service Follow-up Visit Follow-up Visit Nurse-only (Physician/RETAIL TEAM LEADER (Physician/RETAIL TEAM LEADER Visit ) ) Arrival Mode Ambulatory, Ambulatory Ambulatory Walker Transfer Assistance None None Accompanied by Patient Identification Verified (Name & Yes Yes ) Patient Requires Transmission-Based No No Precautions Safety Precautions Vital Signs Temperature (97.8 F-99.1 F) 97.4 F L 97.0 F L Temperature Source Temporal Temporal Pulse Rate (60-100) 70 68 Pulse Location Monitor Monitor Respiratory Rate (12-18) 15 14 Respiratory rate source Observation Observation Oxygen Delivery Method Blood Pressure (90/60-120/80) 124/59 H 142/62 H Blood Pressure Mean (mm Hg) 80 88 Source Monitor Monitor Position Sitting Sitting Blood Pressure Location Right Arm Right Arm History Since Last Visit- (Skip if this is Patient's initial visit) Have you changed medications since your No last visit? Any new allergies or adverse reactions No Had a fall/change in ADL's that may No increase risk of falls Signs or symptoms of abuse and/or No neglect since last visit Have you been in the hospital since your No last visit? Has dressing in place as prescribed Yes Has compression in place as prescribed Yes Has offloadiing in place as prescribed Yes Experienced any changes in pain level or No management Left Footwear Right Footwear Pain Scale: 0-10 Numeric Is Patient Pain Free? Yes Yes Yes 06/03/25 06/08/25 06/10/25 10:03 10:13 09:45 - Today's Visit Information Type of service Follow-up Visit Nurse-only Follow-up Visit (Physician/RETAIL TEAM LEADER Visit (Physician/RETAIL TEAM LEADER ) ) Arrival Mode Ambulatory, Ambulatory,Cane Ambulatory, Walker Walker Transfer Assistance Accompanied by daughter daughter Patient Identification Verified (Name & Yes Yes Yes ) Patient Requires Transmission-Based Precautions Safety Precautions Fall Prevention Vital Signs Temperature (97.8 F-99.1 F) 97.9 F 97.7 F L 98 F Temperature Source Temporal Temporal Temporal Pulse Rate (60-100) 66 78 78 Pulse Location Monitor Monitor Monitor Respiratory Rate (12-18) 16 16 Respiratory rate source Observation Observation Monitor Oxygen Delivery Method Room Air Room Air Blood Pressure (90/60-120/80) 135/70 H 135/63 H 151/72 H Blood Pressure Mean (mm Hg) 91 87 98 Source Monitor Manual Monitor Position Sitting Semi-Fowlers Blood Pressure Location Right Arm Left Arm Left Arm History Since Last Visit- (Skip if this is Patient's initial visit) Have you changed medications since your No last visit? Any new allergies or adverse reactions No Had a fall/change in ADL's that may No increase risk of falls Signs or symptoms of abuse and/or No neglect since last visit Have you been in the hospital since your No last visit? Has dressing in place as prescribed Yes Yes Has compression in place as prescribed Yes Yes Has offloadiing in place as prescribed N/A Yes Experienced any changes in pain level or No Yes management Left Footwear Regular Shoe Regular Shoe Right Footwear Regular Shoe Regular Shoe Pain Scale: 0-10 Numeric Is Patient Pain Free? Yes Yes Yes WC - Nurse 1 - General Ulcer Measurement Start: 05/20/25 09:12 Freq: Status: Active Protocol: Activity Type Activity Date Activity User E-sign Co-sign Detail Recorded Client Recorded Date Recorded By Document 05/20/25 09:12 ML [id number] 05/20/25 09:29 ML Document 05/27/25 09:36 MT [id number] 05/27/25 09:54 MT Document 06/03/25 10:03 GM [id number] 06/03/25 10:06 GM Document 06/08/25 10:13 TS [id number] 06/08/25 10:21 TS Document 06/10/25 09:45 MT [id number] 06/10/25 09:57 MT 05/20/25 05/27/25 06/03/25 09:12 09:36 10:03 Wound Center Nurse 1 6.RIGHT LATeral leg cluster -Current Size (cm) - Length 3 0.1 0.1 -Current Size (cm) - Width 3 0.1 0.1 -Current Size (cm) - Depth 0.3 0.1 0.1 -Total Square Cm 9 0.01 0.01 -Date of Last Picture (Recall this field) -Photo Taken No No -Epithelialization Small 1-33% -Tunneling No No -Undermining/Tunneling No No -Circular Undermining No No -Exudate Amt Medium None Present Medium -Exudate Type Yellow/Green Yellow/Green -Wound Margin Distinct, Distinct, Outline Outline Attached Attached -Granulation Amt Medium (34-66%) Medium (34-66%) -Granulation Quality [place] -Slough/Fibrin Yes Yes -Necrosis Amt Large (67-100%) Small (1-33%) -Necrotic Tissue Type Adherent Slough -Texture (Regina-wound Skin Appearance) Assessed Assessed Assessed -Moisture ([place]-wound Skin Appearance) Assessed Assessed Assessed -Color ([place]ina-wound Skin Appearance) Assessed Assessed Assessed -Temperature ([place]-wound Skin No Abnormality No Abnormality No Abnormality Appearance) (Pt Warm) (Pt Warm) (Pt Warm) -Tenderness on Palpation (Regina-wound Yes No Yes Skin Appearance) -Ulcer Cleansing Soap and Water Rinsed/ Soap and Water Irrigated with Saline -Foul Odor after Cleansing No No No -Anesthetic Used 4% Lidocaine 5% Lidocaine Solution Gel -Wound Comment(s) scabbed over 3-LEFT LATERAL LEG -Current Size (cm) - Length 9 2.4 0.1 -Current Size (cm) - Width 6 1.5 0.1 -Current Size (cm) - Depth 0.3 0.2 0.1 -Total Square Cm 54 3.60 0.01 -Date of Last Picture (Recall this field) -Photo Taken No No -Epithelialization None Present Small 1-33% -Tunneling No No -Undermining/Tunneling No No -Circular Undermining No No -Exudate Amt Large Medium Medium -Exudate Type Yellow/Green Yellow/Green Yellow/Green -Wound Margin Distinct, Distinct, Outline Outline Attached Attached -Granulation Amt None Present (0 Small (1-33%) %) -Granulation Quality [place] -Slough/Fibrin Yes No Yes -Necrosis Amt Large (67-100%) Large (67-100%) Small (1-33%) -Necrotic Tissue Type Adherent Slough Adherent Slough -Texture (Regina-wound Skin Appearance) Assessed Assessed -Moisture ([place]ina-wound Skin Appearance) Assessed Assessed Assessed -Color (Regina-wound Skin Appearance) Assessed,Not Assessed Assessed Assessed -Temperature ([place]-wound Skin No Abnormality No Abnormality Appearance) (Pt Warm) (Pt Warm) -Tenderness on Palpation (Regina-wound Yes No Yes Skin Appearance) -Ulcer Cleansing Soap and Water Rinsed/ Soap and Water Irrigated with Saline -Foul Odor after Cleansing No No No -Anesthetic Used 4% Lidocaine 5% Lidocaine 5% Lidocaine Solution Gel Gel #2 L. Med cluster -Current Size (cm) - Length 3 15 0.1 -Current Size (cm) - Width 3 8.5 0.1 -Current Size (cm) - Depth 0.2 0.1 0.1 -Total Square Cm 9 127.5 0.01 -Date of Last Picture (Recall this field) -Photo Taken No No -Epithelialization None Present Small 1-33% -Tunneling No No -Undermining/Tunneling No No -Circular Undermining No No -Exudate Amt Large Large Medium -Exudate Type Yellow/Green Yellow/Green Yellow/Green -Wound Margin Distinct, Distinct, Outline Outline Attached Attached -Granulation Amt None Present (0 Medium (34-66%) %) -Granulation Quality [place] -Slough/Fibrin Yes Yes -Necrosis Amt Large (67-100%) Large (67-100%) Medium (34-66%) -Necrotic Tissue Type Adherent Slough Adherent Slough Adherent Slough -Texture (Regina-wound Skin Appearance) Assessed Assessed Assessed -Moisture ([place]ina-wound Skin Appearance) Assessed Assessed Assessed -Color ([place]ina-wound Skin Appearance) Assessed Assessed Assessed -Temperature ([place]-wound Skin No Abnormality No Abnormality Appearance) (Pt Warm) (Pt Warm) -Tenderness on Palpation ([place]-wound Yes No Skin Appearance) -Ulcer Cleansing Soap and Water Rinsed/ Soap and Water Irrigated with Saline -Foul Odor after Cleansing No No No -Anesthetic Used 4% Lidocaine 5% Lidocaine 5% Lidocaine Solution Gel Gel #1 R Med Cluster -Current Size (cm) - Length 2 3.0 0.1 -Current Size (cm) - Width 1.5 2.5 0.1 -Current Size (cm) - Depth 0.2 0.1 0.1 -Total Square Cm 3.0 7.50 0.01 -Date of Last Picture (Recall this field) -Photo Taken No No -Epithelialization None Present Small 1-33% -Tunneling No No -Undermining/Tunneling No No -Circular Undermining No No -Exudate Amt Large Small -Exudate Type Yellow/Green Yellow/Green -Wound Margin Distinct, Distinct, Outline Outline Attached Attached -Granulation Amt Large (67-100%) Medium (34-66%) Medium (34-66%) -Granulation Quality [place] -Slough/Fibrin Yes Yes Yes -Necrosis Amt Medium (34-66%) Medium (34-66%) Small (1-33%) -Necrotic Tissue Type Adherent Slough Adherent Slough Adherent Slough -Texture ([place]ina-wound Skin Appearance) Assessed Assessed Assessed -Moisture ([place]-wound Skin Appearance) Assessed Assessed Assessed -Color ([place]-wound Skin Appearance) Assessed Assessed Assessed -Temperature ([place]-wound Skin No Abnormality No Abnormality No Abnormality Appearance) (Pt Warm) (Pt Warm) (Pt Warm) -Tenderness on Palpation ([place]-wound Yes No Yes Skin Appearance) -Ulcer Cleansing Soap and Water Rinsed/ Soap and Water Irrigated with Saline -Foul Odor after Cleansing No No -Anesthetic Used 4% Lidocaine 5% Lidocaine 5% Lidocaine Solution Gel Gel Lower Limb Edema Present Right Calf (cm) Right Ankle (cm) Left Calf (cm) Left Ankle (cm) 06/08/25 06/10/25 10:13 09:45 Wound Center Nurse 1 6.RIGHT LATeral leg cluster -Current Size (cm) - Length 16 -Current Size (cm) - Width 1 -Current Size (cm) - Depth 0.1 -Total Square Cm 16 -Date of Last Picture (Recall this 06/10/25 field) -Photo Taken Yes -Epithelialization -Tunneling No -Undermining/Tunneling No -Circular Undermining No -Exudate Amt Small -Exudate Type Serosanguineous -Wound Margin Flat & Intact -Granulation Amt Medium (34-66%) -Granulation Quality [place] -Slough/Fibrin -Necrosis Amt Medium (34-66%) -Necrotic Tissue Type Adherent Slough -Texture ([place]ina-wound Skin Appearance) Assessed -Moisture ([place]-wound Skin Appearance) Assessed -Color ([place]-wound Skin Appearance) Assessed -Temperature ([place]-wound Skin No Abnormality Appearance) (Pt Warm) -Tenderness on Palpation ([place]-wound No Skin Appearance) -Ulcer Cleansing Soap and Water -Foul Odor after Cleansing No -Anesthetic Used 4% Lidocaine Solution -Wound Comment(s) 3-LEFT LATERAL LEG -Current Size (cm) - Length 1.4 -Current Size (cm) - Width 1.0 -Current Size (cm) - Depth 0.3 -Total Square Cm 1.40 -Date of Last Picture (Recall this 06/10/25 field) -Photo Taken Yes -Epithelialization -Tunneling No -Undermining/Tunneling No -Circular Undermining No -Exudate Amt Medium -Exudate Type Serosanguineous -Wound Margin Flat & Intact -Granulation Amt Medium (34-66%) -Granulation Quality [place] -Slough/Fibrin -Necrosis Amt Medium (34-66%) -Necrotic Tissue Type Adherent Slough -Texture (Regina-wound Skin Appearance) Assessed -Moisture (Regina-wound Skin Appearance) Assessed -Color ([place]-wound Skin Appearance) Assessed -Temperature ([place]-wound Skin No Abnormality Appearance) (Pt Warm) -Tenderness on Palpation (Regina-wound No Skin Appearance) -Ulcer Cleansing Soap and Water -Foul Odor after Cleansing No -Anesthetic Used 4% Lidocaine Solution #2 L. Med cluster -Current Size (cm) - Length 6.4 -Current Size (cm) - Width 7.0 -Current Size (cm) - Depth 0.1 -Total Square Cm 44.80 -Date of Last Picture (Recall this 06/10/25 field) -Photo Taken Yes -Epithelialization -Tunneling No -Undermining/Tunneling No -Circular Undermining No -Exudate Amt Medium -Exudate Type Serosanguineous -Wound Margin Flat & Intact -Granulation Amt Medium (34-66%) -Granulation Quality [place] -Slough/Fibrin -Necrosis Amt Medium (34-66%) -Necrotic Tissue Type Adherent Slough -Texture (Regina-wound Skin Appearance) Assessed -Moisture (Regina-wound Skin Appearance) Assessed -Color (Regina-wound Skin Appearance) Assessed -Temperature ([place]ina-wound Skin No Abnormality Appearance) (Pt Warm) -Tenderness on Palpation (Regina-wound No Skin Appearance) -Ulcer Cleansing Soap and Water -Foul Odor after Cleansing No -Anesthetic Used 4% Lidocaine Solution #1 R Med Cluster -Current Size (cm) - Length 8.5 -Current Size (cm) - Width 4.0 -Current Size (cm) - Depth 0.1 -Total Square Cm 34.00 -Date of Last Picture (Recall this 06/10/25 field) -Photo Taken Yes -Epithelialization -Tunneling No -Undermining/Tunneling No -Circular Undermining No -Exudate Amt Small -Exudate Type Serosanguineous -Wound Margin Flat & Intact -Granulation Amt Medium (34-66%) -Granulation Quality [place] -Slough/Fibrin -Necrosis Amt Medium (34-66%) -Necrotic Tissue Type Adherent Slough -Texture (Regina-wound Skin Appearance) Assessed -Moisture (Regina-wound Skin Appearance) Assessed -Color ([place]-wound Skin Appearance) Assessed -Temperature ([place]-wound Skin No Abnormality Appearance) (Pt Warm) -Tenderness on Palpation (Regina-wound No Skin Appearance) -Ulcer Cleansing Soap and Water -Foul Odor after Cleansing No -Anesthetic Used 4% Lidocaine Solution Lower Limb Edema Present Yes Right Calf (cm) 28 28 Right Ankle (cm) 19.5 19.5 Left Calf (cm) 29.5 28.5 Left Ankle (cm) 21.5 21.5 WC - Nurse 2 - General Ulcer CM Notes Start: 05/20/25 09:12 Freq: Status: Active Protocol: Activity Type Activity Date Activity User E-sign Co-sign Detail Recorded Client Recorded Date Recorded By Document 05/20/25 09:48 JF [id number] 05/20/25 09:59 JF Edit Result 05/20/25 09:48 JF (1) [id number] 05/27/25 11:34 JF Document 05/27/25 10:09 JF [id number] 05/27/25 10:17 JF Document 06/03/25 10:17 JF [id number] 06/03/25 10:27 JF Document 06/10/25 10:34 JF [id number] 06/10/25 10:40 JF (1) 3-LEFT LATERAL LEG - Clinical Debridement Subcutaneous => Muscle / Fascia - Tissue Removed Subcutaneous => Muscle - Debridement - Muscle / Fascia, 1st => Yes 20sq cm #1 R Med Cluster - Clinical Debridement => Subcutaneous - Tissue Removed Epidermis, => Subcutaneous Subcutaneous => 05/20/25 05/27/25 06/03/25 09:48 10:09 10:17 Wound Center Nurse 2 6.RIGHT LATeral leg cluster -Time 09:48 10:09 10:17 -Correct Patient Yes Yes Yes -Correct Side, Site, Position Yes Yes Yes -Correct Procedure Yes Yes Yes -Procedure Performed Yes Yes Yes -Type of Procedure Debridement Debridement Debridement -Clinical Debridement Subcutaneous Subcutaneous Subcutaneous -Tissue Removed Subcutaneous Subcutaneous Subcutaneous -Post Debridement (cm) - Length 3.2 2.0 1.9 -Post Debridement (cm) - Width 1.0 0.8 0.8 -Post Debridement (cm) - Depth 0.1 0.1 0.1 -Total Square (Post) (cm) 3.20 1.60 1.52 -Area of Debridement (cm) - Length 3.2 2.0 1.9 -Area of Debridement (cm) - Width 1.0 0.8 0.8 -Total Square (Area) (cm) 3.20 1.60 1.52 -Tunneling No No No -Undermining/Tunneling No No No -Circular Undermining No No No -Wound/Ulcer Outcome Not Healed Not Healed Not Healed -Ulcer Cleansing Rinsed/ Rinsed/ Rinsed/ Irrigated with Irrigated with Irrigated with Saline Saline Saline -Foul Odor after Cleansing No No No -Bioengineered Tissue No No No -Bleeding Controlled with Pressure Pressure Pressure -Treatment Response Procedure Procedure Procedure Tolerated Well Tolerated Well Tolerated Well -Offloading No No No -Debridement - Subq, 1st 20sq cm No No No 3-LEFT LATERAL LEG -Time 09:50 10:10 10:17 -Correct Patient Yes Yes Yes -Correct Side, Site, Position Yes Yes Yes -Correct Procedure Yes Yes Yes -Procedure Performed Yes Yes Yes -Type of Procedure Debridement Debridement Debridement -Clinical Debridement Muscle / Fascia Muscle / Fascia Muscle / Fascia -Tissue Removed Muscle Muscle Muscle -Post Debridement (cm) - Length 2.0 2.3 2.0 -Post Debridement (cm) - Width 1.4 1.5 1.2 -Post Debridement (cm) - Depth 0.5 0.5 0.4 -Total Square (Post) (cm) 2.80 3.45 2.40 -Area of Debridement (cm) - Length 2.0 2.3 2.0 -Area of Debridement (cm) - Width 1.4 1.5 1.2 -Total Square (Area) (cm) 2.80 3.45 2.40 -Tunneling No No No -Undermining/Tunneling No No No -Circular Undermining No No No -Wound/Ulcer Outcome Not Healed Not Healed Not Healed -Ulcer Cleansing Rinsed/ Rinsed/ Rinsed/ Irrigated with Irrigated with Irrigated with Saline Saline Saline -Foul Odor after Cleansing No No No -Bioengineered Tissue No No No -Bleeding Controlled with Pressure Pressure Pressure -Treatment Response Procedure Procedure Procedure Tolerated Well Tolerated Well Tolerated Well -Offloading No No No -Debridement - Subq, 1st 20sq cm No -Debridement - Muscle / Fascia, 1st Yes Yes Yes 20sq cm #2 L. Med cluster -Time 09:50 10:10 10:19 -Correct Patient Yes Yes Yes -Correct Side, Site, Position Yes Yes Yes -Correct Procedure Yes Yes Yes -Procedure Performed Yes Yes Yes -Type of Procedure Debridement Debridement Debridement -Clinical Debridement Subcutaneous Subcutaneous Subcutaneous -Tissue Removed Subcutaneous Subcutaneous Subcutaneous -Post Debridement (cm) - Length 10 10.0 9.8 -Post Debridement (cm) - Width 8 8.5 9.0 -Post Debridement (cm) - Depth 0.2 0.4 0.2 -Total Square (Post) (cm) 80 85.00 88.20 -Area of Debridement (cm) - Length 10 10.0 9.8 -Area of Debridement (cm) - Width 8 8.5 9.0 -Total Square (Area) (cm) 80 85.00 88.20 -Tunneling No No No -Undermining/Tunneling No No No -Circular Undermining No No No -Wound/Ulcer Outcome Not Healed Not Healed Not Healed -Ulcer Cleansing Rinsed/ Rinsed/ Rinsed/ Irrigated with Irrigated with Irrigated with Saline Saline Saline -Foul Odor after Cleansing No No No -Bioengineered Tissue Yes Yes Yes -Type of Bioengineered Tissue Epifix Mesh Epifix Mesh Epifix Mesh -Expiration Date 11/18/29 11/18/29 -Product Lot Number [id number] -Percent Used 100 100 -Lot number of Saline Used [id number] -Bleeding Controlled with Pressure Pressure Pressure -Treatment Response Procedure Procedure Procedure Tolerated Well Tolerated Well Tolerated Well -Offloading No No No -Debridement - Subq, 1st 20sq cm No No No -Apply Skin Sub - 1st 25 sq cm - Legs 1 1 1 -Apply Skin Sub - each addt'l 25 sq cm 3 3 3 - Legs -Epifix Mesh Application 1-4 (per sq 11 11 11 cm) #1 R Med Cluster -Time 09:57 10:11 10:26 -Correct Patient Yes Yes Yes -Correct Side, Site, Position Yes Yes Yes -Correct Procedure Yes Yes Yes -Procedure Performed Yes Yes Yes -Type of Procedure Debridement Debridement Debridement -Clinical Debridement Subcutaneous Subcutaneous Subcutaneous -Tissue Removed Subcutaneous Subcutaneous Subcutaneous -Post Debridement (cm) - Length 4.4 3.4 2.5 -Post Debridement (cm) - Width 3.2 2.8 2.4 -Post Debridement (cm) - Depth 0.1 0.3 0.2 -Total Square (Post) (cm) 14.08 9.52 6.00 -Area of Debridement (cm) - Length 4.4 3.4 2.5 -Area of Debridement (cm) - Width 3.2 2.8 2.4 -Total Square (Area) (cm) 14.08 9.52 6.00 -Tunneling No No No -Undermining/Tunneling No No No -Circular Undermining No No No -Wound/Ulcer Outcome Not Healed Not Healed Not Healed -Ulcer Cleansing Rinsed/ Rinsed/ Rinsed/ Irrigated with Irrigated with Irrigated with Saline Saline Saline -Foul Odor after Cleansing No No No -Bioengineered Tissue No No No -Bleeding Controlled with Pressure Pressure Pressure -Treatment Response Procedure Procedure Procedure Tolerated Well Tolerated Well Tolerated Well -Offloading No No No -Debridement - Subq, 1st 20sq cm Yes Yes Yes Pain Scale: 0-10 Numeric Is Patient Pain Free? Yes Yes Yes 06/10/25 10:34 Wound Center Nurse 2 6.RIGHT LATeral leg cluster -Time 10:35 -Correct Patient Yes -Correct Side, Site, Position Yes -Correct Procedure Yes -Procedure Performed Yes -Type of Procedure Debridement -Clinical Debridement Subcutaneous -Tissue Removed Subcutaneous -Post Debridement (cm) - Length 0.9 -Post Debridement (cm) - Width 0.8 -Post Debridement (cm) - Depth 0.1 -Total Square (Post) (cm) 0.72 -Area of Debridement (cm) - Length 0.9 -Area of Debridement (cm) - Width 0.8 -Total Square (Area) (cm) 0.72 -Tunneling No -Undermining/Tunneling No -Circular Undermining No -Wound/Ulcer Outcome Not Healed -Ulcer Cleansing Rinsed/ Irrigated with Saline -Foul Odor after Cleansing No -Bioengineered Tissue No -Bleeding Controlled with Pressure -Treatment Response Procedure Tolerated Well -Offloading No -Debridement - Subq, 1st 20sq cm Yes 3-LEFT LATERAL LEG -Time 10:35 -Correct Patient Yes -Correct Side, Site, Position Yes -Correct Procedure Yes -Procedure Performed Yes -Type of Procedure Debridement -Clinical Debridement Subcutaneous -Tissue Removed Subcutaneous -Post Debridement (cm) - Length 1.7 -Post Debridement (cm) - Width 0.8 -Post Debridement (cm) - Depth 0.3 -Total Square (Post) (cm) 1.36 -Area of Debridement (cm) - Length 1.7 -Area of Debridement (cm) - Width 0.8 -Total Square (Area) (cm) 1.36 -Tunneling No -Undermining/Tunneling No -Circular Undermining No -Wound/Ulcer Outcome Not Healed -Ulcer Cleansing Rinsed/ Irrigated with Saline -Foul Odor after Cleansing No -Bioengineered Tissue No -Bleeding Controlled with Pressure -Treatment Response Procedure Tolerated Well -Offloading No -Debridement - Subq, 1st 20sq cm No -Debridement - Muscle / Fascia, 1st 20sq cm #2 L. Med cluster -Time 10:35 -Correct Patient Yes -Correct Side, Site, Position Yes -Correct Procedure Yes -Procedure Performed Yes -Type of Procedure Debridement -Clinical Debridement Subcutaneous -Tissue Removed Subcutaneous -Post Debridement (cm) - Length 8.8 -Post Debridement (cm) - Width 7.2 -Post Debridement (cm) - Depth 0.2 -Total Square (Post) (cm) 63.36 -Area of Debridement (cm) - Length 8.8 -Area of Debridement (cm) - Width 7.2 -Total Square (Area) (cm) 63.36 -Tunneling No -Undermining/Tunneling No -Circular Undermining No -Wound/Ulcer Outcome Not Healed -Ulcer Cleansing Rinsed/ Irrigated with Saline -Foul Odor after Cleansing No -Bioengineered Tissue Yes -Type of Bioengineered Tissue Epifix Mesh -Expiration Date 11/18/29 -Product Lot Number [id number] -Percent Used 100 -Lot number of Saline Used [id number] -Bleeding Controlled with Pressure -Treatment Response Procedure Tolerated Well -Offloading No -Debridement - Subq, 1st 20sq cm No -Apply Skin Sub - 1st 25 sq cm - Legs 1 -Apply Skin Sub - each addt'l 25 sq cm 2 - Legs -Epifix Mesh Application 1-4 (per sq 11 cm) #1 R Med Cluster -Time 10:38 -Correct Patient Yes -Correct Side, Site, Position Yes -Correct Procedure Yes -Procedure Performed Yes -Type of Procedure Debridement -Clinical Debridement Subcutaneous -Tissue Removed Subcutaneous -Post Debridement (cm) - Length 3.0 -Post Debridement (cm) - Width 2.4 -Post Debridement (cm) - Depth 0.2 -Total Square (Post) (cm) 7.20 -Area of Debridement (cm) - Length 3.0 -Area of Debridement (cm) - Width 2.4 -Total Square (Area) (cm) 7.20 -Tunneling No -Undermining/Tunneling No -Circular Undermining No -Wound/Ulcer Outcome Not Healed -Ulcer Cleansing Rinsed/ Irrigated with Saline -Foul Odor after Cleansing No -Bioengineered Tissue No -Bleeding Controlled with Pressure -Treatment Response Procedure Tolerated Well -Offloading No -Debridement - Subq, 1st 20sq cm No Pain Scale: 0-10 Numeric Is Patient Pain Free? Yes WC - Nurse 3 - General Ulcer D/C NN Start: 05/20/25 09:12 Freq: Status: Active Protocol: Activity Type Activity Date Activity User E-sign Co-sign Detail Recorded Client Recorded Date Recorded By Document 05/20/25 10:12 MT [id number] 05/20/25 10:15 MT Document 05/27/25 10:42 GM [id number] 05/27/25 10:45 GM Document 05/29/25 13:35 ML [id number] 05/29/25 13:37 ML Document 06/03/25 10:50 GM [id number] 06/03/25 10:52 GM Document 06/08/25 10:13 TS [id number] 06/08/25 10:21 TS Edit Result 06/08/25 10:13 TS(2) (1) [id number] 06/09/25 08:47 JF Document 06/10/25 11:05 CP [id number] 06/10/25 11:09 CP (1) BLE - Multi-Layer Compression Bilat (Qty 2 => 1 applied) 05/20/25 05/27/25 05/29/25 10:12 10:42 13:35 Wound Care Center Nurse 3 6.RIGHT LATeral leg cluster -Ulcer Cleansing -Foul Odor after Cleansing No -Primary Dressing Applied Optilok 5x5 1/2 ,Silvercel -Primary Dressing Covered/Secured with Dry Gauze & Roll Gauze, Secured with Tape -Aquacel AG 4x4 -Optilok 5x5 1/2 1 1 -Silvercel 1 -Wound Comment(s) pt brought own Aquacel AG 3-LEFT LATERAL LEG -Ulcer Cleansing Not Cleansed -Foul Odor after Cleansing No -Negative Pressure Wound Therapy -Primary Dressing Applied Optilok 5x5 1/2 -Other Dressing -Primary Dressing Covered/Secured with Dry Gauze & Roll Gauze, Secured with Tape -Optilok 5x5 1/2 1 -Silvercel #2 L. Med cluster -Ulcer Cleansing Not Cleansed -Foul Odor after Cleansing No -Primary Dressing Applied Optilok 6.5x10 -Other Dressing -Primary Dressing Covered/Secured with -Aquacel AG 4x4 -Optilok 5x5 1/2 -Optilok 6.5x10 1 -Silvercel #1 R Med Cluster -Ulcer Cleansing Not Cleansed -Foul Odor after Cleansing No -Primary Dressing Applied Optilok 5x5 1/2 -Other Dressing -Primary Dressing Covered/Secured with -Aquacel AG 4x4 -Optilok 5x5 1/2 1 -Silvercel BLE -Lotion applied to leg before compression wrap -Multi-Layered Wrap Application Multi-Layer Multi-Layer Multi-Layer Comp - Right ($ Comp - Bilat ($ Comp - Bilat ($ ) ) ) -Multi-Layer Compression Right (Qty 1 applied) -Multi-Layer Compression Bilat (Qty 1 1 applied) Pain Scale: 0-10 Numeric Is Patient Pain Free? Yes Yes Yes WC - Visit Discharge Discharge Condition Stable Ambulatory Status Ambulatory, Walker Transportation Accompanied by Medication Reconcilliation completed & provided to patient/care provider Clinical Summary of Care Provided 06/03/25 06/08/25 06/10/25 10:50 10:13 11:05 Wound Care Center Nurse 3 6.RIGHT LATeral leg cluster -Ulcer Cleansing Not Cleansed Soap and Water Rinsed/ Irrigated with Saline -Foul Odor after Cleansing No No -Primary Dressing Applied Optilok 5x5 1/2 Silvercel Aquacel AG 4x4 ,Silvercel -Primary Dressing Covered/Secured with Dry Gauze & Dry Gauze Dry Gauze & Roll Gauze, Roll Gauze Secured with Tape -Aquacel AG 4x4 0 -Optilok 5x5 1/2 1 -Silvercel 1 1 -Wound Comment(s) 3-LEFT LATERAL LEG -Ulcer Cleansing Not Cleansed Soap and Water -Foul Odor after Cleansing No No -Negative Pressure Wound Therapy N/A -Primary Dressing Applied Silvercel -Other Dressing silvercel and abd pad -Primary Dressing Covered/Secured with Dry Gauze & Dry Gauze Dry Gauze & Roll Gauze, Roll Gauze Secured with Tape -Optilok 5x5 1/2 -Silvercel 0 #2 L. Med cluster -Ulcer Cleansing Not Cleansed Not Cleansed -Foul Odor after Cleansing No -Primary Dressing Applied Optilok 5x5 1/2 Optilok 5x5 1/2 Aquacel AG 4x4, ,Silvercel Optilok 6.5x10 -Other Dressing silvercel -Primary Dressing Covered/Secured with Dry Gauze & Dry Gauze & Roll Gauze Roll Gauze -Aquacel AG 4x4 0 -Optilok 5x5 1/2 1 1 -Optilok 6.5x10 1 -Silvercel 0 #1 R Med Cluster -Ulcer Cleansing Not Cleansed Soap and Water Rinsed/ Irrigated with Saline -Foul Odor after Cleansing No No -Primary Dressing Applied Optilok 5x5 1/2 [employer]cel Aquacel AG 4x4 -Other Dressing silvercel -Primary Dressing Covered/Secured with Dry Gauze Dry Gauze & Roll Gauze -Aquacel AG 4x4 1 -Optilok 5x5 1/2 1 -Silvercel 0 BLE -Lotion applied to leg before Yes compression wrap -Multi-Layered Wrap Application Multi-Layer Multi-Layer Multi-Layer Comp - Bilat ($ Comp - Bilat ($ Comp - Bilat ($ ) ) ) -Multi-Layer Compression Right (Qty applied) -Multi-Layer Compression Bilat (Qty 1 1 1 applied) Pain Scale: 0-10 Numeric Is Patient Pain Free? Yes Yes Yes WC - Visit Discharge Discharge Condition Stable Stable Stable Ambulatory Status Cane Ambulatory,Cane Ambulatory,Cane Transportation Private Auto Private Auto Private Auto Accompanied by daughter Medication Reconcilliation completed & No provided to patient/care provider Clinical Summary of Care Provided No Yes Assessment/Plan Assessment/Plan (1) Non-pressure chronic ulcer of other part of left lower leg with fat layer exposed: CODE(S): L97.822 - Non-pressure chronic ulcer of other part of left lower leg with fat layer exposed PLAN: Patient was examined and evaluated. All findings were discussed with the patient. All questions were answered to the patient's satisfaction. Excisional debridement down to including subcutaneous tissue of the right lower extremity medial full-thickness wound done with a number 5 mm dermal curette done without incident. Predebridement was 2.8 x 2.2 x 0.1 cm. Postdebridement measurement is 3.0 x 2.4 x 0.2 cm. Excisional debridement down to and including subcutaneous tissue of the right lateral full-thickness wound done with a number 5 mm dermal curette done without incident. Predebridement measurement was 0.7 x 0.5 x 0.1 cm. Postdebridement measurement is 0.9 x 0.8 x 0.1 cm. Excisional debridement down to and including subcutaneous tissue of the left lower extremity lateral full-thickness wound done with a number 5 mm dermal curette done without incident. Predebridement measurement was sanguinous 1.5 x 0.5 x 0.2 cm. Postdebridement measurement is 1.7 x 0.8 x 0.3 cm. Excisional debridement down to and including subcutaneous tissue of the left lower extremity medial full-thickness wound done with a number 5 mm dermal curette done without incident. Predebridement measurement was 8.5 x 7.0 x 0.1 cm. Postdebridement measurement is 8.8 x 7.2 x 0.2 cm. EpiFix 4.0 x 4.5 cm mesh was applied to the left medial full-thickness ulceration with 100% use. Fourth application. The graft site was free and clear of any infection. The wound/skin graft substitute was dressed with nonadherent bandage secured in place with Steri-Strips followed by bolster dressing as well as a multilayer compression bandages to the bilateral lower extremity. Patient will leave the dressing clean dry and intact and follow-up with nursing visit Sunday versus Sunday. Patient will follow-up with Dr. 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
[2025-06-15 11:24] VITALS: BP 148/66; PULSE 72; RESP 18; TEMP 36.1
[2025-06-17 09:39] VITALS: BP 150/89; PULSE 70; RESP 18; TEMP 36.1
--- NOTE | 2025-06-17 12:17 | PCM.WC.PN ---
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 Progress of Wound: Bilateral full-thickness wounds stable with no sign of infection and improving Subjective Subjective Patient is a 5-year-old female presenting to clinic today follow-up evaluation of bilateral full-thickness wounds with amnion skin graft to the left lower extremity and silver alginate to the right lower extremity. She has been compliant with multilayer compression bandage left complaint dry and intact. She was improvement to the wounds and swelling. She has no pain to the bilateral lower extremity. She denies trauma. Denies constitutional symptoms. No other pedal complaints at this time. Objective Data Objective Data Vital Signs: Vital Signs Temp Pulse Resp BP O2 Del Method 97 F L 70 18 150/89 H Room Air 06/17/25 09:39 06/17/25 09:39 06/17/25 09:39 06/17/25 09:39 06/17/25 09:39 Oxygen Delivery Method Room Air Lab / Micro Data Micro: Microbiology 04/08/25 15:07 Wound - Leg, Left Gram Stain - Final 04/08/25 15:07 Wound - Leg, Left Wound Culture - Final Morganella morganii sp morgani Acinetobacter baumannii Staphylococcus aureus Streptococcus viridans group 04/08/25 15:07 Wound - Leg, Left Anaerobic Culture - Preliminary Bacteroides sp Gram negative eloina Physical Exam Narrative Vascular: DP and PT pulses palpable. CFT brisk. No erythema or proximal streaking. Skin temperature is warm to warm with no focal increase. Nonpitting edema appreciated bilateral lower extremity. Neurologic: Light touch is intact. Patient does respond to painful stimuli. Dermatologic: Right lower extremity medial full-thickness wounds measure 1.8 x 1.5 x 0.1 cm. Wound base is fibrogranular nature. No sign of infection. Right lower extremity lateral full-thickness wound measuring 1.7 x 0.8 x 0.2 cm. Wound base is fibrogranular in nature. No sign of infection. Left lower extremity medial full-thickness wounds measuring 7.2 x 7.3 0.3 cm. Wound base is granular nature with no sign of infection. Left lower extremity lateral full-thickness wound measuring 1.7 x 0.7 x 0.3 cm. Wound base is fibrogranular nature. No sign of infection. Excisional debridement down to including subcutaneous tissue of the right lower extremity medial full-thickness wound done with a number 5 mm dermal curette done without incident. Predebridement was 1.5 x 0.3 x 0.1 cm. Postdebridement measurement is 1.8 x 1.5 x 0.1 cm. Excisional debridement down to and including subcutaneous tissue of the right lateral full-thickness wound done with a number 5 mm dermal curette done without incident. Predebridement measurement was 1.5 x 0.5 x 0.1 cm. Postdebridement measurement is 1.7 x 0.8 x 0.2 cm. Excisional debridement down to and including subcutaneous tissue fascia and muscle of the left lower extremity lateral full-thickness wound done with a number 5 mm dermal curette done without incident. Predebridement measurement was sanguinous 1.6 x 0.6 x 0.2 cm. Postdebridement measurement is 1.7 x 0.7 x 0.3 cm Excisional debridement down to and including subcutaneous tissue of the left lower extremity medial full-thickness wound done with a number 5 mm dermal curette done without incident. Predebridement measurement was 7.0 x 7.1 x 0.2 cm. Postdebridement measurement is 7.2 x 7.3 x 0.3 cm. EpiFix 4.0 x 4.5 cm mesh was applied to the left medial full-thickness ulceration with 100% use. Fifth application. The graft site was free and clear of any infection. The wound/skin graft substitute was dressed with nonadherent bandage secured in place with Steri-Strips followed by bolster dressing as well as a multilayer compression bandages to the bilateral lower extremity. Musculoskeletal: Mild palpatory tenderness appreciated the bilateral lower extremity. No pain with calf compression bilateral. Debridement Note Debridement Note Debridement Free Text: Excisional debridement down to including subcutaneous tissue of the right lower extremity medial full-thickness wound done with a number 5 mm dermal curette done without incident. Predebridement was 1.5 x 0.3 x 0.1 cm. Postdebridement measurement is 1.8 x 1.5 x 0.1 cm. Excisional debridement down to and including subcutaneous tissue of the right lateral full-thickness wound done with a number 5 mm dermal curette done without incident. Predebridement measurement was 1.5 x 0.5 x 0.1 cm. Postdebridement measurement is 1.7 x 0.8 x 0.2 cm. Excisional debridement down to and including subcutaneous tissue fascia and muscle of the left lower extremity lateral full-thickness wound done with a number 5 mm dermal curette done without incident. Predebridement measurement was sanguinous 1.6 x 0.6 x 0.2 cm. Postdebridement measurement is 1.7 x 0.7 x 0.3 cm Excisional debridement down to and including subcutaneous tissue of the left lower extremity medial full-thickness wound done with a number 5 mm dermal curette done without incident. Predebridement measurement was 7.0 x 7.1 x 0.2 cm. Postdebridement measurement is 7.2 x 7.3 x 0.3 cm. EpiFix 4.0 x 4.5 cm mesh was applied to the left medial full-thickness ulceration with 100% use. Fifth application. The graft site was free and clear of any infection. The wound/skin graft substitute was dressed with nonadherent bandage secured in place with Steri-Strips followed by bolster dressing as well as a multilayer compression bandages to the bilateral lower extremity. Post-Debridement Measurements and Additional Note: Post-Debridement Measurements/Treatment WC - Nurse 1 - General Ulcer Assessment Start: 05/20/25 09:12 Freq: Status: Active Protocol: [email or web address].[email or web address] Activity Type Activity Date Activity User E-sign Co-sign Detail Recorded Client Recorded Date Recorded By Document 05/20/25 09:12 ML [id number] 05/20/25 09:29 ML Document 05/27/25 09:36 MT [id number] 05/27/25 09:54 MT Document 05/29/25 13:35 ML [id number] 05/29/25 13:37 ML Document 06/03/25 10:03 GM [id number] 06/03/25 10:06 GM Document 06/08/25 10:13 TS [id number] 06/08/25 10:21 TS Document 06/10/25 09:45 MT [id number] 06/10/25 09:57 MT Document 06/15/25 11:24 MT [id number] 06/15/25 11:55 MT Document 06/17/25 09:39 MT [id number] 06/17/25 09:55 PA 05/20/25 05/27/25 05/29/25 09:12 09:36 13:35 [facility]'s Visit Information Type of service Follow-up Visit Follow-up Visit Nurse-only (Physician/[facility] [place] LAW CLERK (Physician/[facility] [place] LAW CLERK Visit ) ) Arrival Mode Ambulatory, Ambulatory Ambulatory Walker Transfer Assistance None None Accompanied by Patient Identification Verified (Name & Yes Yes ) Patient Requires Transmission-Based No No Precautions Safety Precautions Vital Signs Temperature (97.8 F-99.1 F) 97.4 F L 97.0 F L Temperature Source Temporal Temporal Pulse Rate (60-100) 70 68 Pulse Location Monitor Monitor Respiratory Rate (12-18) 15 14 Respiratory rate source Observation Observation Oxygen Delivery Method Blood Pressure (90/60-120/80) 124/59 H 142/62 H Blood Pressure Mean (mm Hg) 80 88 Source Monitor Monitor Position Sitting Sitting Blood Pressure Location Right Arm Right Arm History Since Last Visit- (Skip if this is Patient's initial visit) Have you changed medications since your No last visit? Any new allergies or adverse reactions No Had a fall/change in ADL's that may No increase risk of falls Signs or symptoms of abuse and/or No neglect since last visit Have you been in the hospital since your No last visit? Has dressing in place as prescribed Yes Has compression in place as prescribed Yes Has offloadiing in place as prescribed Yes Experienced any changes in pain level or No management Left Footwear Right Footwear Pain Scale: 0-10 Numeric Is Patient Pain Free? Yes Yes Yes 06/03/25 06/08/25 06/10/25 10:03 10:13 09:45 [facility]'s Visit Information Type of service Follow-up Visit Nurse-only Follow-up Visit (Physician/[facility] [place] LAW CLERK Visit (Physician/[facility] [place] LAW CLERK ) ) Arrival Mode Ambulatory, Ambulatory,Cane Ambulatory, Walker Walker Transfer Assistance Accompanied by daughter daughter Patient Identification Verified (Name & Yes Yes Yes ) Patient Requires Transmission-Based Precautions Safety Precautions Fall Prevention Vital Signs Temperature (97.8 F-99.1 F) 97.9 F 97.7 F L 98 F Temperature Source Temporal Temporal Temporal Pulse Rate (60-100) 66 78 78 Pulse Location Monitor Monitor Monitor Respiratory Rate (12-18) 16 16 Respiratory rate source Observation Observation Monitor Oxygen Delivery Method Room Air Room Air Blood Pressure (90/60-120/80) 135/70 H 135/63 H 151/72 H Blood Pressure Mean (mm Hg) 91 87 98 Source Monitor Manual Monitor Position Sitting Semi-Fowlers Blood Pressure Location Right Arm Left Arm Left Arm History Since Last Visit- (Skip if this is Patient's initial visit) Have you changed medications since your No last visit? Any new allergies or adverse reactions No Had a fall/change in ADL's that may No increase risk of falls Signs or symptoms of abuse and/or No neglect since last visit Have you been in the hospital since your No last visit? Has dressing in place as prescribed Yes Yes Has compression in place as prescribed Yes Yes Has offloadiing in place as prescribed N/A Yes Experienced any changes in pain level or No Yes management Left Footwear Regular Shoe Regular Shoe Right Footwear Regular Shoe Regular Shoe Pain Scale: 0-10 Numeric Is Patient Pain Free? Yes Yes Yes 06/15/25 06/17/25 11:24 09:39 WC - Today's Visit Information Type of service Nurse-only Follow-up Visit Visit (Physician/[facility] [place] LAW CLERK ) Arrival Mode Cane Ambulatory Transfer Assistance Accompanied by daughter daughter Patient Identification Verified (Name & Yes Yes ) Patient Requires Transmission-Based Precautions Safety Precautions Fall Prevention Fall Prevention Vital Signs Temperature (97.8 F-99.1 F) 97 F L 97 F L Temperature Source Temporal Temporal Pulse Rate (60-100) 72 70 Pulse Location Monitor Monitor Respiratory Rate (12-18) 18 18 Respiratory rate source Monitor Observation Oxygen Delivery Method Room Air Room Air Blood Pressure (90/60-120/80) 148/66 H 150/89 H Blood Pressure Mean (mm Hg) 93 109 Source Monitor Monitor Position Supine Sitting Blood Pressure Location Left Arm Left Arm History Since Last Visit- (Skip if this is Patient's initial visit) Have you changed medications since your last visit? Any new allergies or adverse reactions Had a fall/change in ADL's that may increase risk of falls Signs or symptoms of abuse and/or neglect since last visit Have you been in the hospital since your last visit? Has dressing in place as prescribed Yes Yes Has compression in place as prescribed Yes Yes Has offloadiing in place as prescribed Yes Yes Experienced any changes in pain level or Yes Yes management Left Footwear Regular Shoe Regular Shoe Right Footwear Regular Shoe Regular Shoe Pain Scale: 0-10 Numeric Is Patient Pain Free? Yes Yes WC - Nurse 1 - General Ulcer Measurement Start: 05/20/25 09:12 Freq: Status: Active Protocol: Activity Type Activity Date Activity User E-sign Co-sign Detail Recorded Client Recorded Date Recorded By Document 05/20/25 09:12 ML [id number] 05/20/25 09:29 ML Document 05/27/25 09:36 MT [id number] 05/27/25 09:54 MT Document 06/03/25 10:03 GM [id number] 06/03/25 10:06 GM Document 06/08/25 10:13 TS [id number] 06/08/25 10:21 TS Document 06/10/25 09:45 MT [id number] 06/10/25 09:57 MT Document 06/17/25 09:39 MT [id number] 06/17/25 09:55 MT 05/20/25 05/27/25 06/03/25 09:12 09:36 10:03 Wound Center Nurse 1 6.RIGHT LATeral leg cluster -Current Size (cm) - Length 3 0.1 0.1 -Current Size (cm) - Width 3 0.1 0.1 -Current Size (cm) - Depth 0.3 0.1 0.1 -Total Square Cm 9 0.01 0.01 -Date of Last Picture (Recall this field) -Photo Taken No No -Epithelialization Small 1-33% -Tunneling No No -Undermining/Tunneling No No -Circular Undermining No No -Exudate Amt Medium None Present Medium -Exudate Type Yellow/Green Yellow/Green -Wound Margin Distinct, Distinct, Outline Outline Attached Attached -Granulation Amt Medium (34-66%) Medium (34-66%) -Granulation Quality Delight -Slough/Fibrin Yes Yes -Necrosis Amt Large (67-100%) Small (1-33%) -Necrotic Tissue Type Adherent Slough -Texture (Regina-wound Skin Appearance) Assessed Assessed Assessed -Moisture (Regina-wound Skin Appearance) Assessed Assessed Assessed -Color (Regina-wound Skin Appearance) Assessed Assessed Assessed -Temperature (Regina-wound Skin No Abnormality No Abnormality No Abnormality Appearance) (Pt Warm) (Pt Warm) (Pt Warm) -Tenderness on Palpation (Regina-wound Yes No Yes Skin Appearance) -Ulcer Cleansing Soap and Water Rinsed/ Soap and Water Irrigated with Saline -Foul Odor after Cleansing No No No -Anesthetic Used 4% Lidocaine 5% Lidocaine Solution Gel -Wound Comment(s) scabbed over 3-LEFT LATERAL LEG -Current Size (cm) - Length 9 2.4 0.1 -Current Size (cm) - Width 6 1.5 0.1 -Current Size (cm) - Depth 0.3 0.2 0.1 -Total Square Cm 54 3.60 0.01 -Date of Last Picture (Recall this field) -Photo Taken No No -Epithelialization None Present Small 1-33% -Tunneling No No -Undermining/Tunneling No No -Circular Undermining No No -Exudate Amt Large Medium Medium -Exudate Type Yellow/Green Yellow/Green Yellow/Green -Wound Margin Distinct, Distinct, Outline Outline Attached Attached -Granulation Amt None Present (0 Small (1-33%) %) -Granulation Quality Delight -Slough/Fibrin Yes No Yes -Necrosis Amt Large (67-100%) Large (67-100%) Small (1-33%) -Necrotic Tissue Type Adherent Slough Adherent Slough -Texture (Regina-wound Skin Appearance) Assessed Assessed -Moisture (Regina-wound Skin Appearance) Assessed Assessed Assessed -Color (Regina-wound Skin Appearance) Assessed,Not Assessed Assessed Assessed -Temperature (Regina-wound Skin No Abnormality No Abnormality Appearance) (Pt Warm) (Pt Warm) -Tenderness on Palpation (Regina-wound Yes No Yes Skin Appearance) -Ulcer Cleansing Soap and Water Rinsed/ Soap and Water Irrigated with Saline -Foul Odor after Cleansing No No No -Anesthetic Used 4% Lidocaine 5% Lidocaine 5% Lidocaine Solution Gel Gel #2 L. Med cluster -Current Size (cm) - Length 3 15 0.1 -Current Size (cm) - Width 3 8.5 0.1 -Current Size (cm) - Depth 0.2 0.1 0.1 -Total Square Cm 9 127.5 0.01 -Date of Last Picture (Recall this field) -Photo Taken No No -Epithelialization None Present Small 1-33% -Tunneling No No -Undermining/Tunneling No No -Circular Undermining No No -Exudate Amt Large Large Medium -Exudate Type Yellow/Green Yellow/Green Yellow/Green -Wound Margin Distinct, Distinct, Outline Outline Attached Attached -Granulation Amt None Present (0 Medium (34-66%) %) -Granulation Quality Delight -Slough/Fibrin Yes Yes -Necrosis Amt Large (67-100%) Large (67-100%) Medium (34-66%) -Necrotic Tissue Type Adherent Slough Adherent Slough Adherent Slough -Texture (Regina-wound Skin Appearance) Assessed Assessed Assessed -Moisture (Regina-wound Skin Appearance) Assessed Assessed Assessed -Color (Regina-wound Skin Appearance) Assessed Assessed Assessed -Temperature (Regina-wound Skin No Abnormality No Abnormality Appearance) (Pt Warm) (Pt Warm) -Tenderness on Palpation (Regina-wound Yes No Skin Appearance) -Ulcer Cleansing Soap and Water Rinsed/ Soap and Water Irrigated with Saline -Foul Odor after Cleansing No No No -Anesthetic Used 4% Lidocaine 5% Lidocaine 5% Lidocaine Solution Gel Gel #1 R Med Cluster -Current Size (cm) - Length 2 3.0 0.1 -Current Size (cm) - Width 1.5 2.5 0.1 -Current Size (cm) - Depth 0.2 0.1 0.1 -Total Square Cm 3.0 7.50 0.01 -Date of Last Picture (Recall this field) -Photo Taken No No -Epithelialization None Present Small 1-33% -Tunneling No No -Undermining/Tunneling No No -Circular Undermining No No -Exudate Amt Large Small -Exudate Type Yellow/Green Yellow/Green -Wound Margin Distinct, Distinct, Outline Outline Attached Attached -Granulation Amt Large (67-100%) Medium (34-66%) Medium (34-66%) -Granulation Quality Delight Delight -Slough/Fibrin Yes Yes Yes -Necrosis Amt Medium (34-66%) Medium (34-66%) Small (1-33%) -Necrotic Tissue Type Adherent Slough Adherent Slough Adherent Slough -Texture (Regina-wound Skin Appearance) Assessed Assessed Assessed -Moisture (Regina-wound Skin Appearance) Assessed Assessed Assessed -Color (Regina-wound Skin Appearance) Assessed Assessed Assessed -Temperature (Regina-wound Skin No Abnormality No Abnormality No Abnormality Appearance) (Pt Warm) (Pt Warm) (Pt Warm) -Tenderness on Palpation (Regina-wound Yes No Yes Skin Appearance) -Ulcer Cleansing Soap and Water Rinsed/ Soap and Water Irrigated with Saline -Foul Odor after Cleansing No No -Anesthetic Used 4% Lidocaine 5% Lidocaine 5% Lidocaine Solution Gel Gel Lower Limb Edema Present Right Calf (cm) Right Ankle (cm) Left Calf (cm) Left Ankle (cm) 06/08/25 06/10/25 06/17/25 10:13 09:45 09:39 Wound Center Nurse 1 6.RIGHT LATeral leg cluster -Current Size (cm) - Length 16 0.1 -Current Size (cm) - Width 1 0.1 -Current Size (cm) - Depth 0.1 0.1 -Total Square Cm 16 0.01 -Date of Last Picture (Recall this 06/10/25 06/17/25 field) -Photo Taken Yes Yes -Epithelialization -Tunneling No No -Undermining/Tunneling No No -Circular Undermining No No -Exudate Amt Small Medium -Exudate Type Serosanguineous Sanguineous -Wound Margin Flat & Intact Flat & Intact -Granulation Amt Medium (34-66%) Large (67-100%) -Granulation Quality Pale,Delight Pale,Delight -Slough/Fibrin -Necrosis Amt Medium (34-66%) Small (1-33%) -Necrotic Tissue Type Adherent Slough Adherent Slough -Texture (Regina-wound Skin Appearance) Assessed Assessed -Moisture (Regina-wound Skin Appearance) Assessed Assessed -Color (Regina-wound Skin Appearance) Assessed Assessed -Temperature (Regina-wound Skin No Abnormality No Abnormality Appearance) (Pt Warm) (Pt Warm) -Tenderness on Palpation (Regina-wound No No Skin Appearance) -Ulcer Cleansing Soap and Water Soap and Water -Foul Odor after Cleansing No No -Anesthetic Used 4% Lidocaine 5% Lidocaine Solution Gel -Wound Comment(s) 3-LEFT LATERAL LEG -Current Size (cm) - Length 1.4 1.5 -Current Size (cm) - Width 1.0 0.7 -Current Size (cm) - Depth 0.3 0.2 -Total Square Cm 1.40 1.05 -Date of Last Picture (Recall this 06/10/25 06/17/25 field) -Photo Taken Yes Yes -Epithelialization -Tunneling No No -Undermining/Tunneling No No -Circular Undermining No No -Exudate Amt Medium Small -Exudate Type Serosanguineous Serosanguineous -Wound Margin Flat & Intact Flat & Intact -Granulation Amt Medium (34-66%) Large (67-100%) -Granulation Quality Pale,Delight Pale,Delight -Slough/Fibrin -Necrosis Amt Medium (34-66%) Small (1-33%) -Necrotic Tissue Type Adherent Slough Adherent Slough -Texture (Regina-wound Skin Appearance) Assessed Assessed -Moisture (Regina-wound Skin Appearance) Assessed Assessed -Color (Regina-wound Skin Appearance) Assessed Assessed -Temperature (Regina-wound Skin No Abnormality No Abnormality Appearance) (Pt Warm) (Pt Warm) -Tenderness on Palpation (Regina-wound No No Skin Appearance) -Ulcer Cleansing Soap and Water Soap and Water -Foul Odor after Cleansing No No -Anesthetic Used 4% Lidocaine 5% Lidocaine Solution Gel #2 L. Med cluster -Current Size (cm) - Length 6.4 16 -Current Size (cm) - Width 7.0 7.0 -Current Size (cm) - Depth 0.1 0.2 -Total Square Cm 44.80 112.0 -Date of Last Picture (Recall this 06/10/25 06/17/25 field) -Photo Taken Yes Yes -Epithelialization Medium 34-66% -Tunneling No No -Undermining/Tunneling No No -Circular Undermining No No -Exudate Amt Medium Small -Exudate Type Serosanguineous Serosanguineous -Wound Margin Flat & Intact Flat & Intact -Granulation Amt Medium (34-66%) Medium (34-66%) -Granulation Quality Pale,Delight Pale,Delight -Slough/Fibrin -Necrosis Amt Medium (34-66%) Medium (34-66%) -Necrotic Tissue Type Adherent Slough Adherent Slough -Texture (Regina-wound Skin Appearance) Assessed Assessed -Moisture (Regina-wound Skin Appearance) Assessed Assessed -Color (Regina-wound Skin Appearance) Assessed Assessed -Temperature (Regina-wound Skin No Abnormality No Abnormality Appearance) (Pt Warm) (Pt Warm) -Tenderness on Palpation (Regina-wound No No Skin Appearance) -Ulcer Cleansing Soap and Water Soap and Water -Foul Odor after Cleansing No No -Anesthetic Used 4% Lidocaine 5% Lidocaine Solution Gel #1 R Med Cluster -Current Size (cm) - Length 8.5 2 -Current Size (cm) - Width 4.0 1.5 -Current Size (cm) - Depth 0.1 0.1 -Total Square Cm 34.00 3.0 -Date of Last Picture (Recall this 06/10/25 06/17/25 field) -Photo Taken Yes Yes -Epithelialization Large 67-100% -Tunneling No No -Undermining/Tunneling No No -Circular Undermining No -Exudate Amt Small Small -Exudate Type Serosanguineous Serosanguineous -Wound Margin Flat & Intact Flat & Intact -Granulation Amt Medium (34-66%) Medium (34-66%) -Granulation Quality Pale,Delight Pale,Delight -Slough/Fibrin -Necrosis Amt Medium (34-66%) Small (1-33%) -Necrotic Tissue Type Adherent Slough Adherent Slough -Texture (Regina-wound Skin Appearance) Assessed Assessed -Moisture (Regina-wound Skin Appearance) Assessed Assessed -Color (Regina-wound Skin Appearance) Assessed Assessed -Temperature (Regina-wound Skin No Abnormality No Abnormality Appearance) (Pt Warm) (Pt Warm) -Tenderness on Palpation (Regina-wound No No Skin Appearance) -Ulcer Cleansing Soap and Water Soap and Water -Foul Odor after Cleansing No No -Anesthetic Used 4% Lidocaine 5% Lidocaine Solution Gel Lower Limb Edema Present Yes Right Calf (cm) 28 28 27 Right Ankle (cm) 19.5 19.5 19.5 Left Calf (cm) 29.5 28.5 28 Left Ankle (cm) 21.5 21.5 20 WC - Nurse 2 - General Ulcer CM Notes Start: 05/20/25 09:12 Freq: Status: Active Protocol: Activity Type Activity Date Activity User E-sign Co-sign Detail Recorded Client Recorded Date Recorded By Document 05/20/25 09:48 MACHELLE [id number] 05/20/25 09:59 Edit Result 05/20/25 09:48 JF (1) [id number] 05/27/25 11:34 JF Document 05/27/25 10:09 JF [id number] 05/27/25 10:17 JF Document 06/03/25 10:17 JF [id number] 06/03/25 10:27 JF Document 06/10/25 10:34 JF [id number] 06/10/25 10:40 JF Document 06/17/25 10:19 JF [id number] 06/17/25 10:31 JF (1) 3-LEFT LATERAL LEG - Clinical Debridement Subcutaneous => Muscle / Fascia - Tissue Removed Subcutaneous => Muscle - Debridement - Muscle / Fascia, 1st => Yes 20sq cm #1 R Med Cluster - Clinical Debridement => Subcutaneous - Tissue Removed Epidermis, => Subcutaneous Subcutaneous => 05/20/25 05/27/25 06/03/25 09:48 10:09 10:17 Wound Center Nurse 2 6.RIGHT LATeral leg cluster -Time 09:48 10:09 10:17 -Correct Patient Yes Yes Yes -Correct Side, Site, Position Yes Yes Yes -Correct Procedure Yes Yes Yes -Procedure Performed Yes Yes Yes -Type of Procedure Debridement Debridement Debridement -Clinical Debridement Subcutaneous Subcutaneous Subcutaneous -Tissue Removed Subcutaneous Subcutaneous Subcutaneous -Post Debridement (cm) - Length 3.2 2.0 1.9 -Post Debridement (cm) - Width 1.0 0.8 0.8 -Post Debridement (cm) - Depth 0.1 0.1 0.1 -Total Square (Post) (cm) 3.20 1.60 1.52 -Area of Debridement (cm) - Length 3.2 2.0 1.9 -Area of Debridement (cm) - Width 1.0 0.8 0.8 -Total Square (Area) (cm) 3.20 1.60 1.52 -Tunneling No No No -Undermining/Tunneling No No No -Circular Undermining No No No -Wound/Ulcer Outcome Not Healed Not Healed Not Healed -Ulcer Cleansing Rinsed/ Rinsed/ Rinsed/ Irrigated with Irrigated with Irrigated with Saline Saline Saline -Foul Odor after Cleansing No No No -Bioengineered Tissue No No No -Bleeding Controlled with Pressure Pressure Pressure -Treatment Response Procedure Procedure Procedure Tolerated Well Tolerated Well Tolerated Well -Offloading No No No -Debridement - Subq, 1st 20sq cm No No No 3-LEFT LATERAL LEG -Time 09:50 10:10 10:17 -Correct Patient Yes Yes Yes -Correct Side, Site, Position Yes Yes Yes -Correct Procedure Yes Yes Yes -Procedure Performed Yes Yes Yes -Type of Procedure Debridement Debridement Debridement -Clinical Debridement Muscle / Fascia Muscle / Fascia Muscle / Fascia -Tissue Removed Muscle Muscle Muscle -Post Debridement (cm) - Length 2.0 2.3 2.0 -Post Debridement (cm) - Width 1.4 1.5 1.2 -Post Debridement (cm) - Depth 0.5 0.5 0.4 -Total Square (Post) (cm) 2.80 3.45 2.40 -Area of Debridement (cm) - Length 2.0 2.3 2.0 -Area of Debridement (cm) - Width 1.4 1.5 1.2 -Total Square (Area) (cm) 2.80 3.45 2.40 -Tunneling No No No -Undermining/Tunneling No No No -Circular Undermining No No No -Wound/Ulcer Outcome Not Healed Not Healed Not Healed -Ulcer Cleansing Rinsed/ Rinsed/ Rinsed/ Irrigated with Irrigated with Irrigated with Saline Saline Saline -Foul Odor after Cleansing No No No -Bioengineered Tissue No No No -Bleeding Controlled with Pressure Pressure Pressure -Treatment Response Procedure Procedure Procedure Tolerated Well Tolerated Well Tolerated Well -Offloading No No No -Debridement - Subq, 1st 20sq cm No -Debridement - Muscle / Fascia, 1st Yes Yes Yes 20sq cm #2 L. Med cluster -Time 09:50 10:10 10:19 -Correct Patient Yes Yes Yes -Correct Side, Site, Position Yes Yes Yes -Correct Procedure Yes Yes Yes -Procedure Performed Yes Yes Yes -Type of Procedure Debridement Debridement Debridement -Clinical Debridement Subcutaneous Subcutaneous Subcutaneous -Tissue Removed Subcutaneous Subcutaneous Subcutaneous -Post Debridement (cm) - Length 10 10.0 9.8 -Post Debridement (cm) - Width 8 8.5 9.0 -Post Debridement (cm) - Depth 0.2 0.4 0.2 -Total Square (Post) (cm) 80 85.00 88.20 -Area of Debridement (cm) - Length 10 10.0 9.8 -Area of Debridement (cm) - Width 8 8.5 9.0 -Total Square (Area) (cm) 80 85.00 88.20 -Tunneling No No No -Undermining/Tunneling No No No -Circular Undermining No No No -Wound/Ulcer Outcome Not Healed Not Healed Not Healed -Ulcer Cleansing Rinsed/ Rinsed/ Rinsed/ Irrigated with Irrigated with Irrigated with Saline Saline Saline -Foul Odor after Cleansing No No No -Bioengineered Tissue Yes Yes Yes -Type of Bioengineered Tissue Epifix Mesh Epifix Mesh Epifix Mesh -Expiration Date 11/18/29 11/18/29 -Product Lot Number [id number] -Percent Used 100 100 -Lot number of Saline Used [id number] -Bleeding Controlled with Pressure Pressure Pressure -Treatment Response Procedure Procedure Procedure Tolerated Well Tolerated Well Tolerated Well -Offloading No No No -Debridement - Subq, 1st 20sq cm No No No -Apply Skin Sub - 1st 25 sq cm - Legs 1 1 1 -Apply Skin Sub - each addt'l 25 sq cm 3 3 3 - Legs -Epifix Mesh Application 1-4 (per sq 11 11 11 cm) #1 R Med Cluster -Time 09:57 10:11 10:26 -Correct Patient Yes Yes Yes -Correct Side, Site, Position Yes Yes Yes -Correct Procedure Yes Yes Yes -Procedure Performed Yes Yes Yes -Type of Procedure Debridement Debridement Debridement -Clinical Debridement Subcutaneous Subcutaneous Subcutaneous -Tissue Removed Subcutaneous Subcutaneous Subcutaneous -Post Debridement (cm) - Length 4.4 3.4 2.5 -Post Debridement (cm) - Width 3.2 2.8 2.4 -Post Debridement (cm) - Depth 0.1 0.3 0.2 -Total Square (Post) (cm) 14.08 9.52 6.00 -Area of Debridement (cm) - Length 4.4 3.4 2.5 -Area of Debridement (cm) - Width 3.2 2.8 2.4 -Total Square (Area) (cm) 14.08 9.52 6.00 -Tunneling No No No -Undermining/Tunneling No No No -Circular Undermining No No No -Wound/Ulcer Outcome Not Healed Not Healed Not Healed -Ulcer Cleansing Rinsed/ Rinsed/ Rinsed/ Irrigated with Irrigated with Irrigated with Saline Saline Saline -Foul Odor after Cleansing No No No -Bioengineered Tissue No No No -Bleeding Controlled with Pressure Pressure Pressure -Treatment Response Procedure Procedure Procedure Tolerated Well Tolerated Well Tolerated Well -Offloading No No No -Debridement - Subq, 1st 20sq cm Yes Yes Yes Pain Scale: 0-10 Numeric Is Patient Pain Free? Yes Yes Yes 06/10/25 06/17/25 10:34 10:19 Wound Center Nurse 2 6.RIGHT LATeral leg cluster -Time 10:35 10:21 -Correct Patient Yes Yes -Correct Side, Site, Position Yes Yes -Correct Procedure Yes Yes -Procedure Performed Yes Yes -Type of Procedure Debridement Debridement -Clinical Debridement Subcutaneous Subcutaneous -Tissue Removed Subcutaneous Subcutaneous -Post Debridement (cm) - Length 0.9 1.7 -Post Debridement (cm) - Width 0.8 0.8 -Post Debridement (cm) - Depth 0.1 0.2 -Total Square (Post) (cm) 0.72 1.36 -Area of Debridement (cm) - Length 0.9 1.7 -Area of Debridement (cm) - Width 0.8 0.8 -Total Square (Area) (cm) 0.72 1.36 -Tunneling No No -Undermining/Tunneling No No -Circular Undermining No No -Wound/Ulcer Outcome Not Healed Not Healed -Ulcer Cleansing Rinsed/ Rinsed/ Irrigated with Irrigated with Saline Saline -Foul Odor after Cleansing No No -Bioengineered Tissue No No -Bleeding Controlled with Pressure Pressure -Treatment Response Procedure Procedure Tolerated Well Tolerated Well -Offloading No No -Debridement - Subq, 1st 20sq cm Yes Yes 3-LEFT LATERAL LEG -Time 10:35 10:22 -Correct Patient Yes Yes -Correct Side, Site, Position Yes Yes -Correct Procedure Yes Yes -Procedure Performed Yes Yes -Type of Procedure Debridement Debridement -Clinical Debridement Subcutaneous Muscle / Fascia -Tissue Removed Subcutaneous Muscle -Post Debridement (cm) - Length 1.7 1.7 -Post Debridement (cm) - Width 0.8 0.7 -Post Debridement (cm) - Depth 0.3 0.3 -Total Square (Post) (cm) 1.36 1.19 -Area of Debridement (cm) - Length 1.7 1.7 -Area of Debridement (cm) - Width 0.8 0.7 -Total Square (Area) (cm) 1.36 1.19 -Tunneling No No -Undermining/Tunneling No No -Circular Undermining No No -Wound/Ulcer Outcome Not Healed Not Healed -Ulcer Cleansing Rinsed/ Irrigated with Saline -Foul Odor after Cleansing No No -Bioengineered Tissue No No -Bleeding Controlled with Pressure Pressure -Treatment Response Procedure Procedure Tolerated Well Tolerated Well -Offloading No No -Debridement - Subq, 1st 20sq cm No No -Debridement - Muscle / Fascia, 1st Yes 20sq cm #2 L. Med cluster -Time 10:35 10:23 -Correct Patient Yes Yes -Correct Side, Site, Position Yes Yes -Correct Procedure Yes Yes -Procedure Performed Yes Yes -Type of Procedure Debridement Debridement -Clinical Debridement Subcutaneous Subcutaneous -Tissue Removed Subcutaneous Subcutaneous -Post Debridement (cm) - Length 8.8 7.2 -Post Debridement (cm) - Width 7.2 7.3 -Post Debridement (cm) - Depth 0.2 0.3 -Total Square (Post) (cm) 63.36 52.56 -Area of Debridement (cm) - Length 8.8 7.2 -Area of Debridement (cm) - Width 7.2 7.3 -Total Square (Area) (cm) 63.36 52.56 -Tunneling No No -Undermining/Tunneling No No -Circular Undermining No No -Wound/Ulcer Outcome Not Healed Not Healed -Ulcer Cleansing Rinsed/ Rinsed/ Irrigated with Irrigated with Saline Saline -Foul Odor after Cleansing No No -Bioengineered Tissue Yes Yes -Type of Bioengineered Tissue Epifix Mesh Epifix Mesh -Expiration Date 11/18/29 11/18/29 -Product Lot Number [id number] -Percent Used 100 100 -Lot number of Saline Used [id number] -Bleeding Controlled with Pressure Pressure -Treatment Response Procedure Procedure Tolerated Well Tolerated Well -Offloading No No -Debridement - Subq, 1st 20sq cm No No -Apply Skin Sub - 1st 25 sq cm - Legs 1 1 -Apply Skin Sub - each addt'l 25 sq cm 2 2 - Legs -Epifix Mesh Application 1-4 (per sq 11 11 cm) #1 R Med Cluster -Time 10:38 10:30 -Correct Patient Yes Yes -Correct Side, Site, Position Yes Yes -Correct Procedure Yes Yes -Procedure Performed Yes Yes -Type of Procedure Debridement Debridement -Clinical Debridement Subcutaneous Subcutaneous -Tissue Removed Subcutaneous Subcutaneous -Post Debridement (cm) - Length 3.0 1.8 -Post Debridement (cm) - Width 2.4 1.5 -Post Debridement (cm) - Depth 0.2 0.1 -Total Square (Post) (cm) 7.20 2.70 -Area of Debridement (cm) - Length 3.0 1.8 -Area of Debridement (cm) - Width 2.4 1.5 -Total Square (Area) (cm) 7.20 2.70 -Tunneling No No -Undermining/Tunneling No No -Circular Undermining No No -Wound/Ulcer Outcome Not Healed Not Healed -Ulcer Cleansing Rinsed/ Rinsed/ Irrigated with Irrigated with Saline Saline -Foul Odor after Cleansing No No -Bioengineered Tissue No No -Bleeding Controlled with Pressure Pressure -Treatment Response Procedure Procedure Tolerated Well Tolerated Well -Offloading No No -Debridement - Subq, 1st 20sq cm No No Pain Scale: 0-10 Numeric Is Patient Pain Free? Yes Yes WC - Nurse 3 - General Ulcer D/C NN Start: 05/20/25 09:12 Freq: Status: Active Protocol: Activity Type Activity Date Activity User E-sign Co-sign Detail Recorded Client Recorded Date Recorded By Document 05/20/25 10:12 MT [id number] 05/20/25 10:15 MT Document 05/27/25 10:42 GM [id number] 05/27/25 10:45 GM Document 05/29/25 13:35 ML [id number] 05/29/25 13:37 ML Document 06/03/25 10:50 GM [id number] 06/03/25 10:52 GM Document 06/08/25 10:13 TS [id number] 06/08/25 10:21 TS Edit Result 06/08/25 10:13 TS(2) (1) [id number] 06/09/25 08:47 JF Document 06/10/25 11:05 CP [id number] 06/10/25 11:09 CP Document 06/15/25 11:24 MT [id number] 06/15/25 11:55 MT Document 06/17/25 10:49 GM [id number] 06/17/25 10:51 GM (1) BLE - Multi-Layer Compression Bilat (Qty 2 => 1 applied) 05/20/25 05/27/25 05/29/25 10:12 10:42 13:35 Wound Care Center Nurse 3 6.RIGHT LATeral leg cluster -Ulcer Cleansing -Foul Odor after Cleansing No -Primary Dressing Applied Optilok 5x5 1/2 ,Silvercel -Primary Dressing Covered/Secured with Dry Gauze & Roll Gauze, Secured with Tape -Aquacel AG 4x4 -Optilok 5x5 1/2 1 1 -Silvercel 1 -Wound Comment(s) pt brought own Aquacel AG 3-LEFT LATERAL LEG -Ulcer Cleansing Not Cleansed -Foul Odor after Cleansing No -Negative Pressure Wound Therapy -Primary Dressing Applied Optilok 5x5 1/2 -Other Dressing -Primary Dressing Covered/Secured with Dry Gauze & Roll Gauze, Secured with Tape -Optilok 5x5 1/2 1 -Silvercel #2 L. Med cluster -Ulcer Cleansing Not Cleansed -Foul Odor after Cleansing No -Primary Dressing Applied Optilok 6.5x10 -Other Dressing -Primary Dressing Covered/Secured with -Aquacel AG 4x4 -Optilok 5x5 1/2 -Optilok 6.5x10 1 -Silvercel #1 R Med Cluster -Ulcer Cleansing Not Cleansed -Foul Odor after Cleansing No -Primary Dressing Applied Optilok 5x5 1/2 -Other Dressing -Primary Dressing Covered/Secured with -Aquacel AG 4x4 -Optilok 5x5 1/2 1 -Silvercel BLE -Lotion applied to leg before compression wrap -Multi-Layered Wrap Application Multi-Layer Multi-Layer Multi-Layer Comp - Right ($ Comp - Bilat ($ Comp - Bilat ($ ) ) ) -Stockings -Multi-Layer Compression Right (Qty 1 applied) -Multi-Layer Compression Bilat (Qty 1 1 applied) Pain Scale: 0-10 Numeric Is Patient Pain Free? Yes Yes Yes WC - Visit Discharge Discharge Condition Stable Ambulatory Status Ambulatory, Walker Transportation Accompanied by Medication Reconcilliation completed & provided to patient/care provider Clinical Summary of Care Provided Notes: 06/03/25 06/08/25 06/10/25 10:50 10:13 11:05 Wound Care Center Nurse 3 6.RIGHT LATeral leg cluster -Ulcer Cleansing Not Cleansed Soap and Water Rinsed/ Irrigated with Saline -Foul Odor after Cleansing No No -Primary Dressing Applied Optilok 5x5 1/2 Silvercel Aquacel AG 4x4 ,Silvercel -Primary Dressing Covered/Secured with Dry Gauze & Dry Gauze Dry Gauze & Roll Gauze, Roll Gauze Secured with Tape -Aquacel AG 4x4 0 -Optilok 5x5 1/2 1 -Silvercel 1 1 -Wound Comment(s) 3-LEFT LATERAL LEG -Ulcer Cleansing Not Cleansed Soap and Water -Foul Odor after Cleansing No No -Negative Pressure Wound Therapy N/A -Primary Dressing Applied Silvercel -Other Dressing silvercel and abd pad -Primary Dressing Covered/Secured with Dry Gauze & Dry Gauze Dry Gauze & Roll Gauze, Roll Gauze Secured with Tape -Optilok 5x5 1/2 -Silvercel 0 #2 L. Med cluster -Ulcer Cleansing Not Cleansed Not Cleansed -Foul Odor after Cleansing No -Primary Dressing Applied Optilok 5x5 1/2 Optilok 5x5 1/2 Aquacel AG 4x4, ,Silvercel Optilok 6.5x10 -Other Dressing silvercel -Primary Dressing Covered/Secured with Dry Gauze & Dry Gauze & Roll Gauze Roll Gauze -Aquacel AG 4x4 0 -Optilok 5x5 1/2 1 1 -Optilok 6.5x10 1 -Silvercel 0 #1 R Med Cluster -Ulcer Cleansing Not Cleansed Soap and Water Rinsed/ Irrigated with Saline -Foul Odor after Cleansing No No -Primary Dressing Applied Optilok 5x5 1/2 Silvercel Aquacel AG 4x4 -Other Dressing silvercel -Primary Dressing Covered/Secured with Dry Gauze Dry Gauze & Roll Gauze -Aquacel AG 4x4 1 -Optilok 5x5 1/2 1 -Silvercel 0 BLE -Lotion applied to leg before Yes compression wrap -Multi-Layered Wrap Application Multi-Layer Multi-Layer Multi-Layer Comp - Bilat ($ Comp - Bilat ($ Comp - Bilat ($ ) ) ) -Stockings -Multi-Layer Compression Right (Qty applied) -Multi-Layer Compression Bilat (Qty 1 1 1 applied) Pain Scale: 0-10 Numeric Is Patient Pain Free? Yes Yes Yes WC - Visit Discharge Discharge Condition Stable Stable Stable Ambulatory Status Cane Ambulatory,Cane Ambulatory,Cane Transportation Private Auto Private Auto Private Auto Accompanied by daughter Medication Reconcilliation completed & No provided to patient/care provider Clinical Summary of Care Provided No Yes Notes: 06/15/25 06/17/25 11:24 10:49 Wound Care Center Nurse 3 6.RIGHT LATeral leg cluster -Ulcer Cleansing Not Cleansed -Foul Odor after Cleansing No -Primary Dressing Applied Optilok 5x5 1/2 -Primary Dressing Covered/Secured with -Aquacel AG 4x4 -Optilok 5x5 1/2 1 -Silvercel -Wound Comment(s) 3-LEFT LATERAL LEG -Ulcer Cleansing Not Cleansed -Foul Odor after Cleansing No -Negative Pressure Wound Therapy -Primary Dressing Applied Optilok 5x5 1/2 -Other Dressing Silvercel -Primary Dressing Covered/Secured with -Optilok 5x5 1/2 1 -Silvercel #2 L. Med cluster -Ulcer Cleansing Not Cleansed -Foul Odor after Cleansing No -Primary Dressing Applied Optilok 5x5 1/2 Optilok 5x5 1/2 ,Silvercel -Other Dressing Silvercel -Primary Dressing Covered/Secured with -Aquacel AG 4x4 -Optilok 5x5 1/2 1 1 -Optilok 6.5x10 -Silvercel 1 #1 R Med Cluster -Ulcer Cleansing Not Cleansed -Foul Odor after Cleansing -Primary Dressing Applied -Other Dressing Silvercel -Primary Dressing Covered/Secured with -Aquacel AG 4x4 -Optilok 5x5 1/2 -Silvercel BLE -Lotion applied to leg before Yes compression wrap -Multi-Layered Wrap Application Multi-Layer Multi-Layer Comp - Bilat ($ Comp - Bilat ($ ) ) -Stockings No -Multi-Layer Compression Right (Qty applied) -Multi-Layer Compression Bilat (Qty 1 1 applied) Pain Scale: 0-10 Numeric Is Patient Pain Free? Yes Yes WC - Visit Discharge Discharge Condition Stable Ambulatory Status Ambulatory,Cane Transportation Private Auto Accompanied by Medication Reconcilliation completed & provided to patient/care provider Clinical Summary of Care Provided Notes: nurse visit Assessment/Plan Assessment/Plan (1) Non-pressure chronic ulcer of other part of left lower leg with fat layer exposed: CODE(S): L97.822 - Non-pressure chronic ulcer of other part of left lower leg with fat layer exposed PLAN: Patient was examined and evaluated. All findings were discussed with the patient. All questions were answered to the patient's satisfaction. Excisional debridement down to including subcutaneous tissue of the right lower extremity medial full-thickness wound done with a number 5 mm dermal curette done without incident. Predebridement was 1.5 x 0.3 x 0.1 cm. Postdebridement measurement is 1.8 x 1.5 x 0.1 cm. Excisional debridement down to and including subcutaneous tissue of the right lateral full-thickness wound done with a number 5 mm dermal curette done without incident. Predebridement measurement was 1.5 x 0.5 x 0.1 cm. Postdebridement measurement is 1.7 x 0.8 x 0.2 cm. Excisional debridement down to and including subcutaneous tissue fascia and muscle of the left lower extremity lateral full-thickness wound done with a number 5 mm dermal curette done without incident. Predebridement measurement was sanguinous 1.6 x 0.6 x 0.2 cm. Postdebridement measurement is 1.7 x 0.7 x 0.3 cm Excisional debridement down to and including subcutaneous tissue of the left lower extremity medial full-thickness wound done with a number 5 mm dermal curette done without incident. Predebridement measurement was 7.0 x 7.1 x 0.2 cm. Postdebridement measurement is 7.2 x 7.3 x 0.3 cm. EpiFix 4.0 x 4.5 cm mesh was applied to the left medial full-thickness ulceration with 100% use. Fifth application. The graft site was free and clear of any infection. The wound/skin graft substitute was dressed with nonadherent bandage secured in place with Steri-Strips followed by bolster dressing as well as a multilayer compression bandages to the bilateral lower extremity. Patient states that the swelling has improved and will leave the compression wraps on for a week until next follow-up. Patient will follow-up with Dr. 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
--- NOTE | 2025-06-18 10:47 | WC ---
PHOTO-RIGHT [facility] CL[facility] 06/17/25
--- NOTE | 2025-06-18 10:50 | WC ---
PHOTO-RIGHT [facility] 06/17/25
--- NOTE | 2025-06-18 10:57 | WC ---
PHOTO-RIGHT [facility] CLUSTER 06/17/25
--- NOTE | 2025-06-18 11:22 | WC ---
PHOTO-LEFT MED CLUSTER 06/17/25
--- NOTE | 2025-06-18 11:24 | WC ---
PHOTO-LEFT LEG 06/17/25
--- NOTE | 2025-06-18 11:27 | WC ---
PHOTO-RIGHT LATERAL LEG CLUSTER 06/17/25
--- NOTE | 2025-06-18 11:30 | WC ---
PHOTO-RIGHT LATERAL LEG 06/17/25
--- NOTE | 2025-06-18 11:36 | WC ---
PHOTO-RIGHT [facility] CL[facility] 06/17/25
== END 2025-06-19 23:59 | disposition home or self-care (01) ==
LOC: WC 09:45
PROVIDERS: PCP Family Medicine; Referring Provider Podiatrist Foot & Ankle Surgery; Visit Provider Podiatrist Foot & Ankle Surgery
DX: I73.89 Other specified peripheral vascular diseases (principal); L97.812 Non-pressure chronic ulcer of other part of right lower leg with fat layer exposed; L97.822 Non-pressure chronic ulcer of other part of left lower leg with fat layer exposed; S80.861D Insect bite (nonvenomous), right lower leg, subsequent encounter; S80.862D Insect bite (nonvenomous), left lower leg, subsequent encounter; W57.XXXD Bitten or stung by nonvenomous insect and other nonvenomous arthropods, subsequent encounter; R60.0 Localized edema
CPT/HCPCS: 11042; 11043; 15271; 15272; 29581; Q4186

== ENCOUNTER 2025-07-13 11:00 | Outpatient (RCR) | payer MEDICARE, SELFPAY ==
[2025-06-24 09:45] VITALS: BP 152/85; PULSE 66; RESP 17; TEMP 36.1
--- NOTE | 2025-06-24 11:59 | PCM.WC.PN ---
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 Progress of Wound: Improving bilateral full-thickness wounds Subjective Subjective Patient is 85-year-old female presenting to the wound care center today follow-up evaluation of full-thickness wounds to bilateral lower extremity. She has left the amnion skin graft substitute to the anterior lateral aspect of the left lower extremity, and has left the bilateral 3M multilayer compression wraps clean dry and intact. She mitts to some malodor as she did not come for nursing visits for dressing changes. She is elevating and resting as discussed. She denies any pain or trauma. Denies constitutional symptoms. No other pedal complaints at this time. Objective Data Objective Data Vital Signs: Vital Signs Temp Pulse Resp BP O2 Del Method 97.0 F L 66 17 152/85 H Room Air 06/24/25 09:45 06/24/25 09:45 06/24/25 09:45 06/24/25 09:45 06/24/25 09:45 Oxygen Delivery Method Room Air Lab / Micro Data Micro: Microbiology 04/08/25 15:07 Wound - Leg, Left Gram Stain - Final 04/08/25 15:07 Wound - Leg, Left Wound Culture - Final Morganella morganii sp morgani Acinetobacter baumannii Staphylococcus aureus Streptococcus viridans group 04/08/25 15:07 Wound - Leg, Left Anaerobic Culture - Preliminary Bacteroides sp Gram negative eloina Physical Exam Narrative Vascular: DP and PT pulses palpable. CFT brisk. No erythema or proximal streaking. Skin temperature is warm to warm with no focal increase. Nonpitting edema appreciated bilateral lower extremity. Neurologic: Light touch is intact. Patient does respond to painful stimuli. Dermatologic: Right lower extremity medial full-thickness wounds measure 1.7 x 1.7 x 0.1 cm. Wound base is fibrogranular nature. No sign of infection. Right lower extremity lateral full-thickness wound measuring 1.1 x 0.3 x 0.2 cm. Wound base is fibrogranular in nature. No sign of infection. Left lower extremity medial full-thickness wounds measuring 8.5 x 7.0 x 0.2 cm. Wound base is granular nature with no sign of infection. Left lower extremity lateral full-thickness wound measuring 1.8 x 0.8 x 0.2 cm. Wound base is fibrogranular nature. No sign of infection. Excisional debridement down to including subcutaneous tissue of the right lower extremity medial full-thickness wound done with a number 5 mm dermal curette done without incident. Predebridement was 1.5 x 1.5 x 0.1 cm. Postdebridement measurement is 1.7 x 1.7 x 0.1 cm. Excisional debridement down to and including subcutaneous tissue of the right lateral full-thickness wound done with a number 5 mm dermal curette done without incident. Predebridement measurement was 0.9 x 0.2 x 0.1 cm. Postdebridement measurement is 1.1 x 0.3 x 0.2 cm. Excisional debridement down to and including subcutaneous tissue fascia and muscle of the left lower extremity lateral full-thickness wound done with a number 5 mm dermal curette done without incident. Predebridement measurement was sanguinous 1.5 x 0.5 x 0.1 cm. Postdebridement measurement is 1.8 x 0.8 x 0.2 cm. Excisional debridement down to and including subcutaneous tissue of the left lower extremity medial full-thickness wound done with a number 5 mm dermal curette done without incident. Predebridement measurement was 8.3 x 6.8 x 0.1 cm. Postdebridement measurement is 8.5 x 7.0 x 0.2 cm. EpiFix 4.0 x 4.5 cm mesh was applied to the left medial full-thickness ulceration with 100% use. 6th application. The graft site was free and clear of any infection. The wound/skin graft substitute was dressed with nonadherent bandage secured in place with Steri-Strips followed by bolster dressing as well as a multilayer compression bandages to the bilateral lower extremity. Musculoskeletal: Mild palpatory tenderness appreciated the bilateral lower extremity. No pain with calf compression bilateral. Debridement Note Debridement Note Debridement Free Text: Excisional debridement down to including subcutaneous tissue of the right lower extremity medial full-thickness wound done with a number 5 mm dermal curette done without incident. Predebridement was 1.5 x 1.5 x 0.1 cm. Postdebridement measurement is 1.7 x 1.7 x 0.1 cm. Excisional debridement down to and including subcutaneous tissue of the right lateral full-thickness wound done with a number 5 mm dermal curette done without incident. Predebridement measurement was 0.9 x 0.2 x 0.1 cm. Postdebridement measurement is 1.1 x 0.3 x 0.2 cm. Excisional debridement down to and including subcutaneous tissue fascia and muscle of the left lower extremity lateral full-thickness wound done with a number 5 mm dermal curette done without incident. Predebridement measurement was sanguinous 1.5 x 0.5 x 0.1 cm. Postdebridement measurement is 1.8 x 0.8 x 0.2 cm. Excisional debridement down to and including subcutaneous tissue of the left lower extremity medial full-thickness wound done with a number 5 mm dermal curette done without incident. Predebridement measurement was 8.3 x 6.8 x 0.1 cm. Postdebridement measurement is 8.5 x 7.0 x 0.2 cm. EpiFix 4.0 x 4.5 cm mesh was applied to the left medial full-thickness ulceration with 100% use. 6th application. The graft site was free and clear of any infection. The wound/skin graft substitute was dressed with nonadherent bandage secured in place with Steri-Strips followed by bolster dressing as well as a multilayer compression bandages to the bilateral lower extremity. Post-Debridement Measurements and Additional Note: Post-Debridement Measurements/Treatment [facility] Nurse 1 - General Ulcer Assessment Start: 06/24/25 09:45 Freq: Status: Active Protocol: WC.LOWEXT Activity Type Activity Date Activity User E-sign Co-sign Detail Recorded Client Recorded Date Recorded By Document 06/24/25 09:45 [id number] 06/24/25 10:07 06/24/25 09:45 - Today's Visit Information Type of service Follow-up Visit (Physician/[employer] ) Arrival Mode Ambulatory Patient Identification Verified (Name & Yes ) Patient Requires Transmission-Based No Precautions Safety Precautions Fall Prevention Vital Signs Temperature (97.8 F-99.1 F) 97.0 F L Temperature Source Temporal Pulse Rate (60-100) 66 Pulse Location Monitor Respiratory Rate (12-18) 17 Respiratory rate source Observation Oxygen Delivery Method Room Air Blood Pressure (90/60-120/80) 152/85 H Blood Pressure Mean (mm Hg) 107 Source Monitor Position Sitting Blood Pressure Location Left Arm History Since Last Visit- (Skip if this is Patient's initial visit) Have you changed medications since your No last visit? Any new allergies or adverse reactions No Had a fall/change in ADL's that may No increase risk of falls Signs or symptoms of abuse and/or No neglect since last visit Have you been in the hospital since your No last visit? Has dressing in place as prescribed Yes Has compression in place as prescribed Yes Has offloadiing in place as prescribed N/A Experienced any changes in pain level or No management Left Footwear Regular Shoe Right Footwear Regular Shoe Pain Scale: 0-10 Numeric Is Patient Pain Free? Yes WC - Nurse 1 - General Ulcer Measurement Start: 06/24/25 09:45 Freq: Status: Active Protocol: Activity Type Activity Date Activity User E-sign Co-sign Detail Recorded Client Recorded Date Recorded By Document 06/24/25 09:45 TS [id number] 06/24/25 10:07 TS 06/24/25 09:45 Wound Center Nurse 1 6.RIGHT LATeral leg cluster -Combined with other wound No -Current Size (cm) - Length 1.4 -Current Size (cm) - Width 0.5 -Current Size (cm) - Depth 0.1 -Total Square Cm 0.70 -Date of Last Picture (Recall this 06/24/25 field) -Photo Taken Yes -Tunneling No -Undermining/Tunneling No -Circular Undermining No -Exudate Amt Small -Exudate Type Serous -Granulation Amt Medium (34-66%) -Granulation Quality [place],Red -Slough/Fibrin No -Necrosis Amt Medium (34-66%) -Necrotic Tissue Type Adherent Slough -Structure Exposed None/Limited to Skin Breakdown -Texture (Regina-wound Skin Appearance) Assessed -Moisture (Regina-wound Skin Appearance) Dry/Scaly -Color (Regina-wound Skin Appearance) Assessed -Temperature (Regina-wound Skin No Abnormality Appearance) (Pt Warm) -Tenderness on Palpation (Regina-wound Yes Skin Appearance) -Foul Odor after Cleansing No -Anesthetic Used 5% Lidocaine Gel 3-LEFT LATERAL LEG -Current Size (cm) - Length 1.5 -Current Size (cm) - Width 0.5 -Current Size (cm) - Depth 0.2 -Total Square Cm 0.75 -Date of Last Picture (Recall this 06/24/25 field) -Photo Taken Yes -Tunneling No -Undermining/Tunneling No -Exudate Amt Small -Exudate Type Serosanguineous -Wound Margin Distinct, Outline Attached -Granulation Amt Medium (34-66%) -Granulation Quality [place],Red -Slough/Fibrin Yes -Structure Exposed None/Limited to Skin Breakdown -Texture (Regina-wound Skin Appearance) Assessed -Moisture (Regina-wound Skin Appearance) Dry/Scaly -Color (Regina-wound Skin Appearance) Assessed -Temperature (Regina-wound Skin No Abnormality Appearance) (Pt Warm) -Tenderness on Palpation (Regina-wound No Skin Appearance) -Ulcer Cleansing Soap and Water -Foul Odor after Cleansing No -Anesthetic Used 5% Lidocaine Gel #2 L. Med cluster -Current Size (cm) - Length 6.5 -Current Size (cm) - Width 7 -Current Size (cm) - Depth 0.2 -Total Square Cm 45.5 -Date of Last Picture (Recall this 06/24/25 field) -Photo Taken Yes -Tunneling No -Undermining/Tunneling No -Exudate Amt Large -Exudate Type Yellow/Green -Wound Margin Distinct, Outline Attached -Granulation Amt Medium (34-66%) -Granulation Quality [place],Red -Structure Exposed None/Limited to Skin Breakdown -Texture (Regina-wound Skin Appearance) Assessed -Moisture (Regina-wound Skin Appearance) Dry/Scaly -Color (Regina-wound Skin Appearance) Assessed -Temperature (Regina-wound Skin No Abnormality Appearance) (Pt Warm) -Tenderness on Palpation (Regina-wound No Skin Appearance) -Ulcer Cleansing Soap and Water -Foul Odor after Cleansing No -Anesthetic Used 5% Lidocaine Gel #1 R Med Cluster -Current Size (cm) - Length 0.1 -Current Size (cm) - Width 0.1 -Current Size (cm) - Depth 0.1 -Total Square Cm 0.01 -Tunneling No -Undermining/Tunneling No -Exudate Amt Medium -Exudate Type Serosanguineous -Wound Margin Distinct, Outline Attached -Structure Exposed N/A -Texture (Regina-wound Skin Appearance) Assessed -Moisture (Regina-wound Skin Appearance) Dry/Scaly -Color (Regina-wound Skin Appearance) Assessed -Temperature (Regina-wound Skin No Abnormality Appearance) (Pt Warm) -Ulcer Cleansing Soap and Water -Anesthetic Used 5% Lidocaine Gel Point of measurement (cm from the medial 27 instep) Point of Measurement (cm from the medial 19.5 instep) Point of measurement (cm from the medial 28 instep) Point of Measurement (cm from the medial 20 instep) WC - Nurse 2 - General Ulcer CM Notes Start: 06/24/25 09:45 Freq: Status: Active Protocol: Activity Type Activity Date Activity User E-sign Co-sign Detail Recorded Client Recorded Date Recorded By Document 06/24/25 10:13 MACHELLE [id number] 06/24/25 10:21 MACHELLE 06/24/25 10:13 Wound Center Nurse 2 6.RIGHT LATeral leg cluster -Time 10:14 -Correct Patient Yes -Correct Side, Site, Position Yes -Correct Procedure Yes -Procedure Performed Yes -Type of Procedure Debridement -Tissue Removed Epidermis, Subcutaneous -Post Debridement (cm) - Length 1.1 -Post Debridement (cm) - Width 0.3 -Post Debridement (cm) - Depth 0.2 -Total Square (Post) (cm) 0.33 -Area of Debridement (cm) - Length 1.1 -Area of Debridement (cm) - Width 0.3 -Total Square (Area) (cm) 0.33 -Tunneling No -Undermining/Tunneling No -Circular Undermining No -Wound/Ulcer Outcome Not Healed -Ulcer Cleansing Rinsed/ Irrigated with Saline -Foul Odor after Cleansing No -Bioengineered Tissue No -Bleeding Controlled with Pressure -Treatment Response Procedure Tolerated Well -Offloading No -Debridement - Subq, 1st 20sq cm No 3-LEFT LATERAL LEG -Time 10:15 -Correct Patient Yes -Correct Side, Site, Position Yes -Correct Procedure Yes -Procedure Performed Yes -Type of Procedure Debridement -Clinical Debridement Subcutaneous -Tissue Removed Subcutaneous -Post Debridement (cm) - Length 1.8 -Post Debridement (cm) - Width 0.8 -Post Debridement (cm) - Depth 0.2 -Total Square (Post) (cm) 1.44 -Area of Debridement (cm) - Length 1.8 -Area of Debridement (cm) - Width 0.8 -Total Square (Area) (cm) 1.44 -Tunneling No -Undermining/Tunneling No -Circular Undermining No -Wound/Ulcer Outcome Not Healed -Ulcer Cleansing Rinsed/ Irrigated with Saline -Foul Odor after Cleansing No -Bioengineered Tissue No -Bleeding Controlled with Pressure -Treatment Response Procedure Tolerated Well -Offloading No -Debridement - Subq, 1st 20sq cm No #2 L. Med cluster -Time 10:15 -Correct Patient Yes -Correct Side, Site, Position Yes -Correct Procedure Yes -Procedure Performed Yes -Type of Procedure Debridement -Clinical Debridement Subcutaneous -Tissue Removed Subcutaneous -Post Debridement (cm) - Length 8.5 -Post Debridement (cm) - Width 7 -Post Debridement (cm) - Depth 0.2 -Total Square (Post) (cm) 59.5 -Area of Debridement (cm) - Length 8.5 -Area of Debridement (cm) - Width 7 -Total Square (Area) (cm) 59.5 -Tunneling No -Undermining/Tunneling No -Circular Undermining No -Wound/Ulcer Outcome Not Healed -Ulcer Cleansing Rinsed/ Irrigated with Saline -Foul Odor after Cleansing No -Bioengineered Tissue Yes -Type of Bioengineered Tissue Epifix Mesh -Expiration Date 11/18/29 -Product Lot Number [id number] -Percent Used 100 -Lot number of Saline Used [id number] -Bleeding Controlled with Pressure -Treatment Response Procedure Tolerated Well -Offloading No -Debridement - Subq, 1st 20sq cm No -Apply Skin Sub - 1st 25 sq cm - Legs 1 -Apply Skin Sub - each addt'l 25 sq cm 2 - Legs -Epifix Mesh Application 1-4 (per sq 11 cm) #1 R Med Cluster -Time 10:16 -Correct Patient Yes -Correct Side, Site, Position Yes -Correct Procedure Yes -Procedure Performed Yes -Type of Procedure Debridement -Clinical Debridement Subcutaneous -Tissue Removed Subcutaneous -Post Debridement (cm) - Length 1.7 -Post Debridement (cm) - Width 1.7 -Post Debridement (cm) - Depth 0.1 -Total Square (Post) (cm) 2.89 -Area of Debridement (cm) - Length 1.7 -Area of Debridement (cm) - Width 1.7 -Total Square (Area) (cm) 2.89 -Tunneling No -Undermining/Tunneling No -Circular Undermining No -Wound/Ulcer Outcome Not Healed -Ulcer Cleansing Rinsed/ Irrigated with Saline -Foul Odor after Cleansing No -Bioengineered Tissue No -Bleeding Controlled with Pressure -Treatment Response Procedure Tolerated Well -Offloading No -Debridement - Subq, 1st 20sq cm Yes Pain Scale: 0-10 Numeric Is Patient Pain Free? Yes WC - Nurse 3 - General Ulcer D/C NN Start: 06/24/25 09:45 Freq: Status: Active Protocol: Activity Type Activity Date Activity User E-sign Co-sign Detail Recorded Client Recorded Date Recorded By Document 06/24/25 10:42 CP [id number] 06/24/25 10:49 CP 06/24/25 10:42 Wound Care Center Nurse 3 6.RIGHT LATeral leg cluster -Primary Dressing Covered/Secured with Dry Gauze 3-LEFT LATERAL LEG -Ulcer Cleansing Rinsed/ Irrigated with Saline -Primary Dressing Applied [place] -Primary Dressing Covered/Secured with Dry Gauze -[place] 1 #2 L. Med cluster -Ulcer Cleansing Rinsed/ Irrigated with Saline -Primary Dressing Applied [place] -Primary Dressing Covered/Secured with Dry Gauze -[place] 0 #1 R Med Cluster -Primary Dressing Covered/Secured with Dry Gauze BLE -Multi-Layered Wrap Application Multi-Layer Comp - Bilat ($ ) -Multi-Layer Compression Bilat (Qty 1 applied) Pain Scale: 0-10 Numeric Is Patient Pain Free? Yes WC - Visit Discharge Discharge Condition Stable Ambulatory Status Ambulatory,Cane Transportation Private Auto Clinical Summary of Care Provided Yes Assessment/Plan Assessment/Plan (1) Non-pressure chronic ulcer of other part of left lower leg with fat layer exposed: CODE(S): L97.822 - Non-pressure chronic ulcer of other part of left lower leg with fat layer exposed PLAN: Patient was examined and evaluated. All findings were discussed with the patient. All questions were answered to the patient's satisfaction. Excisional debridement down to including subcutaneous tissue of the right lower extremity medial full-thickness wound done with a number 5 mm dermal curette done without incident. Predebridement was 1.5 x 1.5 x 0.1 cm. Postdebridement measurement is 1.7 x 1.7 x 0.1 cm. Excisional debridement down to and including subcutaneous tissue of the right lateral full-thickness wound done with a number 5 mm dermal curette done without incident. Predebridement measurement was 0.9 x 0.2 x 0.1 cm. Postdebridement measurement is 1.1 x 0.3 x 0.2 cm. Excisional debridement down to and including subcutaneous tissue fascia and muscle of the left lower extremity lateral full-thickness wound done with a number 5 mm dermal curette done without incident. Predebridement measurement was sanguinous 1.5 x 0.5 x 0.1 cm. Postdebridement measurement is 1.8 x 0.8 x 0.2 cm. Excisional debridement down to and including subcutaneous tissue of the left lower extremity medial full-thickness wound done with a number 5 mm dermal curette done without incident. Predebridement measurement was 8.3 x 6.8 x 0.1 cm. Postdebridement measurement is 8.5 x 7.0 x 0.2 cm. EpiFix 4.0 x 4.5 cm mesh was applied to the left medial full-thickness ulceration with 100% use. 6th application. The graft site was free and clear of any infection. The wound/skin graft substitute was dressed with nonadherent bandage secured in place with Steri-Strips followed by bolster dressing as well as a multilayer compression bandages to the bilateral lower extremity. The patient had silver alginate applied to all other wounds to the bilateral lower extremity except for the area that was graft on the left lower extremity medial full-thickness wound. Patient will follow-up with nursing visits Patient will follow-up with Dr. 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
--- NOTE | 2025-06-25 12:04 | WC ---
PHOTO-RIGHT LAT LEG CLUSTER 06/24/25
--- NOTE | 2025-06-25 12:06 | WC ---
PHOTO-LEFT LATERAL LEG 06/24/25
--- NOTE | 2025-06-25 12:07 | WC ---
PHOTO-LEFT LATERAL LEG 06/24/25
[2025-06-29 10:57] VITALS: BP 164/65; PULSE 69; RESP 17; TEMP 36.6
[2025-07-01 09:57] VITALS: BP 153/75; PULSE 82; RESP 17; TEMP 36.2
--- NOTE | 2025-07-01 11:26 | PN.PCM_ITS ---
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 Progress of Wound: Improving bilateral full-thickness wounds Subjective Subjective Patient is a 59-year-old female presenting to clinic today follow-up evaluation of bilateral full-thickness wounds to the lower extremities. Patient has been compliant with dressing changes and presenting to the Center for nursing visits. She mitts great improvement to the wounds. She is very grateful for her care. She denies trauma. Denies constitutional symptoms. No other pedal complaints at this time. Objective Data Objective Data Vital Signs: Vital Signs Temp Pulse Resp BP O2 Del Method 97.2 F L 82 17 153/75 H Room Air 07/01/25 09:57 07/01/25 09:57 07/01/25 09:57 07/01/25 09:57 07/01/25 09:57 Oxygen Delivery Method Room Air Lab / Micro Data Micro: Microbiology 04/08/25 15:07 Wound - Leg, Left Gram Stain - Final 04/08/25 15:07 Wound - Leg, Left Wound Culture - Final Morganella morganii sp morgani Acinetobacter baumannii Staphylococcus aureus Streptococcus viridans group 04/08/25 15:07 Wound - Leg, Left Anaerobic Culture - Preliminary Bacteroides sp Gram negative eloina Physical Exam Narrative Vascular: DP and PT pulses palpable. CFT brisk. No erythema or proximal streaking. Skin temperature is warm to warm with no focal increase. Nonpitting edema appreciated bilateral lower extremity. Neurologic: Light touch is intact. Patient does respond to painful stimuli. Dermatologic: Right lower extremity medial full-thickness wounds measure 0.7 x 0.5 x 0.1 cm. Wound base is fibrogranular nature. No sign of infection. Right lower extremity lateral full-thickness wound measuring 1.0 x 0.3 x 0.2 cm. Wound base is fibrogranular in nature. No sign of infection. Left lower extremity medial full-thickness wounds measuring 5.5 x 4.9 x 0.1 cm wound base is granular nature with no sign of infection. Left lower extremity lateral full-thickness wound measuring 0.8 x 0.6 x 0.2 cm. Wound base is fibrogranular nature. No sign of infection. Excisional debridement down to including subcutaneous tissue of the right lower extremity medial full-thickness wound done with a number 5 mm dermal curette done without incident. Predebridement was 0.5 x 0.4 x 0.1 cm. Postdebridement measurement is 0.7 x 0.5 x 0.1 cm. Excisional debridement down to and including subcutaneous tissue of the right lateral full-thickness wound done with a number 5 mm dermal curette done without incident. Predebridement measurement was 0.9 x 0.2 x 0.1 cm. Postdebridement measurement is 1.0 x 0.3 x 0.2 cm. Excisional debridement down to and including subcutaneous tissue of the left lower extremity lateral full-thickness wound done with a number 5 mm dermal curette done without incident. Predebridement measurement was sanguinous 0.7 x 0.5 x 0.1 cm. Postdebridement measurement is 0.8 x 0.6 x 0.2 cm. Excisional debridement down to and including subcutaneous tissue of the left lower extremity medial full-thickness wound done with a number 5 mm dermal curette done without incident. Predebridement measurement was 5.3 x 4.7 x 0.1 cm. Postdebridement measurement is 5.5 x 4.9 x 0.1 cm. EpiFix 4.0 x 4.5 cm mesh was applied to the left medial full-thickness ulceration with 100% use. 7th application. The graft site was free and clear of any infection. The wound/skin graft substitute was dressed with nonadherent bandage secured in place with Steri-Strips followed by bolster dressing as well as a multilayer compression bandages to the bilateral lower extremity. Musculoskeletal: Mild palpatory tenderness appreciated the bilateral lower extremity. No pain with calf compression bilateral. Debridement Note Debridement Note Debridement Free Text: Excisional debridement down to including subcutaneous tissue of the right lower extremity medial full-thickness wound done with a number 5 mm dermal curette done without incident. Predebridement was 0.5 x 0.4 x 0.1 cm. Postdebridement measurement is 0.7 x 0.5 x 0.1 cm. Excisional debridement down to and including subcutaneous tissue of the right lateral full-thickness wound done with a number 5 mm dermal curette done without incident. Predebridement measurement was 0.9 x 0.2 x 0.1 cm. Postdebridement measurement is 1.0 x 0.3 x 0.2 cm. Excisional debridement down to and including subcutaneous tissue of the left lower extremity lateral full-thickness wound done with a number 5 mm dermal curette done without incident. Predebridement measurement was sanguinous 0.7 x 0.5 x 0.1 cm. Postdebridement measurement is 0.8 x 0.6 x 0.2 cm. Excisional debridement down to and including subcutaneous tissue of the left lower extremity medial full-thickness wound done with a number 5 mm dermal curette done without incident. Predebridement measurement was 5.3 x 4.7 x 0.1 cm. Postdebridement measurement is 5.5 x 4.9 x 0.1 cm. EpiFix 4.0 x 4.5 cm mesh was applied to the left medial full-thickness ulceration with 100% use. 7th application. The graft site was free and clear of any infection. The wound/skin graft substitute was dressed with nonadherent bandage secured in place with Steri-Strips followed by bolster dressing as well as a multilayer compression bandages to the bilateral lower extremity. Post-Debridement Measurements and Additional Note: Post-Debridement Measurements/Treatment - Nurse 1 - General Ulcer Assessment Start: 06/24/25 09:45 Freq: Status: Active Protocol: MADYSON Activity Type Activity Date Activity User E-sign Co-sign Detail Recorded Client Recorded Date Recorded By Document 06/24/25 09:45 TS [id number] 06/24/25 10:07 TS Document 06/29/25 10:57 TS [id number] 06/29/25 11:02 TS Document 07/01/25 09:57 TS [id number] 07/01/25 10:06 TS 06/24/25 06/29/25 07/01/25 09:45 10:57 09:57 - Today's Visit Information Type of service Follow-up Visit Nurse-only Follow-up Visit (Physician/CLINICAL NUTRITION MANAGER Visit (Physician/CLINICAL NUTRITION MANAGER ) ) Arrival Mode Ambulatory Ambulatory,Cane Ambulatory,Cane Patient Identification Verified (Name & Yes Yes ) Patient Requires Transmission-Based No No Precautions Safety Precautions Fall Prevention Fall Prevention Vital Signs Temperature (97.8 F-99.1 F) 97.0 F L 97.9 F 97.2 F L Temperature Source Temporal Temporal Temporal Pulse Rate (60-100) 66 69 82 Pulse Location Monitor Monitor Monitor Respiratory Rate (12-18) 17 17 17 Respiratory rate source Observation Observation Observation Oxygen Delivery Method Room Air Room Air Room Air Blood Pressure (90/60-120/80) 152/85 H 164/65 H 153/75 H Blood Pressure Mean (mm Hg) 107 98 101 Source Monitor Monitor Monitor Position Sitting Sitting Sitting Blood Pressure Location Left Arm Left Arm Left Arm History Since Last Visit- (Skip if this is Patient's initial visit) Have you changed medications since your No No last visit? Any new allergies or adverse reactions No No Had a fall/change in ADL's that may No No increase risk of falls Signs or symptoms of abuse and/or No No neglect since last visit Have you been in the hospital since your No No last visit? Has dressing in place as prescribed Yes Yes Has compression in place as prescribed Yes Yes Has offloadiing in place as prescribed N/A N/A Experienced any changes in pain level or No No management Left Footwear Regular Shoe Regular Shoe Regular Shoe Right Footwear Regular Shoe Regular Shoe Regular Shoe Pain Scale: 0-10 Numeric Is Patient Pain Free? Yes Yes No WC - Nurse 1 - General Ulcer Measurement Start: 06/24/25 09:45 Freq: Status: Active Protocol: Activity Type Activity Date Activity User E-sign Co-sign Detail Recorded Client Recorded Date Recorded By Document 06/24/25 09:45 TS [id number] 06/24/25 10:07 TS Document 07/01/25 09:57 TS [id number] 07/01/25 10:06 TS 06/24/25 07/01/25 09:45 09:57 Wound Center Nurse 1 6.RIGHT LATeral leg cluster -Combined with other wound No No -Current Size (cm) - Length 1.4 1 -Current Size (cm) - Width 0.5 0.2 -Current Size (cm) - Depth 0.1 0.2 -Total Square Cm 0.70 0.2 -Date of Last Picture (Recall this 06/24/25 07/01/25 field) -Photo Taken Yes Yes -Tunneling No No -Undermining/Tunneling No No -Circular Undermining No No -Exudate Amt Small Medium -Exudate Type Serous Serosanguineous -Wound Margin Distinct, Outline Attached -Granulation Amt Medium (34-66%) Medium (34-66%) -Granulation Quality [place],Red [place],Red -Slough/Fibrin No No -Necrosis Amt Medium (34-66%) -Necrotic Tissue Type Adherent Slough -Structure Exposed None/Limited to None/Limited to Skin Breakdown Skin Breakdown -Texture (Regina-wound Skin Appearance) Assessed Assessed -Moisture (Regina-wound Skin Appearance) Dry/Scaly Assessed,Dry/ Scaly -Color (Regina-wound Skin Appearance) Assessed Assessed -Temperature (Regina-wound Skin No Abnormality No Abnormality Appearance) (Pt Warm) (Pt Warm) -Tenderness on Palpation (Regina-wound Yes Skin Appearance) -Ulcer Cleansing Soap and Water -Foul Odor after Cleansing No No -Anesthetic Used 5% Lidocaine 5% Lidocaine Gel Gel 3-LEFT LATERAL LEG -Combined with other wound No -Current Size (cm) - Length 1.5 1.4 -Current Size (cm) - Width 0.5 0.5 -Current Size (cm) - Depth 0.2 0.2 -Total Square Cm 0.75 0.70 -Date of Last Picture (Recall this 06/24/25 07/01/25 field) -Photo Taken Yes Yes -Tunneling No No -Undermining/Tunneling No No -Circular Undermining No -Exudate Amt Small Medium -Exudate Type Serosanguineous Serosanguineous -Wound Margin Distinct, Distinct, Outline Outline Attached Attached -Granulation Amt Medium (34-66%) Medium (34-66%) -Granulation Quality [place],Red [place],Red -Slough/Fibrin Yes -Structure Exposed None/Limited to None/Limited to Skin Breakdown Skin Breakdown -Texture (Regina-wound Skin Appearance) Assessed Assessed -Moisture (Regina-wound Skin Appearance) Dry/Scaly Assessed,Dry/ Scaly -Color (Regina-wound Skin Appearance) Assessed Assessed -Temperature (Regina-wound Skin No Abnormality No Abnormality Appearance) (Pt Warm) (Pt Warm) -Tenderness on Palpation (Regina-wound No Skin Appearance) -Ulcer Cleansing Soap and Water Soap and Water -Foul Odor after Cleansing No No -Anesthetic Used 5% Lidocaine 5% Lidocaine Gel Gel #2 L. Med cluster -Combined with other wound No -Current Size (cm) - Length 6.5 5.5 -Current Size (cm) - Width 7 6 -Current Size (cm) - Depth 0.2 0.2 -Total Square Cm 45.5 33.0 -Date of Last Picture (Recall this 06/24/25 07/01/25 field) -Photo Taken Yes Yes -Tunneling No No -Undermining/Tunneling No No -Circular Undermining No -Exudate Amt Large -Exudate Type Yellow/Green -Wound Margin Distinct, Distinct, Outline Outline Attached Attached -Granulation Amt Medium (34-66%) Medium (34-66%) -Granulation Quality [place],Red [place],Red -Necrosis Amt None Present (0 %) -Necrotic Tissue Type Adherent Slough -Structure Exposed None/Limited to None/Limited to Skin Breakdown Skin Breakdown -Texture (Regina-wound Skin Appearance) Assessed Assessed -Moisture (Regina-wound Skin Appearance) Dry/Scaly Assessed,Dry/ Scaly -Color (Regina-wound Skin Appearance) Assessed Assessed -Temperature (Regina-wound Skin No Abnormality No Abnormality Appearance) (Pt Warm) (Pt Warm) -Tenderness on Palpation (Regina-wound No Skin Appearance) -Ulcer Cleansing Soap and Water Soap and Water -Foul Odor after Cleansing No No -Anesthetic Used 5% Lidocaine 5% Lidocaine Gel Gel #1 R Med Cluster -Combined with other wound No -Current Size (cm) - Length 0.1 0.1 -Current Size (cm) - Width 0.1 0.1 -Current Size (cm) - Depth 0.1 0.1 -Total Square Cm 0.01 0.01 -Date of Last Picture (Recall this 07/01/25 field) -Photo Taken Yes -Tunneling No No -Undermining/Tunneling No No -Circular Undermining No -Exudate Amt Medium Medium -Exudate Type Serosanguineous -Wound Margin Distinct, Distinct, Outline Outline Attached Attached -Granulation Amt Small (1-33%) -Granulation Quality [place],Red -Necrotic Tissue Type Adherent Slough -Structure Exposed N/A -Texture (Regina-wound Skin Appearance) Assessed Assessed -Moisture (Regina-wound Skin Appearance) Dry/Scaly Assessed,Dry/ Scaly -Color (Regina-wound Skin Appearance) Assessed Assessed -Temperature (Regina-wound Skin No Abnormality No Abnormality Appearance) (Pt Warm) (Pt Warm) -Ulcer Cleansing Soap and Water Soap and Water -Foul Odor after Cleansing No -Anesthetic Used 5% Lidocaine 5% Lidocaine Gel Gel Point of measurement (cm from the medial 27 19 instep) Point of Measurement (cm from the medial 19.5 28.5 instep) Point of measurement (cm from the medial 28 30 instep) Point of Measurement (cm from the medial 20 19.5 instep) WC - Nurse 2 - General Ulcer CM Notes Start: 06/24/25 09:45 Freq: Status: Active Protocol: Activity Type Activity Date Activity User E-sign Co-sign Detail Recorded Client Recorded Date Recorded By Document 06/24/25 10:13 [id number] 06/24/25 10:21 Document 07/01/25 10:18 [id number] 07/01/25 10:27 06/24/25 07/01/25 10:13 10:18 Wound Center Nurse 2 6.RIGHT LATeral leg cluster -Time 10:14 10:19 -Correct Patient Yes Yes -Correct Side, Site, Position Yes Yes -Correct Procedure Yes Yes -Procedure Performed Yes Yes -Type of Procedure Debridement Debridement -Clinical Debridement Subcutaneous -Tissue Removed Epidermis, Subcutaneous Subcutaneous -Post Debridement (cm) - Length 1.1 1 -Post Debridement (cm) - Width 0.3 0.3 -Post Debridement (cm) - Depth 0.2 0.2 -Total Square (Post) (cm) 0.33 0.3 -Area of Debridement (cm) - Length 1.1 1 -Area of Debridement (cm) - Width 0.3 0.3 -Total Square (Area) (cm) 0.33 0.3 -Tunneling No No -Undermining/Tunneling No No -Circular Undermining No No -Wound/Ulcer Outcome Not Healed Not Healed -Ulcer Cleansing Rinsed/ Rinsed/ Irrigated with Irrigated with Saline Saline -Foul Odor after Cleansing No No -Bioengineered Tissue No No -Bleeding Controlled with Pressure Pressure -Treatment Response Procedure Procedure Tolerated Well Tolerated Well -Offloading No No -Debridement - Subq, 1st 20sq cm No Yes 3-LEFT LATERAL LEG -Time 10:15 10:20 -Correct Patient Yes Yes -Correct Side, Site, Position Yes Yes -Correct Procedure Yes Yes -Procedure Performed Yes Yes -Type of Procedure Debridement Debridement -Clinical Debridement Subcutaneous Subcutaneous -Tissue Removed Subcutaneous Subcutaneous -Post Debridement (cm) - Length 1.8 0.8 -Post Debridement (cm) - Width 0.8 0.6 -Post Debridement (cm) - Depth 0.2 0.2 -Total Square (Post) (cm) 1.44 0.48 -Area of Debridement (cm) - Length 1.8 0.8 -Area of Debridement (cm) - Width 0.8 0.6 -Total Square (Area) (cm) 1.44 0.48 -Tunneling No No -Undermining/Tunneling No No -Circular Undermining No No -Wound/Ulcer Outcome Not Healed Not Healed -Ulcer Cleansing Rinsed/ Rinsed/ Irrigated with Irrigated with Saline Saline -Foul Odor after Cleansing No No -Bioengineered Tissue No No -Bleeding Controlled with Pressure Pressure -Treatment Response Procedure Procedure Tolerated Well Tolerated Well -Offloading No No -Debridement - Subq, 1st 20sq cm No No #2 L. Med cluster -Time 10:15 10:22 -Correct Patient Yes Yes -Correct Side, Site, Position Yes Yes -Correct Procedure Yes Yes -Procedure Performed Yes Yes -Type of Procedure Debridement Debridement -Clinical Debridement Subcutaneous Subcutaneous -Tissue Removed Subcutaneous Subcutaneous -Post Debridement (cm) - Length 8.5 5.5 -Post Debridement (cm) - Width 7 4.9 -Post Debridement (cm) - Depth 0.2 0.1 -Total Square (Post) (cm) 59.5 26.95 -Area of Debridement (cm) - Length 8.5 5.5 -Area of Debridement (cm) - Width 7 4.9 -Total Square (Area) (cm) 59.5 26.95 -Tunneling No No -Undermining/Tunneling No No -Circular Undermining No No -Wound/Ulcer Outcome Not Healed Not Healed -Ulcer Cleansing Rinsed/ Rinsed/ Irrigated with Irrigated with Saline Saline -Foul Odor after Cleansing No No -Bioengineered Tissue Yes Yes -Type of Bioengineered Tissue Epifix Mesh Epifix Mesh -Expiration Date 11/18/29 01/18/30 -Product Lot Number [id number] -Percent Used 100 100 -Lot number of Saline Used [id number] -Bleeding Controlled with Pressure Pressure -Treatment Response Procedure Procedure Tolerated Well Tolerated Well -Offloading No No -Debridement - Subq, 1st 20sq cm No No -Apply Skin Sub - 1st 25 sq cm - Legs 1 1 -Apply Skin Sub - each addt'l 25 sq cm 2 1 - Legs -Epifix Mesh Application 1-4 (per sq 11 11 cm) #1 R Med Cluster -Time 10:16 10:24 -Correct Patient Yes Yes -Correct Side, Site, Position Yes Yes -Correct Procedure Yes Yes -Procedure Performed Yes Yes -Type of Procedure Debridement Debridement -Clinical Debridement Subcutaneous Subcutaneous -Tissue Removed Subcutaneous Subcutaneous -Post Debridement (cm) - Length 1.7 0.7 -Post Debridement (cm) - Width 1.7 0.5 -Post Debridement (cm) - Depth 0.1 0.1 -Total Square (Post) (cm) 2.89 0.35 -Area of Debridement (cm) - Length 1.7 0.7 -Area of Debridement (cm) - Width 1.7 0.5 -Total Square (Area) (cm) 2.89 0.35 -Tunneling No No -Undermining/Tunneling No No -Circular Undermining No No -Wound/Ulcer Outcome Not Healed Not Healed -Ulcer Cleansing Rinsed/ Rinsed/ Irrigated with Irrigated with Saline Saline -Foul Odor after Cleansing No No -Bioengineered Tissue No No -Bleeding Controlled with Pressure Pressure -Treatment Response Procedure Procedure Tolerated Well Tolerated Well -Offloading No No -Debridement - Subq, 1st 20sq cm Yes No Pain Scale: 0-10 Numeric Is Patient Pain Free? Yes Yes WC - Nurse 3 - General Ulcer D/C NN Start: 06/24/25 09:45 Freq: Status: Active Protocol: Activity Type Activity Date Activity User E-sign Co-sign Detail Recorded Client Recorded Date Recorded By Document 06/24/25 10:42 CP [id number] 06/24/25 10:49 CP Document 06/29/25 10:57 TS [id number] 06/29/25 11:02 TS Document 07/01/25 10:38 TS [id number] 07/01/25 10:44 TS 06/24/25 06/29/25 07/01/25 10:42 10:57 10:38 Wound Care Center Nurse 3 6.RIGHT LATeral leg cluster -Ulcer Cleansing Soap and Water -Primary Dressing Applied Silvercel Silvercel -Other Dressing ABD APPLIED BELOW KNEE -Primary Dressing Covered/Secured with Dry Gauze Dry Gauze -Patient Supplied Dressing Yes Yes -Silvercel 0 0 3-LEFT LATERAL LEG -Ulcer Cleansing Rinsed/ Irrigated with Saline -Primary Dressing Applied Silvercel Silvercel -Primary Dressing Covered/Secured with Dry Gauze -Patient Supplied Dressing Yes -Silvercel 1 0 #2 L. Med cluster -Ulcer Cleansing Rinsed/ Irrigated with Saline -Primary Dressing Applied Silvercel Silvercel -Primary Dressing Covered/Secured with Dry Gauze -Patient Supplied Dressing Yes -Silvercel 0 0 #1 R Med Cluster -Ulcer Cleansing Soap and Water -Primary Dressing Applied Silvercel Silvercel -Primary Dressing Covered/Secured with Dry Gauze -Patient Supplied Dressing Yes Yes -Silvercel 0 0 BLE -Lotion applied to leg before Yes Yes compression wrap -Multi-Layered Wrap Application Multi-Layer Multi-Layer Multi-Layer Comp - Bilat ($ Comp - Bilat ($ Comp - Bilat ($ ) ) ) -Multi-Layer Compression Bilat (Qty 1 1 1 applied) Treatment Response Procedure Tolerated Well Pain Scale: 0-10 Numeric Is Patient Pain Free? Yes Yes Yes WC - Visit Discharge Discharge Condition Stable Stable Stable Ambulatory Status Ambulatory,Cane Cane Cane Transportation Private Auto Private Auto Private Auto Accompanied by DAUGHTER daughter Medication Reconcilliation completed & No No provided to patient/care provider Clinical Summary of Care Provided Yes Yes Yes Assessment/Plan Assessment/Plan (1) Non-pressure chronic ulcer of other part of left lower leg with fat layer exposed: CODE(S): L97.822 - Non-pressure chronic ulcer of other part of left lower leg with fat layer exposed PLAN: Patient was examined and evaluated. All findings were discussed with the patient. All questions were answered to the patient's satisfaction. Excisional debridement down to including subcutaneous tissue of the right lower extremity medial full-thickness wound done with a number 5 mm dermal curette done without incident. Predebridement was 0.5 x 0.4 x 0.1 cm. Postdebridement measurement is 0.7 x 0.5 x 0.1 cm. Excisional debridement down to and including subcutaneous tissue of the right lateral full-thickness wound done with a number 5 mm dermal curette done without incident. Predebridement measurement was 0.9 x 0.2 x 0.1 cm. Postdebridement measurement is 1.0 x 0.3 x 0.2 cm. Excisional debridement down to and including subcutaneous tissue of the left lower extremity lateral full-thickness wound done with a number 5 mm dermal curette done without incident. Predebridement measurement was sanguinous 0.7 x 0.5 x 0.1 cm. Postdebridement measurement is 0.8 x 0.6 x 0.2 cm. Excisional debridement down to and including subcutaneous tissue of the left lower extremity medial full-thickness wound done with a number 5 mm dermal curette done without incident. Predebridement measurement was 5.3 x 4.7 x 0.1 cm. Postdebridement measurement is 5.5 x 4.9 x 0.1 cm. EpiFix 4.0 x 4.5 cm mesh was applied to the left medial full-thickness ulceration with 100% use. 7th application. The graft site was free and clear of any infection. The wound/skin graft substitute was dressed with nonadherent bandage secured in place with Steri-Strips followed by bolster dressing as well as a multilayer compression bandages to the bilateral lower extremity. Patient will follow-up with nursing visit next week before following up with seeing me in 1 week. Patient will follow-up with Dr. 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
--- NOTE | 2025-07-02 09:08 | WC ---
PHOTO-LEFT MED LEG 07/01/25
--- NOTE | 2025-07-02 09:16 | WC ---
PHOTO-LEFT LAT LEG 07/01/25
--- NOTE | 2025-07-02 09:20 | WC ---
PHOTO-LEFT LATERAL LEG 07/01/25
--- NOTE | 2025-07-02 09:23 | WC ---
PHOTO-RIGHT LAT LEG 07/01/25
[2025-07-06 11:26] VITALS: BP 157/64; PULSE 65; RESP 16; TEMP 35.9
[2025-07-08 10:33] VITALS: BP 149/65; PULSE 80; RESP 17; TEMP 35.8
--- NOTE | 2025-07-08 14:27 | PCM.WC.PN ---
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 Progress of Wound: Improving bilateral full-thickness wounds Subjective Subjective Patient is 85-year-old female presenting clinic today follow-up evaluation of full-thickness wounds to bilateral lower extremity with amnion skin graft substitute application. She has left the multilayer dressings clean dry and intact. She mitts improvement to the wound. She denies trauma. Denies constitutional symptoms. No other pedal complaints at this time. Objective Data Objective Data Vital Signs: Vital Signs Temp Pulse Resp BP O2 Del Method 96.5 F L 80 17 149/65 H Room Air 07/08/25 10:33 07/08/25 10:33 07/08/25 10:33 07/08/25 10:33 07/08/25 10:33 Oxygen Delivery Method Room Air Lab / Micro Data Micro: Microbiology 04/08/25 15:07 Wound - Leg, Left Gram Stain - Final 04/08/25 15:07 Wound - Leg, Left Wound Culture - Final Morganella morganii sp morgani Acinetobacter baumannii Staphylococcus aureus Streptococcus viridans group 04/08/25 15:07 Wound - Leg, Left Anaerobic Culture - Preliminary Bacteroides sp Gram negative eloina Physical Exam Narrative Vascular: DP and PT pulses palpable. CFT brisk. No erythema or proximal streaking. Skin temperature is warm to warm with no focal increase. Nonpitting edema appreciated bilateral lower extremity. Neurologic: Light touch is intact. Patient does respond to painful stimuli. Dermatologic: Right lower extremity medial full-thickness wounds measure 1.6 x 1.0 x 0.1 cm. Wound base is fibrogranular nature. No sign of infection. Right lower extremity lateral full-thickness wound measuring 0.7 x 0.2 x 0.1 cm. Wound base is fibrogranular in nature. No sign of infection. Left lower extremity medial full-thickness wounds measuring 4.5 x 4.0 x 0.1 cm. Wound base is granular nature with no sign of infection. Left lower extremity lateral full-thickness wound measuring 0.6 x 0.5 x 0.1 cm. Wound base is fibrogranular nature. No sign of infection. Excisional debridement down to including subcutaneous tissue of the right lower extremity medial full-thickness wound done with a number 5 mm dermal curette done without incident. Predebridement was 1.0 x 0.8 x 0.1 cm postdebridement measurement is 1.6 x 1.0 x 0.1 cm. Excisional debridement down to and including subcutaneous tissue of the right lateral full-thickness wound done with a number 5 mm dermal curette done without incident. Predebridement measurement was 0.6 x 0.1 x 0.1 cm. Postdebridement measurement is 0.7 x 0.2 x 0.1 cm. Excisional debridement down to and including subcutaneous tissue of the left lower extremity lateral full-thickness wound done with a number 5 mm dermal curette done without incident. Predebridement measurement was sanguinous 0.5 x 0.4 x 0.1 cm. Postdebridement measurement is 0.6 x 0.5 x 0.1 cm. Excisional debridement down to and including subcutaneous tissue of the left lower extremity medial full-thickness wound done with a number 5 mm dermal curette done without incident. Predebridement measurement was 4.0 x 3.8 x 0.1 cm. Postdebridement measurement is 4.5 x 4.0 x 0.1 cm. EpiFix 4.0 x 4.5 cm mesh was applied to the left medial full-thickness ulceration with 100% use. 8th application. The graft site was free and clear of any infection. The wound/skin graft substitute was dressed with nonadherent bandage secured in place with Steri-Strips followed by bolster dressing as well as a multilayer compression bandages to the bilateral lower extremity. Musculoskeletal: Mild palpatory tenderness appreciated the bilateral lower extremity. No pain with calf compression bilateral. Debridement Note Debridement Note Debridement Free Text: Excisional debridement down to including subcutaneous tissue of the right lower extremity medial full-thickness wound done with a number 5 mm dermal curette done without incident. Predebridement was 1.0 x 0.8 x 0.1 cm postdebridement measurement is 1.6 x 1.0 x 0.1 cm. Excisional debridement down to and including subcutaneous tissue of the right lateral full-thickness wound done with a number 5 mm dermal curette done without incident. Predebridement measurement was 0.6 x 0.1 x 0.1 cm. Postdebridement measurement is 0.7 x 0.2 x 0.1 cm. Excisional debridement down to and including subcutaneous tissue of the left lower extremity lateral full-thickness wound done with a number 5 mm dermal curette done without incident. Predebridement measurement was sanguinous 0.5 x 0.4 x 0.1 cm. Postdebridement measurement is 0.6 x 0.5 x 0.1 cm. Excisional debridement down to and including subcutaneous tissue of the left lower extremity medial full-thickness wound done with a number 5 mm dermal curette done without incident. Predebridement measurement was 4.0 x 3.8 x 0.1 cm. Postdebridement measurement is 4.5 x 4.0 x 0.1 cm. EpiFix 4.0 x 4.5 cm mesh was applied to the left medial full-thickness ulceration with 100% use. 8th application. The graft site was free and clear of any infection. The wound/skin graft substitute was dressed with nonadherent bandage secured in place with Steri-Strips followed by bolster dressing as well as a multilayer compression bandages to the bilateral lower extremity. Post-Debridement Measurements and Additional Note: Post-Debridement Measurements/Treatment - Nurse 1 - General Ulcer Assessment Start: 06/24/25 09:45 Freq: Status: Active Protocol: MADYSON Activity Type Activity Date Activity User E-sign Co-sign Detail Recorded Client Recorded Date Recorded By Document 06/24/25 09:45 TS [id number] 06/24/25 10:07 TS Document 06/29/25 10:57 TS [id number] 06/29/25 11:02 TS Document 07/01/25 09:57 TS [id number] 07/01/25 10:06 TS Document 07/06/25 11:26 TS [id number] 07/06/25 11:27 TS Document 07/08/25 10:33 TS [id number] 07/08/25 10:53 TS 06/24/25 06/29/25 07/01/25 09:45 10:57 09:57 - Today's Visit Information Type of service Follow-up Visit Nurse-only Follow-up Visit (Physician/HOSPITAL ADMISSIONS CLERK Visit (Physician/HOSPITAL ADMISSIONS CLERK ) ) Arrival Mode Ambulatory Ambulatory,Cane Ambulatory,Cane Patient Identification Verified (Name & Yes Yes ) Patient Requires Transmission-Based No No Precautions Safety Precautions Fall Prevention Fall Prevention Vital Signs Temperature (97.8 F-99.1 F) 97.0 F L 97.9 F 97.2 F L Temperature Source Temporal Temporal Temporal Pulse Rate (60-100) 66 69 82 Pulse Location Monitor Monitor Monitor Respiratory Rate (12-18) 17 17 17 Respiratory rate source Observation Observation Observation Oxygen Delivery Method Room Air Room Air Room Air Blood Pressure (90/60-120/80) 152/85 H 164/65 H 153/75 H Blood Pressure Mean (mm Hg) 107 98 101 Source Monitor Monitor Monitor Position Sitting Sitting Sitting Blood Pressure Location Left Arm Left Arm Left Arm History Since Last Visit- (Skip if this is Patient's initial visit) Have you changed medications since your No No last visit? Any new allergies or adverse reactions No No Had a fall/change in ADL's that may No No increase risk of falls Signs or symptoms of abuse and/or No No neglect since last visit Have you been in the hospital since your No No last visit? Has dressing in place as prescribed Yes Yes Has compression in place as prescribed Yes Yes Has offloadiing in place as prescribed N/A N/A Experienced any changes in pain level or No No management Left Footwear Regular Shoe Regular Shoe Regular Shoe Right Footwear Regular Shoe Regular Shoe Regular Shoe Pain Scale: 0-10 Numeric Is Patient Pain Free? Yes Yes No 07/06/25 07/08/25 11:26 10:33 - Today's Visit Information Type of service Nurse-only Follow-up Visit Visit (Physician/HOSPITAL ADMISSIONS CLERK ) Arrival Mode Cane Ambulatory,Cane Patient Identification Verified (Name & Yes Yes ) Patient Requires Transmission-Based No No Precautions Safety Precautions Fall Prevention Fall Prevention Vital Signs Temperature (97.8 F-99.1 F) 96.7 F L 96.5 F L Temperature Source Temporal Temporal Pulse Rate (60-100) 65 80 Pulse Location Monitor Monitor Respiratory Rate (12-18) 16 17 Respiratory rate source Observation Observation Oxygen Delivery Method Room Air Room Air Blood Pressure (90/60-120/80) 157/64 H 149/65 H Blood Pressure Mean (mm Hg) 95 93 Source Monitor Monitor Position Sitting Sitting Blood Pressure Location Right Arm Left Arm History Since Last Visit- (Skip if this is Patient's initial visit) Have you changed medications since your No last visit? Any new allergies or adverse reactions No Had a fall/change in ADL's that may No increase risk of falls Signs or symptoms of abuse and/or No neglect since last visit Have you been in the hospital since your last visit? Has dressing in place as prescribed Yes Has compression in place as prescribed Yes Has offloadiing in place as prescribed N/A Experienced any changes in pain level or No management Left Footwear Regular Shoe Right Footwear Regular Shoe Pain Scale: 0-10 Numeric Is Patient Pain Free? Yes Yes WC - Nurse 1 - General Ulcer Measurement Start: 06/24/25 09:45 Freq: Status: Active Protocol: Activity Type Activity Date Activity User E-sign Co-sign Detail Recorded Client Recorded Date Recorded By Document 06/24/25 09:45 TS [id number] 06/24/25 10:07 TS Document 07/01/25 09:57 TS [id number] 07/01/25 10:06 TS Document 07/08/25 10:33 TS [id number] 07/08/25 10:53 TS 06/24/25 07/01/25 07/08/25 09:45 09:57 10:33 Wound Center Nurse 1 6.RIGHT LATeral leg cluster -Combined with other wound No No No -Current Size (cm) - Length 1.4 1 0.5 -Current Size (cm) - Width 0.5 0.2 0.1 -Current Size (cm) - Depth 0.1 0.2 0.1 -Total Square Cm 0.70 0.2 0.05 -Date of Last Picture (Recall this 06/24/25 07/01/25 07/08/25 field) -Photo Taken Yes Yes Yes -Tunneling No No No -Undermining/Tunneling No No No -Circular Undermining No No No -Exudate Amt Small Medium None Present -Exudate Type Serous Serosanguineous -Wound Margin Distinct, Distinct, Outline Outline Attached Attached -Granulation Amt Medium (34-66%) Medium (34-66%) Medium (34-66%) -Granulation Quality [place],Red [place],Red [place],Red -Slough/Fibrin No No -Necrosis Amt Medium (34-66%) -Necrotic Tissue Type Adherent Slough Adherent Slough -Structure Exposed None/Limited to None/Limited to None/Limited to Skin Breakdown Skin Breakdown Skin Breakdown -Texture (Regina-wound Skin Appearance) Assessed Assessed Assessed -Moisture (Regina-wound Skin Appearance) Dry/Scaly Assessed,Dry/ Dry/Scaly Scaly -Color (Regina-wound Skin Appearance) Assessed Assessed Assessed -Temperature (Regina-wound Skin No Abnormality No Abnormality No Abnormality Appearance) (Pt Warm) (Pt Warm) (Pt Warm) -Tenderness on Palpation (Regina-wound Yes Skin Appearance) -Ulcer Cleansing Soap and Water Soap and Water -Foul Odor after Cleansing No No No -Anesthetic Used 5% Lidocaine 5% Lidocaine 5% Lidocaine Gel Gel Gel 3-LEFT LATERAL LEG -Combined with other wound No No -Current Size (cm) - Length 1.5 1.4 0.1 -Current Size (cm) - Width 0.5 0.5 0.1 -Current Size (cm) - Depth 0.2 0.2 0.1 -Total Square Cm 0.75 0.70 0.01 -Date of Last Picture (Recall this 06/24/25 07/01/25 07/08/25 field) -Photo Taken Yes Yes Yes -Tunneling No No No -Undermining/Tunneling No No No -Circular Undermining No No -Exudate Amt Small Medium None Present -Exudate Type Serosanguineous Serosanguineous -Wound Margin Distinct, Distinct, Distinct, Outline Outline Outline Attached Attached Attached -Granulation Amt Medium (34-66%) Medium (34-66%) Medium (34-66%) -Granulation Quality [place],Red [place],Red [place],Red -Slough/Fibrin Yes No -Structure Exposed None/Limited to None/Limited to None/Limited to Skin Breakdown Skin Breakdown Skin Breakdown -Texture (Regina-wound Skin Appearance) Assessed Assessed Assessed -Moisture (Regina-wound Skin Appearance) Dry/Scaly Assessed,Dry/ Assessed,Dry/ Scaly Scaly -Color (Regina-wound Skin Appearance) Assessed Assessed Assessed -Temperature (Regina-wound Skin No Abnormality No Abnormality No Abnormality Appearance) (Pt Warm) (Pt Warm) (Pt Warm) -Tenderness on Palpation (Regina-wound No Skin Appearance) -Ulcer Cleansing Soap and Water Soap and Water Soap and Water -Foul Odor after Cleansing No No No -Anesthetic Used 5% Lidocaine 5% Lidocaine 5% Lidocaine Gel Gel Gel #2 L. Med cluster -Combined with other wound No No -Current Size (cm) - Length 6.5 5.5 3.3 -Current Size (cm) - Width 7 6 3.1 -Current Size (cm) - Depth 0.2 0.2 0.2 -Total Square Cm 45.5 33.0 10.23 -Date of Last Picture (Recall this 06/24/25 07/01/25 07/08/25 field) -Photo Taken Yes Yes No -Tunneling No No No -Undermining/Tunneling No No No -Circular Undermining No No -Exudate Amt Large -Exudate Type Yellow/Green Serosanguineous -Wound Margin Distinct, Distinct, Distinct, Outline Outline Outline Attached Attached Attached -Granulation Amt Medium (34-66%) Medium (34-66%) Small (1-33%) -Granulation Quality [place],Red [place],Red -Slough/Fibrin No -Necrosis Amt None Present (0 %) -Necrotic Tissue Type Adherent Slough -Structure Exposed None/Limited to None/Limited to Skin Breakdown Skin Breakdown -Texture (Regina-wound Skin Appearance) Assessed Assessed Assessed -Moisture (Regina-wound Skin Appearance) Dry/Scaly Assessed,Dry/ Assessed,Dry/ Scaly Scaly -Color (Regina-wound Skin Appearance) Assessed Assessed Assessed -Temperature (Regina-wound Skin No Abnormality No Abnormality No Abnormality Appearance) (Pt Warm) (Pt Warm) (Pt Warm) -Tenderness on Palpation (Regina-wound No Skin Appearance) -Ulcer Cleansing Soap and Water Soap and Water Soap and Water -Foul Odor after Cleansing No No No -Anesthetic Used 5% Lidocaine 5% Lidocaine 5% Lidocaine Gel Gel Gel #1 R Med Cluster -Combined with other wound No No -Current Size (cm) - Length 0.1 0.1 0.5 -Current Size (cm) - Width 0.1 0.1 0.5 -Current Size (cm) - Depth 0.1 0.1 0.1 -Total Square Cm 0.01 0.01 0.25 -Date of Last Picture (Recall this 07/01/25 07/08/25 field) -Photo Taken Yes Yes -Tunneling No No No -Undermining/Tunneling No No No -Circular Undermining No No -Exudate Amt Medium Medium None Present -Exudate Type Serosanguineous -Wound Margin Distinct, Distinct, Distinct, Outline Outline Outline Attached Attached Attached -Granulation Amt Small (1-33%) Medium (34-66%) -Granulation Quality [place],Red Red -Slough/Fibrin Yes -Necrosis Amt Medium (34-66%) -Necrotic Tissue Type Adherent Slough -Structure Exposed N/A None/Limited to Skin Breakdown -Texture (Regina-wound Skin Appearance) Assessed Assessed Assessed -Moisture (Regina-wound Skin Appearance) Dry/Scaly Assessed,Dry/ Assessed,Dry/ Scaly Scaly -Color (Regina-wound Skin Appearance) Assessed Assessed Assessed -Temperature (Regina-wound Skin No Abnormality No Abnormality No Abnormality Appearance) (Pt Warm) (Pt Warm) (Pt Warm) -Ulcer Cleansing Soap and Water Soap and Water Soap and Water -Foul Odor after Cleansing No No -Anesthetic Used 5% Lidocaine 5% Lidocaine 5% Lidocaine Gel Gel Gel Lower Limb Edema Present No Point of measurement (cm from the medial 27 19 27 instep) Point of Measurement (cm from the medial 19.5 28.5 19 instep) Point of measurement (cm from the medial 28 30 28 instep) Point of Measurement (cm from the medial 20 19.5 20.5 instep) WC - Nurse 2 - General Ulcer CM Notes Start: 06/24/25 09:45 Freq: Status: Active Protocol: Activity Type Activity Date Activity User E-sign Co-sign Detail Recorded Client Recorded Date Recorded By Document 06/24/25 10:13 [id number] 06/24/25 10:21 Document 07/01/25 10:18 [id number] 07/01/25 10:27 Document 07/08/25 11:01 [id number] 07/08/25 11:08 06/24/25 07/01/25 07/08/25 10:13 10:18 11:01 Wound Center Nurse 2 6.RIGHT LATeral leg cluster -Time 10:14 10:19 11:01 -Correct Patient Yes Yes Yes -Correct Side, Site, Position Yes Yes Yes -Correct Procedure Yes Yes Yes -Procedure Performed Yes Yes Yes -Type of Procedure Debridement Debridement Debridement -Clinical Debridement Subcutaneous Subcutaneous -Tissue Removed Epidermis, Subcutaneous Subcutaneous Subcutaneous -Post Debridement (cm) - Length 1.1 1 0.7 -Post Debridement (cm) - Width 0.3 0.3 0.2 -Post Debridement (cm) - Depth 0.2 0.2 0.1 -Total Square (Post) (cm) 0.33 0.3 0.14 -Area of Debridement (cm) - Length 1.1 1 0.7 -Area of Debridement (cm) - Width 0.3 0.3 0.2 -Total Square (Area) (cm) 0.33 0.3 0.14 -Tunneling No No No -Undermining/Tunneling No No No -Circular Undermining No No No -Wound/Ulcer Outcome Not Healed Not Healed Not Healed -Ulcer Cleansing Rinsed/ Rinsed/ Rinsed/ Irrigated with Irrigated with Irrigated with Saline Saline Saline -Foul Odor after Cleansing No No No -Bioengineered Tissue No No No -Bleeding Controlled with Pressure Pressure Pressure -Treatment Response Procedure Procedure Procedure Tolerated Well Tolerated Well Tolerated Well -Offloading No No No -Debridement - Subq, 1st 20sq cm No Yes No 3-LEFT LATERAL LEG -Time 10:15 10:20 11:02 -Correct Patient Yes Yes Yes -Correct Side, Site, Position Yes Yes Yes -Correct Procedure Yes Yes Yes -Procedure Performed Yes Yes Yes -Type of Procedure Debridement Debridement Debridement -Clinical Debridement Subcutaneous Subcutaneous Subcutaneous -Tissue Removed Subcutaneous Subcutaneous Subcutaneous -Post Debridement (cm) - Length 1.8 0.8 0.6 -Post Debridement (cm) - Width 0.8 0.6 0.5 -Post Debridement (cm) - Depth 0.2 0.2 0.1 -Total Square (Post) (cm) 1.44 0.48 0.30 -Area of Debridement (cm) - Length 1.8 0.8 0.6 -Area of Debridement (cm) - Width 0.8 0.6 0.5 -Total Square (Area) (cm) 1.44 0.48 0.30 -Tunneling No No No -Undermining/Tunneling No No No -Circular Undermining No No No -Wound/Ulcer Outcome Not Healed Not Healed Not Healed -Ulcer Cleansing Rinsed/ Rinsed/ Rinsed/ Irrigated with Irrigated with Irrigated with Saline Saline Saline -Foul Odor after Cleansing No No No -Bioengineered Tissue No No No -Bleeding Controlled with Pressure Pressure Pressure -Treatment Response Procedure Procedure Procedure Tolerated Well Tolerated Well Tolerated Well -Offloading No No No -Debridement - Subq, 1st 20sq cm No No No #2 L. Med cluster -Time 10:15 10:22 11:02 -Correct Patient Yes Yes Yes -Correct Side, Site, Position Yes Yes Yes -Correct Procedure Yes Yes Yes -Procedure Performed Yes Yes Yes -Type of Procedure Debridement Debridement Debridement -Clinical Debridement Subcutaneous Subcutaneous Subcutaneous -Tissue Removed Subcutaneous Subcutaneous Subcutaneous -Post Debridement (cm) - Length 8.5 5.5 4.5 -Post Debridement (cm) - Width 7 4.9 4 -Post Debridement (cm) - Depth 0.2 0.1 0.1 -Total Square (Post) (cm) 59.5 26.95 18.0 -Area of Debridement (cm) - Length 8.5 5.5 4.5 -Area of Debridement (cm) - Width 7 4.9 4 -Total Square (Area) (cm) 59.5 26.95 18.0 -Tunneling No No No -Undermining/Tunneling No No No -Circular Undermining No No No -Wound/Ulcer Outcome Not Healed Not Healed Not Healed -Ulcer Cleansing Rinsed/ Rinsed/ Rinsed/ Irrigated with Irrigated with Irrigated with Saline Saline Saline -Foul Odor after Cleansing No No No -Bioengineered Tissue Yes Yes Yes -Type of Bioengineered Tissue Epifix Mesh Epifix Mesh Epifix Mesh -Expiration Date 11/18/29 01/18/30 01/18/30 -Product Lot Number [id number] -Percent Used 100 100 100 -Lot number of Saline Used [id number] -Bleeding Controlled with Pressure Pressure Pressure -Treatment Response Procedure Procedure Procedure Tolerated Well Tolerated Well Tolerated Well -Offloading No No No -Debridement - Subq, 1st 20sq cm No No No -Apply Skin Sub - 1st 25 sq cm - Legs 1 1 1 -Apply Skin Sub - each addt'l 25 sq cm 2 1 - Legs -Epifix Mesh Application 1-4 (per sq 11 11 11 cm) #1 R Med Cluster -Time 10:16 10:24 11:03 -Correct Patient Yes Yes Yes -Correct Side, Site, Position Yes Yes Yes -Correct Procedure Yes Yes Yes -Procedure Performed Yes Yes Yes -Type of Procedure Debridement Debridement Debridement -Clinical Debridement Subcutaneous Subcutaneous Subcutaneous -Tissue Removed Subcutaneous Subcutaneous Subcutaneous -Post Debridement (cm) - Length 1.7 0.7 1.6 -Post Debridement (cm) - Width 1.7 0.5 1.0 -Post Debridement (cm) - Depth 0.1 0.1 0.1 -Total Square (Post) (cm) 2.89 0.35 1.60 -Area of Debridement (cm) - Length 1.7 0.7 1.6 -Area of Debridement (cm) - Width 1.7 0.5 1.0 -Total Square (Area) (cm) 2.89 0.35 1.60 -Tunneling No No No -Undermining/Tunneling No No No -Circular Undermining No No No -Wound/Ulcer Outcome Not Healed Not Healed Not Healed -Ulcer Cleansing Rinsed/ Rinsed/ Rinsed/ Irrigated with Irrigated with Irrigated with Saline Saline Saline -Foul Odor after Cleansing No No No -Bioengineered Tissue No No No -Bleeding Controlled with Pressure Pressure Pressure -Treatment Response Procedure Procedure Procedure Tolerated Well Tolerated Well Tolerated Well -Offloading No No No -Debridement - Subq, 1st 20sq cm Yes No Yes Pain Scale: 0-10 Numeric Is Patient Pain Free? Yes Yes Yes - Nurse 3 - General Ulcer D/C NN Start: 06/24/25 09:45 Freq: Status: Active Protocol: Activity Type Activity Date Activity User E-sign Co-sign Detail Recorded Client Recorded Date Recorded By Document 06/24/25 10:42 CP [id number] 06/24/25 10:49 CP Document 06/29/25 10:57 TS [id number] 06/29/25 11:02 TS Document 07/01/25 10:38 TS [id number] 07/01/25 10:44 TS Document 07/06/25 11:00 TS [id number] 07/06/25 11:26 TS 06/24/25 06/29/25 07/01/25 10:42 10:57 10:38 Wound Care Center Nurse 3 6.RIGHT LATeral leg cluster -Ulcer Cleansing Soap and Water -Primary Dressing Applied Silvercel Silvercel -Other Dressing ABD APPLIED BELOW KNEE -Primary Dressing Covered/Secured with Dry Gauze Dry Gauze -Patient Supplied Dressing Yes Yes -Silvercel 0 0 3-LEFT LATERAL LEG -Ulcer Cleansing Rinsed/ Irrigated with Saline -Primary Dressing Applied Silvercel Silvercel -Primary Dressing Covered/Secured with Dry Gauze -Patient Supplied Dressing Yes -Silvercel 1 0 #2 L. Med cluster -Ulcer Cleansing Rinsed/ Irrigated with Saline -Primary Dressing Applied Silvercel Silvercel -Primary Dressing Covered/Secured with Dry Gauze -Patient Supplied Dressing Yes -Silvercel 0 0 #1 R Med Cluster -Ulcer Cleansing Soap and Water -Primary Dressing Applied Silvercel Silvercel -Primary Dressing Covered/Secured with Dry Gauze -Patient Supplied Dressing Yes Yes -Silvercel 0 0 BLE -Lotion applied to leg before Yes Yes compression wrap -Multi-Layered Wrap Application Multi-Layer Multi-Layer Multi-Layer Comp - Bilat ($ Comp - Bilat ($ Comp - Bilat ($ ) ) ) -Multi-Layer Compression Bilat (Qty 1 1 1 applied) Treatment Response Procedure Tolerated Well Pain Scale: 0-10 Numeric Is Patient Pain Free? Yes Yes Yes WC - Visit Discharge Discharge Condition Stable Stable Stable Ambulatory Status Ambulatory,Cane Cane Cane Transportation Private Auto Private Auto Private Auto Accompanied by DAUGHTER daughter Medication Reconcilliation completed & No No provided to patient/care provider Clinical Summary of Care Provided Yes Yes Yes 07/06/25 11:00 Wound Care Center Nurse 3 6.RIGHT LATeral leg cluster -Ulcer Cleansing -Primary Dressing Applied Silvercel -Other Dressing -Primary Dressing Covered/Secured with -Patient Supplied Dressing -Silvercel 1 3-LEFT LATERAL LEG -Ulcer Cleansing -Primary Dressing Applied -Primary Dressing Covered/Secured with -Patient Supplied Dressing -Silvercel #2 L. Med cluster -Ulcer Cleansing Soap and Water -Primary Dressing Applied Silvercel -Primary Dressing Covered/Secured with Dry Gauze -Patient Supplied Dressing -Silvercel 0 #1 R Med Cluster -Ulcer Cleansing Soap and Water -Primary Dressing Applied Silvercel -Primary Dressing Covered/Secured with Dry Gauze -Patient Supplied Dressing -Silvercel 0 BLE -Lotion applied to leg before compression wrap -Multi-Layered Wrap Application Multi-Layer Comp - Bilat ($ ) -Multi-Layer Compression Bilat (Qty 1 applied) Treatment Response Pain Scale: 0-10 Numeric Is Patient Pain Free? Yes WC - Visit Discharge Discharge Condition Stable Ambulatory Status Cane Transportation Private Auto Accompanied by daughter Medication Reconcilliation completed & No provided to patient/care provider Clinical Summary of Care Provided Yes Assessment/Plan Assessment/Plan (1) Non-pressure chronic ulcer of other part of left lower leg with fat layer exposed: CODE(S): L97.822 - Non-pressure chronic ulcer of other part of left lower leg with fat layer exposed PLAN: Patient was examined and evaluated. All findings were discussed with the patient. All questions were answered to the patient's satisfaction. Excisional debridement down to including subcutaneous tissue of the right lower extremity medial full-thickness wound done with a number 5 mm dermal curette done without incident. Predebridement was 1.0 x 0.8 x 0.1 cm postdebridement measurement is 1.6 x 1.0 x 0.1 cm. Excisional debridement down to and including subcutaneous tissue of the right lateral full-thickness wound done with a number 5 mm dermal curette done without incident. Predebridement measurement was 0.6 x 0.1 x 0.1 cm. Postdebridement measurement is 0.7 x 0.2 x 0.1 cm. Excisional debridement down to and including subcutaneous tissue of the left lower extremity lateral full-thickness wound done with a number 5 mm dermal curette done without incident. Predebridement measurement was sanguinous 0.5 x 0.4 x 0.1 cm. Postdebridement measurement is 0.6 x 0.5 x 0.1 cm. Excisional debridement down to and including subcutaneous tissue of the left lower extremity medial full-thickness wound done with a number 5 mm dermal curette done without incident. Predebridement measurement was 4.0 x 3.8 x 0.1 cm. Postdebridement measurement is 4.5 x 4.0 x 0.1 cm. EpiFix 4.0 x 4.5 cm mesh was applied to the left medial full-thickness ulceration with 100% use. 8th application. The graft site was free and clear of any infection. The wound/skin graft substitute was dressed with nonadherent bandage secured in place with Steri-Strips followed by bolster dressing as well as a multilayer compression bandages to the bilateral lower extremity. Patient will follow-up with Dr. De Souza in 2 week (2) Non-pressure chronic ulcer of other part of right lower leg with fat layer exposed: CODE(S): L97.812 - Non-pressure chronic ulcer of other part of right lower leg with fat layer exposed (3) Other specified peripheral vascular diseases: CODE(S): I73.89 - Other specified peripheral vascular diseases
--- NOTE | 2025-07-09 09:10 | WC ---
PHOTO-RIGHT LAT LEG 07/08/25
--- NOTE | 2025-07-09 09:12 | WC ---
PHOTO-RIGHT MED LEG 07/08/25
--- NOTE | 2025-07-09 09:13 | WC ---
PHOTO-LEFT MED LEG 07/08/25
--- NOTE | 2025-07-09 09:14 | WC ---
PHOTO-LEFT LAT LEG 07/08/25
[2025-07-13 11:14] VITALS: BP 153/77; PULSE 69; RESP 17; TEMP 36.4
== END 2025-07-19 23:59 | disposition home or self-care (01) ==
LOC: WC 11:00
PROVIDERS: PCP Family Medicine; Referring Provider Podiatrist Foot & Ankle Surgery; Visit Provider Podiatrist Foot & Ankle Surgery
DX: I73.89 Other specified peripheral vascular diseases (principal); L97.812 Non-pressure chronic ulcer of other part of right lower leg with fat layer exposed; L97.822 Non-pressure chronic ulcer of other part of left lower leg with fat layer exposed; S80.861D Insect bite (nonvenomous), right lower leg, subsequent encounter; S80.862D Insect bite (nonvenomous), left lower leg, subsequent encounter; W57.XXXD Bitten or stung by nonvenomous insect and other nonvenomous arthropods, subsequent encounter
CPT/HCPCS: 11042; 15271; 15272; 29581; Q4186

== ENCOUNTER 2025-08-19 13:45 | Outpatient (RCR) | payer MEDICARE, SELFPAY ==
[2025-07-22 10:55] VITALS: BP 168/59; PULSE 66; RESP 16; TEMP 36.5
--- NOTE | 2025-07-22 14:42 | PN.PCM_ITS ---
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 Progress of Wound: Improving full-thickness wound with millimeter skin graft to the left lower extremity and right lower extremity. Subjective Subjective Patient is 85-year-old female presenting to clinic today for follow-up evaluation of full-thickness wound to bilateral lower extremity. She is getting amnion skin graft substitutes to the left lower extremity. She admits great improvement to her swelling with multilayer compression bandages. She is doing well. She is grateful for care. Denies trauma. Denies constitutional symptoms. No other pedal complaints at this time. Objective Data Objective Data Vital Signs: Vital Signs Temp Pulse Resp BP O2 Del Method 97.7 F L 66 16 168/59 H Room Air 07/22/25 10:55 07/22/25 10:55 07/22/25 10:55 07/22/25 10:55 07/22/25 10:55 Oxygen Delivery Method Room Air Lab / Micro Data Micro: Microbiology 04/08/25 15:07 Wound - Leg, Left Gram Stain - Final 04/08/25 15:07 Wound - Leg, Left Wound Culture - Final Morganella morganii sp morgani Acinetobacter baumannii Staphylococcus aureus Streptococcus viridans group 04/08/25 15:07 Wound - Leg, Left Anaerobic Culture - Preliminary Bacteroides sp Gram negative eloina Physical Exam Narrative Vascular: DP and PT pulses palpable. CFT brisk. No erythema or proximal streaking. Skin temperature is warm to warm with no focal increase. Nonpitting edema appreciated bilateral lower extremity. Neurologic: Light touch is intact. Patient does respond to painful stimuli. Dermatologic: Right lower extremity medial full-thickness wound is now healed. Right lower extremity lateral full-thickness wound is now healed. Left lower extremity medial full-thickness wounds measuring 3.2 x 2.0 x 0.1 cm Wound base is granular nature with no sign of infection. Left lower extremity lateral full-thickness wound measuring 0.5 x 0.3 x 0.1 cm wound base is granular nature. No sign of infection. Excisional debridement down to and including subcutaneous tissue of the left lower extremity lateral full-thickness wound done with a number 5 mm dermal curette done without incident. Predebridement measurement was sanguinous sanguinous crust. Postdebridement measurement is 0.5 x 0.3 x 0.1 cm. Excisional debridement down to and including subcutaneous tissue of the left lower extremity medial full-thickness wound done with a number 5 mm dermal curette done without incident. Predebridement measurement was sanguinous crust postdebridement measurement is 3.2 x 2.0 x 0.1 cm. EpiFix 4.0 x 4.5 cm mesh was applied to the left medial full-thickness ulceration with 100% use. 9th application. The graft site was free and clear of any infection. The wound/skin graft substitute was dressed with nonadherent bandage secured in place with Steri-Strips followed by bolster dressing as well as a multilayer compression bandages to the bilateral lower extremity. Musculoskeletal: Mild palpatory tenderness appreciated the left lower extremity. No pain with calf compression bilateral. Debridement Note Debridement Note Debridement Free Text: Excisional debridement down to and including subcutaneous tissue of the left lower extremity lateral full-thickness wound done with a number 5 mm dermal curette done without incident. Predebridement measurement was sanguinous sanguinous crust. Postdebridement measurement is 0.5 x 0.3 x 0.1 cm. Excisional debridement down to and including subcutaneous tissue of the left lower extremity medial full-thickness wound done with a number 5 mm dermal curette done without incident. Predebridement measurement was sanguinous crust postdebridement measurement is 3.2 x 2.0 x 0.1 cm. EpiFix 4.0 x 4.5 cm mesh was applied to the left medial full-thickness ulceration with 100% use. 9th application. The graft site was free and clear of any infection. The wound/skin graft substitute was dressed with nonadherent bandage secured in place with Steri-Strips followed by bolster dressing as well as a multilayer compression bandages to the bilateral lower extremity. Post-Debridement Measurements and Additional Note: Post-Debridement Measurements/Treatment - Nurse 1 - General Ulcer Assessment Start: 07/22/25 10:55 Freq: Status: Active Protocol: [email or web address] Activity Type Activity Date Activity User E-sign Co-sign Detail Recorded Client Recorded Date Recorded By Document 07/22/25 10:55 [id number] 07/22/25 11:13 07/22/25 10:55 - Today's Visit Information Type of service Follow-up Visit (Physician/STEEL ERECTOR ) Arrival Mode Ambulatory,Cane Patient Identification Verified (Name & Yes ) Patient Requires Transmission-Based No Precautions Safety Precautions Fall Prevention Vital Signs Temperature (97.8 F-99.1 F) 97.7 F L Temperature Source Temporal Pulse Rate (60-100) 66 Pulse Location Monitor Respiratory Rate (12-18) 16 Respiratory rate source Observation Oxygen Delivery Method Room Air Blood Pressure (90/60-120/80) 168/59 H Blood Pressure Mean (mm Hg) 95 Source Monitor Position Sitting Blood Pressure Location Left Arm History Since Last Visit- (Skip if this is Patient's initial visit) Have you changed medications since your No last visit? Any new allergies or adverse reactions No Had a fall/change in ADL's that may No increase risk of falls Signs or symptoms of abuse and/or No neglect since last visit Have you been in the hospital since your No last visit? Has dressing in place as prescribed Yes Has compression in place as prescribed Yes Has offloadiing in place as prescribed N/A Experienced any changes in pain level or No management Left Footwear Regular Shoe Right Footwear Regular Shoe Pain Scale: 0-10 Numeric Is Patient Pain Free? Yes - Nurse 1 - General Ulcer Measurement Start: 07/22/25 10:55 Freq: Status: Active Protocol: Activity Type Activity Date Activity User E-sign Co-sign Detail Recorded Client Recorded Date Recorded By Document 07/22/25 10:55 [id number] 07/22/25 11:13 07/22/25 10:55 Wound Center Nurse 1 6.RIGHT LATeral leg cluster -Combined with other wound No -Current Size (cm) - Length 0.1 -Current Size (cm) - Width 0.1 -Current Size (cm) - Depth 0.1 -Total Square Cm 0.01 -Date of Last Picture (Recall this 07/22/25 field) -Photo Taken Yes -Undermining/Tunneling No -Circular Undermining No -Exudate Amt Medium -Exudate Type Serosanguineous -Wound Margin Distinct, Outline Attached -Granulation Amt Medium (34-66%) -Granulation Quality [employer],Red -Structure Exposed None/Limited to Skin Breakdown -Texture (Regina-wound Skin Appearance) Assessed -Moisture (Regina-wound Skin Appearance) Assessed,Dry/ Scaly -Color (Regina-wound Skin Appearance) Assessed -Temperature (Regina-wound Skin No Abnormality Appearance) (Pt Warm) -Ulcer Cleansing Soap and Water -Foul Odor after Cleansing No -Anesthetic Used 5% Lidocaine Gel #1 R Med Cluster -Combined with other wound No -Current Size (cm) - Length 0.1 -Current Size (cm) - Width 0.1 -Current Size (cm) - Depth 0.1 -Total Square Cm 0.01 -Date of Last Picture (Recall this 07/22/25 field) -Photo Taken Yes -Circular Undermining No -Exudate Amt Small -Wound Margin Distinct, Outline Attached -Granulation Quality [employer],Red -Structure Exposed None/Limited to Skin Breakdown -Texture (Regina-wound Skin Appearance) Assessed -Moisture (Regina-wound Skin Appearance) Assessed -Color (Regina-wound Skin Appearance) Assessed -Temperature (Regina-wound Skin No Abnormality Appearance) (Pt Warm) -Ulcer Cleansing Not Cleansed -Foul Odor after Cleansing No -Anesthetic Used 5% Lidocaine Gel 3-LEFT LATERAL LEG -Combined with other wound No -Current Size (cm) - Length 1.8 -Current Size (cm) - Width 1.9 -Current Size (cm) - Depth 0.1 -Total Square Cm 3.42 -Date of Last Picture (Recall this 07/22/25 field) -Photo Taken Yes -Undermining/Tunneling No -Circular Undermining No -Exudate Amt Small -Exudate Type Serosanguineous -Wound Margin Distinct, Outline Attached -Granulation Amt Medium (34-66%) -Granulation Quality [employer],Red -Slough/Fibrin No -Structure Exposed None/Limited to Skin Breakdown -Texture (Regina-wound Skin Appearance) Assessed -Moisture (Regina-wound Skin Appearance) Assessed,Dry/ Scaly -Color (Regina-wound Skin Appearance) Assessed -Temperature (Regina-wound Skin No Abnormality Appearance) (Pt Warm) -Ulcer Cleansing Soap and Water -Foul Odor after Cleansing No -Anesthetic Used 5% Lidocaine Gel #2 L. Med cluster -Combined with other wound No -Current Size (cm) - Length 1.8 -Current Size (cm) - Width 1.9 -Current Size (cm) - Depth 0.1 -Total Square Cm 3.42 -Date of Last Picture (Recall this 07/22/25 field) -Photo Taken Yes -Undermining/Tunneling No -Circular Undermining No -Exudate Amt Small -Exudate Type Serosanguineous -Wound Margin Distinct, Outline Attached -Granulation Amt Medium (34-66%) -Granulation Quality [employer],Red -Structure Exposed None/Limited to Skin Breakdown -Texture (Regina-wound Skin Appearance) Assessed -Moisture (Regina-wound Skin Appearance) Assessed -Color (Regina-wound Skin Appearance) Assessed, Erythema -Temperature (Regina-wound Skin No Abnormality Appearance) (Pt Warm) -Ulcer Cleansing Soap and Water -Foul Odor after Cleansing No -Anesthetic Used 5% Lidocaine Gel Point of measurement (cm from the medial 31 instep) Point of Measurement (cm from the medial 19 instep) Point of measurement (cm from the medial 35 instep) Point of Measurement (cm from the medial 19.4 instep) WC - Nurse 2 - General Ulcer CM Notes Start: 07/22/25 10:55 Freq: Status: Active Protocol: Activity Type Activity Date Activity User E-sign Co-sign Detail Recorded Client Recorded Date Recorded By Document 07/22/25 11:29 MACHELLE [id number] 07/22/25 11:38 MACHELLE 07/22/25 11:29 Wound Center Nurse 2 6.RIGHT LATeral leg cluster -Correct Patient Yes -Correct Side, Site, Position No -Correct Procedure No -Procedure Performed No -Tissue Removed Subcutaneous -Post Debridement (cm) - Length 0 -Post Debridement (cm) - Width 0 -Post Debridement (cm) - Depth 0 -Total Square (Post) (cm) 0 -Area of Debridement (cm) - Length 0 -Area of Debridement (cm) - Width 0 -Total Square (Area) (cm) 0 -Wound/Ulcer Outcome Healed- Epithelialized #1 R Med Cluster -Correct Patient Yes -Correct Side, Site, Position No -Correct Procedure No -Procedure Performed No -Post Debridement (cm) - Length 0 -Post Debridement (cm) - Width 0 -Post Debridement (cm) - Depth 0 -Total Square (Post) (cm) 0 -Area of Debridement (cm) - Length 0 -Area of Debridement (cm) - Width 0 -Total Square (Area) (cm) 0 -Wound/Ulcer Outcome Healed- Epithelialized 3-LEFT LATERAL LEG -Time 11:35 -Correct Patient Yes -Correct Side, Site, Position Yes -Correct Procedure Yes -Procedure Performed Yes -Type of Procedure Debridement -Clinical Debridement Subcutaneous -Tissue Removed Subcutaneous -Post Debridement (cm) - Length 0.5 -Post Debridement (cm) - Width 0.3 -Post Debridement (cm) - Depth 0.1 -Total Square (Post) (cm) 0.15 -Area of Debridement (cm) - Length 0.5 -Area of Debridement (cm) - Width 0.3 -Total Square (Area) (cm) 0.15 -Tunneling No -Undermining/Tunneling No -Circular Undermining No -Wound/Ulcer Outcome Not Healed -Ulcer Cleansing Rinsed/ Irrigated with Saline -Foul Odor after Cleansing No -Bioengineered Tissue No -Bleeding Controlled with Pressure -Treatment Response Procedure Tolerated Well -Offloading No -Debridement - Subq, 1st 20sq cm Yes #2 L. Med cluster -Time 11:35 -Correct Patient Yes -Correct Side, Site, Position Yes -Correct Procedure Yes -Procedure Performed Yes -Type of Procedure Debridement -Clinical Debridement Subcutaneous -Tissue Removed Subcutaneous -Post Debridement (cm) - Length 3.2 -Post Debridement (cm) - Width 2.0 -Post Debridement (cm) - Depth 0.1 -Total Square (Post) (cm) 6.40 -Area of Debridement (cm) - Length 3.2 -Area of Debridement (cm) - Width 2.0 -Total Square (Area) (cm) 6.40 -Tunneling No -Undermining/Tunneling No -Circular Undermining No -Wound/Ulcer Outcome Not Healed -Ulcer Cleansing Rinsed/ Irrigated with Saline -Foul Odor after Cleansing No -Bioengineered Tissue Yes -Type of Bioengineered Tissue Epifix Mesh -Expiration Date 01/18/30 -Product Lot Number [id number] -Percent Used 100 -Lot number of Saline Used [id number] -Bleeding Controlled with Pressure -Treatment Response Procedure Tolerated Well -Offloading No -Debridement - Subq, 1st 20sq cm No -Apply Skin Sub - 1st 25 sq cm - Legs 1 -Epifix Mesh Application 1-4 (per sq 11 cm) Pain Scale: 0-10 Numeric Is Patient Pain Free? Yes WC - Nurse 3 - General Ulcer D/C NN Start: 07/22/25 10:55 Freq: Status: Active Protocol: Activity Type Activity Date Activity User E-sign Co-sign Detail Recorded Client Recorded Date Recorded By Document 07/22/25 12:06 [id number] 07/22/25 12:06 07/22/25 12:06 Wound Care Center Nurse 3 3-LEFT LATERAL LEG -Ulcer Cleansing Not Cleansed -Foul Odor after Cleansing No -Primary Dressing Covered/Secured with Dry Gauze & Roll Gauze, Secured with Tape #2 L. Med cluster -Ulcer Cleansing Not Cleansed -Foul Odor after Cleansing No -Primary Dressing Covered/Secured with Dry Gauze & Roll Gauze, Secured with Tape LLE -Lotion applied to leg before Yes compression wrap -Multi-Layered Wrap Application Multi-Layer Comp - Left ($) -Multi-Layer Compression Left (Qty 1 applied) Pain Scale: 0-10 Numeric Is Patient Pain Free? Yes WC - Visit Discharge Discharge Condition Stable Ambulatory Status Ambulatory, Walker Transportation Private Auto Assessment/Plan Assessment/Plan (1) Non-pressure chronic ulcer of other part of left lower leg with fat layer exposed: CODE(S): L97.822 - Non-pressure chronic ulcer of other part of left lower leg with fat layer exposed PLAN: Patient was examined and evaluated. All findings were discussed with the patient. All questions were answered to the patient's satisfaction. Excisional debridement down to and including subcutaneous tissue of the left lower extremity lateral full-thickness wound done with a number 5 mm dermal curette done without incident. Predebridement measurement was sanguinous sang uinous crust. Postdebridement measurement is 0.5 x 0.3 x 0.1 cm. Excisional debridement down to and including subcutaneous tissue of the left lower extremity medial full-thickness wound done with a number 5 mm dermal curette done without incident. Predebridement measurement was sanguinous crust postdebridement measurement is 3.2 x 2.0 x 0.1 cm. EpiFix 4.0 x 4.5 cm mesh was applied to the left medial full-thickness ulceration with 100% use. 9th application. The graft site was free and clear of any infection. The wound/skin graft substitute was dressed with nonadherent bandage secured in place with Steri-Strips followed by bolster dressing as well as a multilayer compression bandages to the bilateral lower extremity. Patient will follow-up with Dr. De oSuza in 1 week (2) Non-pressure chronic ulcer of other part of right lower leg with fat layer exposed: CODE(S): L97.812 - Non-pressure chronic ulcer of other part of right lower leg with fat layer exposed (3) Other specified peripheral vascular diseases: CODE(S): I73.89 - Other specified peripheral vascular diseases
--- NOTE | 2025-07-23 09:29 | WC ---
PHOTO-LEFT MED LEG 07/22/25
--- NOTE | 2025-07-23 09:31 | WC ---
PHOTO-LEFT LAT LEG 07/22/25
--- NOTE | 2025-07-23 09:33 | WC ---
PHOTO-RIGHT MED LEG 07/22/25
--- NOTE | 2025-07-23 09:34 | WC ---
PHOTO-RIGHT LAT LEG 07/22/25
[2025-07-29 11:11] VITALS: BP 144/69; PULSE 68; RESP 16; TEMP 37
--- NOTE | 2025-07-29 12:56 | PN.PCM_ITS ---
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 Progress of Wound: Improving full-thickness wound with millimeter skin graft to the left lower extremity and right lower extremity. Subjective Subjective Patient is 85-year-old female presenting to clinic today for evaluation of multiple full-thickness wounds to left lower extremity with amnion skin graft substitute applied to the medial full-thickness wound to left lower extremity. Patient has been compliant with her multilayer compression wrap and left a clean dry and intact to left lower extremity. Double Tubigrip to the right lower extremity has been applied and everything remains healed. She has been grateful for her care. Denies trauma. Denies constitutional symptoms. No other pedal complaints at this time. Objective Data Objective Data Vital Signs: Vital Signs Temp Pulse Resp BP O2 Del Method 98.6 F 68 16 144/69 H Room Air 07/29/25 11:11 07/29/25 11:11 07/29/25 11:11 07/29/25 11:11 07/22/25 10:55 Oxygen Delivery Method Room Air Lab / Micro Data Micro: Microbiology 04/08/25 15:07 Wound - Leg, Left Gram Stain - Final 04/08/25 15:07 Wound - Leg, Left Wound Culture - Final Morganella morganii sp morgani Acinetobacter baumannii Staphylococcus aureus Streptococcus viridans group 04/08/25 15:07 Wound - Leg, Left Anaerobic Culture - Preliminary Bacteroides sp Gram negative eloina Physical Exam Narrative Vascular: DP and PT pulses palpable. CFT brisk. No erythema or proximal streaking. Skin temperature is warm to warm with no focal increase. Nonpitting edema appreciated bilateral lower extremity. Neurologic: Light touch is intact. Patient does respond to painful stimuli. Dermatologic: Left lower extremity medial full-thickness wounds measuring 3.0 x 2.0 x 0.1 cm. Wound base is granular nature with no sign of infection. Left lower extremity lateral full-thickness wound measuring 0.4 x 0.2 x 0.1 cm. Wound base is granular nature. No sign of infection. Excisional debridement down to and including subcutaneous tissue of the left lower extremity lateral full-thickness wound done with a number 5 mm dermal curette done without incident. Predebridement measurement was sanguinous sanguinous crust. Postdebridement measurement is 0.4 x 0.2 x 0.1 cm. Excisional debridement down to and including subcutaneous tissue of the left lower extremity medial full-thickness wound done with a number 5 mm dermal curette done without incident. Predebridement measurement was sanguinous crust postdebridement measurement is 3.0 x 2.0 x 0.1 cm. EpiFix 4.0 x 4.5 cm mesh was applied to the left medial full-thickness ulceration with 100% use. 10th application. The graft site was free and clear of any infection. The wound/skin graft substitute was dressed with nonadherent bandage secured in place with Steri-Strips followed by bolster dressing as well as a multilayer compression bandages to the bilateral lower extremity. Musculoskeletal: Mild palpatory tenderness appreciated the left lower extremity. No pain with calf compression bilateral. Debridement Note Debridement Note Debridement Free Text: Excisional debridement down to and including subcutaneous tissue of the left lower extremity lateral full-thickness wound done with a number 5 mm dermal curette done without incident. Predebridement measurement was sanguinous sanguinous crust. Postdebridement measurement is 0.4 x 0.2 x 0.1 cm. Excisional debridement down to and including subcutaneous tissue of the left lower extremity medial full-thickness wound done with a number 5 mm dermal curette done without incident. Predebridement measurement was sanguinous crust postdebridement measurement is 3.0 x 2.0 x 0.1 cm. EpiFix 4.0 x 4.5 cm mesh was applied to the left medial full-thickness ulceration with 100% use. 10th application. The graft site was free and clear of any infection. The wound/skin graft substitute was dressed with nonadherent bandage secured in place with Steri-Strips followed by bolster dressing as well as a multilayer compression bandages to the bilateral lower extremity. Post-Debridement Measurements and Additional Note: Post-Debridement Measurements/Treatment WC - Nurse 1 - General Ulcer Assessment Start: 07/22/25 10:55 Freq: Status: Active Protocol: MADYSON Activity Type Activity Date Activity User E-sign Co-sign Detail Recorded Client Recorded Date Recorded By Document 07/22/25 10:55 TS [id number] 07/22/25 11:13 TS Document 07/29/25 11:11 CP [id number] 07/29/25 11:36 CP 07/22/25 07/29/25 10:55 11:11 WC - Today's Visit Information Type of service Follow-up Visit Follow-up Visit (Physician/EMERGENCY PHYSICIAN (Physician/EMERGENCY PHYSICIAN ) ) Arrival Mode Ambulatory,Cane Cane Patient Identification Verified (Name & Yes Yes ) Patient Requires Transmission-Based No No Precautions Safety Precautions Fall Prevention Vital Signs Temperature (97.8 F-99.1 F) 97.7 F L 98.6 F Temperature Source Temporal Temporal Pulse Rate (60-100) 66 68 Pulse Location Monitor Monitor Respiratory Rate (12-18) 16 16 Respiratory rate source Observation Observation Oxygen Delivery Method Room Air Blood Pressure (90/60-120/80) 168/59 H 144/69 H Blood Pressure Mean (mm Hg) 95 94 Source Monitor Monitor Position Sitting Sitting Blood Pressure Location Left Arm Left Arm History Since Last Visit- (Skip if this is Patient's initial visit) Have you changed medications since your No No last visit? Any new allergies or adverse reactions No No Had a fall/change in ADL's that may No No increase risk of falls Signs or symptoms of abuse and/or No No neglect since last visit Have you been in the hospital since your No No last visit? Has dressing in place as prescribed Yes Yes Has compression in place as prescribed Yes Yes Has offloadiing in place as prescribed N/A N/A Experienced any changes in pain level or No No management Left Footwear Regular Shoe Right Footwear Regular Shoe Pain Scale: 0-10 Numeric Is Patient Pain Free? Yes Yes - Nurse 1 - General Ulcer Measurement Start: 07/22/25 10:55 Freq: Status: Active Protocol: Activity Type Activity Date Activity User E-sign Co-sign Detail Recorded Client Recorded Date Recorded By Document 07/22/25 10:55 TS [id number] 07/22/25 11:13 TS Document 07/29/25 11:11 CP [id number] 07/29/25 11:36 CP 07/22/25 07/29/25 10:55 11:11 Wound Center Nurse 1 6.RIGHT LATeral leg cluster -Combined with other wound No -Current Size (cm) - Length 0.1 -Current Size (cm) - Width 0.1 -Current Size (cm) - Depth 0.1 -Total Square Cm 0.01 -Date of Last Picture (Recall this 07/22/25 field) -Photo Taken Yes -Undermining/Tunneling No -Circular Undermining No -Exudate Amt Medium -Exudate Type Serosanguineous -Wound Margin Distinct, Outline Attached -Granulation Amt Medium (34-66%) -Granulation Quality Despard,Red -Structure Exposed None/Limited to Skin Breakdown -Texture (Regina-wound Skin Appearance) Assessed -Moisture (Regina-wound Skin Appearance) Assessed,Dry/ Scaly -Color (Regina-wound Skin Appearance) Assessed -Temperature (Regina-wound Skin No Abnormality Appearance) (Pt Warm) -Ulcer Cleansing Soap and Water -Foul Odor after Cleansing No -Anesthetic Used 5% Lidocaine Gel #1 R Med Cluster -Combined with other wound No -Current Size (cm) - Length 0.1 -Current Size (cm) - Width 0.1 -Current Size (cm) - Depth 0.1 -Total Square Cm 0.01 -Date of Last Picture (Recall this 07/22/25 field) -Photo Taken Yes -Circular Undermining No -Exudate Amt Small -Wound Margin Distinct, Outline Attached -Granulation Quality Despard,Red -Structure Exposed None/Limited to Skin Breakdown -Texture (Regina-wound Skin Appearance) Assessed -Moisture (Regina-wound Skin Appearance) Assessed -Color (Regina-wound Skin Appearance) Assessed -Temperature (Regina-wound Skin No Abnormality Appearance) (Pt Warm) -Ulcer Cleansing Not Cleansed -Foul Odor after Cleansing No -Anesthetic Used 5% Lidocaine Gel 3-LEFT LATERAL LEG -Combined with other wound No -Current Size (cm) - Length 1.8 0.1 -Current Size (cm) - Width 1.9 0.1 -Current Size (cm) - Depth 0.1 0.1 -Total Square Cm 3.42 0.01 -Date of Last Picture (Recall this 07/22/25 field) -Photo Taken Yes -Undermining/Tunneling No -Circular Undermining No -Exudate Amt Small -Exudate Type Serosanguineous -Wound Margin Distinct, Outline Attached -Granulation Amt Medium (34-66%) -Granulation Quality Despard,Red -Slough/Fibrin No -Structure Exposed None/Limited to Skin Breakdown -Texture (Regina-wound Skin Appearance) Assessed -Moisture (Regina-wound Skin Appearance) Assessed,Dry/ Scaly -Color (Regina-wound Skin Appearance) Assessed -Temperature (Regina-wound Skin No Abnormality Appearance) (Pt Warm) -Ulcer Cleansing Soap and Water -Foul Odor after Cleansing No -Anesthetic Used 5% Lidocaine Gel #2 L. Med cluster -Combined with other wound No -Current Size (cm) - Length 1.8 2 -Current Size (cm) - Width 1.9 1 -Current Size (cm) - Depth 0.1 0.1 -Total Square Cm 3.42 2 -Date of Last Picture (Recall this 07/22/25 field) -Photo Taken Yes -Undermining/Tunneling No -Circular Undermining No -Exudate Amt Small -Exudate Type Serosanguineous -Wound Margin Distinct, Outline Attached -Granulation Amt Medium (34-66%) Large (67-100%) -Granulation Quality Despard,Red Red -Structure Exposed None/Limited to Skin Breakdown -Texture (Regina-wound Skin Appearance) Assessed -Moisture (Regina-wound Skin Appearance) Assessed -Color (Regina-wound Skin Appearance) Assessed, Erythema -Temperature (Regina-wound Skin No Abnormality Appearance) (Pt Warm) -Ulcer Cleansing Soap and Water -Foul Odor after Cleansing No -Anesthetic Used 5% Lidocaine Gel Point of measurement (cm from the medial 31 instep) Point of Measurement (cm from the medial 19 instep) Point of measurement (cm from the medial 35 instep) Point of Measurement (cm from the medial 19.4 instep) WC - Nurse 2 - General Ulcer CM Notes Start: 07/22/25 10:55 Freq: Status: Active Protocol: Activity Type Activity Date Activity User E-sign Co-sign Detail Recorded Client Recorded Date Recorded By Document 07/22/25 11:29 [id number] 07/22/25 11:38 Document 07/29/25 11:40 [id number] 07/29/25 11:51 07/22/25 07/29/25 11:29 11:40 Wound Center Nurse 2 6.RIGHT LATeral leg cluster -Correct Patient Yes -Correct Side, Site, Position No -Correct Procedure No -Procedure Performed No -Tissue Removed Subcutaneous -Post Debridement (cm) - Length 0 -Post Debridement (cm) - Width 0 -Post Debridement (cm) - Depth 0 -Total Square (Post) (cm) 0 -Area of Debridement (cm) - Length 0 -Area of Debridement (cm) - Width 0 -Total Square (Area) (cm) 0 -Wound/Ulcer Outcome Healed- Epithelialized #1 R Med Cluster -Correct Patient Yes -Correct Side, Site, Position No -Correct Procedure No -Procedure Performed No -Post Debridement (cm) - Length 0 -Post Debridement (cm) - Width 0 -Post Debridement (cm) - Depth 0 -Total Square (Post) (cm) 0 -Area of Debridement (cm) - Length 0 -Area of Debridement (cm) - Width 0 -Total Square (Area) (cm) 0 -Wound/Ulcer Outcome Healed- Epithelialized 3-LEFT LATERAL LEG -Time 11:35 11:40 -Correct Patient Yes Yes -Correct Side, Site, Position Yes Yes -Correct Procedure Yes Yes -Procedure Performed Yes Yes -Type of Procedure Debridement Debridement -Clinical Debridement Subcutaneous Subcutaneous -Tissue Removed Subcutaneous Subcutaneous -Post Debridement (cm) - Length 0.5 0.4 -Post Debridement (cm) - Width 0.3 0.2 -Post Debridement (cm) - Depth 0.1 0.1 -Total Square (Post) (cm) 0.15 0.08 -Area of Debridement (cm) - Length 0.5 0.4 -Area of Debridement (cm) - Width 0.3 0.2 -Total Square (Area) (cm) 0.15 0.08 -Tunneling No No -Undermining/Tunneling No No -Circular Undermining No No -Wound/Ulcer Outcome Not Healed Not Healed -Ulcer Cleansing Rinsed/ Not Cleansed Irrigated with Saline -Foul Odor after Cleansing No No -Bioengineered Tissue No No -Bleeding Controlled with Pressure Pressure -Treatment Response Procedure Procedure Tolerated Well Tolerated Well -Offloading No No -Debridement - Subq, 1st 20sq cm Yes Yes #2 L. Med cluster -Time 11:35 11:42 -Correct Patient Yes Yes -Correct Side, Site, Position Yes Yes -Correct Procedure Yes Yes -Procedure Performed Yes Yes -Type of Procedure Debridement Debridement -Clinical Debridement Subcutaneous Subcutaneous -Tissue Removed Subcutaneous Subcutaneous -Post Debridement (cm) - Length 3.2 3.0 -Post Debridement (cm) - Width 2.0 2.0 -Post Debridement (cm) - Depth 0.1 0.1 -Total Square (Post) (cm) 6.40 6.00 -Area of Debridement (cm) - Length 3.2 3.0 -Area of Debridement (cm) - Width 2.0 2.0 -Total Square (Area) (cm) 6.40 6.00 -Tunneling No No -Undermining/Tunneling No No -Circular Undermining No No -Wound/Ulcer Outcome Not Healed Not Healed -Ulcer Cleansing Rinsed/ Rinsed/ Irrigated with Irrigated with Saline Saline -Foul Odor after Cleansing No No -Bioengineered Tissue Yes Yes -Type of Bioengineered Tissue Epifix Mesh Epifix Mesh -Expiration Date 01/18/30 01/18/30 -Product Lot Number [id number] -Percent Used 100 100 -Lot number of Saline Used [id number] -Bleeding Controlled with Pressure Pressure -Treatment Response Procedure Procedure Tolerated Well Tolerated Well -Offloading No No -Debridement - Subq, 1st 20sq cm No No -Apply Skin Sub - 1st 25 sq cm - Legs 1 1 -Epifix Mesh Application 1-4 (per sq 11 11 cm) Pain Scale: 0-10 Numeric Is Patient Pain Free? Yes Yes - Nurse 3 - General Ulcer D/C NN Start: 07/22/25 10:55 Freq: Status: Active Protocol: Activity Type Activity Date Activity User E-sign Co-sign Detail Recorded Client Recorded Date Recorded By Document 07/22/25 12:06 [id number] 07/22/25 12:06 Document 07/29/25 11:57 [id number] 07/29/25 12:01 07/22/25 07/29/25 12:06 11:57 Wound Care Center Nurse 3 3-LEFT LATERAL LEG -Ulcer Cleansing Not Cleansed -Foul Odor after Cleansing No -Primary Dressing Covered/Secured with Dry Gauze & Dry Gauze Roll Gauze, Secured with Tape #2 L. Med cluster -Ulcer Cleansing Not Cleansed -Foul Odor after Cleansing No -Primary Dressing Covered/Secured with Dry Gauze & Dry Gauze Roll Gauze, Secured with Tape RLE -Lotion applied to leg before Yes compression wrap -Tubular Bandage Double Layer -Size of Tubigrip Used Size D -Size D ($) 2 LLE -Lotion applied to leg before Yes Yes compression wrap -Multi-Layered Wrap Application Multi-Layer Multi-Layer Comp - Left ($) Comp - Left ($) -Multi-Layer Compression Left (Qty 1 1 applied) Pain Scale: 0-10 Numeric Is Patient Pain Free? Yes Yes WC - Visit Discharge Discharge Condition Stable Stable Ambulatory Status Ambulatory, Cane Walker Transportation Private Auto Private Auto Medication Reconcilliation completed & No provided to patient/care provider Clinical Summary of Care Provided Yes Assessment/Plan Assessment/Plan (1) Non-pressure chronic ulcer of other part of left lower leg with fat layer exposed: CODE(S): L97.822 - Non-pressure chronic ulcer of other part of left lower leg with fat layer exposed PLAN: Patient was examined and evaluated. All findings were discussed with the patient. All questions were answered to the patient's satisfaction. Excisional debridement down to and including subcutaneous tissue of the left lower extremity lateral full-thickness wound done with a number 5 mm dermal curette done without incident. Predebridement measurement was sanguinous sanguinous crust. Postdebridement measurement is 0.4 x 0.2 x 0.1 cm. Excisional debridement down to and including subcutaneous tissue of the left lower extremity medial full-thickness wound done with a number 5 mm dermal curette done without incident. Predebridement measurement was sanguinous crust postdebridement measurement is 3.0 x 2.0 x 0.1 cm. EpiFix 4.0 x 4.5 cm mesh was applied to the left medial full-thickness ulceration with 100% use. 10th application. The graft site was free and clear of any infection. The wound/skin graft substitute was dressed with nonadherent bandage secured in place with Steri-Strips followed by bolster dressing as well as a multilayer compression bandages to the left lower extremity. Double layer Tubigrip was applied to the right lower extremity. Patient will follow-up with Dr. 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
[2025-08-05 14:33] VITALS: BP 156/84; PULSE 75; RESP 18; TEMP 36.6
--- NOTE | 2025-08-05 16:18 | PN.PCM_ITS ---
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 Progress of Wound: Improving full-thickness wound with millimeter skin graft to the left lower extremity and right lower extremity. Subjective Subjective Patient is 85-year-old female presenting to clinic today for evaluation of multiple full-thickness wounds to bilateral lower extremity. She is compliant with leaving her 3M wrap clean dry and intact to the left lower extremity. She has left the Tubigrip in place to the right lower extremity. Treatment improvement to the wound. She has no pain. Denies trauma. Denies constitutional symptoms. No other pedal complaints at this time. Objective Data Objective Data Vital Signs: Vital Signs Temp Pulse Resp BP O2 Del Method 97.9 F 75 18 156/84 H Room Air 08/05/25 14:33 08/05/25 14:33 08/05/25 14:33 08/05/25 14:33 08/05/25 14:33 Oxygen Delivery Method Room Air Lab / Micro Data Micro: Microbiology 04/08/25 15:07 Wound - Leg, Left Gram Stain - Final 04/08/25 15:07 Wound - Leg, Left Wound Culture - Final Morganella morganii sp morgani Acinetobacter baumannii Staphylococcus aureus Streptococcus viridans group 04/08/25 15:07 Wound - Leg, Left Anaerobic Culture - Preliminary Bacteroides sp Gram negative eloina Physical Exam Narrative Vascular: DP and PT pulses palpable. CFT brisk. No erythema or proximal streaking. Skin temperature is warm to warm with no focal increase. Nonpitting edema appreciated bilateral lower extremity. Neurologic: Light touch is intact. Patient does respond to painful stimuli. Dermatologic: The left lower extremity full-thickness wounds are still dressed with skin graft substitute and normal and intact. No concern for infection. Musculoskeletal: No palpatory tenderness appreciated the left lower extremity. No pain with calf compression bilateral. Debridement Note Debridement Note Post-Debridement Measurements and Additional Note: Post-Debridement Measurements/Treatment - Nurse 1 - General Ulcer Assessment Start: 07/22/25 10:55 Freq: Status: Active Protocol: [email or web address] Activity Type Activity Date Activity User E-sign Co-sign Detail Recorded Client Recorded Date Recorded By Document 07/22/25 10:55 [id number] 07/22/25 11:13 TS Document 07/29/25 11:11 CP [id number] 07/29/25 11:36 CP Document 08/05/25 14:33 JM [id number] 08/05/25 15:01 07/22/25 07/29/25 08/05/25 10:55 11:11 14:33 - Today's Visit Information Type of service Follow-up Visit Follow-up Visit Follow-up Visit (Physician/DIRECTOR OF CATERING (Physician/DIRECTOR OF CATERING (Physician/DIRECTOR OF CATERING ) ) ) Arrival Mode Ambulatory,Cane Cane Ambulatory,Cane Accompanied by family Patient Identification Verified (Name & Yes Yes Yes ) Patient Requires Transmission-Based No No No Precautions Safety Precautions Fall Prevention Fall Prevention Vital Signs Temperature (97.8 F-99.1 F) 97.7 F L 98.6 F 97.9 F Temperature Source Temporal Temporal Temporal Pulse Rate (60-100) 66 68 75 Pulse Location Monitor Monitor Monitor Respiratory Rate (12-18) 16 16 18 Respiratory rate source Observation Observation Observation Oxygen Delivery Method Room Air Room Air Blood Pressure (90/60-120/80) 168/59 H 144/69 H 156/84 H Blood Pressure Mean (mm Hg) 95 94 108 Source Monitor Monitor Monitor Position Sitting Sitting Semi-Fowlers Blood Pressure Location Left Arm Left Arm Right Arm History Since Last Visit- (Skip if this is Patient's initial visit) Have you changed medications since your No No No last visit? Any new allergies or adverse reactions No No No Had a fall/change in ADL's that may No No No increase risk of falls Signs or symptoms of abuse and/or No No No neglect since last visit Have you been in the hospital since your No No No last visit? Has dressing in place as prescribed Yes Yes Has compression in place as prescribed Yes Yes Has offloadiing in place as prescribed N/A N/A Experienced any changes in pain level or No No management Left Footwear Regular Shoe Regular Shoe Right Footwear Regular Shoe Regular Shoe Pain Scale: 0-10 Numeric Is Patient Pain Free? Yes Yes Yes - Nurse 1 - General Ulcer Measurement Start: 07/22/25 10:55 Freq: Status: Active Protocol: Activity Type Activity Date Activity User E-sign Co-sign Detail Recorded Client Recorded Date Recorded By Document 07/22/25 10:55 TS [id number] 07/22/25 11:13 TS Document 07/29/25 11:11 CP [id number] 07/29/25 11:36 CP Document 08/05/25 14:33 JM [id number] 08/05/25 15:01 07/22/25 07/29/25 08/05/25 10:55 11:11 14:33 Wound Center Nurse 1 6.RIGHT LATeral leg cluster -Combined with other wound No -Current Size (cm) - Length 0.1 -Current Size (cm) - Width 0.1 -Current Size (cm) - Depth 0.1 -Total Square Cm 0.01 -Date of Last Picture (Recall this 07/22/25 field) -Photo Taken Yes -Undermining/Tunneling No -Circular Undermining No -Exudate Amt Medium -Exudate Type Serosanguineous -Wound Margin Distinct, Outline Attached -Granulation Amt Medium (34-66%) -Granulation Quality Metcalfe,Red -Structure Exposed None/Limited to Skin Breakdown -Texture (Regina-wound Skin Appearance) Assessed -Moisture (Regina-wound Skin Appearance) Assessed,Dry/ Scaly -Color (Regina-wound Skin Appearance) Assessed -Temperature (Regina-wound Skin No Abnormality Appearance) (Pt Warm) -Ulcer Cleansing Soap and Water -Foul Odor after Cleansing No -Anesthetic Used 5% Lidocaine Gel #1 R Med Cluster -Combined with other wound No -Current Size (cm) - Length 0.1 -Current Size (cm) - Width 0.1 -Current Size (cm) - Depth 0.1 -Total Square Cm 0.01 -Date of Last Picture (Recall this 07/22/25 field) -Photo Taken Yes -Circular Undermining No -Exudate Amt Small -Wound Margin Distinct, Outline Attached -Granulation Quality Metcalfe,Red -Structure Exposed None/Limited to Skin Breakdown -Texture (Regina-wound Skin Appearance) Assessed -Moisture (Regina-wound Skin Appearance) Assessed -Color (Regina-wound Skin Appearance) Assessed -Temperature (Regina-wound Skin No Abnormality Appearance) (Pt Warm) -Ulcer Cleansing Not Cleansed -Foul Odor after Cleansing No -Anesthetic Used 5% Lidocaine Gel 3-LEFT LATERAL LEG -Combined with other wound No -Current Size (cm) - Length 1.8 0.1 -Current Size (cm) - Width 1.9 0.1 -Current Size (cm) - Depth 0.1 0.1 -Total Square Cm 3.42 0.01 -Date of Last Picture (Recall this 07/22/25 field) -Photo Taken Yes -Undermining/Tunneling No -Circular Undermining No -Exudate Amt Small Small -Exudate Type Serosanguineous Serosanguineous -Wound Margin Distinct, Outline Attached -Granulation Amt Medium (34-66%) -Granulation Quality Metcalfe,Red -Slough/Fibrin No -Structure Exposed None/Limited to Skin Breakdown -Texture (Regina-wound Skin Appearance) Assessed -Moisture (Regina-wound Skin Appearance) Assessed,Dry/ Scaly -Color (Regina-wound Skin Appearance) Assessed -Temperature (Regina-wound Skin No Abnormality Appearance) (Pt Warm) -Ulcer Cleansing Soap and Water -Foul Odor after Cleansing No -Anesthetic Used 5% Lidocaine Gel -Wound Comment(s) epifix drsg in place #2 L. Med cluster -Combined with other wound No -Current Size (cm) - Length 1.8 2 -Current Size (cm) - Width 1.9 1 -Current Size (cm) - Depth 0.1 0.1 -Total Square Cm 3.42 2 -Date of Last Picture (Recall this 07/22/25 field) -Photo Taken Yes -Undermining/Tunneling No -Circular Undermining No -Exudate Amt Small Small -Exudate Type Serosanguineous Serosanguineous -Wound Margin Distinct, Outline Attached -Granulation Amt Medium (34-66%) Large (67-100%) -Granulation Quality Metcalfe,Red Red -Structure Exposed None/Limited to Skin Breakdown -Texture (Regina-wound Skin Appearance) Assessed -Moisture (Regina-wound Skin Appearance) Assessed -Color (Regina-wound Skin Appearance) Assessed, Erythema -Temperature (Regina-wound Skin No Abnormality Appearance) (Pt Warm) -Ulcer Cleansing Soap and Water -Foul Odor after Cleansing No -Anesthetic Used 5% Lidocaine Gel -Wound Comment(s) epifix drsg in place Point of measurement (cm from the medial 31 instep) Point of Measurement (cm from the medial 19 instep) Left Calf (cm) 26.5 Point of measurement (cm from the medial 35 instep) Left Ankle (cm) 19.5 Point of Measurement (cm from the medial 19.4 instep) WC - Nurse 2 - General Ulcer CM Notes Start: 07/22/25 10:55 Freq: Status: Active Protocol: Activity Type Activity Date Activity User E-sign Co-sign Detail Recorded Client Recorded Date Recorded By Document 07/22/25 11:29 JF [id number] 07/22/25 11:38 JF Document 07/29/25 11:40 GM [id number] 07/29/25 11:51 GM Document 07/31/25 07:30 GM [id number] 07/31/25 07:31 GM Document 08/05/25 15:05 GM(2) [id number] 08/05/25 15:08 GM(2) Edit Result 08/05/25 15:05 GM(2) (1) [id number] 08/05/25 15:13 GM(2) (1) 3-LEFT LATERAL LEG - Ulcer Cleansing => Not Cleansed - Foul Odor after Cleansing => No - Bioengineered Tissue => No - Bleeding Controlled with Pressure => NA #2 L. Med cluster - Tunneling => No - Undermining/Tunneling => No - Circular Undermining => No - Bleeding Controlled with => NA 07/22/25 07/29/25 07/31/25 11:29 11:40 07:30 Wound Center Nurse 2 6.RIGHT LATeral leg cluster -Correct Patient Yes -Correct Side, Site, Position No -Correct Procedure No -Procedure Performed No -Tissue Removed Subcutaneous -Post Debridement (cm) - Length 0 -Post Debridement (cm) - Width 0 -Post Debridement (cm) - Depth 0 -Total Square (Post) (cm) 0 -Area of Debridement (cm) - Length 0 -Area of Debridement (cm) - Width 0 -Total Square (Area) (cm) 0 -Wound/Ulcer Outcome Healed- Epithelialized #1 R Med Cluster -Correct Patient Yes -Correct Side, Site, Position No -Correct Procedure No -Procedure Performed No -Post Debridement (cm) - Length 0 -Post Debridement (cm) - Width 0 -Post Debridement (cm) - Depth 0 -Total Square (Post) (cm) 0 -Area of Debridement (cm) - Length 0 -Area of Debridement (cm) - Width 0 -Total Square (Area) (cm) 0 -Wound/Ulcer Outcome Healed- Epithelialized 3-LEFT LATERAL LEG -Time 11:35 11:40 -Correct Patient Yes Yes -Correct Side, Site, Position Yes Yes -Correct Procedure Yes Yes -Procedure Performed Yes Yes -Type of Procedure Debridement Debridement -Clinical Debridement Subcutaneous Subcutaneous -Tissue Removed Subcutaneous Subcutaneous -Post Debridement (cm) - Length 0.5 0.4 -Post Debridement (cm) - Width 0.3 0.2 -Post Debridement (cm) - Depth 0.1 0.1 -Total Square (Post) (cm) 0.15 0.08 -Area of Debridement (cm) - Length 0.5 0.4 -Area of Debridement (cm) - Width 0.3 0.2 -Total Square (Area) (cm) 0.15 0.08 -Tunneling No No -Undermining/Tunneling No No -Circular Undermining No No -Wound/Ulcer Outcome Not Healed Not Healed -Ulcer Cleansing Rinsed/ Not Cleansed Irrigated with Saline -Foul Odor after Cleansing No No -Bioengineered Tissue No No -Bleeding Controlled with Pressure Pressure -Treatment Response Procedure Procedure Tolerated Well Tolerated Well -Offloading No No -Debridement - Subq, 1st 20sq cm Yes Yes #2 L. Med cluster -Time 11:35 11:42 -Correct Patient Yes Yes -Correct Side, Site, Position Yes Yes -Correct Procedure Yes Yes -Procedure Performed Yes Yes -Type of Procedure Debridement Debridement -Clinical Debridement Subcutaneous Subcutaneous -Tissue Removed Subcutaneous Subcutaneous -Post Debridement (cm) - Length 3.2 3.0 -Post Debridement (cm) - Width 2.0 2.0 -Post Debridement (cm) - Depth 0.1 0.1 -Total Square (Post) (cm) 6.40 6.00 -Area of Debridement (cm) - Length 3.2 3.0 -Area of Debridement (cm) - Width 2.0 2.0 -Total Square (Area) (cm) 6.40 6.00 -Tunneling No No -Undermining/Tunneling No No -Circular Undermining No No -Wound/Ulcer Outcome Not Healed Not Healed -Ulcer Cleansing Rinsed/ Rinsed/ Irrigated with Irrigated with Saline Saline -Foul Odor after Cleansing No No -Bioengineered Tissue Yes Yes -Type of Bioengineered Tissue Epifix Mesh Epifix Mesh -Expiration Date 01/18/30 01/18/30 -Product Lot Number [id number] -Percent Used 100 100 -Lot number of Saline Used [id number] -Bleeding Controlled with Pressure Pressure -Treatment Response Procedure Procedure Tolerated Well Tolerated Well -Offloading No No -Debridement - Subq, 1st 20sq cm No No -Apply Skin Sub - 1st 25 sq cm - Legs 1 1 -Epifix Mesh Application 1-4 (per sq 11 11 cm) Pain Scale: 0-10 Numeric Is Patient Pain Free? Yes Yes Yes 08/05/25 15:05 Wound Center Nurse 2 6.RIGHT LATeral leg cluster -Correct Patient -Correct Side, Site, Position -Correct Procedure -Procedure Performed -Tissue Removed -Post Debridement (cm) - Length -Post Debridement (cm) - Width -Post Debridement (cm) - Depth -Total Square (Post) (cm) -Area of Debridement (cm) - Length -Area of Debridement (cm) - Width -Total Square (Area) (cm) -Wound/Ulcer Outcome #1 R Med Cluster -Correct Patient -Correct Side, Site, Position -Correct Procedure -Procedure Performed -Post Debridement (cm) - Length -Post Debridement (cm) - Width -Post Debridement (cm) - Depth -Total Square (Post) (cm) -Area of Debridement (cm) - Length -Area of Debridement (cm) - Width -Total Square (Area) (cm) -Wound/Ulcer Outcome 3-LEFT LATERAL LEG -Time 15:05 -Correct Patient Yes -Correct Side, Site, Position Yes -Correct Procedure -Procedure Performed No -Type of Procedure -Clinical Debridement -Tissue Removed -Post Debridement (cm) - Length -Post Debridement (cm) - Width -Post Debridement (cm) - Depth -Total Square (Post) (cm) -Area of Debridement (cm) - Length -Area of Debridement (cm) - Width -Total Square (Area) (cm) -Tunneling No -Undermining/Tunneling No -Circular Undermining No -Wound/Ulcer Outcome Not Healed -Ulcer Cleansing Not Cleansed -Foul Odor after Cleansing No -Bioengineered Tissue No -Bleeding Controlled with NA -Treatment Response -Offloading -Debridement - Subq, 1st 20sq cm #2 L. Med cluster -Time 15:06 -Correct Patient Yes -Correct Side, Site, Position Yes -Correct Procedure -Procedure Performed No -Type of Procedure -Clinical Debridement -Tissue Removed -Post Debridement (cm) - Length -Post Debridement (cm) - Width -Post Debridement (cm) - Depth -Total Square (Post) (cm) -Area of Debridement (cm) - Length -Area of Debridement (cm) - Width -Total Square (Area) (cm) -Tunneling No -Undermining/Tunneling No -Circular Undermining No -Wound/Ulcer Outcome Not Healed -Ulcer Cleansing -Foul Odor after Cleansing -Bioengineered Tissue -Type of Bioengineered Tissue -Expiration Date -Product Lot Number -Percent Used -Lot number of Saline Used -Bleeding Controlled with NA -Treatment Response -Offloading -Debridement - Subq, 1st 20sq cm -Apply Skin Sub - 1st 25 sq cm - Legs -Epifix Mesh Application 1-4 (per sq cm) Pain Scale: 0-10 Numeric Is Patient Pain Free? Yes WC - Nurse 3 - General Ulcer D/C NN Start: 07/22/25 10:55 Freq: Status: Active Protocol: Activity Type Activity Date Activity User E-sign Co-sign Detail Recorded Client Recorded Date Recorded By Document 07/22/25 12:06 [id number] 07/22/25 12:06 Document 07/29/25 11:57 TS [id number] 07/29/25 12:01 TS Document 08/05/25 15:15 TS [id number] 08/05/25 15:25 TS 07/22/25 07/29/25 08/05/25 12:06 11:57 15:15 Wound Care Center Nurse 3 3-LEFT LATERAL LEG -Ulcer Cleansing Not Cleansed -Foul Odor after Cleansing No -Other Dressing abd -Primary Dressing Covered/Secured with Dry Gauze & Dry Gauze Roll Gauze, Secured with Tape #2 L. Med cluster -Ulcer Cleansing Not Cleansed -Foul Odor after Cleansing No -Primary Dressing Covered/Secured with Dry Gauze & Dry Gauze Roll Gauze, Secured with Tape RLE -Lotion applied to leg before Yes compression wrap -Tubular Bandage Double Layer Single Layer -Size of Tubigrip Used Size D Size D -Size D ($) 2 1 LLE -Lotion applied to leg before Yes Yes Yes compression wrap -Multi-Layered Wrap Application Multi-Layer Multi-Layer Multi-Layer Comp - Left ($) Comp - Left ($) Comp - Left ($) -Multi-Layer Compression Left (Qty 1 1 1 applied) Pain Scale: 0-10 Numeric Is Patient Pain Free? Yes Yes Yes WC - Visit Discharge Discharge Condition Stable Stable Stable Ambulatory Status Ambulatory, Cane Cane Walker Transportation Private Auto Private Auto Private Auto Medication Reconcilliation completed & No Yes provided to patient/care provider Clinical Summary of Care Provided Yes Yes Assessment/Plan Assessment/Plan (1) Non-pressure chronic ulcer of other part of left lower leg with fat layer exposed: CODE(S): L97.822 - Non-pressure chronic ulcer of other part of left lower leg with fat layer exposed PLAN: Patient was examined and evaluated. All findings were discussed with the patient. All questions were answered to the patient's satisfaction. After exam the skin substitutes are still intact. They will continue to remain intact until follow-up. The area was dressed with dry sterile dressing and 3M multilayer compression bandage was donned to left lower extremity. Right lower extremity was dressed with Tubigrip. Patient continue to rest and elevate as discussed. Patient will follow-up with Dr. De Souza in 1 week (2) Other specified peripheral vascular diseases: CODE(S): I73.89 - Other specified peripheral vascular diseases
[2025-08-12 09:27] VITALS: BP 169/95; PULSE 79; RESP 16; TEMP 35.7
--- NOTE | 2025-08-12 10:04 | PCM.WC.PN ---
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 Progress of Wound: Improving full-thickness wound with millimeter skin graft to the left lower extremity and right lower extremity. Subjective Subjective Patient is a 85-year-old female presented clinic today for follow-up evaluation of full-thickness wound with amnion skin graft substitute to left lower extremity. She has been compliant with leaving her multilayer compression bandage clean dry and intact to left lower extremity. She is using Tubigrip compression to the right lower extremity. She denies any pain. Denies trauma. Denies constitutional symptoms. No other pedal complaints at this time. Objective Data Objective Data Vital Signs: Vital Signs Temp Pulse Resp BP O2 Del Method 96.3 F L 79 16 169/95 H Room Air 08/12/25 09:27 08/12/25 09:27 08/12/25 09:27 08/12/25 09:27 08/12/25 09:27 Oxygen Delivery Method Room Air Lab / Micro Data Micro: Microbiology 04/08/25 15:07 Wound - Leg, Left Gram Stain - Final 04/08/25 15:07 Wound - Leg, Left Wound Culture - Final Morganella morganii sp morgani Acinetobacter baumannii Staphylococcus aureus Streptococcus viridans group 04/08/25 15:07 Wound - Leg, Left Anaerobic Culture - Preliminary Bacteroides sp Gram negative eloina Physical Exam Narrative Vascular: DP and PT pulses palpable. CFT brisk. No erythema or proximal streaking. Skin temperature is warm to warm with no focal increase. Nonpitting edema appreciated bilateral lower extremity. Neurologic: Light touch is intact. Patient does respond to painful stimuli. Dermatologic: Right lower extremity full-thickness wounds are now healed. Evidence of full-thickness wound to anterior left leg measuring 0.8 x 1.0 x 0.1 cm. Wound base is granular. No drainage. No sign of infection. Left lateral full-thickness wound is now healed. Excisional debridement down to and including subcutaneous tissue with a number 3 mm dermal curette to the left anterior full-thickness wound done without incident. Predebridement measurement was sanguinous crust. Postdebridement measurement is 0.8 x 1.0 x 0.1 cm. Musculoskeletal: No palpatory tenderness appreciated the left lower extremity. No pain with calf compression bilateral. Debridement Note Debridement Note Debridement Free Text: Excisional debridement down to and including subcutaneous tissue with a number 3 mm dermal curette to the left anterior full-thickness wound done without incident. Predebridement measurement was sanguinous crust. Postdebridement measurement is 0.8 x 1.0 x 0.1 cm. Post-Debridement Measurements and Additional Note: Post-Debridement Measurements/Treatment - Nurse 1 - General Ulcer Assessment Start: 07/22/25 10:55 Freq: Status: Active Protocol: MADYSON Activity Type Activity Date Activity User E-sign Co-sign Detail Recorded Client Recorded Date Recorded By Document 07/22/25 10:55 TS [id number] 07/22/25 11:13 TS Document 07/29/25 11:11 CP [id number] 07/29/25 11:36 CP Document 08/05/25 14:33 [id number] 08/05/25 15:01 JM Document 08/12/25 09:27 TS [id number] 08/12/25 09:31 TS 07/22/25 07/29/25 08/05/25 10:55 11:11 14:33 - Today's Visit Information Type of service Follow-up Visit Follow-up Visit Follow-up Visit (Physician/APPLICATION SYSTEMS ARCHITECT (Physician/APPLICATION SYSTEMS ARCHITECT (Physician/APPLICATION SYSTEMS ARCHITECT ) ) ) Arrival Mode Ambulatory,Cane Cane Ambulatory,Cane Accompanied by family Patient Identification Verified (Name & Yes Yes Yes ) Patient Requires Transmission-Based No No No Precautions Safety Precautions Fall Prevention Fall Prevention Vital Signs Temperature (97.8 F-99.1 F) 97.7 F L 98.6 F 97.9 F Temperature Source Temporal Temporal Temporal Pulse Rate (60-100) 66 68 75 Pulse Location Monitor Monitor Monitor Respiratory Rate (12-18) 16 16 18 Respiratory rate source Observation Observation Observation Oxygen Delivery Method Room Air Room Air Blood Pressure (90/60-120/80) 168/59 H 144/69 H 156/84 H Blood Pressure Mean (mm Hg) 95 94 108 Source Monitor Monitor Monitor Position Sitting Sitting Semi-Fowlers Blood Pressure Location Left Arm Left Arm Right Arm History Since Last Visit- (Skip if this is Patient's initial visit) Have you changed medications since your No No No last visit? Any new allergies or adverse reactions No No No Had a fall/change in ADL's that may No No No increase risk of falls Signs or symptoms of abuse and/or No No No neglect since last visit Have you been in the hospital since your No No No last visit? Has dressing in place as prescribed Yes Yes Has compression in place as prescribed Yes Yes Has offloadiing in place as prescribed N/A N/A Experienced any changes in pain level or No No management Left Footwear Regular Shoe Regular Shoe Right Footwear Regular Shoe Regular Shoe Pain Scale: 0-10 Numeric Is Patient Pain Free? Yes Yes Yes 08/12/25 09:27 - Today's Visit Information Type of service Follow-up Visit (Physician/APPLICATION SYSTEMS ARCHITECT ) Arrival Mode Cane Accompanied by Patient Identification Verified (Name & Yes ) Patient Requires Transmission-Based No Precautions Safety Precautions Vital Signs Temperature (97.8 F-99.1 F) 96.3 F L Temperature Source Temporal Pulse Rate (60-100) 79 Pulse Location Monitor Respiratory Rate (12-18) 16 Respiratory rate source Observation Oxygen Delivery Method Room Air Blood Pressure (90/60-120/80) 169/95 H Blood Pressure Mean (mm Hg) 119 Source Doppler/Manual Position Blood Pressure Location Left Arm History Since Last Visit- (Skip if this is Patient's initial visit) Have you changed medications since your No last visit? Any new allergies or adverse reactions No Had a fall/change in ADL's that may No increase risk of falls Signs or symptoms of abuse and/or No neglect since last visit Have you been in the hospital since your No last visit? Has dressing in place as prescribed Yes Has compression in place as prescribed Yes Has offloadiing in place as prescribed N/A Experienced any changes in pain level or No management Left Footwear Regular Shoe Right Footwear Regular Shoe Pain Scale: 0-10 Numeric Is Patient Pain Free? Yes - Nurse 1 - General Ulcer Measurement Start: 07/22/25 10:55 Freq: Status: Active Protocol: Activity Type Activity Date Activity User E-sign Co-sign Detail Recorded Client Recorded Date Recorded By Document 07/22/25 10:55 TS [id number] 07/22/25 11:13 TS Document 07/29/25 11:11 CP [id number] 07/29/25 11:36 CP Document 08/05/25 14:33 JM [id number] 08/05/25 15:01 JM Document 08/12/25 09:27 TS [id number] 08/12/25 09:31 TS 07/22/25 07/29/25 08/05/25 10:55 11:11 14:33 Wound Center Nurse 1 6.RIGHT LATeral leg cluster -Combined with other wound No -Current Size (cm) - Length 0.1 -Current Size (cm) - Width 0.1 -Current Size (cm) - Depth 0.1 -Total Square Cm 0.01 -Date of Last Picture (Recall this 07/22/25 field) -Photo Taken Yes -Undermining/Tunneling No -Circular Undermining No -Exudate Amt Medium -Exudate Type Serosanguineous -Wound Margin Distinct, Outline Attached -Granulation Amt Medium (34-66%) -Granulation Quality [place],Red -Structure Exposed None/Limited to Skin Breakdown -Texture (Regina-wound Skin Appearance) Assessed -Moisture (Regina-wound Skin Appearance) Assessed,Dry/ Scaly -Color (Regina-wound Skin Appearance) Assessed -Temperature (Regina-wound Skin No Abnormality Appearance) (Pt Warm) -Ulcer Cleansing Soap and Water -Foul Odor after Cleansing No -Anesthetic Used 5% Lidocaine Gel 3-LEFT LATERAL LEG -Combined with other wound No -Current Size (cm) - Length 1.8 0.1 -Current Size (cm) - Width 1.9 0.1 -Current Size (cm) - Depth 0.1 0.1 -Total Square Cm 3.42 0.01 -Date of Last Picture (Recall this 07/22/25 field) -Photo Taken Yes -Undermining/Tunneling No -Circular Undermining No -Exudate Amt Small Small -Exudate Type Serosanguineous Serosanguineous -Wound Margin Distinct, Outline Attached -Granulation Amt Medium (34-66%) -Granulation Quality [place],Red -Slough/Fibrin No -Structure Exposed None/Limited to Skin Breakdown -Texture (Regina-wound Skin Appearance) Assessed -Moisture (Regina-wound Skin Appearance) Assessed,Dry/ Scaly -Color (Regina-wound Skin Appearance) Assessed -Temperature (Regina-wound Skin No Abnormality Appearance) (Pt Warm) -Ulcer Cleansing Soap and Water -Foul Odor after Cleansing No -Anesthetic Used 5% Lidocaine Gel -Wound Comment(s) epifix drsg in place #1 R Med Cluster -Combined with other wound No -Current Size (cm) - Length 0.1 -Current Size (cm) - Width 0.1 -Current Size (cm) - Depth 0.1 -Total Square Cm 0.01 -Date of Last Picture (Recall this 07/22/25 field) -Photo Taken Yes -Circular Undermining No -Exudate Amt Small -Wound Margin Distinct, Outline Attached -Granulation Quality [place],Red -Structure Exposed None/Limited to Skin Breakdown -Texture (Regina-wound Skin Appearance) Assessed -Moisture (Regina-wound Skin Appearance) Assessed -Color (Regina-wound Skin Appearance) Assessed -Temperature (Regina-wound Skin No Abnormality Appearance) (Pt Warm) -Ulcer Cleansing Not Cleansed -Foul Odor after Cleansing No -Anesthetic Used 5% Lidocaine Gel #2 L. Med cluster -Combined with other wound No -Current Size (cm) - Length 1.8 2 -Current Size (cm) - Width 1.9 1 -Current Size (cm) - Depth 0.1 0.1 -Total Square Cm 3.42 2 -Date of Last Picture (Recall this 07/22/25 field) -Photo Taken Yes -Undermining/Tunneling No -Circular Undermining No -Exudate Amt Small Small -Exudate Type Serosanguineous Serosanguineous -Wound Margin Distinct, Outline Attached -Granulation Amt Medium (34-66%) Large (67-100%) -Granulation Quality [place],Red Red -Slough/Fibrin -Necrosis Amt -Structure Exposed None/Limited to Skin Breakdown -Texture (Regina-wound Skin Appearance) Assessed -Moisture (Regina-wound Skin Appearance) Assessed -Color (Regina-wound Skin Appearance) Assessed, Erythema -Temperature (Regina-wound Skin No Abnormality Appearance) (Pt Warm) -Tenderness on Palpation (Regina-wound Skin Appearance) -Ulcer Cleansing Soap and Water -Foul Odor after Cleansing No -Anesthetic Used 5% Lidocaine Gel -Wound Comment(s) epifix drsg in place Point of measurement (cm from the medial 31 instep) Point of Measurement (cm from the medial 19 instep) Left Calf (cm) 26.5 Point of measurement (cm from the medial 35 instep) Left Ankle (cm) 19.5 Point of Measurement (cm from the medial 19.4 instep) 08/12/25 09:27 Wound Center Nurse 1 6.RIGHT LATeral leg cluster -Combined with other wound -Current Size (cm) - Length -Current Size (cm) - Width -Current Size (cm) - Depth -Total Square Cm -Date of Last Picture (Recall this field) -Photo Taken -Undermining/Tunneling -Circular Undermining -Exudate Amt -Exudate Type -Wound Margin -Granulation Amt -Granulation Quality -Structure Exposed -Texture (Regina-wound Skin Appearance) -Moisture (Regina-wound Skin Appearance) -Color (Regina-wound Skin Appearance) -Temperature (Regina-wound Skin Appearance) -Ulcer Cleansing -Foul Odor after Cleansing -Anesthetic Used 3-LEFT LATERAL LEG -Combined with other wound No -Current Size (cm) - Length 1 -Current Size (cm) - Width 0.5 -Current Size (cm) - Depth 0.1 -Total Square Cm 0.5 -Date of Last Picture (Recall this 08/12/25 field) -Photo Taken Yes -Undermining/Tunneling No -Circular Undermining No -Exudate Amt Small -Exudate Type Serosanguineous -Wound Margin Distinct, Outline Attached -Granulation Amt Large (67-100%) -Granulation Quality [place],Red -Slough/Fibrin No -Structure Exposed None/Limited to Skin Breakdown -Texture (Regina-wound Skin Appearance) Assessed -Moisture (Regina-wound Skin Appearance) -Color (Regina-wound Skin Appearance) Assessed -Temperature (Regina-wound Skin No Abnormality Appearance) (Pt Warm) -Ulcer Cleansing Soap and Water -Foul Odor after Cleansing No -Anesthetic Used 5% Lidocaine Gel -Wound Comment(s) #1 R Med Cluster -Combined with other wound -Current Size (cm) - Length -Current Size (cm) - Width -Current Size (cm) - Depth -Total Square Cm -Date of Last Picture (Recall this field) -Photo Taken -Circular Undermining -Exudate Amt -Wound Margin -Granulation Quality -Structure Exposed -Texture (Regina-wound Skin Appearance) -Moisture (Regina-wound Skin Appearance) -Color (Regina-wound Skin Appearance) -Temperature (Regina-wound Skin Appearance) -Ulcer Cleansing -Foul Odor after Cleansing -Anesthetic Used #2 L. Med cluster -Combined with other wound No -Current Size (cm) - Length 2 -Current Size (cm) - Width 1.5 -Current Size (cm) - Depth 0.1 -Total Square Cm 3.0 -Date of Last Picture (Recall this 08/12/25 field) -Photo Taken Yes -Undermining/Tunneling No -Circular Undermining No -Exudate Amt Small -Exudate Type Serosanguineous -Wound Margin Distinct, Outline Attached -Granulation Amt Large (67-100%) -Granulation Quality [place],Red -Slough/Fibrin No -Necrosis Amt None Present (0 %) -Structure Exposed None/Limited to Skin Breakdown -Texture (Regina-wound Skin Appearance) Assessed -Moisture (Regina-wound Skin Appearance) Assessed -Color (Regina-wound Skin Appearance) Assessed -Temperature (Regina-wound Skin No Abnormality Appearance) (Pt Warm) -Tenderness on Palpation (Regina-wound No Skin Appearance) -Ulcer Cleansing -Foul Odor after Cleansing No -Anesthetic Used 5% Lidocaine Gel -Wound Comment(s) Point of measurement (cm from the medial 32 instep) Point of Measurement (cm from the medial 21.5 instep) Left Calf (cm) Point of measurement (cm from the medial 30 instep) Left Ankle (cm) Point of Measurement (cm from the medial 19.5 instep) WC - Nurse 2 - General Ulcer CM Notes Start: 07/22/25 10:55 Freq: Status: Active Protocol: Activity Type Activity Date Activity User E-sign Co-sign Detail Recorded Client Recorded Date Recorded By Document 07/22/25 11:29 JF [id number] 07/22/25 11:38 Document 07/29/25 11:40 GM [id number] 07/29/25 11:51 GM Document 07/31/25 07:30 GM [id number] 07/31/25 07:31 GM Document 08/05/25 15:05 GM(2) [id number] 08/05/25 15:08 GM(2) Edit Result 08/05/25 15:05 GM(2) (1) [id number] 08/05/25 15:13 GM(2) Document 08/12/25 09:38 DS [id number] 08/12/25 09:42 DS (1) 3-LEFT LATERAL LEG - Ulcer Cleansing => Not Cleansed - Foul Odor after Cleansing => No - Bioengineered Tissue => No - Bleeding Controlled with Pressure => NA #2 L. Med cluster - Tunneling => No - Undermining/Tunneling => No - Circular Undermining => No - Bleeding Controlled with => NA 07/22/25 07/29/25 07/31/25 11:29 11:40 07:30 Wound Center Nurse 2 6.RIGHT LATeral leg cluster -Correct Patient Yes -Correct Side, Site, Position No -Correct Procedure No -Procedure Performed No -Tissue Removed Subcutaneous -Post Debridement (cm) - Length 0 -Post Debridement (cm) - Width 0 -Post Debridement (cm) - Depth 0 -Total Square (Post) (cm) 0 -Area of Debridement (cm) - Length 0 -Area of Debridement (cm) - Width 0 -Total Square (Area) (cm) 0 -Wound/Ulcer Outcome Healed- Epithelialized 3-LEFT LATERAL LEG -Time 11:35 11:40 -Correct Patient Yes Yes -Correct Side, Site, Position Yes Yes -Correct Procedure Yes Yes -Procedure Performed Yes Yes -Type of Procedure Debridement Debridement -Clinical Debridement Subcutaneous Subcutaneous -Tissue Removed Subcutaneous Subcutaneous -Post Debridement (cm) - Length 0.5 0.4 -Post Debridement (cm) - Width 0.3 0.2 -Post Debridement (cm) - Depth 0.1 0.1 -Total Square (Post) (cm) 0.15 0.08 -Area of Debridement (cm) - Length 0.5 0.4 -Area of Debridement (cm) - Width 0.3 0.2 -Total Square (Area) (cm) 0.15 0.08 -Tunneling No No -Undermining/Tunneling No No -Circular Undermining No No -Wound/Ulcer Outcome Not Healed Not Healed -Ulcer Cleansing Rinsed/ Not Cleansed Irrigated with Saline -Foul Odor after Cleansing No No -Bioengineered Tissue No No -Bleeding Controlled with Pressure Pressure -Treatment Response Procedure Procedure Tolerated Well Tolerated Well -Offloading No No -Debridement - Subq, 1st 20sq cm Yes Yes #1 R Med Cluster -Correct Patient Yes -Correct Side, Site, Position No -Correct Procedure No -Procedure Performed No -Post Debridement (cm) - Length 0 -Post Debridement (cm) - Width 0 -Post Debridement (cm) - Depth 0 -Total Square (Post) (cm) 0 -Area of Debridement (cm) - Length 0 -Area of Debridement (cm) - Width 0 -Total Square (Area) (cm) 0 -Wound/Ulcer Outcome Healed- Epithelialized #2 L. Med cluster -Time 11:35 11:42 -Correct Patient Yes Yes -Correct Side, Site, Position Yes Yes -Correct Procedure Yes Yes -Procedure Performed Yes Yes -Type of Procedure Debridement Debridement -Clinical Debridement Subcutaneous Subcutaneous -Tissue Removed Subcutaneous Subcutaneous -Post Debridement (cm) - Length 3.2 3.0 -Post Debridement (cm) - Width 2.0 2.0 -Post Debridement (cm) - Depth 0.1 0.1 -Total Square (Post) (cm) 6.40 6.00 -Area of Debridement (cm) - Length 3.2 3.0 -Area of Debridement (cm) - Width 2.0 2.0 -Total Square (Area) (cm) 6.40 6.00 -Tunneling No No -Undermining/Tunneling No No -Circular Undermining No No -Wound/Ulcer Outcome Not Healed Not Healed -Ulcer Cleansing Rinsed/ Rinsed/ Irrigated with Irrigated with Saline Saline -Foul Odor after Cleansing No No -Bioengineered Tissue Yes Yes -Type of Bioengineered Tissue Epifix Mesh Epifix Mesh -Expiration Date 01/18/30 01/18/30 -Product Lot Number [id number] -Percent Used 100 100 -Lot number of Saline Used [id number] -Bleeding Controlled with Pressure Pressure -Treatment Response Procedure Procedure Tolerated Well Tolerated Well -Offloading No No -Debridement - Subq, 1st 20sq cm No No -Apply Skin Sub - 1st 25 sq cm - Legs 1 1 -Epifix Mesh Application 1-4 (per sq 11 11 cm) Pain Scale: 0-10 Numeric Is Patient Pain Free? Yes Yes Yes 08/05/25 08/12/25 15:05 09:38 Wound Center Nurse 2 6.RIGHT LATeral leg cluster -Correct Patient -Correct Side, Site, Position -Correct Procedure -Procedure Performed -Tissue Removed -Post Debridement (cm) - Length -Post Debridement (cm) - Width -Post Debridement (cm) - Depth -Total Square (Post) (cm) -Area of Debridement (cm) - Length -Area of Debridement (cm) - Width -Total Square (Area) (cm) -Wound/Ulcer Outcome 3-LEFT LATERAL LEG -Time 15:05 09:38 -Correct Patient Yes -Correct Side, Site, Position Yes -Correct Procedure -Procedure Performed No -Type of Procedure -Clinical Debridement -Tissue Removed -Post Debridement (cm) - Length 0 -Post Debridement (cm) - Width 0 -Post Debridement (cm) - Depth 0 -Total Square (Post) (cm) 0 -Area of Debridement (cm) - Length 0 -Area of Debridement (cm) - Width 0 -Total Square (Area) (cm) 0 -Tunneling No No -Undermining/Tunneling No No -Circular Undermining No -Wound/Ulcer Outcome Not Healed Healed- Epithelialized -Ulcer Cleansing Not Cleansed -Foul Odor after Cleansing No -Bioengineered Tissue No No -Bleeding Controlled with NA -Treatment Response -Offloading -Debridement - Subq, 20sq cm #1 R Med Cluster -Correct Patient -Correct Side, Site, Position -Correct Procedure -Procedure Performed -Post Debridement (cm) - Length -Post Debridement (cm) - Width -Post Debridement (cm) - Depth -Total Square (Post) (cm) -Area of Debridement (cm) - Length -Area of Debridement (cm) - Width -Total Square (Area) (cm) -Wound/Ulcer Outcome #2 L. Med cluster -Time 15:06 09:38 -Correct Patient Yes Yes -Correct Side, Site, Position Yes Yes -Correct Procedure Yes -Procedure Performed No Yes -Type of Procedure Debridement -Clinical Debridement Subcutaneous -Tissue Removed Subcutaneous -Post Debridement (cm) - Length 0.8 -Post Debridement (cm) - Width 1.0 -Post Debridement (cm) - Depth 0.1 -Total Square (Post) (cm) 0.80 -Area of Debridement (cm) - Length 0.8 -Area of Debridement (cm) - Width 1.0 -Total Square (Area) (cm) 0.80 -Tunneling No No -Undermining/Tunneling No No -Circular Undermining No No -Wound/Ulcer Outcome Not Healed Not Healed -Ulcer Cleansing Rinsed/ Irrigated with Saline -Foul Odor after Cleansing No -Bioengineered Tissue No -Type of Bioengineered Tissue -Expiration Date -Product Lot Number -Percent Used -Lot number of Saline Used -Bleeding Controlled with NA Pressure -Treatment Response Procedure Tolerated Well -Offloading -Debridement - Subq, 20sq cm Yes -Apply Skin Sub - 1st 25 sq cm - Legs -Epifix Mesh Application 1-4 (per sq cm) Pain Scale: 0-10 Numeric Is Patient Pain Free? Yes Yes - Nurse 3 - General Ulcer D/C NN Start: 07/22/25 10:55 Freq: Status: Active Protocol: Activity Type Activity Date Activity User E-sign Co-sign Detail Recorded Client Recorded Date Recorded By Document 07/22/25 12:06 GM [id number] 07/22/25 12:06 GM Document 07/29/25 11:57 TS [id number] 07/29/25 12:01 TS Document 08/05/25 15:15 TS [id number] 08/05/25 15:25 TS Document 08/12/25 09:47 TS [id number] 08/12/25 09:49 TS 07/22/25 07/29/25 08/05/25 12:06 11:57 15:15 Wound Care Center Nurse 3 3-LEFT LATERAL LEG -Ulcer Cleansing Not Cleansed -Foul Odor after Cleansing No -Other Dressing abd -Primary Dressing Covered/Secured with Dry Gauze & Dry Gauze Roll Gauze, Secured with Tape #2 L. Med cluster -Ulcer Cleansing Not Cleansed -Foul Odor after Cleansing No -Primary Dressing Applied -Primary Dressing Covered/Secured with Dry Gauze & Dry Gauze Roll Gauze, Secured with Tape -Promogran Nadine Matter RLE -Lotion applied to leg before Yes compression wrap -Multi-Layered Wrap Application -Tubular Bandage Double Layer Single Layer -Size of Tubigrip Used Size D Size D -Size D ($) 2 1 -Multi-Layer Compression Right (Qty applied) LLE -Lotion applied to leg before Yes Yes Yes compression wrap -Multi-Layered Wrap Application Multi-Layer Multi-Layer Multi-Layer Comp - Left ($) Comp - Left ($) Comp - Left ($) -Multi-Layer Compression Left (Qty 1 1 1 applied) Pain Scale: 0-10 Numeric Is Patient Pain Free? Yes Yes Yes WC - Visit Discharge Discharge Condition Stable Stable Stable Ambulatory Status Ambulatory, Cane Cane Walker Transportation Private Auto Private Auto Private Auto Accompanied by Medication Reconcilliation completed & No Yes provided to patient/care provider Clinical Summary of Care Provided Yes Yes 08/12/25 09:47 Wound Care Center Nurse 3 3-LEFT LATERAL LEG -Ulcer Cleansing -Foul Odor after Cleansing -Other Dressing -Primary Dressing Covered/Secured with #2 L. Med cluster -Ulcer Cleansing Rinsed/ Irrigated with Saline -Foul Odor after Cleansing -Primary Dressing Applied Promogran Nadine Matter -Primary Dressing Covered/Secured with Dry Gauze & Roll Gauze, Secured with Tape -Promogran Nadine Matter 1 RLE -Lotion applied to leg before Yes compression wrap -Multi-Layered Wrap Application Multi-Layer Comp - Right ($ ) -Tubular Bandage -Size of Tubigrip Used -Size D ($) -Multi-Layer Compression Right (Qty 1 applied) LLE -Lotion applied to leg before Yes compression wrap -Multi-Layered Wrap Application Multi-Layer Comp - Left ($) -Multi-Layer Compression Left (Qty 1 applied) Pain Scale: 0-10 Numeric Is Patient Pain Free? Yes WC - Visit Discharge Discharge Condition Stable Ambulatory Status Cane Transportation Private Auto Accompanied by DAUGHTER Medication Reconcilliation completed & No provided to patient/care provider Clinical Summary of Care Provided Yes Assessment/Plan Assessment/Plan (1) Non-pressure chronic ulcer of other part of left lower leg with fat layer exposed: CODE(S): L97.822 - Non-pressure chronic ulcer of other part of left lower leg with fat layer exposed PLAN: Patient was examined and evaluated. All findings were discussed with the patient. All questions were answered to the patient's satisfaction. Excisional debridement down to and including subcutaneous tissue with a number 3 mm dermal curette to the left anterior full-thickness wound done without incident. Predebridement measurement was sanguinous crust. Postdebridement measurement is 0.8 x 1.0 x 0.1 cm. The left lower extremity was wiped clean and patted dry. Nadine was applied to the full-thickness wound followed by dry sterile dressing and a 3M multilayer compression wrap was donned to the bilateral lower extremity. Patient leave the wraps clean dry and intact. Patient will follow-up with Dr. De Souza in 1 week (2) Other specified peripheral vascular diseases: CODE(S): I73.89 - Other specified peripheral vascular diseases
--- NOTE | 2025-08-18 12:54 | WC ---
PHOTO: LEFT MED LEG CLUSTER 08/12/25
--- NOTE | 2025-08-18 12:56 | WC ---
PHOTO: LEFT LAT LEG 08/12/25
[2025-08-19 13:47] VITALS: BP 159/86; PULSE 80; RESP 17; TEMP 36.2
--- NOTE | 2025-08-19 14:19 | PN.PCM_ITS ---
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 Progress of Wound: Improving full-thickness wound with millimeter skin graft to the left lower extremity and right lower extremity. Subjective Subjective Patient is 85-year-old female presented clinic today follow-up evaluation of full-thickness wound to the left lateral leg. Patient has been compliant with her multilayer compression bandages and left them clean dry and intact. She admits improvement to the swelling and pain to the bilateral lower extremity. She is grateful for her care. She denies trauma. Denies constitutional symptoms. No other pedal complaints at this time Objective Data Objective Data Vital Signs: Vital Signs Temp Pulse Resp BP O2 Del Method 97.1 F L 80 17 159/86 H Room Air 08/19/25 13:47 08/19/25 13:47 08/19/25 13:47 08/19/25 13:47 08/19/25 13:47 Oxygen Delivery Method Room Air Lab / Micro Data Micro: Microbiology 04/08/25 15:07 Wound - Leg, Left Gram Stain - Final 04/08/25 15:07 Wound - Leg, Left Wound Culture - Final Morganella morganii sp morgani Acinetobacter baumannii Staphylococcus aureus Streptococcus viridans group 04/08/25 15:07 Wound - Leg, Left Anaerobic Culture - Preliminary Bacteroides sp Gram negative eloina Physical Exam Narrative Vascular: DP and PT pulses palpable. CFT brisk. No erythema or proximal streaking. Skin temperature is warm to warm with no focal increase. Nonpitting edema appreciated bilateral lower extremity. Neurologic: Light touch is intact. Patient does respond to painful stimuli. Dermatologic: Right lower extremity full-thickness wounds are now healed. Evidence of full- thickness wound to anterior left leg measuring 0.5 x 1.9 x 0.1 cm wound base is granular. No drainage. No sign of infection. Left lateral full-thickness wound is now healed. Excisional debridement down to and including subcutaneous tissue with a number 3 mm dermal curette to the left anterior full-thickness wound done without incident. Predebridement measurement was 0.4 x 1.5 x 0.1 cm.Postdebridement measurement is 0.5 x 1.9 x 0.1 cm. Musculoskeletal: No palpatory tenderness appreciated the left lower extremity. No pain with calf compression bilateral. Debridement Note Debridement Note Debridement Free Text: Excisional debridement down to and including subcutaneous tissue with a number 3 mm dermal curette to the left anterior full-thickness wound done without incident. Predebridement measurement was 0.4 x 1.5 x 0.1 cm.Postdebridement measurement is 0.5 x 1.9 x 0.1 cm Post-Debridement Measurements and Additional Note: Post-Debridement Measurements/Treatment - Nurse 1 - General Ulcer Assessment Start: 07/22/25 10:55 Freq: Status: Active Protocol: [email or web address].[email or web address] Activity Type Activity Date Activity User E-sign Co-sign Detail Recorded Client Recorded Date Recorded By Document 07/22/25 10:55 TS [id number] 07/22/25 11:13 TS Document 07/29/25 11:11 CP [id number] 07/29/25 11:36 CP Document 08/05/25 14:33 [id number] 08/05/25 15:01 JM Document 08/12/25 09:27 TS [id number] 08/12/25 09:31 TS Document 08/19/25 13:47 TS [id number] 08/19/25 13:54 TS 07/22/25 07/29/25 08/05/25 10:55 11:11 14:33 - Today's Visit Information Type of service Follow-up Visit Follow-up Visit Follow-up Visit (Physician/RETORT ENGINEER (Physician/RETORT ENGINEER (Physician/RETORT ENGINEER ) ) ) Arrival Mode Ambulatory,Cane Cane Ambulatory,Cane Accompanied by family Patient Identification Verified (Name & Yes Yes Yes ) Patient Requires Transmission-Based No No No Precautions Safety Precautions Fall Prevention Fall Prevention Vital Signs Temperature (97.8 F-99.1 F) 97.7 F L 98.6 F 97.9 F Temperature Source Temporal Temporal Temporal Pulse Rate (60-100) 66 68 75 Pulse Location Monitor Monitor Monitor Respiratory Rate (12-18) 16 16 18 Respiratory rate source Observation Observation Observation Oxygen Delivery Method Room Air Room Air Blood Pressure (90/60-120/80) 168/59 H 144/69 H 156/84 H Blood Pressure Mean (mm Hg) 95 94 108 Source Monitor Monitor Monitor Position Sitting Sitting Semi-Fowlers Blood Pressure Location Left Arm Left Arm Right Arm History Since Last Visit- (Skip if this is Patient's initial visit) Have you changed medications since your No No No last visit? Any new allergies or adverse reactions No No No Had a fall/change in ADL's that may No No No increase risk of falls Signs or symptoms of abuse and/or No No No neglect since last visit Have you been in the hospital since your No No No last visit? Has dressing in place as prescribed Yes Yes Has compression in place as prescribed Yes Yes Has offloadiing in place as prescribed N/A N/A Experienced any changes in pain level or No No management Left Footwear Regular Shoe Regular Shoe Right Footwear Regular Shoe Regular Shoe Pain Scale: 0-10 Numeric Is Patient Pain Free? Yes Yes Yes 08/12/25 08/19/25 09:27 13:47 WC - Today's Visit Information Type of service Follow-up Visit Follow-up Visit (Physician/RETORT ENGINEER (Physician/RETORT ENGINEER ) ) Arrival Mode Cane Ambulatory,Cane Accompanied by Patient Identification Verified (Name & Yes Yes ) Patient Requires Transmission-Based No No Precautions Safety Precautions Fall Prevention Vital Signs Temperature (97.8 F-99.1 F) 96.3 F L 97.1 F L Temperature Source Temporal Temporal Pulse Rate (60-100) 79 80 Pulse Location Monitor Monitor Respiratory Rate (12-18) 16 17 Respiratory rate source Observation Observation Oxygen Delivery Method Room Air Room Air Blood Pressure (90/60-120/80) 169/95 H 159/86 H Blood Pressure Mean (mm Hg) 119 110 Source Doppler/Manual Monitor Position Sitting Blood Pressure Location Left Arm Left Arm History Since Last Visit- (Skip if this is Patient's initial visit) Have you changed medications since your No No last visit? Any new allergies or adverse reactions No No Had a fall/change in ADL's that may No No increase risk of falls Signs or symptoms of abuse and/or No No neglect since last visit Have you been in the hospital since your No No last visit? Has dressing in place as prescribed Yes Yes Has compression in place as prescribed Yes Yes Has offloadiing in place as prescribed N/A N/A Experienced any changes in pain level or No No management Left Footwear Regular Shoe Regular Shoe Right Footwear Regular Shoe Regular Shoe Pain Scale: 0-10 Numeric Is Patient Pain Free? Yes Yes - Nurse 1 - General Ulcer Measurement Start: 07/22/25 10:55 Freq: Status: Active Protocol: Activity Type Activity Date Activity User E-sign Co-sign Detail Recorded Client Recorded Date Recorded By Document 07/22/25 10:55 TS [id number] 07/22/25 11:13 TS Document 07/29/25 11:11 CP [id number] 07/29/25 11:36 CP Document 08/05/25 14:33 [id number] 08/05/25 15:01 Document 08/12/25 09:27 TS [id number] 08/12/25 09:31 TS Document 08/19/25 13:47 TS [id number] 08/19/25 13:54 TS 07/22/25 07/29/25 08/05/25 10:55 11:11 14:33 Wound Center Nurse 1 6.RIGHT LATeral leg cluster -Combined with other wound No -Current Size (cm) - Length 0.1 -Current Size (cm) - Width 0.1 -Current Size (cm) - Depth 0.1 -Total Square Cm 0.01 -Date of Last Picture (Recall this 07/22/25 field) -Photo Taken Yes -Undermining/Tunneling No -Circular Undermining No -Exudate Amt Medium -Exudate Type Serosanguineous -Wound Margin Distinct, Outline Attached -Granulation Amt Medium (34-66%) -Granulation Quality [place],Red -Structure Exposed None/Limited to Skin Breakdown -Texture (Regina-wound Skin Appearance) Assessed -Moisture (Regina-wound Skin Appearance) Assessed,Dry/ Scaly -Color (Regina-wound Skin Appearance) Assessed -Temperature (Regina-wound Skin No Abnormality Appearance) (Pt Warm) -Ulcer Cleansing Soap and Water -Foul Odor after Cleansing No -Anesthetic Used 5% Lidocaine Gel 3-LEFT LATERAL LEG -Combined with other wound No -Current Size (cm) - Length 1.8 0.1 -Current Size (cm) - Width 1.9 0.1 -Current Size (cm) - Depth 0.1 0.1 -Total Square Cm 3.42 0.01 -Date of Last Picture (Recall this 07/22/25 field) -Photo Taken Yes -Undermining/Tunneling No -Circular Undermining No -Exudate Amt Small Small -Exudate Type Serosanguineous Serosanguineous -Wound Margin Distinct, Outline Attached -Granulation Amt Medium (34-66%) -Granulation Quality [place],Red -Slough/Fibrin No -Structure Exposed None/Limited to Skin Breakdown -Texture (Regina-wound Skin Appearance) Assessed -Moisture (Regina-wound Skin Appearance) Assessed,Dry/ Scaly -Color (Regina-wound Skin Appearance) Assessed -Temperature (Regina-wound Skin No Abnormality Appearance) (Pt Warm) -Ulcer Cleansing Soap and Water -Foul Odor after Cleansing No -Anesthetic Used 5% Lidocaine Gel -Wound Comment(s) epifix drsg in place #1 R Med Cluster -Combined with other wound No -Current Size (cm) - Length 0.1 -Current Size (cm) - Width 0.1 -Current Size (cm) - Depth 0.1 -Total Square Cm 0.01 -Date of Last Picture (Recall this 07/22/25 field) -Photo Taken Yes -Circular Undermining No -Exudate Amt Small -Wound Margin Distinct, Outline Attached -Granulation Quality [place],Red -Structure Exposed None/Limited to Skin Breakdown -Texture (Regina-wound Skin Appearance) Assessed -Moisture (Regina-wound Skin Appearance) Assessed -Color (Regina-wound Skin Appearance) Assessed -Temperature (Regina-wound Skin No Abnormality Appearance) (Pt Warm) -Ulcer Cleansing Not Cleansed -Foul Odor after Cleansing No -Anesthetic Used 5% Lidocaine Gel #2 L. Med cluster -Combined with other wound No -Current Size (cm) - Length 1.8 2 -Current Size (cm) - Width 1.9 1 -Current Size (cm) - Depth 0.1 0.1 -Total Square Cm 3.42 2 -Date of Last Picture (Recall this 07/22/25 field) -Photo Taken Yes -Undermining/Tunneling No -Circular Undermining No -Exudate Amt Small Small -Exudate Type Serosanguineous Serosanguineous -Wound Margin Distinct, Outline Attached -Granulation Amt Medium (34-66%) Large (67-100%) -Granulation Quality [place],Red Red -Slough/Fibrin -Necrosis Amt -Necrotic Tissue Type -Structure Exposed None/Limited to Skin Breakdown -Texture (Regina-wound Skin Appearance) Assessed -Moisture (Regina-wound Skin Appearance) Assessed -Color (Regina-wound Skin Appearance) Assessed, Erythema -Temperature (Regina-wound Skin No Abnormality Appearance) (Pt Warm) -Tenderness on Palpation (Regina-wound Skin Appearance) -Ulcer Cleansing Soap and Water -Foul Odor after Cleansing No -Anesthetic Used 5% Lidocaine Gel -Wound Comment(s) epifix drsg in place Point of measurement (cm from the medial 31 instep) Point of Measurement (cm from the medial 19 instep) Left Calf (cm) 26.5 Point of measurement (cm from the medial 35 instep) Left Ankle (cm) 19.5 Point of Measurement (cm from the medial 19.4 instep) 08/12/25 08/19/25 09:27 13:47 Wound Center Nurse 1 6.RIGHT LATeral leg cluster -Combined with other wound -Current Size (cm) - Length -Current Size (cm) - Width -Current Size (cm) - Depth -Total Square Cm -Date of Last Picture (Recall this field) -Photo Taken -Undermining/Tunneling -Circular Undermining -Exudate Amt -Exudate Type -Wound Margin -Granulation Amt -Granulation Quality -Structure Exposed -Texture (Regina-wound Skin Appearance) -Moisture (Regina-wound Skin Appearance) -Color (Regina-wound Skin Appearance) -Temperature (Regina-wound Skin Appearance) -Ulcer Cleansing -Foul Odor after Cleansing -Anesthetic Used 3-LEFT LATERAL LEG -Combined with other wound No -Current Size (cm) - Length 1 -Current Size (cm) - Width 0.5 -Current Size (cm) - Depth 0.1 -Total Square Cm 0.5 -Date of Last Picture (Recall this 08/12/25 field) -Photo Taken Yes -Undermining/Tunneling No -Circular Undermining No -Exudate Amt Small -Exudate Type Serosanguineous -Wound Margin Distinct, Outline Attached -Granulation Amt Large (67-100%) -Granulation Quality [place],Red -Slough/Fibrin No -Structure Exposed None/Limited to Skin Breakdown -Texture (Regina-wound Skin Appearance) Assessed -Moisture (Regina-wound Skin Appearance) -Color (Regina-wound Skin Appearance) Assessed -Temperature (Regina-wound Skin No Abnormality Appearance) (Pt Warm) -Ulcer Cleansing Soap and Water -Foul Odor after Cleansing No -Anesthetic Used 5% Lidocaine Gel -Wound Comment(s) #1 R Med Cluster -Combined with other wound -Current Size (cm) - Length -Current Size (cm) - Width -Current Size (cm) - Depth -Total Square Cm -Date of Last Picture (Recall this field) -Photo Taken -Circular Undermining -Exudate Amt -Wound Margin -Granulation Quality -Structure Exposed -Texture (Regina-wound Skin Appearance) -Moisture (Regina-wound Skin Appearance) -Color (Regina-wound Skin Appearance) -Temperature (Regina-wound Skin Appearance) -Ulcer Cleansing -Foul Odor after Cleansing -Anesthetic Used #2 L. Med cluster -Combined with other wound No -Current Size (cm) - Length 2 1.7 -Current Size (cm) - Width 1.5 2 -Current Size (cm) - Depth 0.1 0.1 -Total Square Cm 3.0 3.4 -Date of Last Picture (Recall this 08/12/25 08/19/25 field) -Photo Taken Yes Yes -Undermining/Tunneling No No -Circular Undermining No No -Exudate Amt Small Small -Exudate Type Serosanguineous Serosanguineous -Wound Margin Distinct, Distinct, Outline Outline Attached Attached -Granulation Amt Large (67-100%) Medium (34-66%) -Granulation Quality [place],Red [place],Red -Slough/Fibrin No Yes -Necrosis Amt None Present (0 Small (1-33%) %) -Necrotic Tissue Type Adherent Slough -Structure Exposed None/Limited to Muscle Skin Breakdown -Texture (Regina-wound Skin Appearance) Assessed Assessed -Moisture (Regina-wound Skin Appearance) Assessed Assessed -Color (Regina-wound Skin Appearance) Assessed Assessed -Temperature (Regina-wound Skin No Abnormality No Abnormality Appearance) (Pt Warm) (Pt Warm) -Tenderness on Palpation (Regina-wound No Skin Appearance) -Ulcer Cleansing Soap and Water -Foul Odor after Cleansing No No -Anesthetic Used 5% Lidocaine 5% Lidocaine Gel Gel -Wound Comment(s) Point of measurement (cm from the medial 32 29.5 instep) Point of Measurement (cm from the medial 21.5 19.5 instep) Left Calf (cm) Point of measurement (cm from the medial 30 28 instep) Left Ankle (cm) Point of Measurement (cm from the medial 19.5 19 instep) WC - Nurse 2 - General Ulcer CM Notes Start: 07/22/25 10:55 Freq: Status: Active Protocol: Activity Type Activity Date Activity User E-sign Co-sign Detail Recorded Client Recorded Date Recorded By Document 07/22/25 11:29 JF [id number] 07/22/25 11:38 Document 07/29/25 11:40 GM [id number] 07/29/25 11:51 GM Document 07/31/25 07:30 GM [id number] 07/31/25 07:31 GM Document 08/05/25 15:05 GM(2) [id number] 08/05/25 15:08 GM(2) Edit Result 08/05/25 15:05 GM(2) (1) [id number] 08/05/25 15:13 GM(2) Document 08/12/25 09:38 DS [id number] 08/12/25 09:42 DS Document 08/19/25 14:02 DS [id number] 08/19/25 14:03 DS (1) 3-LEFT LATERAL LEG - Ulcer Cleansing => Not Cleansed - Foul Odor after Cleansing => No - Bioengineered Tissue => No - Bleeding Controlled with Pressure => NA #2 L. Med cluster - Tunneling => No - Undermining/Tunneling => No - Circular Undermining => No - Bleeding Controlled with => NA 07/22/25 07/29/25 07/31/25 11:29 11:40 07:30 Wound Center Nurse 2 6.RIGHT LATeral leg cluster -Correct Patient Yes -Correct Side, Site, Position No -Correct Procedure No -Procedure Performed No -Tissue Removed Subcutaneous -Post Debridement (cm) - Length 0 -Post Debridement (cm) - Width 0 -Post Debridement (cm) - Depth 0 -Total Square (Post) (cm) 0 -Area of Debridement (cm) - Length 0 -Area of Debridement (cm) - Width 0 -Total Square (Area) (cm) 0 -Wound/Ulcer Outcome Healed- Epithelialized 3-LEFT LATERAL LEG -Time 11:35 11:40 -Correct Patient Yes Yes -Correct Side, Site, Position Yes Yes -Correct Procedure Yes Yes -Procedure Performed Yes Yes -Type of Procedure Debridement Debridement -Clinical Debridement Subcutaneous Subcutaneous -Tissue Removed Subcutaneous Subcutaneous -Post Debridement (cm) - Length 0.5 0.4 -Post Debridement (cm) - Width 0.3 0.2 -Post Debridement (cm) - Depth 0.1 0.1 -Total Square (Post) (cm) 0.15 0.08 -Area of Debridement (cm) - Length 0.5 0.4 -Area of Debridement (cm) - Width 0.3 0.2 -Total Square (Area) (cm) 0.15 0.08 -Tunneling No No -Undermining/Tunneling No No -Circular Undermining No No -Wound/Ulcer Outcome Not Healed Not Healed -Ulcer Cleansing Rinsed/ Not Cleansed Irrigated with Saline -Foul Odor after Cleansing No No -Bioengineered Tissue No No -Bleeding Controlled with Pressure Pressure -Treatment Response Procedure Procedure Tolerated Well Tolerated Well -Offloading No No -Debridement - Subq, 1st 20sq cm Yes Yes #1 R Med Cluster -Correct Patient Yes -Correct Side, Site, Position No -Correct Procedure No -Procedure Performed No -Post Debridement (cm) - Length 0 -Post Debridement (cm) - Width 0 -Post Debridement (cm) - Depth 0 -Total Square (Post) (cm) 0 -Area of Debridement (cm) - Length 0 -Area of Debridement (cm) - Width 0 -Total Square (Area) (cm) 0 -Wound/Ulcer Outcome Healed- Epithelialized #2 L. Med cluster -Time 11:35 11:42 -Correct Patient Yes Yes -Correct Side, Site, Position Yes Yes -Correct Procedure Yes Yes -Procedure Performed Yes Yes -Type of Procedure Debridement Debridement -Clinical Debridement Subcutaneous Subcutaneous -Tissue Removed Subcutaneous Subcutaneous -Post Debridement (cm) - Length 3.2 3.0 -Post Debridement (cm) - Width 2.0 2.0 -Post Debridement (cm) - Depth 0.1 0.1 -Total Square (Post) (cm) 6.40 6.00 -Area of Debridement (cm) - Length 3.2 3.0 -Area of Debridement (cm) - Width 2.0 2.0 -Total Square (Area) (cm) 6.40 6.00 -Tunneling No No -Undermining/Tunneling No No -Circular Undermining No No -Wound/Ulcer Outcome Not Healed Not Healed -Ulcer Cleansing Rinsed/ Rinsed/ Irrigated with Irrigated with Saline Saline -Foul Odor after Cleansing No No -Bioengineered Tissue Yes Yes -Type of Bioengineered Tissue Epifix Mesh Epifix Mesh -Expiration Date 01/18/30 01/18/30 -Product Lot Number [id number] -Percent Used 100 100 -Lot number of Saline Used [id number] -Bleeding Controlled with Pressure Pressure -Treatment Response Procedure Procedure Tolerated Well Tolerated Well -Offloading No No -Debridement - Subq, 1st 20sq cm No No -Apply Skin Sub - 1st 25 sq cm - Legs 1 1 -Epifix Mesh Application 1-4 (per sq 11 11 cm) Pain Scale: 0-10 Numeric Is Patient Pain Free? Yes Yes Yes 08/05/25 08/12/25 08/19/25 15:05 09:38 14:02 Wound Center Nurse 2 6.RIGHT LATeral leg cluster -Correct Patient -Correct Side, Site, Position -Correct Procedure -Procedure Performed -Tissue Removed -Post Debridement (cm) - Length -Post Debridement (cm) - Width -Post Debridement (cm) - Depth -Total Square (Post) (cm) -Area of Debridement (cm) - Length -Area of Debridement (cm) - Width -Total Square (Area) (cm) -Wound/Ulcer Outcome 3-LEFT LATERAL LEG -Time 15:05 09:38 -Correct Patient Yes -Correct Side, Site, Position Yes -Correct Procedure -Procedure Performed No -Type of Procedure -Clinical Debridement -Tissue Removed -Post Debridement (cm) - Length 0 -Post Debridement (cm) - Width 0 -Post Debridement (cm) - Depth 0 -Total Square (Post) (cm) 0 -Area of Debridement (cm) - Length 0 -Area of Debridement (cm) - Width 0 -Total Square (Area) (cm) 0 -Tunneling No No -Undermining/Tunneling No No -Circular Undermining No -Wound/Ulcer Outcome Not Healed Healed- Epithelialized -Ulcer Cleansing Not Cleansed -Foul Odor after Cleansing No -Bioengineered Tissue No No -Bleeding Controlled with NA -Treatment Response -Offloading -Debridement - Subq, 1st 20sq cm #1 R Med Cluster -Correct Patient -Correct Side, Site, Position -Correct Procedure -Procedure Performed -Post Debridement (cm) - Length -Post Debridement (cm) - Width -Post Debridement (cm) - Depth -Total Square (Post) (cm) -Area of Debridement (cm) - Length -Area of Debridement (cm) - Width -Total Square (Area) (cm) -Wound/Ulcer Outcome #2 L. Med cluster -Time 15:06 09:38 14:02 -Correct Patient Yes Yes Yes -Correct Side, Site, Position Yes Yes Yes -Correct Procedure Yes Yes -Procedure Performed No Yes Yes -Type of Procedure Debridement Debridement -Clinical Debridement Subcutaneous Subcutaneous -Tissue Removed Subcutaneous Subcutaneous -Post Debridement (cm) - Length 0.8 0.5 -Post Debridement (cm) - Width 1.0 1.9 -Post Debridement (cm) - Depth 0.1 0.1 -Total Square (Post) (cm) 0.80 0.95 -Area of Debridement (cm) - Length 0.8 0.5 -Area of Debridement (cm) - Width 1.0 1.9 -Total Square (Area) (cm) 0.80 0.95 -Tunneling No No No -Undermining/Tunneling No No No -Circular Undermining No No No -Wound/Ulcer Outcome Not Healed Not Healed Not Healed -Ulcer Cleansing Rinsed/ Rinsed/ Irrigated with Irrigated with Saline Saline -Foul Odor after Cleansing No No -Bioengineered Tissue No No -Type of Bioengineered Tissue -Expiration Date -Product Lot Number -Percent Used -Lot number of Saline Used -Bleeding Controlled with NA Pressure Pressure -Treatment Response Procedure Procedure Tolerated Well Tolerated Well -Offloading -Debridement - Subq, 1st 20sq cm Yes Yes -Apply Skin Sub - 1st 25 sq cm - Legs -Epifix Mesh Application 1-4 (per sq cm) Pain Scale: 0-10 Numeric Is Patient Pain Free? Yes Yes Yes WC - Nurse 3 - General Ulcer D/C NN Start: 07/22/25 10:55 Freq: Status: Active Protocol: Activity Type Activity Date Activity User E-sign Co-sign Detail Recorded Client Recorded Date Recorded By Document 07/22/25 12:06 [id number] 07/22/25 12:06 GM Document 07/29/25 11:57 TS [id number] 07/29/25 12:01 TS Document 08/05/25 15:15 TS [id number] 08/05/25 15:25 TS Document 08/12/25 09:47 TS [id number] 08/12/25 09:49 TS 07/22/25 07/29/25 08/05/25 12:06 11:57 15:15 Wound Care Center Nurse 3 3-LEFT LATERAL LEG -Ulcer Cleansing Not Cleansed -Foul Odor after Cleansing No -Other Dressing abd -Primary Dressing Covered/Secured with Dry Gauze & Dry Gauze Roll Gauze, Secured with Tape #2 L. Med cluster -Ulcer Cleansing Not Cleansed -Foul Odor after Cleansing No -Primary Dressing Applied -Primary Dressing Covered/Secured with Dry Gauze & Dry Gauze Roll Gauze, Secured with Tape -Promogran Nadine Matter RLE -Lotion applied to leg before Yes compression wrap -Multi-Layered Wrap Application -Tubular Bandage Double Layer Single Layer -Size of Tubigrip Used Size D Size D -Size D ($) 2 1 -Multi-Layer Compression Right (Qty applied) LLE -Lotion applied to leg before Yes Yes Yes compression wrap -Multi-Layered Wrap Application Multi-Layer Multi-Layer Multi-Layer Comp - Left ($) Comp - Left ($) Comp - Left ($) -Multi-Layer Compression Left (Qty 1 1 1 applied) Pain Scale: 0-10 Numeric Is Patient Pain Free? Yes Yes Yes WC - Visit Discharge Discharge Condition Stable Stable Stable Ambulatory Status Ambulatory, Cane Cane Walker Transportation Private Auto Private Auto Private Auto Accompanied by Medication Reconcilliation completed & No Yes provided to patient/care provider Clinical Summary of Care Provided Yes Yes 08/12/25 09:47 Wound Care Center Nurse 3 3-LEFT LATERAL LEG -Ulcer Cleansing -Foul Odor after Cleansing -Other Dressing -Primary Dressing Covered/Secured with #2 L. Med cluster -Ulcer Cleansing Rinsed/ Irrigated with Saline -Foul Odor after Cleansing -Primary Dressing Applied Promogran Nadine Matter -Primary Dressing Covered/Secured with Dry Gauze & Roll Gauze, Secured with Tape -Promogran Nadine Matter 1 RLE -Lotion applied to leg before Yes compression wrap -Multi-Layered Wrap Application Multi-Layer Comp - Right ($ ) -Tubular Bandage -Size of Tubigrip Used -Size D ($) -Multi-Layer Compression Right (Qty 1 applied) LLE -Lotion applied to leg before Yes compression wrap -Multi-Layered Wrap Application Multi-Layer Comp - Left ($) -Multi-Layer Compression Left (Qty 1 applied) Pain Scale: 0-10 Numeric Is Patient Pain Free? Yes WC - Visit Discharge Discharge Condition Stable Ambulatory Status Cane Transportation Private Auto Accompanied by DAUGHTER Medication Reconcilliation completed & No provided to patient/care provider Clinical Summary of Care Provided Yes Assessment/Plan Assessment/Plan (1) Non-pressure chronic ulcer of other part of left lower leg with fat layer exposed: CODE(S): L97.822 - Non-pressure chronic ulcer of other part of left lower leg with fat layer exposed PLAN: Patient was examined and evaluated. All findings were discussed with the patient. All questions were answered to the patient's satisfaction. Excisional debridement down to and including subcutaneous tissue with a number 3 mm dermal curette to the left anterior full-thickness wound done without incident. Predebridement measurement was 0.4 x 1.5 x 0.1 cm.Postdebridement measurement is 0.5 x 1.9 x 0.1 cm. The left lower extremity was wiped clean and patted dry. Nadine was applied to the full-thickness wound followed by dry sterile dressing and a 3M multilayer compression wrap was donned to the bilateral lower extremity. Patient leave the wraps clean dry and intact. Patient will follow-up for nursing visit as scheduled date. Patient will follow-up with Dr. De Souza in 2 weeks (2) Other specified peripheral vascular diseases: CODE(S): I73.89 - Other specified peripheral vascular diseases
--- NOTE | 2025-08-21 12:02 | WC ---
PHOTO: LEFT LEG CLUSTER 08/19/25
== END 2025-08-19 23:59 | disposition home or self-care (01) ==
LOC: WC 13:45
PROVIDERS: PCP Family Medicine; Referring Provider Podiatrist Foot & Ankle Surgery; Visit Provider Podiatrist Foot & Ankle Surgery
DX: L97.822 Non-pressure chronic ulcer of other part of left lower leg with fat layer exposed (principal); L97.812 Non-pressure chronic ulcer of other part of right lower leg with fat layer exposed; I73.89 Other specified peripheral vascular diseases
CPT/HCPCS: 11042; 15271; 29581; 99213; Q4186; G0463